=== PATIENT | male | born 1970 | race Caucasian/White ===

== ENCOUNTER 2021-11-12 07:18 | Outpatient (CLI) | payer BC, SELFPAY ==
--- NOTE | 2021-11-12 07:45 | CRLHL7_ITS ---
For Patients: As a result of the Century Cures Act, medical imaging exams and procedure reports are released immediately into your electronic medical record. You may view this report before your referring provider. If you have questions, please contact your health care provider. BILATERAL DIAGNOSTIC MAMMOGRAM WITH COMPUTER-AIDED DETECTION AND TOMOSYNTHESIS RIGHT BREAST ULTRASOUND CLINICAL HISTORY: RIGHT outer chest lump. TECHNIQUE: Diagnostic RIGHT and screening LEFT mammograms with tomosynthesis. These mammographic images have been obtained using full-field digital technique. Computer-aided detection as utilized. Targeted RIGHT breast ultrasound was also performed. COMPARISON FILM: None. BREAST COMPOSITION: The breasts are almost entirely fatty. FINDINGS: BILATERAL retroareolar breast tissue, RIGHT greater than LEFT. A skin marker was placed in the outer RIGHT breast at the 8 to 9 o`clock position. No mass, suspicious microcalcifications, architectural distortion, skin thickening, or other evidence of malignancy. Targeted RIGHT breast ultrasound at the 9 o`clock position at the site of palpable abnormality is unremarkable. There is breast tissue noted with no mass, cyst, or other abnormality. IMPRESSION: 1. BILATERAL retroareolar breast tissue, RIGHT greater than LEFT, consistent with gynecomastia. 2. Targeted RIGHT breast ultrasound at the 9 o`clock position at the site of lump is unremarkable. BI-RADS Category 2: Benign RECOMMENDATION: Recommend clinical follow-up of the lump. If interval change, consider repeat ultrasound. A lay language report of this examination will be provided to the patient. Dru Wilson M.D. Diagnostic/Musculoskeletal Radiologist [email or web address]/Dictated by: Dru Wilson MD @ 11/12/2021 9:02:00 AM (Electronically Signed)
--- NOTE | 2021-11-12 08:15 | CRLHL7_ITS ---
For Patients: As a result of the Cures Act, medical imaging exams and procedure reports are released immediately into your electronic medical record. You may view this report before your referring provider. If you have questions, please contact your health care provider. PLEASE SEE DIGITAL DIAGNOSTIC BILATERAL MAMMOGRAM PERFORMED SAME DAY CRL:[email or web address]/Dictated by: Dru Wilson MD @ 11/12/2021 8:56:00 AM (Electronically Signed)
== END 2021-11-12 07:19 | disposition home or self-care (01) ==
LOC: MAMMO 07:19
PROVIDERS: PCP Family Medicine; Visit Provider Family Medicine
DX: N63.10 Unspecified lump in the right breast, unspecified quadrant (principal)
CPT/HCPCS: 76642; 77066; G0279

== ENCOUNTER 2022-03-02 14:11 | Outpatient (CLI) | payer BC, SELFPAY ==
--- OUTSIDE RECORDS SUMMARY | 2022-03-02 08:30 | XMS_ITS | Encounter Summary ---
:1970 Author Organization [facility] Address [address] [place] [address] Care Team Providers Name Role Phone Elsewhere, Pcp Primary Care Provider Unavailable Encounter Details Date Type Department Care Team Description 01/19/2022 Clinical Communication Pharmacy Prior Auth Fay Feliz [phone] Social History Tobacco Use Types Packs/Day Years Used Date Smoking Tobacco: Never Smokeless Tobacco: Current Chew Alcohol Use Standard Drinks/Week Comments Yes 0 (1 standard drink = 0.6 oz pure alcoho l) Alcohol Habits Answer Date Recorded How often do you have a drink containing alcohol? 2-3 times a week 05/04/2021 How many drinks containing alcohol do you have on a 1 or 2 05/04/2021 typical day when you are drinking? How often do you have six or more drinks on one Less than mo nthly 05/04/2021 occasion? Social Isolation Answer Date Recorded In a typical week, how many times do you More than three shankar es a week 05/04/2021 talk on the phone with family, friends, or neighbors? How often do you get together with friends Once a week 05/04/2021 or relatives? How often do you attend quaker or Never 2021 congregation services? Do you belong to any clubs or No 05/04/2021 organizations such as quaker groups, unions, fraternal or athletic groups, or school groups? How often do you attend meetings of the Never 05/04/2021 clubs or organizations you belong to? Are you now , , , 05/04/2021 , never or living with a partner? Physical Activity Answer Date Recorded On average, how many days per week do you engage in moderate to 1 day 05/04/2021 strenuous exercise (like walking fast, running, jogging, dancing, swimming, biking, or other activities that cause a light or heavy sweat)? On average, how many minutes do you engage in exercise at th is 90 min 05/04/2021 level? Stress Answer Date Recorded Do you feel stress - tense, restless, nervous, or anxious, N ot at all 05/04/2021 or unable to sleep at night because your mind is troubled all the time - these days? Financial Resource Strain Answer Date Recorded How hard is it for you to pay for the very basics like Not h antonina at all 05/04/2021 food, housing, medical care, and heating? Intimate Partner Violence Answer Date Recorded Within the last year, have you been afraid of your partner o r No 05/04/2021 ex-partner? Within the last year, have you been humiliated or emotionall y No 05/04/2021 abused in other ways by your partner or ex-partner? Within the last year, have you been kicked, hit, slapped, or No 05/04/2021 otherwise physically hurt by your partner or ex-partner? Within the last year, have you been raped or forced to have any No 05/04/2021 kind of sexual activity by your partner or ex-partner? Food Insecurity Answer Date Recorded Within the past 12 months, you worried that your food would Never true 05/04/2021 run out before you got money to buy more. Within the past 12 months, the food you bought just didn't N ever true 05/04/2021 last and you didn't have money to get more. Transportation Needs Answer Date Recorded In the past 12 months, has lack of transportation kept you f rom No 05/04/2021 medical appointments or from getting medications? In the past 12 months, has lack of transportation kept you f rom No 05/04/2021 meetings, work, or getting things needed for daily living? Housing Stability Answer Date Recorded In the last 12 months, was there a time when you were not ab le No 05/04/2021 to pay the mortgage or rent on time? In the last 12 months, how many places have you lived? 1 05/04/2021 In the last 12 months, was there a time when you did not hav e a No 05/04/[address] or slept in a correction (including now)? Education Answer Date Recorded What is the highest level of school you have completed or 12 th grade 06/18/2019 the highest degree you have received? 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 [address] [place] [address] [phone] (Wo rk) 04/28/2022 Ancillary Procedure Ophthalmology Joselo Palmer O.D. [address] [place] [address] [phone] (Wo rk) 04/28/2022 Office Visit Ophthalmology Tita Palmer O.D. [address] [place] [address] [phone] (Wo rk) documented as of this encounter Visit Diagnoses Not on filedocumented in this encounter Care Teams White [employer]wall Tire Buffer Relationship Specialty Start Date End Date Elsewhere, Pcp PCP - General Internal Medicine 12/05/21 documented as of this encounter
--- OUTSIDE RECORDS SUMMARY | 2022-03-02 08:30 | XMS_ITS | Encounter Summary ---
:1970 Author Organization [facility] Address [address] [place] [address] Care Team Providers Name Role Phone Elsewhere, Pcp Primary Care Provider Unavailable Encounter Details Date Type Department Care Team Description 01/13/2022 Orders Only Pharmacy Prior Auth Carmelo Cole M.D. [phone] [place] [id number] (Wo rk) Social History Tobacco Use Types Packs/Day Years [...] or relatives? How often do you attend latter-day or Never 2021 faith services? Do you belong to any clubs or No 05/04/2021 organizations such as latter-day groups, unions, fraternal or athletic groups, or [...] place to sleep or slept in a fci (including now)? Education Answer Date Recorded What is the highest level of school you have completed or 12 th grade 06/18/2019 the highest degree you have received? 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 [address] [place] [address] [phone] (Wo rk) 04/28/2022 Ancillary Procedure Ophthalmology Joselo Palmer O.D. [address] [place] [address] [phone] (Wo rk) 04/28/2022 Office Visit Ophthalmology Tita Palmer O.D. [address] [place] [address] [phone] (Wo rk) documented as of this encounter Visit Diagnoses Not on filedocumented in this encounter Care Teams Hot Pipe Gauger Relationship Specialty Start Date End Date Elsewhere, Pcp PCP - General Internal Medicine 12/05/21 documented as of this encounter
--- OUTSIDE RECORDS SUMMARY | 2022-03-02 08:30 | XMS_ITS | Encounter Summary ---
:1970 Author Organization [facility] Address [address] [place] [address] Care Team Providers Name Role Phone Elsewhere, Pcp Primary Care Provider Unavailable Reason for Visit Reason Comments Medication Question Encounter Details Date Type Department Care Team Description 01/16/2022 Clinical Department of Kalee Burton Medication Communication Endocrinology in A, R.N. Question Esther Romero, [address] [facility] [address] [facility] [place], [place] [phone] Social History Tobacco Use Types Packs/Day Years [...] or relatives? How often do you attend pentecostalism or Never 2021 mandaen services? Do you belong to any clubs or No 05/04/2021 organizations such as pentecostalism groups, unions, fraternal or athletic groups, or [...] minutes do you engage in exercise at is 90 min 05/04/2021 level? Stress Answer [...] place to sleep or slept in a alf (including now)? Education Answer Date Recorded What is the highest level of school you have completed or 12 th grade 06/18/2019 the highest degree you have received? 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 - 01/27/2022 2:05 PM CDT Pt did receive medication. Telephone Encounter - Carmelo Diana M.D. - 01/25/2022 2:37 PM CDT Was the patient able to fill the replacement for Lantus insulin? Telephone Encounter - Pau Garduno L.P.N. - 01/16/2022 3:09 PM CDT Called pharmacy,The insulin given to Pt was Glargine-YFG. Which is a biosimilar Drug, so the pharmacy stated that it is not a generic so they were able to give without prior approval . Telephone Encounter - Carmelo Diana M.D. - 01/16/2022 2:46 PM CDT Ok to order. Can you do a verbal order - switch to basaglar. I might not be able to approve it before end of day if pt needs this filled urgently. Telephone Encounter - Pau Garduno L.P.N. - 01/16/2022 2:40 PM CDT Ok to order. Pend generic insulin for Pt ? Telephone Encounter - Kalee Burton R.N. - 01/16/2022 11:41 AM CDT [facility] [phone]. [facility] has been denied by patient insurance.States that his insurance will cover a generic glargine insuline. Wants to know if it is okay to fill the covered medication in the solostar[facility] place. Please advise. documented in this encounter Plan of Treatment Upcoming Encounters Date Type Specialty Care Team Description 04/28/2022 Ancillary Procedure Ophthalmology Softing Joselo Narayanan O.D. [address] [place], [place] [phone] (Odalis rk) 04/28/2022 Ancillary Procedure Ophthalmology Softing Joselo Narayanan O.D. [address] [place], [place] 55 [phone] (Odalis rk) 04/28/2022 Office Visit Ophthalmology Tita Palmer O.D. [address] [place], [place] [phone] (Odalis rk) documented as of this encounter Visit Diagnoses Not on filedocumented in this encounter Care Teams Cinder Crusher Operator Relationship Specialty Start Date End Date Elsewhere, Pcp PCP - General Internal Medicine 12/05/21 documented as of this encounter
--- OUTSIDE RECORDS SUMMARY | 2022-03-02 08:30 | XMS_ITS | Encounter Summary ---
:1970 Author Organization [facility] Address [address] [place] [address] Care Team Providers Name Role Phone Elsewhere, Pcp Primary Care Provider Unavailable Reason for Visit Reason Comments Med Refill Encounter Details Date Type Department Care Team Description 02/06/2022 Refill Division of Nephrology and Harshad, Bernard Coker Jr., Med Refill Hypertension in [facility] [address] [facility] [address] [place] [address] [place] [address] [phone] Social History Tobacco Use Types Packs/Day Years [...] or relatives? How often do you attend mandaen or Never 2021 rastafarian services? Do you belong to any clubs or No 05/04/2021 organizations such as mandaen groups, unions, fraternal or athletic groups, or [...] place to sleep or slept in a retirement (including now)? Education Answer Date Recorded What is the highest level of school you have completed or 12 th grade 06/18/2019 the highest degree you have received? 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 [address] [place] [address] [phone] (Wo rk) 04/28/2022 Ancillary Procedure Ophthalmology Joselo Palmer O.D. [address] [place] [address] [phone] (Wo rk) 04/28/2022 Office Visit Ophthalmology Tita Palmer O.D. [address] [place] [address] [phone] (Wo rk) documented as of this encounter Visit Diagnoses Not on filedocumented in this encounter Care Teams Marine Engine Machinist Apprentice Relationship Specialty Start Date End Date Elsewhere, Pcp PCP - General Internal Medicine 12/05/21 documented as of this encounter
--- OUTSIDE RECORDS SUMMARY | 2022-03-02 08:30 | XMS_ITS | Encounter Summary ---
:1970 Author Organization [facility] Address [address] [place] [address] Care Team Providers Name Role Phone Elsewhere, Pcp Primary Care Provider Unavailable Encounter Details Date Type Department Care Team Description 01/14/2022 Orders Only Pharmacy Prior Auth Carmelo Cole M.D. [phone] [place] [address] (Wo rk) Social History Tobacco Use Types [...] or relatives? How often do you attend mandaeism or Never 2021 zoroastrian services? Do you belong to any clubs or No 05/04/2021 organizations such as mandaeism groups, unions, fraternal or athletic groups, or [...] place to sleep or slept in a nursing home (including now)? Education Answer Date Recorded What is the highest level of school you have completed or 12 th grade 06/18/2019 the highest degree you have received? 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 [address] [place] [address] [phone] (Wo rk) 04/28/2022 Ancillary Procedure Ophthalmology Joselo Palmer O.D. [address] [place] [address] [phone] (Wo rk) 04/28/2022 Office Visit Ophthalmology Tita Palmer O.D. [address] [place] [address] [phone] (Wo rk) documented as of this encounter Visit Diagnoses Not on filedocumented in this encounter Care Teams Head Screen Worker Relationship Specialty Start Date End Date Elsewhere, Pcp PCP - General Internal Medicine 12/05/21 documented as of this encounter
--- OUTSIDE RECORDS SUMMARY | 2022-03-02 08:30 | XMS_ITS | Clinical Summary ---
:1970 Author Organization [facility] Address [address] [place] [address] Care Team Providers Name Role Phone Elsewhere, Pcp Primary Care Provider Unavailable Source Comments Patient records contain information from all sites at [facility]. For routine questions regarding patient records, call [phone] during business hours, M-F 8:00 AM - 5:00 PM Central Time. Record requests for emergency care only can be directed to [phone] at any time.[facility] Allergies Active Allergy Reactions Severity Noted Date Comments Penicillins Rash Medium 07/26/2010 Medications Medication Sig Dispensed Refills Start Date End Date Status aspirin [address] Take 81 mg by 0 Active tablet mouth daily. ACCU-CHEK FASTCLIX 6 03/10/2017 Active misc UltiCare Pen Needle 4 Injection 400 each 3 05/30/2020 Active 31 gauge x 16 daily. needle OneTouch Ultra Blue TEST FOUR TIMES 100 strip 3 09/01/2020 Active Test Strip A DAY DX: stripsIndications: E10.3593, Diabetes Mellitus E10.21, E10.65 Type 1 (HCC) atorvastatin Take 1 tablet 90 tablet 3 05/08/2021 Ac tive (LIPITOR) 40 mg (40 mg total) 3 tablet by mouth daily. chlorthalidone Take 1 tablet 90 tablet 3 05/08/2021 Active (HYGROTON) 50 mg (50 mg total) tablet by mouth daily. HumaLOG KwikPen Take 3 units 15 mL 5 05/08/2021 Active Insulin 100 unit/mL with breakfast, injection 3 units with lunch, 12 units with supper plus sliding scale. TDD 25 units Lantus Solostar Inject 35 Units 15 mL 11 05/08/2021 Active U-100 Insulin 100 under the skin unit/mL (3 mL) daily. 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 amLODIPine TAKE 1 TABLET 90 tablet 3 06/11/2021 Acti ve (NORVASC) 10 mg (10 MG) BY tablet MOUTH DAILY. levothyroxine TAKE 2 TABLETS 170 tablet 3 08/06/2021 Active (SYNTHROID, BY MOUTH DAILY LEVOTHROID) 112 mcg 6 DAYS A WEEK tablet (WEDNESDAY THROUGH WEDNESDAY) AND 1 TABLET 1 DAY A WEEK (WEDNESDAY) losartan (COZAAR) TAKE ONE TABLET 90 tablet 3 09/04/2021 Active 100 mg tablet BY MOUTH (100MG) ONCE DAILY spironolactone TAKE 1 TABLET 90 tablet 0 12/11/2021 Active (ALDACTONE) 100 mg (100 MG TOTAL) tablet BY MOUTH DAILY. carvediloL (COREG) TAKE TWO 120 tablet 4 02/10/2022 Active 25 mg tablet TABLETS BY MOUTH (50MG) TWICE A DAY WITH MEALS FreeStyle Don 14 CHANGE EVERY 14 6 each 3 02/14/2022 Active Day Sensor kit DAYS. USE DIRECTED FOR MONITORING GLUCOSE LEVEL. carvediloL (COREG) Take 2 tablets 180 tablet 3 08/06/202101/18 Discontinued 25 mg tablet (50 mg total) 2 by mouth 2 (two) times a day with meals. flash glucose CHANGE EVERY 14 2 each 2 11/26/2021 Discontinued sensor (FreeStyle DAYS. USE 2 Don 14 Day DIRECTED FOR Sensor) kit MONITORING GLUCOSE LEVEL. Active Problems Problem Noted Date Nicotine Dependence Chewing Tobacco 10/17/2018 Last Assessment & Plan: Formatting of th is note might be different from the original. Not willing to stop at this time. 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 Merritt her later this month. Will let him continue to manage his diabetic care. Denies any current issues. States he is foot exams through endocrinology. Hypothyroidism Primary 03/01/2017 Overview: Levothyroxine Last Assessment & Plan: I am going to recheck TSH on the his follow-up with Dr. Diana as it has been almost a year. Hyperlipidemia 03/01/2017 Overview: Lipitor 40 mg Daily Last Assessment & Plan: Only mild elevation last year. Will rech winnie in 1 year he is on Lipitor. Ten year cardiovascular risk score is 4.3% this was shared with patient. Hypertension And Chronic Kidney Disease Stage 3 2010 Overview: Norvasc Losartan Spirolactone Chlorthalidone Has follow-up with Cardiology in this re moiz before. Last Assessment & Plan: Will increase metoprolol from 25-50. He is going to call me if blood pressures in 2 weeks. He is already maxed out on Norvasc spirolactone chlorthalidone and losartan. Has had renal ultrasound in cardio logy follow-up the past. It if he makes no improvement the next option would be to add Imdur. Resolved Problems Problem Noted Date Resolved Date Proteinuria 10/17/2018 06/20/2019 Counseling Diet 03/01/2017 03/01/2017 Half-Way Use Of Insulin Active 03/01/2017 07/22/19 19 Hypertension 08/27/2016 10/18/2017 Chronic Kidney Disease Stage 3 Glomerular Filtration Rate 30 08/13/2015 06/19/2019 To 59 Last Assessment & Plan: Formatting of th is note might be different from the original. Will check BMP next month with labs for endocrine Hemorrhage Vitreous Left 06/13/2014 07/21/2018 Diabetes Mellitus Type 1 03/03/2004 10/18/2017 Hypercholesterolemia 11/02/2003 10/18/2017 DM1 Retinopathy Proliferative 11/02/2003 07/21/2018 Encounters Date Type Specialty Care Team Description 02/13/2022 Refill Endocrinology Carmelo Diana, Med Refill M.Dequan 02/06/2022 Refill Nephrology and Sutton, Med Refill Hypertension Afshin Coker Jr., D.O. 01/19/2022 Clinical Pharmacy Everardo, Communication Lolita Douglas 01/19/2022 Orders Only Pharmacy Randolph Livingston 01/19/2022 Clinical Pharmacy Fay Feliz Communication L 01/16/2022 Clinical Endocrinology Kalee Burton Medication Communication A, R.N. Question 01/15/2022 Orders Only Pharmacy Leidy Valdes 01/15/2022 Clinical Pharmacy Everardo, RX DENIAL (LANT Communication Lolita MENDEZ 100 U NIT) 01/14/2022 Orders Only Pharmacy Carmelo Diana M.D. 01/13/2022 Orders Only Pharmacy Carmelo Diana M.D. 01/13/2022 Clinical Pharmacy Dorothy Mariee Communication 12/10/2021 Refill Endocrinology Carmelo Diana, Med Refill Anastacio 12/08/2021 Refill Family Medicine Seamus Nelson, Med Refill ASHLEY, C.N.P. 12/04/2021 Clinical Community Internal [facility], Communication Medicine Obi Patrick APRN, C.N.P. from Last 3 Months Immunizations Name Administration Dates Next Due Influenza (IM) Preservative Free 03/02/2008 Influenza, Injectable, Quadrivalent 01/19/2018, 01/27/2017, 01/17/2015 Influenza, Seasonal, Injectable 03/05/2004 Influenza, Unspecified 03/02/2008 PPSV23 06/20/2019, 03/05/2004 SARS-COV-2 (COVID-19) - PFIZER (12 years 07/23/2020, 021 or older) Tdap 07/21/2018 influenza vaccine quad (FLUZONE/FLUARIX) 01/17/2014 (6 months and older)(PF) Family History Medical History Relation Name Comments Diabetes Brother Robson Hernandez Hypertension Mother Karuna Hernandez Amblyopia Neg Hx Blindness Neg Hx Cataracts Neg Hx Glaucoma Neg Hx Macular degeneration Neg Hx Retinal degeneration Neg Hx Retinal detachment Neg Hx Strabismus Neg Hx Vision loss Neg Hx Relation Name Status Comments Brother Robson Hernandez Mother Karuna Hernandez Social History Tobacco Use Types Packs/Day Years Used Date Smoking Tobacco: Never Smokeless Tobacco: Current Chew Tobacco Cessation: Ready to Quit: No; Co unseling Given: No Alcohol Use Standard Drinks/Week Comments Yes 0 [...] or relatives? How often do you attend denominational or Never 2021 zoroastrianism services? 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 Last Filed Vital Signs Vital Sign Reading Time Taken Comments Blood Pressure 144/98 08/08/2021 7:32 AM CDT Pulse 58 08/08/2021 7:30 AM CDT Temperature 36.6 ??C (97.9 ??F) 06/20/2019 2:47 PM BEAMING MACHINE OPERATOR Respiratory Rate 20 07/21/2018 2:25 PM CDT Oxygen Saturation 98% 06/20/2019 2:47 PM BEAMING MACHINE OPERATOR Inhaled Oxygen Concentration - - Weight 87.9 kg (193 lb 12.6 oz) 08/08/2021 7:33 AM CDT Height 173.4 cm (5' 8.27) 08/08/2021 7:33 AM CDT Body Mass Index 29.23 08/08/2021 7:33 AM CDT Plan of Treatment Upcoming Encounters Date Type Specialty Care Team Description 04/28/2022 Ancillary Procedure Ophthalmology SoftJoselo Whyte O.DCourtney [address] [place] [address] [phone] (Wo rk) 04/28/2022 Ancillary Procedure Ophthalmology SoftJoselo Whyte O.DCourtney [address] [place] [address] [phone] (Wo rk) 04/28/2022 Office Visit Ophthalmology Tita Palmer O.Dequan [address] [place] [address] [phone] (Wo rk) Health Maintenance Due Date Last Done Comments CT Colonography 1972 Cologuard 1970 Colonoscopy 1970 Colorectal Cancer Screening 1972 FIT 1972 HIV Screening 1970 Hepatitis B Vaccines (1 of 3 - 1972 3-dose series) Hepatitis C Screening 1972 Tobacco Cessation counseling 1972 Hepatitis A Vaccines (1 of 2 - 1973 Risk 2-dose series) Pneumococcal vaccine (0-64 years) 06/19/2020 06/20/2019, (3 - PCV) Creatinine Level 07/02/2020 07/03/2019, 04/10/2019, 08/12/2018, Additional history exists Potassium Level 07/02/2020 07/03/2019, 04/10/2019, 08/12/2018, Additional history exists Sodium Level 07/02/2020 07/03/2019, 04/10/2019, 08/12/2018, Additional history exists Depression Screening (Annual 04/19/2021 PHQ-2) COVID-19 Vaccine (4 - Booster for 06/12/2021 04/17/2021, , Pfizer series) 06/27/2020 Office Visit for Blood Pressure 08/06/2021 05/08/2021 Check / Re-check Urine Albumin 08/27/2021 08/27/2020, 08/12/2018, 02/19/2017, Additional history exists Hemoglobin A1C 09/14/2021 03/17/2021, 08/27/2020, 08/12/2018, Additional history exists Influenza Vaccine (#1) 2022 04/17/2021, 01/19/2018, 01/27/2017, Additional history exists Thyroid Stimulating Hormone (TSH) 04/28/2022 04/28/2021, , test for thyroid function 07/03/2019, Additional history exists Diabetic Office Visit with Foot 05/08/2022 05/08/2021, 07/2018 Exam Dilated Eye Exam 07/04/2022 07/04/2021, 07/04/2021, 10/17/2019, Additional history exists DTaP,Tdap,and Td Vaccines (2 - Td 07/21/2028 07/21/2018 or Tdap) Insurance Payer Benefit Plan Subscriber ID Effective Dates Phone Address Type / Group [employer] [employer] [place] [id number] 2021-Preseliezer [phone] [address] [address] PPO [facility] t [address] [place] [id number] Care Teams Email Operations Manager Relationship Specialty Start Date End Date Elsewhere, Pcp PCP - General Internal Medicine 12/05/21
--- OUTSIDE RECORDS SUMMARY | 2022-03-02 08:30 | XMS_ITS | Encounter Summary ---
:1970 Author Organization [facility] Address [address] [place] [address] Care Team Providers Name Role Phone Elsewhere, Pcp Primary Care Provider Unavailable Encounter Details Date Type Department Care Team Description 01/13/2022 Clinical Communication Pharmacy Prior Dorothy Mariee [phone] Social History Tobacco Use Types Packs/Day Years [...] or relatives? How often do you attend zoroastrianism or Never 2021 rastafarian services? Do you belong to any clubs or No 05/04/2021 organizations such as zoroastrianism groups, unions, fraternal or athletic groups, or [...] place to sleep or slept in a skilled nursing (including now)? Education Answer Date Recorded What is the highest level of school you have completed or 12 th grade 06/18/2019 the highest degree you have received? 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 [address] [place] [address] [phone] (Wo rk) 04/28/2022 Ancillary Procedure Ophthalmology Joselo Palmer O.D. [address] [place] [address] [phone] (Wo rk) 04/28/2022 Office Visit Ophthalmology Tita Palmer O.D. [address] [place] [address] [phone] (Wo rk) documented as of this encounter Visit Diagnoses Not on filedocumented in this encounter Care Teams Metal Mixer Relationship Specialty Start Date End Date Elsewhere, Pcp PCP - General Internal Medicine 12/05/21 documented as of this encounter
--- OUTSIDE RECORDS SUMMARY | 2022-03-02 08:30 | XMS_ITS | Encounter Summary ---
:1970 Author Organization [facility] Address [address] [place] [address] Care Team Providers Name Role Phone Elsewhere, Pcp Primary Care Provider Unavailable Reason for Visit Reason Comments Med Refill Encounter Details Date Type Department Care Team Description 12/10/2021 Refill Department of Endocrinology in Carmelo Vera M.D. Med Refill [place], [place] [address] [place] [address] [place] [address] [phone] Social History Tobacco Use Types Packs/Day Years [...] or relatives? How often do you attend christian or Never 2021 hinduism services? Do you belong to any clubs or No 05/04/2021 organizations such as christian groups, unions, fraternal or athletic groups, or [...] place to sleep or slept in a care home (including now)? Education Answer Date Recorded What is the highest level of school you have completed or 12 th grade 06/18/2019 the highest degree you have received? 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 [address] [place] [address] [phone] (Wo rk) 04/28/2022 Ancillary Procedure Ophthalmology Joselo Palmer O.D. [address] [place] [address] [phone] (Wo rk) 04/28/2022 Office Visit Ophthalmology Tita Palmer O.D. [address] [place] [address] [phone] (Wo rk) documented as of this encounter Visit Diagnoses Not on filedocumented in this encounter Care Teams Technical Sales Consultant Relationship Specialty Start Date End Date Elsewhere, Pcp PCP - General Internal Medicine 12/05/21 documented as of this encounter
--- OUTSIDE RECORDS SUMMARY | 2022-03-02 08:30 | XMS_ITS | Encounter Summary ---
:1970 Author Organization [facility] Address [address] [place] [address] Care Team Providers Name Role Phone Elsewhere, Pcp Primary Care Provider Unavailable Reason for Visit Reason Comments Med Refill Encounter Details Date Type Department Care Team Description 12/08/2021 Ref[facility] Milka Nelson APRN, C.N.P. Med Refill Medicine, [place] [address] [facility], in [place], [place] [address] [place] [address] [place] [address] [place] [phone] Social History Tobacco Use Types Packs/Day Years [...] or relatives? How often do you attend christianity or Never 2021 yarsanism services? Do you belong to any clubs or No 05/04/2021 organizations such as christianity groups, unions, fraternal or athletic groups, or [...] place to sleep or slept in a group home (including now)? Education Answer Date Recorded What is the highest level of school you have completed or 12 th grade 06/18/2019 the highest degree you have received? 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 documented in this encounter Plan of Treatment Upcoming Encounters Date Type Specialty Care Team Description 04/28/2022 Ancillary Procedure Ophthalmology Joselo Palmer O.D. [address] [place] [address] [phone] (Odalis walton) 04/28/2022 Ancillary Procedure Ophthalmology Joselo Palmer O.D. [address] [place] [address] [phone] (Odalis [place]) 04/28/2022 Office Visit Ophthalmology Tita Palmer O.D. [address] [place] [address] [phone] (Odalis [place]) documented as of this encounter Visit Diagnoses Not on filedocumented in this encounter Care Teams Lath Tier Relationship Specialty Start Date End Date Elsewhere, Pcp PCP - General Internal Medicine 12/05/21 documented as of this encounter
--- OUTSIDE RECORDS SUMMARY | 2022-03-02 08:30 | XMS_ITS | Encounter Summary ---
:1970 Author Organization [facility] Address [address] [place] [address] Care Team Providers Name Role Phone Elsewhere, Pcp Primary Care Provider Unavailable Reason for Visit Reason Comments RX DENIAL LANTUS SOLOSTAR 100 UNIT Encounter Details Date Type Department Care Team Description 01/15/2022 Clinical Communication Pharmacy Prior Auth IJEOMA Mcgee DENIAL (LANTORI Douglas SOLOSTAR 100 UNIT) [phone] Social History Tobacco Use Types Packs/Day Years [...] or relatives? How often do you attend hindu or Never 2021 baptism services? 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 - 01/19/2022 10:12 AM CDT See message dated 01/16/22 Telephone Encounter - Kael Reveles - 01/15/2022 1:51 PM CDT Images from the original note were not included. The patient's health insurer has denied prior authorization for LANTUS SOLOSTAR 100 UNIT. A quick view of the denial reason is in this communication message. To view the denial letter: Go to Snapshot Go to the purple Medications box Click on the blue Prior Authorizations link Under Denied, click on the blue medication link to open and view the attachment. As the prescriber, your options are: Appeal the decision to the insurer directly (see denial letter for how to appeal). Write a new Rx for an alternative medication therapy. Release the Rx to the pharmacy so the patient can pay out of pocket if they desire. To Release Rx: Open this encounter, go to Meds & Orders, click on the medication, and click the blue ???Release Rx?? button. PLEASE NOTE: If the ???Release Rx?? button is not visible, the Rx has already been released to the pharmacy. If you have questions, please reply via QuickNote to Ella SAUL. Thank you, The OPPA Team documented in this encounter Plan of Treatment Upcoming Encounters Date Type Specialty Care Team Description 04/28/2022 Ancillary Procedure Ophthalmology Joselo Palmer O.D. [address] [place], [place] 55 [phone] (Wo rk) 04/28/2022 Ancillary Procedure Ophthalmology Joselo Palmer O.D. [address] [place], [place] 55 [phone] (Wo rk) 04/28/2022 Office Visit Ophthalmology Tita Palmer O.D. [address] [place], [place] 55 [phone] (Wo rk) documented as of this encounter Visit Diagnoses Not on filedocumented in this encounter Care Teams Repairer General Relationship Specialty Start Date End Date Elsewhere, Pcp PCP - General Internal Medicine 12/05/21 documented as of this encounter
--- OUTSIDE RECORDS SUMMARY | 2022-03-02 08:30 | XMS_ITS | Encounter Summary ---
:1970 Author Organization [facility] Address [address] [place] [address] Care Team Providers Name Role Phone Elsewhere, Pcp Primary Care Provider Unavailable Encounter Details Date Type Department Care Team Description 01/15/2022 Orders Only Pharmacy Prior Auth Leidy Mcguire [phone] Social History Tobacco Use Types Packs/Day Years [...] or relatives? How often do you attend scientology or Never 2021 jewish services? 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 [address] [place] [address] [phone] (Wo rk) 04/28/2022 Ancillary Procedure Ophthalmology Joselo Palmer O.D. [address] [place] [address] 55 [phone] (Wo rk) 04/28/2022 Office Visit Ophthalmology Tita Palmer O.D. [address] [place] [address] [phone] (Wo rk) documented as of this encounter Visit Diagnoses Not on filedocumented in this encounter Care Teams Ride Assembly Supervisor Relationship Specialty Start Date End Date Elsewhere, Pcp PCP - General Internal Medicine 12/05/21 documented as of this encounter
--- OUTSIDE RECORDS SUMMARY | 2022-03-02 08:30 | XMS_ITS | Encounter Summary ---
:1970 Author Organization [facility] Address [address] [place] [address] Care Team Providers Name Role Phone Elsewhere, Pcp Primary Care Provider Unavailable Reason for Visit Reason Comments Med Refill Encounter Details Date Type Department Care Team Description 02/13/2022 Refill Department of Endocrinology in Carmelo Vera M.D. Med Refill [place], [place] [address] [place] [address] [place] [address] [phone] Social History Tobacco Use Types Packs/Day Years [...] or relatives? How often do you attend presybeterian or Never 2021 scientology services? Do you belong to any clubs or No 05/04/2021 organizations such as presybeterian groups, unions, fraternal or athletic groups, or [...] place to sleep or slept in a usp (including now)? Education Answer Date Recorded What is the highest level of school you have completed or 12 th grade 06/18/2019 the highest degree you have received? 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 [address] [place] [address] [phone] (Wo rk) 04/28/2022 Ancillary Procedure Ophthalmology Khurraming Joselo Narayanan L, O.D. [address] [place] [address] 55 [phone] (Wo rk) 04/28/2022 Office Visit Ophthalmology Tita Palmer L, O.D. [address] [place] [address] [phone] (Wo rk) documented as of this encounter Visit Diagnoses Not on filedocumented in this encounter Care Teams Rim Roller Setter Relationship Specialty Start Date End Date Elsewhere, Pcp PCP - General Internal Medicine 12/05/21 documented as of this encounter
--- OUTSIDE RECORDS SUMMARY | 2022-03-02 08:30 | XMS_ITS | Encounter Summary ---
:1970 Author Organization [facility] Address [address] [place] [address] Care Team Providers Name Role Phone Elsewhere, Pcp Primary Care Provider Unavailable Encounter Details Date Type Department Care Team Description 01/19/2022 Clinical Communication Pharmacy Prior Lolita Mcgee [phone] Social History Tobacco Use Types Packs/Day Years [...] or relatives? How often do you attend buddhism or Never 2021 islam services? 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 [address] [place] [address] [phone] (Wo rk) 04/28/2022 Ancillary Procedure Ophthalmology Joselo Palmer O.D. [address] [place] [address] [phone] (Wo rk) 04/28/2022 Office Visit Ophthalmology Tita Palmer O.D. [address] [place] [address] [phone] (Wo rk) documented as of this encounter Visit Diagnoses Not on filedocumented in this encounter Care Teams Intern Retail Relationship Specialty Start Date End Date Elsewhere, Pcp PCP - General Internal Medicine 12/05/21 documented as of this encounter
--- OUTSIDE RECORDS SUMMARY | 2022-03-02 08:30 | XMS_ITS | Encounter Summary ---
:1970 Author Organization [facility] Address [address] [place] [address] Care Team Providers Name Role Phone Elsewhere, Pcp Primary Care Provider Unavailable Encounter Details Date Type Department Care Team Description 01/19/2022 Orders Only Pharmacy Prior Auth Randolph Mustafa [phone] Social History Tobacco Use Types Packs/Day Years [...] or relatives? How often do you attend bahai or Never 2021 samaritan services? Do you belong to any clubs or No 05/04/2021 organizations such as bahai groups, unions, fraternal or athletic groups, or [...] place to sleep or slept in a chcf (including now)? Education Answer Date Recorded What is the highest level of school you have completed or 12 th grade 06/18/2019 the highest degree you have received? 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 [address] [place] [address] [phone] (Wo rk) 04/28/2022 Ancillary Procedure Ophthalmology Joselo Palmer O.D. [address] [place] [address] [phone] (Wo rk) 04/28/2022 Office Visit Ophthalmology Tita Palmer O.D. [address] [place] [address] [phone] (Wo rk) documented as of this encounter Visit Diagnoses Not on filedocumented in this encounter Care Teams Patient Care Coordinator Relationship Specialty Start Date End Date Elsewhere, Pcp PCP - General Internal Medicine 12/05/21 documented as of this encounter
--- OUTSIDE RECORDS SUMMARY | 2022-03-02 08:31 | XMS_ITS | Encounter Summary ---
:1970 Author Organization [facility] Address [address] [place] [address] Care Team Providers Name Role Phone Obi Leggett APRN, C.N.P. Primary Care Provider [phone] Encounter Details Date Type Department Care Team Description 07/18/2021 Orders Only Division of Nephrology and Bernard Patricia Hypertension in [place], [facility], D.O. [place] [address] [facility] [address] [place] [phone] (Wo rk) Social History Tobacco Use Types [...] or relatives? How often do you attend mosque or Never 2021 buddhism services? Do you belong to any clubs or No 05/04/2021 organizations such as mosque groups, unions, fraternal or athletic groups, or [...] place to sleep or slept in a intermediate (including now)? Education Answer Date Recorded What is the highest level of school you have completed or 12 th grade 06/18/2019 the highest degree you have received? 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 [address] [place], [place] 55 [phone] (Wo rk) 04/28/2022 Ancillary Procedure Ophthalmology Joselo Palmer O.D. [address] [place], [place] 55 [phone] (Wo rk) 04/28/2022 Office Visit Ophthalmology Tita Palmer O.D. [address] [place], [place] 55 [phone] (Wo rk) documented as of this encounter Visit Diagnoses Not on filedocumented in this encounter Care Teams Delivery Of Shopping News Relationship Specialty Start Date End Date Obi Leggett APRN, C.N.P. PCP - General Family Medicine 06/08/18 12/04/21 [address] [place] [phone] documented as of this encounter
--- OUTSIDE RECORDS SUMMARY | 2022-03-02 08:31 | XMS_ITS | Encounter Summary ---
:[address] [facility] Address [address] [place] [address] Care Team Providers Name Role Phone Obi Leggett APRN, C.N.P. Primary Care Provider [phone] Reason for Visit Reason Comments Med Refill Encounter Details Date Type Department Care Team Description 06/07/2021 Refill Department of Family Medicine, Obi Leggett, Med Refill [facility], in Tony ASHLEY, C.N.P. [place] [address] [place] [address] [place] [address] [place] [address] [phone] Social History Tobacco Use Types Packs/Day Years [...] or relatives? How often do you attend gnosticism or Never 2021 anglican services? 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 [address] [place], [place] 55 [phone] (Wo rk) 04/28/2022 Ancillary Procedure Ophthalmology Joselo Palmer O.Dequan [address] [place], [place] 55 [phone] (Wo rk) 04/28/2022 Office Visit Ophthalmology Tita Palmer O.D. [address] [place], [place] 55 [phone] (Wo rk) documented as of this encounter Visit Diagnoses Not on filedocumented in this encounter Care Teams Emulsion Operator Relationship Specialty Start Date End Date Obi Leggett, LADLE PULLER, C.N.P. PCP - General Family Medicine 06/08/18 12/04/[address] [place] [address] documented as of this encounter
--- OUTSIDE RECORDS SUMMARY | 2022-03-02 08:31 | XMS_ITS | Encounter Summary ---
:1970 Author Organization [facility] Address [address] [place] [address] Care Team Providers Name Role Phone Obi Leggett APRN, C.N.P. Primary Care Provider [phone] Reason for Visit Reason Comments Eye Exam Outpatient (Routine) - Closed Specialty Diagnoses / Procedures Referred By Contact Refer red To Contact Ophthalmology Tita Palmer [facility] [employer] [place] [address] [place] [address] Referral ID Status Reason Start Date Expiration Date Visits Requ ested Visits Authorized [id number] Closed 06/19/2019 06/18/2020 1 1 Encounter Details Date Type Department Care Team Description 07/04/2021 Office Visit Department of Minesh Narayanan, Diabetes Me llitus Type Ophthalmology in Tita Calabrese O.D. 1 With Proliferative [place], [place] [address] [facility] Diabetic Retinopathy [address] [place], [place] [address] [facility] [phone] Bilateral (HCC) (Primary Dx) Social History Tobacco Use Types Packs/Day Years [...] do you attend bahai or Never 2021 hoahaoism services? Do you belong to any clubs or No 05/04/2021 organizations such as bahai groups, unions, fraElectricite du [place] or athletic groups, or school groups? How [...] place to sleep or slept in a custodial (including now)? Education Answer Date Recorded What is the highest level of school you have completed or 12 th grade 06/18/2019 the highest degree you have received? 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 He will get refraction locally. documented in this encounter Plan of Treatment Upcoming Encounters Date Type Specialty Care Team Description 04/28/2022 Ancillary Procedure Ophthalmology Joselo Palmer O.D. [address] [place], [place] 55 [phone] (Wo rk) 04/28/2022 Ancillary Procedure Ophthalmology Joselo Palmer O.D. [address] [place], [place] 55 [phone] (Wo rk) 04/28/2022 Office Visit Ophthalmology Tita Palmer O.D. [address] [place], [place] 55 [phone] (Wo rk) documented as of this encounter Visit Diagnoses Diagnosis Diabetes Mellitus Type 1 With Proliferat ruperto Diabetic Retinopathy Without Macular Edema Hyperglycemic Bilateral (HCC) - Pr imary documented in this encounter Care Teams Electric Tripper Machine Operator Relationship Specialty Start Date End Date Obi Leggett APRN, C.N.P. PCP - General Family Medicine 06/08/18 12/04/[address] [place] [id number] documented as of this encounter
--- OUTSIDE RECORDS SUMMARY | 2022-03-02 08:31 | XMS_ITS | Encounter Summary ---
:1970 Author Organization [facility] Address [address] [place] [address] Care Team Providers Name Role Phone Obi Leggett APRN, C.N.P. Primary Care Provider [phone] Encounter Details Date Type Department Care Team Description 03/17/2021 Orders Only Department of Bhagra, Carmelo, Hypothyroidi sm Primary Endocrinology in M.D. (Primary Dx) [place], [place] [address] [facility] [address] [place] [address] [phone] Social History Tobacco Use Types Packs/Day Years [...] or relatives? How often do you attend taoism or Never 2021 scientologist services? 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 [address] [place], [place] 55 [phone] (Wo rk) documented as of this encounter Visit Diagnoses Diagnosis Hypothyroidism Primary - Primary documented in this encounter Care Teams Jukebox Routeman Relationship Specialty Start Date End Date Obi Leggett, PUBLIC ADDRESS TECHNICIAN, C.N.P. PCP - General Family Medicine 06/08/18 12/04/21 [address] [place] [phone] documented as of this encounter
--- OUTSIDE RECORDS SUMMARY | 2022-03-02 08:31 | XMS_ITS | Encounter Summary ---
:1970 Author Organization [facility] Address [address] [place] [address] Care Team Providers Name Role Phone Oib Leggett APRN, C.N.P. Primary Care Provider [phone] Encounter Details Date Type Department Care Team Description 07/04/2021 Ancillary Procedure Department of Ophthalmology Social History Tobacco Use Types Packs/Day Years [...] or relatives? How often do you attend gnosticist or Never 2021 sabianist services? Do you belong to any clubs or No 05/04/2021 organizations such as gnosticist groups, unions, fraternal or athletic groups, or [...] place to sleep or slept in a mcfp (including now)? Education Answer Date Recorded What is the highest level of school you have completed or 12 th grade 06/18/2019 the highest degree you have received? 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 [address] [place] [address] 55 [phone] (Wo rk) 04/28/2022 Ancillary Procedure Ophthalmology Joselo Palmer O.D. [address] [place] [address] 55 [phone] (Wo rk) 04/28/2022 Office Visit Ophthalmology Tita Palmer O.D. [address] [place] [address] [phone] (Wo rk) documented as of this encounter Procedures Procedure Name Priority Date/Time Associated Comments Diagnosis OPHTHALMOLOGY IMAGE Routine 07/04/2021 12:00 Resu lts for this EXAM AM CDT procedure are i n the results section. documented in this encounter Results Eye Spectralis OCT-Ophthalmology Image Exam (07/04/2021 12:00 AM CDT) Specimen (Source) Anatomical Location Collection Method / Collectio n Time Received Time / Laterality Volume Narrative IIMS - 07/04/2021 8:50 AM CDT This order has been created and auto-finalized to support the import of images acquired without order. The clini neelam documentation to support these images can be found on the encounter sol t produced images. Provider Not In System IMG NON RAD IMAGING PROCEDUR ES Performing Organization Address City/State/ZIP Code Phon e Number IIMS IIMS NA documented in this encounter Visit Diagnoses Not on filedocumented in this encounter Care Teams Natural Fabricator Relationship Specialty Start Date End Date Obi Leggett, ASHLEY, C.N.P. PCP - General Family Medicine 06/08/18 12/04/21 [address] [place] [phone] documented as of this encounter
--- OUTSIDE RECORDS SUMMARY | 2022-03-02 08:31 | XMS_ITS | Encounter Summary ---
:1970 Author Organization [facility] Address [address] [place] [address] Care Team Providers Name Role Phone Obi Leggett APRN, C.N.P. Primary Care Provider [phone] Reason for Visit Appointment Request (Routine) - Closed Specialty Diagnoses / Procedures Referred By Contact Refer red To Contact Nephrology and Stan Chaney, Hypertension MJoan [address] [place] [address] Referral ID Status Reason Start Date Expiration Date Visits Requ ested Visits Authorized [id number] Closed 05/23/2021 05/23/2022 1 Encounter Details Date Type Department Care Team Description 05/27/2021 External Outreach Division of Harshad, Hypertensi on And Chronic Kidney Disease Stage 3 (HCC) (Primary Dx); Nephrology and Afshin Coker Jr., Diabetes Gia litus Type 1 With Diabetic Nephropathy Hyperglycemic (HCC); Hypertension in D.O. Hypothyroidism Primary; [place], [place] [address] [facility] Diabetes Mellitus Type 1 With Proliferat ruperto Diabetic Retinopathy Without Macular Edema Hyperglycemic Bilateral (HCC) [address] [place] [address] [phone] Social History Tobacco Use Types Packs/Day Years [...] or relatives? How often do you attend sabianist or Never 2021 orthodoxy services? Do you belong to any clubs or No 05/04/2021 organizations such as sabianist groups, unions, fraEeBria or athletic groups, or school groups? How [...] place to sleep or slept in a [place] [facility] [place] (including now)? Education Answer Date Recorded What is the highest level of school you have completed or 12 th grade 06/18/2019 the highest degree you have received? 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 D.Syl - 05/27/2021 1:00 PM CST Please see scanned in note under document viewer tab for the [facility] outreach visit from this date. RAL WORKERS documented in this encounter Plan of Treatment Upcoming Encounters Date Type Specialty Care Team Description 04/28/2022 Ancillary Procedure Ophthalmology Joselo Palmer O.D. [address] [place], [place] 55 [phone] (Wo rk) 04/28/2022 Ancillary Procedure Ophthalmology Joselo Palmer O.D. [address] [place], [place] 55 [phone] (Wo rk) 04/28/2022 Office Visit Ophthalmology Tita Palmer O.D. [address] [place], [place] 55 [phone] (Wo rk) documented as of this encounter Visit Diagnoses Diagnosis Hypertension And Chronic Kidney Disease Stage 3 (HCC) - Primary Diabetes Mellitus Type 1 With Diabetic N ephropathy Hyperglycemic (HCC) Hypothyroidism Primary Diabetes Mellitus Type 1 With Proliferat ruperto Diabetic Retinopathy Without Macular Edema Hyperglycemic Bilateral (HCC) documented in this encounter Care Teams Integrated Circuits Inspector Relationship Specialty Start Date End Date Obi Leggett APRN, C.N.P. PCP - General Family Medicine 06/08/18 12/04/[address] [place] [phone] documented as of this encounter
--- OUTSIDE RECORDS SUMMARY | 2022-03-02 08:31 | XMS_ITS | Encounter Summary ---
:1970 Author Organization [facility] Address [address] [place] [address] Care Team Providers Name Role Phone Obi Leggett APRN, C.N.P. Primary Care Provider Encounter Details Date Type Department Care Team Description 04/02/2021 Orders Only Department of Bhagra, Carmelo, Hypothyroidi sm Primary Endocrinology in M.D. (Primary Dx) [place], [place] [address] [facility] [address] [place] [address] [phone] Social History Tobacco Use Types Packs/Day Years [...] do you attend sabianist or Never 2021 caodaism services? Do you belong to any clubs or No 05/04/2021 organizations such as sabianist groups, unions, fraternal or athletic groups, or [...] place to sleep or slept in a senior living (including now)? Education Answer Date Recorded What is the highest level of school you have completed or 12 th grade 06/18/2019 the highest degree you have received? 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 documented as of this encounter Plan of Treatment Upcoming Encounters Date Type Specialty Care Team Description 04/28/2022 Ancillary Procedure Ophthalmology SoftJoselo Whyte O.Dequan [address] [place], [place] 55 [phone] (Wo rk) 04/28/2022 Ancillary Procedure Ophthalmology SoftJoselo Whyte O.DCourtney [address] [place], [place] 55 [phone] (Wo rk) 04/28/2022 Office Visit Ophthalmology SoftTita Whyte O.Dequan [address] [place], [place] 55 [phone] (Wo rk) documented as of this encounter Results S-TSH (Thyroid-Stimulating Hormone - Sensitive) (04/28/2021 3:44 PM OPERATING COST CLERK) P athologist Signature TSH, Sensitive 1.7 0.3 - 4.2 04/28/2021 OWAT mIU/L 4:15 PM OPERATING COST CLERK Specimen Anatomical Collection Method Collection Time Receive d Time (Source) Location / / Volume Laterality Blood (Blood, 04/28/2021 3:44 PM 04/28/19 3:45 Venous) OPERATING COST CLERK PM OPERATING COST CLERK Carmelo Diana M.D. LAB BLOOD ADD-ON Performing Organization Address City/State/ZIP Code [facility] e Number [employer]- [address] [place] [address] [place] [address] System in [place] [address] documented in this encounter Visit Diagnoses Diagnosis Hypothyroidism Primary - Primary documented in this encounter Care Teams Sql Engineer Relationship Specialty Start Date End Date Obi Leggett APRN, C.N.P. PCP - General Family Medicine 06/08/18 12/04/21 [address] [place] [phone] documented as of this encounter
--- OUTSIDE RECORDS SUMMARY | 2022-03-02 08:31 | XMS_ITS | Encounter Summary ---
:1970 Author Organization [facility] Address [address] [place] [address] Care Team Providers Name Role Phone Obi Leggett APRN, C.N.P. Primary Care Provider [phone] Encounter Details Date Type Department Care Team Description 06/06/2021 Orders Only Division of Nephrology and Bernard Patricia Hypertension in Ava, Rust, D.O. [place] [address] [facility] [address] [place] [address] [phone] (Wo rk) Social History Tobacco Use Types [...] do you attend scientology or Never 2021 advent services? Do you belong to any clubs [...] place to sleep or slept in a half-way (including now)? Education Answer Date Recorded What is the highest level of school you have completed or 12 th grade 06/18/2019 the highest degree you have received? 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 [address] [place], [place] [address] [phone] (Wo rk) 04/28/2022 Ancillary Procedure Ophthalmology Joselo Palmer O.D. [address] [place], [place] 55 [phone] (Wo rk) 04/28/2022 Office Visit Ophthalmology Tita Palmer O.D. [address] [place], [place] 55 [phone] (Wo rk) documented as of this encounter Visit Diagnoses Not on filedocumented in this encounter Care Teams Logistics Planning Manager Relationship Specialty Start Date End Date Obi Leggett APRN, C.N.P. PCP - General Family Medicine 06/08/18 12/04/21 [address] [place] [phone] documented as of this encounter
--- OUTSIDE RECORDS SUMMARY | 2022-03-02 08:31 | XMS_ITS | Encounter Summary ---
:1970 Author Organization [facility] Address [address] [place] [address] Care Team Providers Name Role Phone Obi Leggett APRN, C.N.P. Primary Care Provider [phone] Encounter Details Date Type Department Care Team Description 10/13/2021 Clinical Communication Department of Internal Obi Colunga [facility] in Darnell Jimenez APRN, C.N .P. [place] [address] [place] [address] [place], [place] [phone] Social History Tobacco Use Types Packs/Day Years [...] or relatives? How often do you attend confucianism or Never 2021 worship services? Do you belong to any clubs or No 05/04/2021 organizations such as confucianism groups, unions, fraternal or athletic groups, or [...] place to sleep or slept in a residential (including now)? Education Answer Date Recorded What is the highest level of school you have completed or 12 th grade 06/18/2019 the highest degree you have received? 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 [address] [place], [place] [phone] (Odalis walton) 04/28/2022 Ancillary Procedure Ophthalmology Joselo Palmer O.D. [address] [place] [address] [phone] (Odalis rk) 04/28/2022 Office Visit Ophthalmology Tita Palmer O.Dequan [address] [place] [phone] (Odalis walton) documented as of this encounter Visit Diagnoses Not on filedocumented in this encounter Care Teams Production Mechanic Relationship Specialty Start Date End Date Obi Leggett, WAREHOUSE ENGINEER, C.N.P. PCP - General Family Medicine 06/08/18 12/04/[address] [place] [address] documented as of this encounter
--- OUTSIDE RECORDS SUMMARY | 2022-03-02 08:31 | XMS_ITS | Encounter Summary ---
:1970 Author Organization [facility] Address [address] [place] [address] Care Team Providers Name Role Phone Obi Leggett APRN, C.N.P. Primary Care Provider [phone] Encounter Details Date Type Department Care Team Description 08/06/2021 Orders Only Division of Nephrology and Bernard Patricia Hypertension in [place], [facility], D.O. [place] [address] [facility] [address] [place] [phone] [phone] (Wo rk) Social History Tobacco Use Types [...] do you attend bahai or Never 2021 episcopal services? 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/2017 6:27 AM KILN TESTER documented as of this encounter Plan of Treatment Upcoming Encounters Date Type Specialty Care Team Description 04/28/2022 Ancillary Procedure Ophthalmology SoftJoselo Whyte O.D. [address] [place], [place] [phone] (Wo rk) 04/28/2022 Ancillary Procedure Ophthalmology Joselo Palmer O.D. [address] [place], [place] [phone] (Wo rk) 04/28/2022 Office Visit Ophthalmology Tita Palmer O.D. [address] [place], [place] [phone] (Wo rk) documented as of this encounter Visit Diagnoses Not on filedocumented in this encounter Care Teams Rn Procedures Relationship Specialty Start Date End Date Obi Leggett APRN, C.N.P. PCP - General Family Medicine 06/08/18 12/04/21 [address] [place] [phone] documented as of this encounter
--- OUTSIDE RECORDS SUMMARY | 2022-03-02 08:31 | XMS_ITS | Encounter Summary ---
:1970 Author Organization [facility] Address [address] [place] [address] Care Team Providers Name Role Phone Obi Leggett APRN, C.N.P. Primary Care Provider [phone] Reason for Visit Reason Comments Med Refill Encounter Details Date Type Department Care Team Description 08/05/2021 Refill Department of Endocrinology in Carmelo Vera M.D. Med Refill [place], [place] [address] [facility] [address] [facility] [place] [address] [place] [address] [phone] Social History Tobacco Use Types Packs/Day Years [...] or relatives? How often do you attend mormonism or Never 2021 amish services? 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 Diana. Telephone Encounter - Obi Leggett APRN, C.N.P. - 08/05/2021 12:16 PM CDT I have not seen patient in primary care since 2019 If he wishes for refill from me needs to be seen in primary care, otherwise can ask specialist to fill Karen hinson documented in this encounter Plan of Treatment Upcoming Encounters Date Type Specialty Care Team Description 04/28/2022 Ancillary Procedure Ophthalmology Softing Joselo Narayanan O.D. [address] [place] [phone] (Odalis rk) 04/28/2022 Ancillary Procedure Ophthalmology Softing Joselo Narayanan O.D. [address] [place], [place] [phone] (Odalis rk) 04/28/2022 Office Visit Ophthalmology Softing Tita Narayanan O.D. [address] [place], [place] [phone] (Wo rk) documented as of this encounter Visit Diagnoses Not on filedocumented in this encounter Care Teams Shear Operator Helper Relationship Specialty Start Date End Date Obi Leggett, ASHLEY, C.N.P. PCP - General Family Medicine 06/08/18 12/04/21 [address] [place] [phone] documented as of this encounter
--- OUTSIDE RECORDS SUMMARY | 2022-03-02 08:31 | XMS_ITS | Encounter Summary ---
:1970 Author Organization [facility] Address [address] [place] [address] Care Team Providers Name Role Phone Obi Leggett APRN, C.N.P. Primary Care Provider [phone] Encounter Details Date Type Department Care Team Description 08/19/2021 Orders Only [facility] Sa goran Vasquez M.D. [address] [place], [place] [phone] (Wo rk) Social History Tobacco Use Types [...] do you attend mandaeism or Never 2021 anabaptist services? 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 [address] [place] [address] [phone] (Wo rk) 04/28/2022 Ancillary Procedure Ophthalmology Joselo Palmer O.D. [address] [place] [phone] (Wo rk) 04/28/2022 Office Visit Ophthalmology Tita Palmer O.D. [address] [place] [phone] (Wo rk) documented as of this encounter Visit Diagnoses Not on filedocumented in this encounter Care Teams Stationary Engineer Supervisor Relationship Specialty Start Date End Date Obi Leggett, ASHLEY, C.N.P. PCP - General Family Medicine 06/08/18 12/04/21 [address] [place] [phone] documented as of this encounter
--- OUTSIDE RECORDS SUMMARY | 2022-03-02 08:31 | XMS_ITS | Encounter Summary ---
:1970 Author Organization [facility] Address [address] [place] [address] Care Team Providers Name Role Phone Obi Leggett APRN, C.N.P. Primary Care Provider [phone] Reason for Visit Appointment Request (Routine) - Closed Specialty Diagnoses / Procedures Referred By Contact Refer red To Contact Nephrology and Hypertension Referral ID Status Reason Start Date Expiration Date Visits Requ ested Visits Authorized [id number] Closed 08/07/2021 08/07/2022 1 Encounter Details Date Type Department Care Team Description 09/02/2021 External Outreach Division of [place], Hypertensi on And Chronic Kidney Disease Stage 3 (HCC) (Primary Dx); Nephrology and Afshin Coker Jr., Diabetes Gia litus Type 1 With Diabetic Nephropathy Hyperglycemic (HCC); Hypertension in D.O. Hyperlipidemia; [place], [place] [address] [facility] Hypothyroidism Primary [address] [place] [address] [phone] Social History Tobacco Use Types Packs/Day Years [...] or relatives? How often do you attend sikhism or Never 2021 yarsani services? Do you belong to any clubs or No 05/04/2021 organizations such as sikhism groups, unions, fraternal or athletic groups, or [...] place to sleep or slept in a snf (including now)? Education Answer Date Recorded What is the highest level of school you have completed or 12 th grade 06/18/2019 the highest degree you have received? 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 Medical Problems Diagnosis List Hypertension And Chronic Kidney Disease Stage 3 (HCC) Overview Addendum 07/21/2018 3:20 PM by Obi Leggett APRN, C.N.P. Norvasc Losartan Spirolactone Chlorthalidone Has follow-up with Cardiology in this regard before. 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 Follows with Endocrine Last A1C : 7.8 Previous A1C: Blood Sugars: Frequency of Testin times daily Dexter-Inhibitor?: ARB losartan Diet: Diabetic Customer Acquisition Manager: Yes Statin:Yes Foot Exam: Open sores:No Decreased sensation:No Follows with Podiatry:No Tobacco Use: No Controlled: No Eye exam within 1 year: Yes Medications:Basaglar Daily, Humalog with meals TID Insulin use: Yes Follow up: in 3 months Follows with a diabetic research team in [place] Hypothyroidism Primary Overview Signed 07/21/2018 10:37 AM by Obi Leggett APRN, C.N.P. Levothyroxine Hyperlipidemia Overview Signed 07/21/2018 10:36 AM by Obi Leggett APRN, C.N.P. 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 [address] [place] [phone] (Wo rk) 04/28/2022 Ancillary Procedure Ophthalmology SoftJoselo Whyte O.D. [address] [place] [address] [phone] (Wo rk) 04/28/2022 Office Visit Ophthalmology SoftTita Whyte O.D. [address] [place] [address] [phone] (Wo rk) documented as of this encounter Visit Diagnoses Diagnosis Hypertension And Chronic Kidney Disease Stage 3 (HCC) - Primary Diabetes Mellitus Type 1 With Diabetic N ephropathy Hyperglycemic (HCC) Hyperlipidemia Hypothyroidism Primary documented in this encounter Care Teams Master Deputy Sheriff Court Security Relationship Specialty Start Date End Date Obi Leggett APRN, C.N.P. PCP - General Family Medicine 06/08/18 12/04/21 [address] [place] [phone] documented as of this encounter
--- OUTSIDE RECORDS SUMMARY | 2022-03-02 08:31 | XMS_ITS | Encounter Summary ---
:1970 Author Organization [facility] Address [address] [place] [address] Care Team Providers Name Role Phone Obi Leggett APRN, C.N.P. Primary Care Provider [phone] Reason for Visit Reason Comments Med Refill Encounter Details Date Type Department Care Team Description 11/24/2021 Refill Department of Endocrinology in Carmelo Vera M.D. Med Refill [place], [place] [address] [facility] [address] [facility] [place] [address] [place] [address] [phone] Social History Tobacco Use Types Packs/Day Years [...] or relatives? How often do you attend worship or Never 2021 spiritism services? 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 - 11/26/2021 1:59 PM CDT Last visit with Dr. Diana was on 05/08/21 Please advise on refill, thanks Telephone Encounter - Obi Leggett APRN, C.N.P. - 11/26/2021 8:51 AM CDT I have not seen patient since 2019, he has not wanted to come in to primary care, can ask endocrine if they are willing Karen Crocker Telephone Encounter - Reyna Hodgson - 11/26/2021 8:22 AM CDT Lab Results Component Value Date HGBA1C 7.2 (H) 03/17/2021 documented in this encounter Plan of Treatment Upcoming Encounters Date Type Specialty Care Team Description 04/28/2022 Ancillary Procedure Ophthalmology Softing Joselo Narayanan, O.DCourtney [address] [place], [place] [phone] (Wo rk) 04/28/2022 Ancillary Procedure Ophthalmology Joselo Palmer O.D. [address] [place], [place] [phone] (Wo rk) 04/28/2022 Office Visit Ophthalmology Tita Palmer O.D. [address] [place], [place] [phone] (Wo rk) documented as of this encounter Visit Diagnoses Not on filedocumented in this encounter Care Teams Master Brewer Relationship Specialty Start Date End Date Obi Leggett APRN, C.N.P. PCP - General Family Medicine 06/08/18 12/04/21 [address] [place] [phone] documented as of this encounter
--- OUTSIDE RECORDS SUMMARY | 2022-03-02 08:31 | XMS_ITS | Encounter Summary ---
:1970 Author Organization [facility] Address [address] [place] [address] Care Team Providers Name Role Phone Obi Leggett APRN, C.N.P. Primary Care Provider [phone] Reason for Visit Reason Comments Med Refill Encounter Details Date Type Department Care Team Description 09/04/2021 Refill Department of Endocrinology in Carmelo Vera M.D. Med Refill [place], [place] [address] [facility] [address] [facility] [place] [place] [address] [place] [address] [phone] Social History Tobacco Use Types Packs/Day Years [...] do you attend sabianist or Never 2021 protestant services? 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 - 09/04/2021 12:24 PM CDT Last visit with myself 06/2019 Was seen by Nephrology on the would they consider filling? Or I can do short fill until he is seen by myself as it has been so long. documented in this encounter Plan of Treatment Upcoming Encounters Date Type Specialty Care Team Description 04/28/2022 Ancillary Procedure Ophthalmology Joselo Palmer O.D. [address] [place], [place] [phone] (Odalis walton) 04/28/2022 Ancillary Procedure Ophthalmology Joselo Palmer O.D. [address] [place] [phone] (Odalis walton) 04/28/2022 Office Visit Ophthalmology Tita Palmer O.D. [address] [place] [phone] (Odalis walton) documented as of this encounter Visit Diagnoses Not on filedocumented in this encounter Care Teams Pipe Or Steam Fitter Furnace Installer Relationship Specialty Start Date End Date Obi Leggett, ASHLEY, C.N.P. PCP - General Family Medicine 06/08/18 12/04/21 [address] [place] [phone] documented as of this encounter
--- OUTSIDE RECORDS SUMMARY | 2022-03-02 08:31 | XMS_ITS | Encounter Summary ---
:1970 Author Organization [facility] Address [address] [place] [address] Care Team Providers Name Role Phone Elsewhere, Pcp Primary Care Provider Unavailable Encounter Details Date Type Department Care Team Description 12/04/2021 Clinical Communication Department of Internal Obi Colunga [facility] in [facility], LEATHER NOVELTY PARTS CUTTER, C.N .P. [place] [address] [place] [address] [place], [place] [phone] Social History Tobacco Use Types Packs/Day Years [...] or relatives? How often do you attend judaism or Never 2021 congregational services? 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 Telephone Encounter - Rajni Paul R.N. - 12/04/2021 3:04 PM CDT Primary Care Diabetes Review Completed patient diabetes review on 12/04/2021, for Lex Hernandez, a 51 y.o. male, currently paneled to Obi Leggett APRN, C.N.P. Summary of Chart Review Recent Labs 03/17/21 0755 08/27/20 0829 HGBA1C 7.2 H 7.5 H LDLCALC 122 -- BP Readings from Last 2 Encounters: 08/08/21 (!) 144/98 05/08/21 150/83 Social History Tobacco Use Smoking Status Never Smokeless Tobacco Current Types: Chew Upon today's chart review, patient is not meeting the following D5 criteria: Blood pressure Tobacco use Patient does not have a visit scheduled in Primary Care within the next 3 months. Recent Updates to Diabetes Management Plan The following recommendations regarding patient's diabetes management plan have been made within thelast 12 months: No changes to patient's diabetes management plan have been recommended within the last 12 months. Recommended follow-up RN will: Contact patient to: Schedule diabetes follow-up and Schedule A1C, lipid panel, and urine microalbumin. Additional Notes Additional notes: None documented in this encounter Plan of Treatment Upcoming Encounters Date Type Specialty Care Team Description 04/28/2022 Ancillary Procedure Ophthalmology Joselo Palmer O.D. [address] [place] [phone] (Wo rk) 04/28/2022 Ancillary Procedure Ophthalmology Joselo Palmer O.D. [address] [place] [phone] (Wo rk) 04/28/2022 Office Visit Ophthalmology Tita Palmer O.D. [address] [place] [address] [phone] (Wo rk) documented as of this encounter Visit Diagnoses Not on filedocumented in this encounter Care Teams Welfare Visitor Relationship Specialty Start Date End Date Elsewhere, Pcp PCP - General Internal Medicine 12/05/21 documented as of this encounter
--- OUTSIDE RECORDS SUMMARY | 2022-03-02 08:31 | XMS_ITS | Encounter Summary ---
:1970 Author Organization [facility] Address [address] [place] [address] Care Team Providers Name Role Phone Obi Leggett APRN, C.N.P. Primary Care Provider [phone] Encounter Details Date Type Department Care Team Description 04/28/2021 Hospital Encounter Department of [place], Carmelo, Hypoth yroidism Primary Laboratory M.D. Medicine in [facility] [place], [place] [address] [address] [place], [place] [phone] [address] (Work) [phone] Social History Tobacco Use Types Packs/Day Years [...] or relatives? How often do you attend restorationism or Never 2021 jainism services? 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 FirstRideuch Ultra Blue Test TEST FOUR TIMES A 100 strip 3 08/17 Strip stripsIndications: DAY DX: E10.3593, Diabetes Mellitus Type 1 E10.21, E10.65 ([facility]) UltiCare Pen Needle 31 4 Injection daily. 400 each 3 05/30 gauge x 5/16 needle amLODIPine (NORVASC) 10 TAKE 1 TABLET (10 90 tablet 3 05/2906/10/2021 mg tablet MG) BY MOUTH DAILY. atorvastatin (LIPITOR) TAKE 1 TABLET (40 90 tablet 3 202005/08/2021 40 mg tablet MG) BY MOUTH DAILY. chlorthalidone TAKE 1 TABLET (50 90 tablet 3 07/24/2020 (HYGROTON) 50 mg tablet MG) BY MOUTH DAILY. flash glucose sensor CHANGE EVERY 14 6 each 4 09/04/2020 05/08/2021 (FreeStyle Don 14 Day DAYS. USE Sensor) kit DIRECTED FOR MONITORING GLUCOSE LEVEL. HumaLOG KwikPen Insulin Take 8 units with 15 mL 11 07/2505/08/2021 100 unit/mL injection each meal plus sliding scale. TDD 40 units per day. 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 metoprolol succinate TAKE 1 TABLET (50 90 tablet 3 05/24/19 21 06/06/2021 (TOPROL-XL) 50 mg 24 hr MG) BY MOUTH DAILY. tablet DO NOT CRUSH OR CHEW. spironolactone TAKE 1 TABLET (100 90 tablet 3 11/25/2020 (ALDACTONE) 100 mg MG TOTAL) BY MOUTH tablet DAILY. documented as of this encounter Plan of Treatment Upcoming Encounters Date Type Specialty Care Team Description 04/28/2022 Ancillary Procedure Ophthalmology Softing Joselo Narayanan O.DCourtney [address] [place], [place] [phone] (Odalis rk) 04/28/2022 Ancillary Procedure Ophthalmology Softing Joselo Narayanan O.DCourtney [address] [place], [place] [phone] (Odalis rk) 04/28/2022 Office Visit Ophthalmology SoftTita Whyte O.Dequan [address] [place], [place] [phone] (Odalis rk) documented as of this encounter Procedures Procedure Name Priority Date/Time Associated Diagnosis Comme nts THYROID-STIMULATIN Routine 04/28/2021 3:44 PM Hypothyroidism P rimary Results for this G SUPERVISOR GENERAL procedure are i n HORMONE-SENSITIVE the result s (S-TSH) section. documented in this encounter Results S-TSH (Thyroid-Stimulating Hormone - Sensitive) (04/28/2021 3:44 PM SUPERVISOR GENERAL) P athologist Signature TSH, Sensitive 1.7 0.3 - 4.2 04/28/2021 OWAT mIU/L 4:15 PM SUPERVISOR GENERAL Specimen Anatomical Collection Method Collection Time Receive d Time (Source) Location / / Volume Laterality Blood (Blood, 04/28/2021 3:44 PM 04/28/19 3:45 Venous) SUPERVISOR GENERAL PM SUPERVISOR GENERAL Carmelo Diana M.D. LAB BLOOD ADD-ON Performing Organization Address City/State/ZIP Code Phon e Number [facility] [address] [place] [address] [place] [address] System in [place] [address] [facility] documented in this encounter Visit Diagnoses Diagnosis Hypothyroidism Primary documented in this encounter Care Teams Service Developer Relationship Specialty Start Date End Date Obi Leggett, ASHLEY, C.N.P. PCP - General Family Medicine 06/08/18 12/04/21 [address] [place] [phone] documented as of this encounter
--- OUTSIDE RECORDS SUMMARY | 2022-03-02 08:31 | XMS_ITS | Encounter Summary ---
:1970 Author Organization [facility] Address [address] [place] [address] Care Team Providers Name Role Phone Obi Leggett APRN, C.N.P. Primary Care Provider Encounter Details Date Type Department Care Team Description 07/04/2021 Ancillary Department of Softing [place], Diabetes Me llitus Procedure Ophthalmology in Tita Calabrese O.D. Type 1 With [place], [place] [address] [facility] Proliferative [address] [place], [place] [address] Without Macular Edema [phone] Hyperglycemic Bilateral (HCC) Social History Tobacco Use Types Packs/Day Years [...] or relatives? How often do you attend yazdanism or Never 2021 roman catholic services? 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 documented as of this encounter Plan of Treatment Upcoming Encounters Date Type Specialty Care Team Description 04/28/2022 Ancillary Procedure Ophthalmology SoftJoeslo Whyte O.Dequan [address] [place] [phone] (Wo rk) 04/28/2022 Ancillary Procedure Ophthalmology Joselo Palmer O.Dequan [address] [place] [phone] (Wo rk) 04/28/2022 Office Visit Ophthalmology Tita Palmer O.Dequan [address] [place] [address] [phone] (Wo rk) documented as of this encounter Procedures Procedure Name Priority Date/Time Associated Diagnosis Comme nts OPTICAL COHERENCE Routine 07/04/2021 8:47 AM Diabetes Mellitus Type Results for this TOMOGRAPHY - CDT 1 With Proliferative procedu re are in MACULA/RETINA - OU Diabetic Retinopathy t he results - BOTH EYES Without Macular Edema sectio n. Hyperglycemic Bilateral (HCC) documented in this encounter Results Optical Coherence Tomography (OCT) - Macula/Retina - OU - Both Eyes (07/04/2021 8:47 AM CDT) Specimen (Source) Anatomical Location Collection Method / Collectio n Time Received Time / Laterality Volume Narrative OPHTHALMOLOGY IMAGING EXAM - 07/05/19 22 10:25 AM CDT Right Eye OCT device used was Spectralis . Left Eye OCT device used was Spectralis . Notes See note for results Tita Narayanan O.D. OPHTH TOMOGRAPHY Performing Organization Address City/State/ZIP Code Phon e Number OPHTHALMOLOGY IMAGING EXAM documented in this encounter Visit Diagnoses Diagnosis Diabetes Mellitus Type 1 With Proliferat ruperto Diabetic Retinopathy Without Macular Edema Hyperglycemic Bilateral (HCC) documented in this encounter Care Teams Director Of Corporate Communications Relationship Specialty Start Date End Date Obi Leggett, ASHLEY, C.N.P. PCP - General Family Medicine 06/08/18 12/04/21 [address] [place] [phone] documented as of this encounter
--- OUTSIDE RECORDS SUMMARY | 2022-03-02 08:31 | XMS_ITS | Encounter Summary ---
:1970 Author Organization [facility] Address [address] [place] [address] Care Team Providers Name Role Phone Obi Leggett APRN C.N.PCourtney Primary Care Provider [phone] Reason for Referral Outpatient (Routine) - Authorized Specialty Diagnoses / Procedures Referred By Contact Refer red To Contact Endocrinology Carmelo Diana M.D. 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 [address] [place] [phone] Referral ID Status Reason Start Date Expiration Date Visits Requ ested Visits Authorized [id number] Denied 1 1 utpatient (Routine) - Authorized Specialty Diagnoses / Procedures Referred By Contact Refer red To Contact Ophthalmology Diagnoses Diabetes Mellitus Type 1 With Proliferative Diabetic Retinopathy Without Macular Edema Hyperglycemic Bilateral (HCC) Carmelo Diana M.D. [address] [address] Referral ID Status Reason Start Expiration Visits Visits Date Date Requested Authorized [id number] Authorized Specialty 05/08/2021 05/08/2022 1 1 Services Required Scheduling Instructions Please schedule with Dr. Banks. R AND BOTTOM LACER HAND Reason for Visit Reason Comments Follow-up DM1, hypothyroidism, Appointment Request (Routine) - Closed Specialty Diagnoses / Procedures Referred By Contact Refer red To Contact Endocrinology Carmelo Diana M.D. [address] [place] [phone] Referral ID Status Reason Start Date Expiration Date Visits Requ ested Visits Authorized [id number] Closed 04/02/2021 04/02/2022 1 1 Encounter Details Date Type Department Care Team Description 05/08/2021 Office Visit Department of Carmelo Diana, Diabetes Gia litus Type 1 With Proliferative Diabetic Retinopathy Without Macular Edema Hyperglycemic Bilateral (HCC) (Primary Dx); Endocrinology in [place] Hypertension And Chronic Kidney Disease Stage 3 (HCC); [place], [place] [address] Hypothyroidism Primary; [address] [place]ERMINA [place] Corporate Development Analyst Use Of Insulin Act ruperto (HCC); [place] [address] Counseling Diet; [phone] atus (Work) Social History Tobacco Use Types Packs/Day Years [...] do you attend pentecostalism or Never 2021 sabianist services? Do you [...] at Date Recorded Male 03/01/2017 6:27 AM UPPER AND BOTTOM LACER HAND documented as of this encounter Last Filed Vital Signs Vital Sign Reading Time Taken Comments Blood Pressure 150/83 05/08/2021 2:42 PM UPPER AND BOTTOM LACER HAND Pulse 54 05/08/2021 2:42 PM UPPER AND BOTTOM LACER HAND Temperature - - Respiratory Rate - - Oxygen Saturation - - Inhaled Oxygen Concentration - - Weight - - Height - - Body Mass Index - - documented in this encounter Progress Notes Carmelo Diana M.D. - 05/08/2021 2:20 PM CST SUBJECTIVE CHIEF COMPLAINT / REASON FOR VISIT Type 1 diabetes, primary hypothyroidism Recheck visit HISTORY OF PRESENT ILLNESS Lex Hernandez is a 50-year-old man with type 1 diabetes, primary hypothyroidism seen for follow-up. Type 1 diabetes Onset: Age 13 Glucose lowering regimen: Lantus 37 units once daily Humalog insulin 4 units with breakfast, 4 units with lunch, 12 units with supper plus sliding scale Home monitoring: Freestyle Don continuous glucose monitor Home monitoring frequency: Greater than 4 times daily the past consecutive 90 days Ambulatory glucose profile: Average sensor glucose 148 Hypoglycemia: 13 episodes over the past 14 days. These occur nocturnally as well as following breakfast and lunch associated with strenuous physical activity. Lab Results Component Value Date HGBA1C 7.2 (H) 03/17/2021 Microvascular complications: Diabetic nephropathy Proliferative diabetic retinopathy, bilaterally RIGHT: s/p PRP '04, fill in in 06/03, no CSME LEFT: s/p PRP (last 01/30), no CSME Macrovascular complications: None Aspirin-81 mg daily Statin-moderate intensity statin next Dexter/ARB-losartan 100 mg daily Dyhc-awfeaul-Cevfrg-XL 50 mg once daily Primary hypothyroidism Replaced with levothyroxine 224 mcg 6 days a week, 112 mcg 1 day a week. Clinically euthyroid. TSH 1.7. Essential hypertension. Treated to goal. Home monitored blood pressure 130-140 systolic. The following portions of the patient's history were reviewed and updated as appropriate: allergies,current medications, family history, medical history, social history, surgical history and problem list. . OBJECTIVE PHYSICAL EXAM Vitals and nursing note reviewed. Constitutional Appearance: Normal appearance. Eyes Pupils: Pupils are equal, round, and reactive to light. Cardiovascular Rate and Rhythm: Normal rate. Pulmonary Effort: Pulmonary effort is normal. Breath sounds: Normal breath sounds. Musculoskeletal General: Normal range of motion. Cervical back: Normal range of motion. Right lower leg: No edema. Left lower leg: No edema. Skin Findings: No lesion. Neurological General: No focal deficit present. Mental Status: He is alert and oriented to person, place, and time. Psychiatric Mood and Affect: Mood normal. Behavior: Behavior normal. 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 Recommend decreasing the dose of Lantus to 35 units once daily to minimize the risk of nocturnal hypoglycemia. The dose of Humalog was decreased to 3 units with breakfast, 3 units with lunch, 12 units with supper plus sliding scale. Recommend consistent carbohydrate intake, accurate carb counting. Reviewed symptoms of hypoglycemia and interventions to promptly treat hypoglycemia. Eye exam overdue-ordered. - Ophthalmology - General consult (clinic); Future; Expected date: 05/08/2021 - Lantus Solostar U-100 Insulin 100 unit/mL (3 mL) injection; Inject 35 Units under the skin daily.,Starting Wed05/08/2021, Normal - Hemoglobin A1c; Future; Expected date: 11/05/2021 - Albumin, Random, Urine; Future; Expected date: 11/05/2021 (Before next visit) - Basic Metabolic Panel; Future; Expected date: 11/05/2021 (Before next visit) #2 Hypertension And Chronic Kidney Disease Stage 3 (HCC) Treated to goal #3 Hyperlipidemia Managed with a moderate intensity statin #4 Hypothyroidism Primary Adequately replaced. Goal TSH 0.3-3.0. #5 Usp Use Of Insulin Active (HCC) Other orders - atorvastatin (LIPITOR) 40 mg tablet; Take 1 tablet (40 mg total) by mouth daily., Starting Wed05/08/2021, Until Wed05/08/2022, Normal - chlorthalidone (HYGROTON) 50 mg tablet; Take 1 tablet (50 mg total) by mouth daily., Starting Wed05/08/2021, Normal - flash glucose sensor (FreeStyle Don 14 Day Sensor) kit; 1 kit (2 sensors) every 14 days, Normal - HumaLOG KwikPen Insulin 100 unit/mL injection; Take 3 units with breakfast, 3 units with lunch, 12units with supper plus sliding scale. TDD 25 units, Normal - glucagon (Baqsimi) 3 mg/actuation spray,non-aerosol; Administer 1 spray into nostril(s) as needed (Hypoglycemia)., Starting Wed05/08/2021, Normal - Endocrinology office visit (clinic); Future; Expected date: 11/05/2021 [id number] R AND BOTTOM LACER HAND documented in this encounter Plan of Treatment Upcoming Encounters Date Type Specialty Care Team Description 04/28/2022 Ancillary Procedure Ophthalmology [place] Joselo Narayanan O.D. [address] [place], [place] [phone] (Wo rk) 04/28/2022 Ancillary Procedure Ophthalmology Softing Joselo Narayanan O.D. [address] [place], [place] [phone] (Wo rk) 04/28/2022 Office Visit Ophthalmology Softing Tita Narayanan O.D. [address] [place], [place] [phone] (Wo rk) Scheduled Referrals Name Type Priority Associated Diagnoses [facility] - Outpatient Routine Diabetes Mellitus Expecte d: General consult Referral Type 1 With 05/08/2021 (clinic) Proliferative (Approximate), Diabetic Retinopathy Expires : Without Macular Edema 2022 Hyperglycemic Bilateral (HCC) Endocrinology office Outpatient Routine Expecte d: visit (clinic) Referral 11/05/2021, Expires: 08/06/2022 documented as of this encounter Visit Diagnoses Diagnosis Diabetes Mellitus Type 1 With Proliferat ruperto Diabetic Retinopathy Without Macular Edema Hyperglycemic Bilateral (HCC) - Pr imary Hypertension And Chronic Kidney Disease Stage 3 (HCC) Hypothyroidism Primary Usp Use Of Insulin Active (HCC) Counseling Diet Insulin Pump Status documented in this encounter Care Teams Bus Person Relationship Specialty Start Date End Date Obi Leggett APRN, C.N.P. PCP - General Family Medicine 06/08/18 12/04/21 [address] [place] [phone] documented as of this encounter
--- OUTSIDE RECORDS SUMMARY | 2022-03-02 08:31 | XMS_ITS | Encounter Summary ---
:1970 Author Organization [facility] Address [address] [place] [address] Care Team Providers Name Role Phone Obi Leggett APRN, C.N.P. Primary Care Provider [phone] Reason for Referral Outpatient (Routine) - Authorized Specialty Diagnoses / Procedures Referred By Contact Refer red To Contact Ophthalmology Tita Palmer [place] [address] [place] O.D. [address] [place] [address] Referral ID Status Reason Start Date Expiration Date Visits V isits Requested Authorized [id number] Authorized 07/04/2021 07/04/2022 1 1 Scheduling Instructions [facility]; 9-12 months with Oct spectra lis Encounter Details Date Type Department Care Team Description 07/04/2021 Orders Only Department of Hernandez Shell Diabetes Ok llitus Type Ophthalmology in J, C.O.A. 1 With Proliferative [place], [place] [address] [facility] Diabetic Retinopathy [address] [place], [place] [address] Hyperglycemic Bilateral [id number] (HCC) (Primary Dx) Social History Tobacco Use [...] or relatives? How often do you attend sabianism or Never 2021 buddhism services? Do you belong to any clubs or No 05/04/2021 organizations such as sabianism groups, unions, fraZonoff or athletic groups, or school groups? How [...] place to sleep or slept in a longterm (including now)? Education Answer Date Recorded What is the highest level of school you have completed or 12 th grade 06/18/2019 the highest degree you have received? 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 [address] [place], [place] [phone] ([place]) 04/28/2022 Ancillary Procedure Ophthalmology Joselo Palmer O.D. [address] [place] [phone] ([place]) 04/28/2022 Office Visit Ophthalmology Tita Palmer O.D. [address] [place] [phone] ([place]) Scheduled Orders Name Type Priority Associated Diagnoses Order S chedule Optical Coherence Ophthalmology Routine Diabetes Mellitus Type Expected: Tomography (OCT) - 1 With Proliferative 1 06/06/2021, Macula/Retina - OU - Diabetic Retinopathy Expires: Both Eyes Without Macular Edema 2022 Hyperglycemic Bilateral (HCC) Scheduled Referrals Name Type Priority Associated Order Schedule Diagnoses Ophthalmology office Outpatient Referral Routine Expected: visit (clinic) 04/05/2022, Expires: 10/04/2022 documented as of this encounter Visit Diagnoses Diagnosis Diabetes Mellitus Type 1 With Proliferat ruperto Diabetic Retinopathy Without Macular Edema Hyperglycemic Bilateral (HCC) - Pr imary documented in this encounter Care Teams Adjunct History Instructor Relationship Specialty Start Date End Date Obi Leggett, RAILROAD PURCHASING AGENT, C.N.P. PCP - General Family Medicine 06/08/18 12/04/[address] [place] [id number] documented as of this encounter
--- OUTSIDE RECORDS SUMMARY | 2022-03-02 08:31 | XMS_ITS | Encounter Summary ---
:1970 Author Organization [facility] Address [address] [place] [address] Care Team Providers Name Role Phone Obi Leggett APRN, C.N.P. Primary Care Provider [phone] Encounter Details Date Type Department Care Team Description 08/12/2021 Orders Only Department of Internal Obi Leggett Hypertension And Medicine in [place] APRN, C.N .P. Chronic Kidney Disease [place] [address] SARMIENTO Stage 3 (HCC) (Primary [address] GUI[place]MINA [place] Dx) [place] [phone] Social History Tobacco Use Types Packs/Day Years [...] do you attend worship or Never 2021 moravian services? 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 [address] [place], [place] [phone] (Wo rk) 04/28/2022 Ancillary Procedure Ophthalmology Joselo Palmer O.D. [address] [place], [place] [phone] (Wo rk) 04/28/2022 Office Visit Ophthalmology Tita Palmer O.D. [address] [place], [place] [phone] (Wo rk) documented as of this encounter Visit Diagnoses Diagnosis Hypertension And Chronic Kidney Disease Stage 3 (HCC) - Primary documented in this encounter Care Teams Chestnut Tanner Relationship Specialty Start Date End Date Obi Leggett, ASHLEY, C.N.P. PCP - General Family Medicine 06/08/18 12/04/[address] [place] [phone] documented as of this encounter
--- OUTSIDE RECORDS SUMMARY | 2022-03-02 08:31 | XMS_ITS | Encounter Summary ---
:1970 Author Organization [facility] Address [address] [place] [address] Care Team Providers Name Role Phone Obi Leggett APRN, C.N.P. Primary Care Provider [phone] Encounter Details Date Type Department Care Team Description 08/06/2021 Documentation Division of Nephrology and Bret Patricia Hypertension in [place], ., D.O. [place] [address] [facility] [address] [place] [phone] (Wo rk) Social History Tobacco Use Types [...] do you attend sabianism or Never 2021 sabianist services? 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 - 08/06/2021 6:31 AM CDT Images from the original note were not included. Care coordination: email for [place] pateint: Dear Mr Hernandez I sent the prescription for 25 mg of carvedilol, two tablets, twice per day, to [facility] in [place], please let me know if this is the incorrect pharmacy. Good news regards the blood pressure. Best Dr Mckinney Sent from my iPhone On Aug 06, 2021, at 6:13 AM, Prateek Hernandez <[email or web address]> wrote: ? Good morning , Did you happen to send it the prescription to start the 50mg of carvedilol twice a day? I???m just about out and want to make sure that the pharmacy got the new dose. It seems to be working and my BP is down around 10 points. Thanks again and hope you have an awesome day??? Prateek Hernandez [employer] cell // [phone] Please consider the environment before printing this email. documented in this encounter Plan of Treatment Upcoming Encounters Date Type Specialty Care Team Description 04/28/2022 Ancillary Procedure Ophthalmology Softing Joselo Narayanan OJoan [address] [place] [phone] (Wo rk) 04/28/2022 Ancillary Procedure Ophthalmology Softing Joselo Narayanan O.D. [address] [place], [place] [phone] (Wo rk) 04/28/2022 Office Visit Ophthalmology Tita Palmer O.D. [address] [place], [place] [phone] (Wo rk) documented as of this encounter Visit Diagnoses Not on filedocumented in this encounter Care Teams Posting Specialist Relationship Specialty Start Date End Date Obi Leggett APRN, C.N.P. PCP - General Family Medicine 06/08/18 12/04/21 [address] [place] [phone] documented as of this encounter
--- OUTSIDE RECORDS SUMMARY | 2022-03-02 08:31 | XMS_ITS | Encounter Summary ---
:1970 Author Organization [facility] Address [address] [place] [address] Care Team Providers Name Role Phone Obi Leggett APRN, C.N.P. Primary Care Provider [phone] Encounter Details Date Type Department Care Team Description 06/06/2021 Clinical Communication Division of Nephrology Afshin Patricia and Hypertension in Sheela Grace D.O. [place], [place] [address] [facility] [address] [place] [phone] Social History Tobacco Use Types Packs/Day Years [...] do you attend bahai or Never 2021 mormon services? 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 - 06/06/2021 8:25 AM FRUIT GRADER OPERATOR E-mail exchange: He sent me a copy of his blood pressures as I had requested at our initial visit last week. On average his blood pressures are running in the 1 60 over mid 90s range. I am going to stop his metoprolol and replace this with carvedilol 12.5 mg orally twice daily. I have sent this to the [facility] in [place]. He will get back to me with his blood pressures over the next few weeks. T GRADER OPERATOR documented in this encounter Plan of Treatment Upcoming Encounters Date Type Specialty Care Team Description 04/28/2022 Ancillary Procedure Ophthalmology Joselo Palmer O.D. [address] [place] [phone] (Odalis rk) 04/28/2022 Ancillary Procedure Ophthalmology Joselo Palmer O.D. [address] [place] [phone] (Odalis rk) 04/28/2022 Office Visit Ophthalmology Tita Palmer O.D. [address] [place] [phone] (Wo rk) documented as of this encounter Visit Diagnoses Not on filedocumented in this encounter Care Teams Auto Electrician Relationship Specialty Start Date End Date Obi Leggett, ASHLEY, C.N.P. PCP - General Family Medicine 06/08/18 12/04/21 [address] [place] [phone] documented as of this encounter
--- OUTSIDE RECORDS SUMMARY | 2022-03-02 08:31 | XMS_ITS | Encounter Summary ---
:1970 Author Organization [facility] Address [address] [place] [address] Care Team Providers Name Role Phone Obi Leggett APRN, C.N.P. Primary Care Provider [phone] Encounter Details Date Type Department Care Team Description 07/18/2021 Clinical Communication Division of Nephrology Afshin Patricia and Hypertension in Sheela Grace D.O. [place], [place] [address] [facility] [address] [place] [phone] Social History Tobacco Use Types Packs/Day Years [...] or relatives? How often do you attend hoahaoism or Never 2021 evangelical services? Do you belong to any clubs or No 05/04/2021 organizations such as hoahaoism groups, unions, fraternal or athletic groups, or [...] place to sleep or slept in a halfway (including now)? Education Answer Date Recorded What is the highest level of school you have completed or 12 th grade 06/18/2019 the highest degree you have received? 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 - 07/18/2021 11:57 AM CDT Documentation of e-mail receipt and response. His average blood pressures have remained in the 160s over 90s. Thanks Mr Hernandez: I???d like you to go to 25 mg twice a day @ X 12.5 mg tabs twice a day) on the carvedilol, I???ll call this in,, ONE CAVEAT: let me know if your pulse is already at 60 beats per minute or lower. Thanks DR Faye Patricia Jr, DO., Regional Curriculum Director [facility], access control specialist, Manufacturing Support Engineer: Division of Nephrology and Hypertenison, , ,email: [email or web address] From: Prateek Hernandez <[email or web address]> Sent: Sunday, July 18, 2021 6:03 AM To: Afshin Patricia Jr., D.O. <[email or web address]> Subject: [EXTERNAL] RE: Prateek Hernandez blood pressure Good morning , Happy Wednesday and truly sorry for bothering you again--Attached is the periodic blood pressure numbers sense I switched meds on from Metoprolol to Carvedilol 12.5 twice daily, I have been taking the Carvedilol in the morning with food and at night with food. Obviously the numbers have not gotany better and wondering if I am taking the meds wrong or if you would like me to change timing or to a different Med? Have an awesome day and Thanks again for your time??? documented in this encounter Plan of Treatment Upcoming Encounters Date Type Specialty Care Team Description 04/28/2022 Ancillary Procedure Ophthalmology Joselo Palmer O.D. [address] [place], [place] [phone] (Wo rk) 04/28/2022 Ancillary Procedure Ophthalmology Joselo Palmer O.D. [address] [place] [phone] (Wo rk) 04/28/2022 Office Visit Ophthalmology Tita Palmer O.D. [address] [place], [place] [phone] (Wo rk) documented as of this encounter Visit Diagnoses Not on filedocumented in this encounter Care Teams Ad Copy Writer Relationship Specialty Start Date End Date Obi Leggett APRN, C.N.P. PCP - General Family Medicine 06/08/18 12/04/21 [address] [place] [phone] documented as of this encounter
--- OUTSIDE RECORDS SUMMARY | 2022-03-02 08:31 | XMS_ITS | Encounter Summary ---
:1970 Author Organization [facility] Address [address] [place] [address] Care Team Providers Name Role Phone Obi Leggett APRN, C.N.P. Primary Care Provider [phone] Encounter Details Date Type Department Care Team Description 11/18/2021 Orders Only [facility]NT Obi Leggett, ASHLEY, C.N.P. [address] [place] [phone] (Wo rk) Social History Tobacco Use Types [...] or relatives? How often do you attend pentecostal or Never 2021 temple services? 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 [address] [place], [place] [phone] (Wo rk) 04/28/2022 Ancillary Procedure Ophthalmology Joselo Palmer O.D. [address] [place] [phone] (Wo rk) 04/28/2022 Office Visit Ophthalmology Tita Palmer O.D. [address] [place], [place] [phone] (Wo rk) documented as of this encounter Visit Diagnoses Not on filedocumented in this encounter Care Teams It Support Consultant Relationship Specialty Start Date End Date Obi Leggett, BACK LINE COOK, C.N.P. PCP - General Family Medicine 06/08/18 12/04/21 [address] [place] [phone] documented as of this encounter
--- OUTSIDE RECORDS SUMMARY | 2022-03-02 08:32 | XMS_ITS | Encounter Summary ---
:1970 Author Organization [facility] Address [address] [place] [address] Care Team Providers Name Role Phone Obi Leggett APRN, C.N.P. Primary Care Provider Reason for Visit Reason Comments Med Refill Encounter Details Date Type Department Care Team Description 05/31/2020 Refill Department of Endocrinology in Carmelo Vera M.D. Med Refill [place], [place] [address] [facility] [address] [place] [address] [place] [address] [phone] Social History Tobacco Use Types Packs/Day Years [...] or relatives? How often do you attend jehovah's witness or Never 2021 pentecostalism services? 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 documented as of this encounter Miscellaneous Notes Telephone Encounter - Tarsha Staples - 06/03/2020 8:00 AM CST Duplicate request OLEUM TRANSPORT DRIVER documented in this encounter Plan of Treatment Upcoming Encounters Date Type Specialty Care Team Description 04/28/2022 Ancillary Procedure Ophthalmology Softing Joselo Narayanan O.Dequan [address] [place], [place] [phone] (Odalis rk) 04/28/2022 Ancillary Procedure Ophthalmology Joselo Palmer O.Dequan [address] [place] [address] [phone] (Odalis rk) 04/28/2022 Office Visit Ophthalmology Tita Palmer O.Dequan [address] [place] [address] [phone] (Odalis rk) documented as of this encounter Visit Diagnoses Not on filedocumented in this encounter Care Teams Chemist Water Purification Relationship Specialty Start Date End Date Obi Leggett, STEAM CLEANER, C.N.P. PCP - General Family Medicine 06/08/18 12/04/[address] [place] [address] documented as of this encounter
--- OUTSIDE RECORDS SUMMARY | 2022-03-02 08:32 | XMS_ITS | Encounter Summary ---
:1970 Author Organization [facility] Address [address] [place] [address] Care Team Providers Name Role Phone Obi Leggett APRN, C.N.P. Primary Care Provider [phone] Reason for Visit Reason Comments Med Refill Encounter Details Date Type Department Care Team Description 05/30/2020 Refill Department of Endocrinology in Carmelo Vera M.D. Med Refill [place], [place] [address] [facility] [address] [place] [address] [place] [address] [phone] Social History Tobacco Use Types Packs/Day Years [...] or relatives? How often do you attend catholic or Never 2021 baptist services? Do you belong to any clubs or No 05/04/2021 organizations such as catholic groups, unions, fraternal or athletic groups, or [...] place to sleep or slept in a long-term (including now)? Education Answer Date Recorded What is the highest level of school you have completed or 12 th grade 06/18/2019 the highest degree you have received? Sex Assigned at Date Recorded Male 03/01/2017 6:27 AM POWER CHECKER documented as of this encounter Miscellaneous Notes Telephone Encounter - Gale Holloway L.PCourtneyN. - 06/03/2020 10:28 AM POWER CHECKER Rx for Freestyle Don sensors was sent to [facility] on 05-30-20. Receipt confirmed by Pharmacy on 06-03-20 at 7:56am. Pt notified via portal that this has been refilled. R CHECKER Telephone Encounter - Angela Son - 05/30/2020 8:49 AM CST [place] in [place] is calling ot check on the status of the freestyle don for patient, they have everything else but this R CHECKER documented in this encounter Plan of Treatment Upcoming Encounters Date Type Specialty Care Team Description 04/28/2022 Ancillary Procedure Ophthalmology Joselo Palmer O.D. [address] [place], [place] [address] [phone] (Wo rk) 04/28/2022 Ancillary Procedure Ophthalmology Joselo Palmer O.D. [address] [place], [place] 55 [phone] (Wo rk) 04/28/2022 Office Visit Ophthalmology Softing Tita Narayanan O.D. [address] [place], [place] 55 [phone] (Wo rk) documented as of this encounter Visit Diagnoses Not on filedocumented in this encounter Care Teams Manager Strategic Relationship Specialty Start Date End Date Obi Leggett, ASHLEY, C.N.P. PCP - General Family Medicine 06/08/18 12/04/21 [address] [place] [phone] documented as of this encounter
--- OUTSIDE RECORDS SUMMARY | 2022-03-02 08:32 | XMS_ITS | Encounter Summary ---
:1970 Author Organization [facility] Address [address] [place] [address] Care Team Providers Name Role Phone Obi Leggett APRN, C.N.P. Primary Care Provider [phone] Reason for Visit Reason Comments Med Refill Encounter Details Date Type Department Care Team Description 07/23/2020 Refill Department of Endocrinology in Carmelo Vera M.D. Med Refill [place], [place] [address] [facility] [address] [facility] [place] [address] [place] [address] [phone] Social History Tobacco Use Types Packs/Day Years [...] or relatives? How often do you attend religious or Never 2021 protestant services? Do you belong to any clubs or No 05/04/2021 organizations such as religious groups, unions, fraternal or athletic groups, or [...] place to sleep or slept in a prison (including now)? Education Answer Date Recorded What is the highest level of school you have completed or 12 th grade 06/18/2019 the highest degree you have received? 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 [address] [place] [address] [phone] (Odalis rk) 04/28/2022 Ancillary Procedure Ophthalmology Joselo Palmer O.D. [address] [place] [address] 55 [phone] (Wo rk) 04/28/2022 Office Visit Ophthalmology Tita Palmer O.D. [address] [place] [address] [phone] (Odalis rk) documented as of this encounter Visit Diagnoses Not on filedocumented in this encounter Care Teams Car Rental Agency Manager Relationship Specialty Start Date End Date Obi Leggett, ELECTRONIC GAMING DEVICE SUPERVISOR, C.N.P. PCP - General Family Medicine 06/08/18 12/04/[address] [place], [place] [phone] documented as of this encounter
--- OUTSIDE RECORDS SUMMARY | 2022-03-02 08:32 | XMS_ITS | Encounter Summary ---
:1970 Author Organization [facility] Address [address] [place] [address] Care Team Providers Name Role Phone Obi Leggett APRN, C.N.P. Primary Care Provider [phone] Reason for Referral Specialty Diagnoses / Procedures Referred By Contact Refer red To Contact Obi Leggett APRN, [facility] C.N.P. [address] [place] [phone] Referral ID Status Reason Start Date Expiration Date Visits Requ ested Visits Authorized R SORTER AND COUNTER Encounter Details Date Type Department Care Team Description 03/11/2021 Orders Only [facility] PCP [facility] Obi Leggett APRN, C.N.P. [address] [place] [phone] (Wo rk) [...] or relatives? How often do you attend roman catholic or Never 2021 denominational services? 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 [address] [place] [address] [phone] (Odalis rk) 04/28/2022 Ancillary Procedure Ophthalmology Joselo Palmer O.D. [address] [place] [address] [phone] (Wo rk) 04/28/2022 Office Visit Ophthalmology Tita Palmer O.D. [address] [place] [address] [phone] (Odalis rk) Scheduled Referrals Name Type Priority Associated Order Schedule Diagnoses Covid immunization Outpatient Referral Routine Ex pected: office visit Booster 021 (Approximate), Expires: 03/11/2022 documented as of this encounter Visit Diagnoses Not on filedocumented in this encounter Care Teams Electronic Scale Subassembler Relationship Specialty Start Date End Date Obi Leggett, ASHLEY, C.N.P. PCP - General Family Medicine 06/08/18 12/04/21 [address] [place] [phone] documented as of this encounter
--- OUTSIDE RECORDS SUMMARY | 2022-03-02 08:32 | XMS_ITS | Encounter Summary ---
:1970 Author Organization [facility] Address [address] [place] [address] Care Team Providers Name Role Phone Obi Leggett APRN, C.N.P. Primary Care Provider [phone] Encounter Details Date Type Department Care Team Description 07/23/2020 Immunization Department of [facility] Afshin Caicedo [address] Gillian Douglas Vaccine Immunization [facility], in [address] [facility] [address] [place] [address] [phone] Social History Tobacco Use Types Packs/Day Years [...] do you attend hoahaoism or Never 2021 sikh services? 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 documented as of this encounter Plan of Treatment Upcoming Encounters Date Type Specialty Care Team Description 04/28/2022 Ancillary Procedure Ophthalmology SoftJoselo Whyte O.Dequan [address] [place], [place] [phone] (Wo rk) 04/28/2022 Ancillary Procedure Ophthalmology Joselo Palmer O.DCourtney [address] [place], [place] [phone] (Wo rk) 04/28/2022 Office Visit Ophthalmology Tita Palmer O.Dequan [address] [place], [place] [phone] (Wo rk) documented as of this encounter Visit Diagnoses Diagnosis Encounter For COVID-19 Vaccine Immunizat ion documented in this encounter Care Teams Brick Picker Relationship Specialty Start Date End Date Obi Leggett, FIRER WATERTENDER, C.N.P. PCP - General Family Medicine 06/08/18 12/04/[address] [place] [phone] documented as of this encounter
--- OUTSIDE RECORDS SUMMARY | 2022-03-02 08:32 | XMS_ITS | Encounter Summary ---
:1970 Author Organization [facility] Address [address] [place] [address] Care Team Providers Name Role Phone Obi Leggett APRN, C.N.P. 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 [facility] Procedures Research Refraction (Link to corresponding research study) [address] [place] [address] Referral ID Status Reason Start Date Expiration Date Visits Requ ested Visits Authorized [id number] Closed 09/19/2019 09/18/2020 1 1 Encounter Details Date Type Department Care Team Description 10/17/2019 Ancillary Department of Hernán Dowd Procedure Ophthalmology in [place]astacio Del Angel Type 1 With [place], [place] [address] [facility] Proliferative [address] [place], [place] [address] Without Macular Edema [id number] Hyperglycemic Bilateral (HCC) Social History Tobacco Use [...] or relatives? How often do you attend adventism or Never 2021 roman catholic services? Do you belong to any clubs or No 05/04/2021 organizations such as adventism groups, unions, [employer] or athletic groups, or school groups? 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 200 [place], [place] [phone] (Wo rk) 04/28/2022 Ancillary Procedure Ophthalmology Joselo Palmer O.D. 200 [place], [place] [phone] (Wo rk) 04/28/2022 Office Visit Ophthalmology Tita Palmer O.D. [address] [place], [place] [phone] (Wo rk) documented as of this encounter Visit Diagnoses Diagnosis Diabetes Mellitus Type 1 With Proliferat ruperto Diabetic Retinopathy Without Macular Edema Hyperglycemic Bilateral (HCC) documented in this encounter Care Teams Linoleum Layer Helper Relationship Specialty Start Date End Date Obi Leggett, ASHLEY, C.N.P. PCP - General Family Medicine 06/08/18 12/04/21 [address] [place] [phone] documented as of this encounter
--- OUTSIDE RECORDS SUMMARY | 2022-03-02 08:32 | XMS_ITS | Encounter Summary ---
:[address] [facility] Address [address] [place] [address] Care Team Providers Name Role Phone Obi Leggett APRN, C.N.P. Primary Care Provider [phone] Encounter Details Date Type Department Care Team Description 02/18/2021 Orders Only [facility] PCP HLTH MNT [...] or relatives? How often do you attend episcopalian or Never 2021 restoration services? 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 [address] [place], [place] [phone] (Wo rk) 04/28/2022 Ancillary Procedure Ophthalmology Joselo Palmer O.D. [address] [place] [phone] (Wo rk) 04/28/2022 Office Visit Ophthalmology Tita Palmer O.D. [address] [place], [place] [phone] (Wo rk) documented as of this encounter Visit Diagnoses Not on filedocumented in this encounter Care Teams Reconciliation Manager Relationship Specialty Start Date End Date Obi Leggett, AUTO WASH BUFFER, C.N.P. PCP - General Family Medicine 06/08/18 12/04/21 [address] [place] [phone] documented as of this encounter
--- OUTSIDE RECORDS SUMMARY | 2022-03-02 08:32 | XMS_ITS | Encounter Summary ---
:1970 Author Organization [facility] Address [address] [place] [address] Care Team Providers Name Role Phone Obi Leggett APRN, C.N.P. Primary Care Provider [phone] Reason for Visit Reason Comments D5 Quality Encounter Details Date Type Department Care Team Description 06/26/2020 Clinical Communication Department of Internal Obi Colunga D5 Quality Medicine in Darnell [place] APRN, C.N .P. [place] [address] [place] [address] [place], [place] [phone] Social History Tobacco Use Types Packs/Day Years [...] or relatives? How often do you attend jainism or Never 2021 mu-ism services? Do you belong to any clubs or No 05/04/2021 organizations such as jainism groups, unions, fraternal or athletic groups, or [...] place to sleep or slept in a assisted (including now)? Education Answer Date Recorded What is the highest level of school you have completed or 12 th grade 06/18/2019 the highest degree you have received? 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 - 06/26/2020 9:54 AM LINE HAUL OWNER OPERATOR In reviewed patient record they are currently below D5 standards on the following:A1C Blood pressure Tobacco use @HGBA1C@ Lab Results Component Value Date HGBA1C 7.5 (H) 08/12/2018 HGBA1C 7.8 (H) 10/07/2017 HGBA1C 7.3 (H) 02/19/2017 Lab Results Component Value Date LDLCALC 88 08/12/2018 BP Readings from Last 3 Encounters: 10/17/19 140/90 06/20/19 158/86 04/05/19 (!) 152/104 Social History Tobacco Use Smoking Status Never Smoker Smokeless Tobacco Current User ??? Types: Chew Patient does have a statin medication ordered. Aspirin therapy is being taken, not indicated, contraindicated: is being taken Tobacco use tobacco use: Not assessed, per chart he currently uses smokeless tobacco. Patient last saw PCP 06/20/2019, plan to follow up in 12 months. Patient is scheduled to see Endocrine on 09/04/2020 with labs prior. Patient has active orders for lab work and appointment. Portal message sent to patient to schedule. HAUL OWNER OPERATOR documented in this encounter Plan of Treatment Upcoming Encounters Date Type Specialty Care Team Description 04/28/2022 Ancillary Procedure Ophthalmology Softing Joselo Narayanan O.D. [address] [place], [place] [phone] (Wo rk) 04/28/2022 Ancillary Procedure Ophthalmology Joselo Palmer O.D. [address] [place], [place] [phone] (Wo rk) 04/28/2022 Office Visit Ophthalmology Tita Palmer O.D. [address] [place], [place] 55 [phone] (Wo rk) documented as of this encounter Visit Diagnoses Not on filedocumented in this encounter Care Teams Stitch Burnisher Relationship Specialty Start Date End Date Obi Leggett APRN, C.N.P. PCP - General Family Medicine 06/08/18 12/04/21 [address] [place] [phone] documented as of this encounter
--- OUTSIDE RECORDS SUMMARY | 2022-03-02 08:32 | XMS_ITS | Encounter Summary ---
:1970 Author Organization [facility] Address [address] [place] [address] Care Team Providers Name Role Phone Obi Leggett APRN, C.N.P. Primary Care Provider [phone] Encounter Details Date Type Department Care Team Description 08/27/2020 Hospital Encounter Department of Bhagra, Carmelo, Diabet es Mellitus Laboratory Medicine M.D. Type 1 (HCC) in [address] [address] [place], [place] [phone] [address] (Work) [phone] Social History Tobacco Use Types Packs/Day Years [...] do you attend quaker or Never 2021 baptism services? 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 UltiCare Pen Needle 31 4 Injection daily. 400 each 3 05/30 gauge x 5/16 needle amLODIPine (NORVASC) 10 TAKE 1 TABLET (10 90 tablet 3 05/2906/10/2021 mg tablet MG) BY MOUTH DAILY. atorvastatin (LIPITOR) TAKE 1 TABLET (40 90 tablet 3 202005/08/2021 40 mg tablet MG) BY MOUTH DAILY. blood sugar diagnostic 4 test daily. 150 test 11 07/12/2019 08/30/2020 (glucose blood) AccuCheck Natalia stripsIndications: Smartview strips DX: Diabetes Mellitus Type 1 E10.3593, E10.21, (HCC) E10.65 chlorthalidone TAKE 1 TABLET (50 90 tablet 3 07/24/2020 (HYGROTON) 50 mg tablet MG) BY MOUTH DAILY. flash glucose sensor CHANGE EVERY 14 6 each 3 05/30/2020 09/04/2020 (FreeStyle Don 14 Day DAYS. USE Sensor) kit DIRECTED FOR MONITORING GLUCOSE LEVEL. HumaLOG KwikPen Insulin Take 8 units with 15 mL 11 07/2505/08/2021 100 unit/mL injection each meal plus sliding scale. TDD 40 units per day. Lantus Solostar U-100 Inject 36 Units 15 mL 8 0 09/04/2020 Insulin 100 unit/mL (3 under the skin at mL) bedtime. 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 metoprolol succinate TAKE 1 TABLET (50 90 tablet 3 05/24/19 21 06/06/2021 (TOPROL-XL) 50 mg 24 hr MG) BY MOUTH DAILY. tablet DO NOT CRUSH OR CHEW. spironolactone TAKE 1 TABLET (100 90 tablet 0 08/22/2020 (ALDACTONE) 100 mg MG TOTAL) BY MOUTH tablet DAILY. documented as of this encounter Plan of Treatment Upcoming Encounters Date Type Specialty Care Team Description 04/28/2022 Ancillary Procedure Ophthalmology Softing Joselo Narayanan O.D. [address] [place], [place] [phone] (Odalis [place]) 04/28/2022 Ancillary Procedure Ophthalmology Softing Joselo Narayanan O.D. [address] [place], [place] [phone] (Odalis [place]) 04/28/2022 Office Visit Ophthalmology Tita Palmer O.D. [address] [place], [place] [phone] (Odalis [place]) documented as of this encounter Procedures Procedure Name Priority Date/Time Associated Diagnosis Comme nts HEMOGLOBIN A1C, B Routine 08/27/2020 8:29 AM Diabetes Mellitus Results for this CDT Type 1 (HCC) procedure are i n the results section. documented in this encounter Results (ABNORMAL) Hemoglobin A1c (08/27/2020 8:29 AM CDT) P athologist Signature Hemoglobin A1c, 7.5 (H) 4.2 - 5.6 08/27/2020 OWAT B % 8:55 AM CDT Comment: Hemoglobin A1c values greater than or eq ual to 6.5 percent are diagnostic for diabetes mellitus. ?? Diagnosis should be confirmed by repeat testing. ??In diabet ic patients, HbA1c goals should be discussed with healthcar e provider. Specimen Anatomical Collection Method Collection Time Receive d Time (Source) Location / / Volume Laterality Blood (Blood, 08/27/2020 8:29 AM 08/28/19 8:40 Venous) CDT AM CDT Carmelo Diana M.D. LAB BLOOD ADD-ON Performing Organization Address City/State/ZIP Code Phon e Number [facility] [address] [facility] [place] [address] [facility] [place] [place] [address] System in [place] [address] documented in this encounter Visit Diagnoses Diagnosis Diabetes Mellitus Type 1 (HCC) documented in this encounter Care Teams Banking Management Consulting Manager Relationship Specialty Start Date End Date Obi Leggett APRN, C.N.P. PCP - General Family Medicine 06/08/18 8 [address] [place] [phone] documented as of this encounter
--- OUTSIDE RECORDS SUMMARY | 2022-03-02 08:32 | XMS_ITS | Encounter Summary ---
:1970 Author Organization [facility] Address [address] [place] [address] Care Team Providers Name Role Phone Obi Leggett APRN, C.N.P. Primary Care Provider [phone] Encounter Details Date Type Department Care Team Description 12/03/2020 Orders Only [facility] PCP [facility] MNT Obi Leggett Monitoring For R, ASHLEY, C.N.P. Therapeutic Drug [address] [place] [address] Social History Tobacco Use Types Packs/Day Years [...] or relatives? How often do you attend rastafari or Never 2021 christianity services? 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 [address] [place] [phone] (Wo rk) 04/28/2022 Ancillary Procedure Ophthalmology Joselo Palmer O.D. [address] [place] [phone] (Wo rk) 04/28/2022 Office Visit Ophthalmology Tita Palmer O.D. [address] [place] [phone] (Wo rk) documented as of this encounter Visit Diagnoses Diagnosis Monitoring For Therapeutic Drug Therapy documented in this encounter Care Teams Collection Analyst Relationship Specialty Start Date End Date Obi Leggett APRN, C.N.P. PCP - General Family Medicine 06/08/18 12/04/21 [address] [place] [phone] documented as of this encounter
--- OUTSIDE RECORDS SUMMARY | 2022-03-02 08:32 | XMS_ITS | Encounter Summary ---
:1970 Author Organization [facility] Address [address] [place] [address] Care Team Providers Name Role Phone Obi Leggett APRN, C.N.P. Primary Care Provider [phone] Encounter Details Date Type Department Care Team Description 10/17/2019 Ancillary Procedure Department of Ophthalmology Social History [...] or relatives? How often do you attend latter day or Never 2021 voodoo services? Do you belong to any clubs or No 05/04/2021 organizations such as latter day groups, unions, fraternal or athletic groups, or [...] place to sleep or slept in a jail (including now)? Education Answer Date Recorded What is the highest level of school you have completed or 12 th grade 06/18/2019 the highest degree you have received? 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 [address] [place] [phone] (Wo rk) 04/28/2022 Ancillary Procedure Ophthalmology Joselo Palmer O.D. [address] [place] [phone] (Wo rk) 04/28/2022 Office Visit Ophthalmology Tita Palmer O.D. [address] [place], [place] [phone] (Wo rk) documented as of this encounter Procedures Procedure Name Priority Date/Time Associated Comments Diagnosis OPHTHALMOLOGY IMAGE Routine 10/17/2019 9:06 AM Re sults for this EXAM CDT procedure are i n the results section. documented in this encounter Results Eyes Spectralis OCT-Ophthalmology Image Exam (10/17/2019 9:06 AM CDT) Specimen (Source) Anatomical Collection Method Collection Time Re ceived Time Location / / Volume Laterality 10/17/2019 12:00 PM CDT Narrative [facility] - 10/17/2019 9:06 AM CDT This order has been created [...] on filedocumented in this encounter Care Teams Homicide Squad Captain Relationship Specialty Start Date End Date bOi Leggett APRN, C.N.P. PCP - General Family Medicine 06/08/18 12/04/21 [address] [place] [phone] documented as of this encounter
--- OUTSIDE RECORDS SUMMARY | 2022-03-02 08:32 | XMS_ITS | Encounter Summary ---
:1970 Author Organization [facility] Address [address] [place] [address] Care Team Providers Name Role Phone Obi Leggett APRN, C.N.P. Primary Care Provider Reason for Visit Reason Comments Med Refill Encounter Details Date Type Department Care Team Description 08/30/2020 Refill Department of Endocrinology in Carmelo Vera M.D. Med Refill [place], [place] [address] [facility] [address] [place] [address] [place] [address] [phone] Social History Tobacco Use Types Packs/Day Years [...] do you attend zoroastrianism or Never 2021 sikhism services? 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 Per Medicare, a clinical reason is needed with the new Rx to explain why the patient is testing more than three times per day. The [facility] D[facility] Team is not able to complete this request. Please also include the ICD-10 code, length of need, insulin dependency (Yes or No), last [id number] and date and last office visit date on the Rx. Thank you. documented in this encounter Plan of Treatment Upcoming Encounters Date Type Specialty Care Team Description 04/28/2022 Ancillary Procedure Ophthalmology Softing Joselo Narayanan O.D. [address], [place] [phone] ([place]) 04/28/2022 Ancillary Procedure Ophthalmology Joselo Palmer O.D. [address], [place] [phone] ([place]) 04/28/2022 Office Visit Ophthalmology Tita Palmer, O.D. [address], [place] [phone] (Wo rk) documented as of this encounter Visit Diagnoses Diagnosis Diabetes Mellitus Type 1 (HCC) documented in this encounter Care Teams Dandy Operator Relationship Specialty Start Date End Date Obi Leggett APRN, C.N.P. PCP - General Family Medicine 06/08/18 12/04/21 [address] [place] [phone] documented as of this encounter
--- OUTSIDE RECORDS SUMMARY | 2022-03-02 08:32 | XMS_ITS | Encounter Summary ---
:1970 Author Organization [facility] Address [address] [place] [address] Care Team Providers Name Role Phone Obi Leggett APRN, C.N.P. Primary Care Provider Reason for Visit Reason Comments Med Refill Encounter Details Date Type Department Care Team Description 05/24/2020 Refill Department of Family Medicine, Obi Leggett, Med Refill [facility], in Tony ASHLEY, C.N.P. [place] [address] [place] [address] [place] [address] [place] [address] [phone] Social History Tobacco Use Types Packs/Day Years [...] do you attend mosque or Never 2021 scientology services? 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 - 05/27/2020 8:19 AM GAME BREEDING FARM MANAGER Portal message sent BREEDING FARM MANAGER Telephone Encounter - Obi Leggett C.N.P., AGPCNP-BC - 05/24/2020 3:48 PM CST Overdue for BP check last few visits have been elevated and we had discussed possible cardiology f/up. Please schedule appt. Karen Crocker BREEDING FARM MANAGER documented in this encounter Plan of Treatment Upcoming Encounters Date Type Specialty Care Team Description 04/28/2022 Ancillary Procedure Ophthalmology Softing Joselo Narayanan O.D. [address] [place], [place] [phone] ([place]) 04/28/2022 Ancillary Procedure Ophthalmology Softing Joselo Naraynaan O.D. [address] [place], [place] [phone] ([place]) 04/28/2022 Office Visit Ophthalmology Softing Tita Narayanan O.D. [address] [place], [place] [phone] (Wo rk) documented as of this encounter Visit Diagnoses Not on filedocumented in this encounter Care Teams Press Supervisor Relationship Specialty Start Date End Date Obi Leggett, ASHLEY, C.N.P. PCP - General Family Medicine 06/08/18 12/04/[address] [place] [phone] documented as of this encounter
--- OUTSIDE RECORDS SUMMARY | 2022-03-02 08:32 | XMS_ITS | Encounter Summary ---
:1970 Author Organization [facility] Address [address] [place] [address] Care Team Providers Name Role Phone Obi Leggett APRN, C.N.P. Primary Care Provider [phone] Reason for Referral Specialty Diagnoses / Procedures Referred By Contact Refer red To Contact [facility] [address] [place] [address] Referral ID Status Reason Start Date Expiration Date Visits Requ ested Visits Authorized [facility]ENTER COORDINATOR Reason for Visit Appointment Request (Routine) - Closed Specialty Diagnoses / Procedures Referred By Contact Refer red To Contact Family Medicine Referral ID Status Reason Start Date Expiration Date Visits Requ ested Visits Authorized [id number] Closed 06/26/2020 06/26/2021 1 1 Encounter Details Date Type Department Care Team Description 06/27/2020 Immunization Department of [facility] er For COVID-19 Medicine, [facility], (Primar y Dx) [place] [address] [place] [address] Social History Tobacco Use Types Packs/Day Years [...] do you attend mormonism or Never 2021 oriental orthodox services? 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 [address] [place] [phone] (Odalis rk) 04/28/2022 Ancillary Procedure Ophthalmology Joselo Palmer O.D. [address] [place] [phone] (Odalis rk) 04/28/2022 Office Visit Ophthalmology Tita Palmer O.D. [address] [place] [phone] (Odalis rk) Scheduled Referrals Name Type Priority Associated Diagnoses Order S chedule Covid immunization Outpatient Referral Routine Encounter For E xpected: office visit COVID-19 Vaccine 07/18/2020, Subsequent; 21 days Immunization Expires: 06/28/2023 documented as of this encounter Visit Diagnoses Diagnosis Encounter For COVID-19 Vaccine Immunizat ion - Primary documented in this encounter Care Teams Stained Glass Joiner Relationship Specialty Start Date End Date Obi Leggett APRN, C.N.P. PCP - General Family Medicine 06/08/18 12/04/21 [address] [place] [phone] documented as of this encounter
--- OUTSIDE RECORDS SUMMARY | 2022-03-02 08:32 | XMS_ITS | Encounter Summary ---
:1970 Author Organization [facility] Address [address] [place] [address] Care Team Providers Name Role Phone Obi Leggett APRN, C.N.P. Primary Care Provider [phone] Encounter Details Date Type Department Care Team [...] do you attend yazdanism or Never 2021 sabianism services? 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 [address] [place] [phone] (Wo rk) 04/28/2022 Ancillary Procedure Ophthalmology Joselo Palmer O.D. [address] [place] [phone] (Wo rk) 04/28/2022 Office Visit Ophthalmology Tita Palmer O.D. [address] [place] [phone] (Wo rk) documented as of this encounter Procedures Procedure Name Priority Date/Time Associated Comments Diagnosis OPHTHALMOLOGY IMAGE Routine 10/17/2019 9:10 AM Re sults for this EXAM CDT procedure are i n the results section. documented in this encounter Results [employer] Photography-Ophthalmology Image Exam (10/17/2019 9:10 AM CDT) Specimen (Source) Anatomical Collection Method Collection Time Re ceived Time Location / / Volume Laterality 10/17/2019 9:08 AM CDT Narrative [facility] - 10/17/2019 9:18 AM CDT This order has been created [...] on filedocumented in this encounter Care Teams Rod Buster Helper Relationship Specialty Start Date End Date Obi Leggett, ASHLEY, C.N.P. PCP - General Family Medicine 06/08/18 12/04/21 [address] [place] [phone] documented as of this encounter
--- OUTSIDE RECORDS SUMMARY | 2022-03-02 08:32 | XMS_ITS | Encounter Summary ---
:1970 Author Organization [facility] Address [address] [place] [address] Care Team Providers Name Role Phone Obi Leggett APRN, C.N.P. Primary Care Provider [phone] Reason for Visit Reason Comments Med Refill Encounter Details Date Type Department Care Team Description 05/28/2020 Refill Department of Endocrinology in Carmelo Vera M.D. Med Refill [place], [place] [address] [facility] [address] [place] [address] [place] [address] [phone] Social History Tobacco Use Types Packs/Day Years [...] or relatives? How often do you attend mormon or Never 2021 episcopalian services? 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 Karen Crocker ENT DESIGNER Telephone Encounter - Tarsha Staples - 05/29/2020 11:50 AM CST Lab Results Component Value Date HGBA1C 7.5 (H) 08/12/2018 ENT DESIGNER documented in this encounter Plan of Treatment Upcoming Encounters Date Type Specialty Care Team Description 04/28/2022 Ancillary Procedure Ophthalmology Joselo Palmer O.D. [address] [place], [place] [phone] (Wo rk) 04/28/2022 Ancillary Procedure Ophthalmology Joselo Palmer O.D. [address] [place], [place] [phone] (Odalis rk) 04/28/2022 Office Visit Ophthalmology Tita Palmer O.D. [address] [place], [place] [phone] (Wo rk) documented as of this encounter Visit Diagnoses Not on filedocumented in this encounter Care Teams Manager Digital Relationship Specialty Start Date End Date Obi Leggett APRN, C.N.P. PCP - General Family Medicine 06/08/18 12/04/21 [address] [place] [phone] documented as of this encounter
--- OUTSIDE RECORDS SUMMARY | 2022-03-02 08:32 | XMS_ITS | Encounter Summary ---
:1970 Author Organization [facility] Address [address] [place] [address] Care Team Providers Name Role Phone Obi Leggett APRN, C.N.P. Primary Care Provider [phone] Encounter Details Date Type Department Care Team Description 08/27/2020 Hospital Encounter Department of Bhagra, Carmelo, Diabet es Mellitus Laboratory Medicine M.D. Type 1 (HCC) in [address] [address] [place], [place] [phone] [address] (Work) [phone] Social History Tobacco Use Types Packs/Day Years [...] do you attend pentecostalism or Never 2021 taoism services? 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 [address] [place], [place] [phone] ([place]) 04/28/2022 Ancillary Procedure Ophthalmology Softing Joselo Narayanan O.D. [address] [place], [place] [phone] (Odalis [place]) 04/28/2022 Office Visit Ophthalmology Tita Palmer O.D. [address] [place], [place] [phone] (Odalis [place]ton) documented as of this encounter Procedures Procedure Name Priority Date/Time Associated Diagnosis Comme nts ALBUMIN, RANDOM, U Routine 08/27/2020 8:29 AM Diabetes Mellitu s Results for this CDT Type 1 (HCC) procedure are i n the results section. documented in this encounter Results (ABNORMAL) Albumin, Random, Urine (08/27/2020 8:29 AM CDT) [facility] Method Time Signature Microalbumin 560.0 mg/L 08/27/2020 [place] 9:31 AM CDT Creatinine 33 mg/dL 08/27/2020 [place] 9:16 AM CDT Albumin/Creatinin 1697 (H) <17 mg/g 08/27/2020 OWAT e Ratio 9:31 AM CDT Specimen Anatomical Collection Method Collection Time Receive d Time (Source) Location / / Volume Laterality Urine (Urine, 08/27/2020 8:29 AM 08/28/19 8:41 Clean Catch) CDT AM CDT Carmelo Diana M.D. LAB URINE ORDERABLES Performing Organization Address City/State/ZIP Code Phon e Number [facility] [address] [place] [address] [facility] [place] [address] System in [place] [address] [facility] documented in this encounter Visit Diagnoses Diagnosis Diabetes Mellitus Type 1 (HCC) documented in this encounter Care Teams Manager Of Exhibitions And Collections Relationship Specialty Start Date End Date Obi Leggett APRN, C.N.P. PCP - General Family Medicine 06/08/18 8 [address] [place] [phone] documented as of this encounter
--- OUTSIDE RECORDS SUMMARY | 2022-03-02 08:32 | XMS_ITS | Encounter Summary ---
:1970 Author Organization [facility] Address [address] [place] [address] Care Team Providers Name Role Phone Obi Leggett APRN, C.N.P. Primary Care Provider [phone] Reason for Visit Outpatient (Routine) - Closed Specialty Diagnoses / Procedures Referred By Contact Refer red To Contact Endocrinology Carmelo Diana M.D. 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 How often do you attend episcopal or Never 2021 restorationist services? Do you belong to any clubs or No 05/04/2021 organizations such as episcopal groups, unions, fraRecommind or athletic groups, or school groups? How [...] place to sleep or slept in a mcc (including now)? Education Answer Date Recorded What is the highest level of school you have completed or 12 th grade 06/18/2019 the highest degree you have received? Sex Assigned at Date Recorded Male 03/01/2017 6:27 AM MILL HAND documented as of this encounter Progress Notes Carmelo Diana M.D. - 09/04/2020 11:00 AM CDT SUBJECTIVE VIDEO VISIT DATE OF ENCOUNTER: 09/04/20 CHIEF COMPLAINT / REASON FOR PHONE VISIT Type 1 diabetes, primary hypothyroidism - recheck HISTORY OF PRESENT ILLNESS Lex Hernandez is a 50 y.o. male who was seen via video for follow-up. Patient identity was verified by name and date of . Mr. Manriquez is a 50-year-old man with type 1 diabetes seen for follow-up via video. Type 1 diabetes Onset: Age 13 Glucose lowering regimen: Basaglar 30 units once daily Humalog 8 units subQ t.i.d. plus sliding scale Home monitoring: Freestyle Don continuous glucose monitor Home monitoring frequency: Greater than 4 times daily the past consecutive 90 days Hypoglycemia: One-2 times a month. Hypoglycemia typically occurs nocturnally following strenuous activity in the evening. Microvascular complications: Diabetic nephropathy Proliferative diabetic retinopathy, bilaterally RIGHT: s/p PRP '04, fill in in 06/03, no CSME LEFT: s/p PRP (last 01/30), no CSME Lab Results Component Value Date HGBA1C 7.5 (H) 08/27/2020 Macrovascular complications: None Primary hypothyroidism Replaced with levothyroxine 224 mcg 6 days a week, 112 mcg 1 day a week. Clinically euthyroid. TSH 2.2 Essential hypertension. Treated to goal with amlodipine, chlorthalidone, losartan, spironolactone. Potassium 3.7 ALLERGIES Reviewed and updated. Allergies Allergen Reactions ??? Penicillins Rash MEDICATIONS Reviewed and updated. Current Outpatient Medications Medication Sig ??? ACCU-CHEK FASTCLIX misc ??? amLODIPine (NORVASC) 10 mg tablet TAKE 1 TABLET (10 MG) BY MOUTH DAILY. ??? aspirin [address] tablet Take 81 mg by mouth daily. ??? atorvastatin (LIPITOR) 40 mg tablet TAKE 1 TABLET (40 MG) BY MOUTH DAILY. ??? chlorthalidone (HYGROTON) 50 mg tablet TAKE 1 TABLET (50 MG) BY MOUTH DAILY. ??? flash glucose sensor (FreeStyle Don 14 Day Sensor) kit CHANGE EVERY 14 DAYS. USE DIRECTED FOR MONITORING GLUCOSE LEVEL. ??? HumaLOG KwikPen Insulin 100 unit/mL injection Take 8 units with each meal plus sliding scale. TDD 40 units per day. ??? Lantus Solostar U-100 Insulin 100 unit/mL (3 mL) injection Take 20 units every morning, 18 unitsevery evening ??? levothyroxine (SYNTHROID, LEVOTHROID) 112 mcg tablet TAKE 2 TABLETS BY MOUTH DAILY 6 DAYS A WEEK(WEDNESDAY THROUGH WEDNESDAY) AND 1 TABLET 1 DAY A WEEK (WEDNESDAY) ??? losartan (COZAAR) 100 mg tablet Take 1 tablet (100 mg total) by mouth daily. ??? metoprolol succinate (TOPROL-XL) 50 mg 24 hr tablet TAKE 1 TABLET (50 MG) BY MOUTH DAILY. DO NOTCRUSH OR CHEW. ??? OneTouch Ultra Blue Test Strip strips TEST FOUR TIMES A DAY DX: E10.3593, E10.21, E10.65 ??? spironolactone (ALDACTONE) 100 mg tablet TAKE 1 TABLET (100 MG TOTAL) BY MOUTH DAILY. ??? UltiCare Pen Needle 31 gauge x 5/16 needle 4 Injection daily. OBJECTIVE PHYSICAL EXAMINATION LIMITED GIVEN THAT THIS IS A VIDEO ENCOUNTER DIAGNOSTICS Lab Results Component Value Date HGBA1C 7.5 (H) 08/27/2020 Lab Results Component Value Date ALT 43 10/07/2017 Lab Results Component Value Date CHOL 200 (H) 08/12/2018 Lab Results Component Value Date HDL 78 08/12/2018 Lab Results Component Value Date LDLCALC 88 08/12/2018 Lab Results Component Value Date TRIG 172 (H) 08/12/2018 Lab Results Component Value Date TSH 2.2 07/03/2019 Lab Results Component Value Date UMCROALBCONC 560.0 08/27/2020 CREATININEUR 33 08/27/2020 ALBCREARATIO 1697 (H) 08/27/2020 ASSESSMENT / PLAN #1 Diabetes Mellitus Type 1 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 plus sliding scale Goal HbA1c 7.5% or lower Consistent carbohydrate intake Reviewed tactics to minimize the risk of nocturnal hypoglycemia including proactive adjustment in prandial coverage prior to planned strenuous physical activity Verified availability of glucagon and ketone strips - Hemoglobin A1c; Future; Expected date: 03/07/2021 (Before next visit) - Lipid Panel; Future; Expected date: 03/07/2021 (Before next visit) - Video anyplace visit; Future; Expected date: 03/07/2021 (Elective) - Lantus Solostar U-100 Insulin 100 unit/mL (3 mL) injection; Take 20 units every morning, 18 units every evening, Normal #2 Hypothyroidism Primary Adequately replaced with levothyroxine 224 mcg 6 days a week and 112 mcg 1 day a week - S-TSH (Thyroid-Stimulating Hormone - Sensitive); Future; Expected date: 03/07/2021 (Before next visit) #3 Diabetes Mellitus Type 1 With Diabetic Nephropathy Hyperglycemic (HCC) #4 Hyperlipidemia Managed with a moderate intensity statin #5 Hypertension And Chronic Kidney Disease Stage 3 #6 Nicotine Dependence Chewing Tobacco #7 Senior Environmental Technician Use Of Insulin Active (HCC) Other orders - flash glucose sensor (FreeStyle Don 14 Day Sensor) kit; CHANGE EVERY 14 DAYS. USE DIRECTED FOR MONITORING GLUCOSE LEVEL., Normal - losartan (COZAAR) 100 mg tablet; Take 1 tablet (100 mg total) by mouth daily., Starting 09/04/2020, Until Rosalee 09/04/2021, Normal Carmelo Diana M.D. Consult conducted via real-time video/audio technology by Carmelo Diana M.D. in [facility] to patient's home. This video visit was performed during the emergency, when many states had issued ivkkvet-zz-hnzhr orders. I personally spent a total of 20 minutes in ncw-qjqh-iv-face time performing a review of the record and/or discussion with the patient/caregiver as described above. [id number] documented in this encounter Plan of Treatment Upcoming Encounters Date Type Specialty Care Team Description 04/28/2022 Ancillary Procedure Ophthalmology Softing Joselo Narayanan O.D. [address] [place], [place] [phone] (Odalis [place]ton) 04/28/2022 Ancillary Procedure Ophthalmology Softing Joselo Narayanan O.D. [address] [place], [place] [phone] (Odalis rk) 04/28/2022 Office Visit Ophthalmology SoftTita Whyte O.D. [address] [place], [place] [phone] (Odalis [place]) documented as of this encounter Results (ABNORMAL) S-TSH (Thyroid-Stimulating Hormone - Sensitive) (03/17/2021 7:55 AM MILL HAND) P athologist Signature TSH, Sensitive 38.8 (H) 0.3 - 4.2 03/17/2021 OWAT mIU/L 9:29 AM MILL HAND Specimen Anatomical Collection Method Collection Time Receive d Time (Source) Location / / Volume Laterality Blood (Blood, 03/17/2021 7:55 AM 03/17/20 8:13 Venous) MILL HAND AM MILL HAND Carmelo Dinaa M.D. LAB BLOOD ADD-ON Performing Organization Address City/State/ZIP Code Phon e Number [facility]- [address] [place] [address] [place] [address] System in [place] [address] (ABNORMAL) Lipid Panel (03/17/2021 7:55 AM MILL HAND) P athologist Signature Cholesterol, 218 (H) mg/dL 03/17/2021 OWAT Total 8:59 AM MILL HAND Comment: ----REFERENCE VALUE---- Desirable: < 200 Borderline high: 200 - 239 High: > or = 240 Triglycerides 125 mg/dL 03/17/2021 8:59 AM MILL HAND OWA T Comment: ----REFERENCE VALUE---- Normal: <150 Borderline high: 150-199 High: 200-499 Very high: > or =500 Cholesterol, HDL 71 >=40 mg/dL 03/17/2021 8:59 AM MILL HAND OWAT Calculated LDL 122 mg/dL 03/17/2021 8:59 AM MILL HAND OW AT Comment: ----REFERENCE VALUE---- Desirable: <100 mg/dL Above Desirable: 100-129 mg/dL Borderline High: 130-159 mg/dL High: 160-189 mg/dL Very High: >=190 mg/dL Cholesterol, Non-HDL, Calculated 147 mg/dL 021 8:59 AM MILL HAND OWAT Comment: ----REFERENCE VALUE---- Desirable: <130 Above Desirable: 130-159 Borderline high: 160-189 High: 190-219 Very high: > or =220 Specimen Anatomical Collection Method Collection Time Receive d Time (Source) Location / / Volume Laterality Blood (Blood, 03/17/2021 7:55 AM 03/17/20 8:13 Venous) MILL HAND AM MILL HAND Carmelo Diana M.D. LAB BLOOD ADD-ON Performing Organization Address City/State/ZIP Code Phon e Number [facility] [address] [place] [place] [address] [place] [address] System in [place] [address] [facility] (ABNORMAL) Hemoglobin A1c (03/17/2021 7:55 AM MILL HAND) P athologist Signature Hemoglobin A1c, 7.2 (H) 4.2 - 5.6 03/17/2021 OW[place] B % 8:53 AM MILL HAND Comment: Hemoglobin A1c values greater than or eq ual to 6.5 percent are diagnostic for diabetes mellitus. ?? Diagnosis should be confirmed by repeat testing. ??In diabet ic patients, HbA1c goals should be discussed with healthcar e provider. Specimen Anatomical Collection Method Collection Time Receive d Time (Source) Location / / Volume Laterality Blood (Blood, 03/17/2021 7:55 AM 03/17/20 21 8:13 Venous) MILL HAND AM MILL HAND Carmelo Diana M.D. LAB BLOOD ADD-ON Performing Organization Address City/State/ZIP Code Phon e Number [facility]- [address] [facility] [place] [address] [place] [address] System in [place] [address] [facility] documented in this encounter Visit Diagnoses Diagnosis Diabetes Mellitus Type 1 With Proliferat ruperto Diabetic Retinopathy Without Macular Edema Hyperglycemic Bilateral (HCC) - Pr imary Hypothyroidism Primary Diabetes Mellitus Type 1 With Diabetic N ephropathy Hyperglycemic (HCC) Hyperlipidemia Hypertension And Chronic Kidney Disease Stage 3 (HCC) Nicotine Dependence Chewing Tobacco Assisted Use Of Insulin Active (HCC) documented in this encounter Care Teams Mortgage Processing Manager Relationship Specialty Start Date End Date Obi Leggett APRN, C.N.P. PCP - General Family Medicine 06/08/18 12/04/21 [address] [place] [phone] documented as of this encounter
--- OUTSIDE RECORDS SUMMARY | 2022-03-02 08:32 | XMS_ITS | Encounter Summary ---
:1970 Author Organization [facility] Address [address] [place] [address] Care Team Providers Name Role Phone Obi Leggett APRN, C.N.P. Primary Care Provider [phone] Encounter Details Date Type Department Care Team Description 03/17/2021 Hospital Encounter Department of Bhagra, Carmelo, Diabet es Mellitus Type 1 With Proliferative Diabetic Retinopathy Without Macular Edema Hyperglycemic Bilateral (HCC); Laboratory M.D. Hypothyroidism Primary Medicine in [address] [place] [address] [address] [address] [place], [place] [phone] (Work) [phone] Social History Tobacco Use Types Packs/Day Years [...] do you attend gnosticist or Never 2021 rastafarian services? 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 Omnisiouch Ultra Blue Test TEST FOUR TIMES A 100 strip 3 08/17 Strip stripsIndications: DAY DX: E10.3593, Diabetes Mellitus Type 1 E10.21, E10.65 (HCC) UltiCare Pen Needle 31 4 Injection daily. [...] Ophthalmology Softing Joselo Narayanan O.D. [address] [place], [place] [phone] (Odalis rk) 04/28/2022 Ancillary Procedure Ophthalmology Softing Joselo Narayanan O.D. [address] [place], [place] [phone] (Odalis rk) 04/28/2022 Office Visit Ophthalmology Tita Palmer O.D. [address] [place], [place] [phone] (Odalis rk) documented as of this encounter Procedures Procedure Name Priority Date/Time Associated Diagnosis Comme nts LIPID PANEL, S Routine 03/17/2021 7:55 AM Diabetes Mellitus Ty pe Results for this EXPLOSIVES OPERATOR 1 With Proliferative procedu re are in Diabetic Retinopathy the res ults Without Macular Edema sectio n. Hyperglycemic Bilateral (HCC) THYROID-STIMULATING Routine 03/17/2021 7:55 AM Hypothyroidism Primary Results for this HORMONE-SENSITIVE EXPLOSIVES OPERATOR procedure are in (S-TSH) the results section. HEMOGLOBIN A1C, B Routine 03/17/2021 7:55 AM Diabetes Mellitus Type Results for this EXPLOSIVES OPERATOR 1 With Proliferative procedu re are in Diabetic Retinopathy the res ults Without Macular Edema sectio n. Hyperglycemic Bilateral (HCC) documented in this encounter Results (ABNORMAL) S-TSH (Thyroid-Stimulating Hormone - Sensitive) (03/17/2021 7:55 AM EXPLOSIVES OPERATOR) athologist Signature TSH, Sensitive 38.8 (H) 0.3 - 4.2 03/17/2021 OWAT mIU/L 9:29 AM EXPLOSIVES OPERATOR Specimen Anatomical Collection Method Collection Time Receive d Time (Source) Location / / Volume Laterality Blood (Blood, 03/17/2021 7:55 AM 03/17/20 8:13 Venous) EXPLOSIVES OPERATOR AM EXPLOSIVES OPERATOR Carmelo Diana M.D. LAB BLOOD ADD-ON Performing Organization Address City/State/ZIP Code Phon e Number [facility]- [address] [place] [address] [place] [address] System in [place] [address] (ABNORMAL) Lipid Panel (03/17/2021 7:55 AM EXPLOSIVES OPERATOR) athologist Signature Cholesterol, 218 (H) mg/dL 03/17/2021 OWAT Total 8:59 AM EXPLOSIVES OPERATOR Comment: ----REFERENCE VALUE---- Desirable: < 200 Borderline high: 200 - 239 High: > or = 240 Triglycerides 125 mg/dL 03/17/2021 8:59 AM EXPLOSIVES OPERATOR OWA T Comment: ----REFERENCE VALUE---- Normal: <150 Borderline high: 150-199 High: 200-499 Very high: > or =500 Cholesterol, HDL 71 >=40 mg/dL 03/17/2021 8:59 AM EXPLOSIVES OPERATOR OWAT Calculated LDL 122 mg/dL 03/17/2021 8:59 AM EXPLOSIVES OPERATOR OW AT Comment: ----REFERENCE VALUE---- Desirable: <100 mg/dL Above Desirable: 100-129 mg/dL Borderline High: 130-159 mg/dL High: 160-189 mg/dL Very High: >=190 mg/dL Cholesterol, Non-HDL, Calculated 147 mg/dL 021 8:59 AM EXPLOSIVES OPERATOR OWAT Comment: ----REFERENCE VALUE---- Desirable: <130 Above Desirable: 130-159 Borderline high: 160-189 High: 190-219 Very high: > or =220 Specimen Anatomical Collection Method Collection Time Receive d Time (Source) Location / / Volume Laterality Blood (Blood, 03/17/2021 7:55 AM 03/17/20 8:13 Venous) EXPLOSIVES OPERATOR AM EXPLOSIVES OPERATOR Carmelo Diana M.D. LAB BLOOD ADD-ON Performing Organization Address City/State/ZIP Code Phon e Number [facility]- [address] [place] [address] [place] [address] System in [place] [address] (ABNORMAL) Hemoglobin A1c (03/17/2021 7:55 AM EXPLOSIVES OPERATOR) P athologist Signature Hemoglobin A1c, 7.2 (H) 4.2 - 5.6 03/17/2021 OWAT B % 8:53 AM EXPLOSIVES OPERATOR Comment: Hemoglobin A1c values greater than or eq ual to 6.5 percent are diagnostic for diabetes mellitus. ?? Diagnosis should be confirmed by repeat testing. ??In diabet ic patients, HbA1c goals should be discussed with healthcar e provider. Specimen Anatomical Collection Method Collection Time Receive d Time (Source) Location / / Volume Laterality Blood (Blood, 03/17/2021 7:55 AM 03/17/20 8:13 Venous) EXPLOSIVES OPERATOR AM EXPLOSIVES OPERATOR Carmelo Diana M.D. LAB BLOOD ADD-ON Performing Organization Address City/State/ZIP Code Phon e Number [facility]- [address] [place] [address] [place] [address] System in [place] [address] documented in this encounter Visit Diagnoses Diagnosis Diabetes Mellitus Type 1 With Proliferat ruperto Diabetic Retinopathy Without Macular Edema Hyperglycemic Bilateral (HCC) Hypothyroidism Primary documented in this encounter Care Teams Arcade Attendant Relationship Specialty Start Date End Date Obi Leggett, ASHLEY, C.N.P. PCP - General Family Medicine 06/08/18 12/04/21 [address] [place] [phone] documented as of this encounter
--- OUTSIDE RECORDS SUMMARY | 2022-03-02 08:32 | XMS_ITS | Encounter Summary ---
:1970 Author Organization [facility] Address [address] [place] [address] Care Team Providers Name Role Phone Obi Leggett APRN, C.N.P. Primary Care Provider [phone] Reason for Visit Reason Comments Med Refill Encounter Details Date Type Department Care Team Description 07/25/2020 Refill Department of Internal Obi Leggett, Med Refill Medicine in [place], [place] ASHLEY, C.N.P. [address] [place] [address] [place] [address] [place] [phone] (Wo rk) Social History Tobacco Use Types [...] do you attend bahai or Never 2021 orthodoxy services? 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 documented as of this encounter Plan of Treatment Upcoming Encounters Date Type Specialty Care Team Description 04/28/2022 Ancillary Procedure Ophthalmology Softing Joselo Narayanan O.Dequan [address] [place], [place] [phone] (Wo rk) 04/28/2022 Ancillary Procedure Ophthalmology Joselo Palmer O.DCourtney [address] [place], [place] [phone] (Wo rk) 04/28/2022 Office Visit Ophthalmology Tita Palmer O.Dequan [address] [place] [phone] (Wo rk) documented as of this encounter Visit Diagnoses Not on filedocumented in this encounter Care Teams Manager Control Relationship Specialty Start Date End Date Obi Leggett, REPRINT SORTER, C.N.P. PCP - General Family Medicine 06/08/18 12/04/[address] [place] [phone] documented as of this encounter
--- OUTSIDE RECORDS SUMMARY | 2022-03-02 08:32 | XMS_ITS | Encounter Summary ---
:1970 Author Organization [facility] Address [address] [place] [address] Care Team Providers Name Role Phone Obi Leggett APRN, C.N.P. Primary Care Provider [phone] Reason for Visit Reason Comments Med Refill Encounter Details Date Type Department Care Team Description 08/21/2020 Refill Department of Family Medicine, Obi Leggett, Med Refill [facility], in [place] ASHLEY, C.N.P. [place] [address] [place] [address] [place] [address] [place] [address] [phone] Social History Tobacco Use Types Packs/Day Years [...] do you attend quaker or Never 2021 mandaen services? 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 - 08/22/2020 9:42 AM CDT Last OV 06/2019 90 days; needs appt for further refils Obi Leggett APRN, C.N.P. documented in this encounter Plan of Treatment Upcoming Encounters Date Type Specialty Care Team Description 04/28/2022 Ancillary Procedure Ophthalmology Joselo Palmer O.Dequan [address] [place], [place] [phone] (Odalis walton) 04/28/2022 Ancillary Procedure Ophthalmology Joselo Palmer O.D. [address] [place], [place] [phone] (Odalis walton) 04/28/2022 Office Visit Ophthalmology Softing Tita Narayanan O.D. [address] [place], [place] [phone] (Wo rk) documented as of this encounter Visit Diagnoses Not on filedocumented in this encounter Care Teams Bag Bailer Relationship Specialty Start Date End Date Obi Leggett, ASHLEY, C.N.P. PCP - General Family Medicine 06/08/18 12/04/21 [address] [place] [phone] documented as of this encounter
--- OUTSIDE RECORDS SUMMARY | 2022-03-02 08:32 | XMS_ITS | Encounter Summary ---
:1970 Author Organization [facility] Address [address] [place] [address] Care Team Providers Name Role Phone Obi Leggett APRN, C.N.P. Primary Care Provider Reason for Visit Reason Comments Med Refill Encounter Details Date Type Department Care Team Description 11/21/2020 Refill Department of Family Medicine, Obi Leggett, Med Refill [facility], in [place], ASHLEY, C.N.P. [place] [address] [place] [address] [place] [address] [place] [address] [phone] Social History Tobacco Use Types Packs/Day Years [...] do you attend pentecostal or Never 2021 faith services? 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 [address] [place], [place] [phone] (Wo rk) 04/28/2022 Ancillary Procedure Ophthalmology Joselo Palmer O.Dequan [address] [place], [place] [phone] (Wo rk) 04/28/2022 Office Visit Ophthalmology Tita Palmer O.D. [address] [place], [place] [phone] (Wo rk) documented as of this encounter Visit Diagnoses Not on filedocumented in this encounter Care Teams Etl Bi Developer Relationship Specialty Start Date End Date Obi Leggett, ORDNANCE EQUIPMENT WORKER, C.N.P. PCP - General Family Medicine 06/08/18 12/04/[address] [place] [phone] documented as of this encounter
--- OUTSIDE RECORDS SUMMARY | 2022-03-02 08:32 | XMS_ITS | Encounter Summary ---
:1970 Author Organization [facility] Address [address] [place] [address] Care Team Providers Name Role Phone Obi Leggett APRN, C.N.P. Primary Care Provider [phone] Encounter Details Date Type Department Care Team [...] do you attend rastafari or Never 2021 episcopalian services? 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 [address] [place] [phone] (Wo rk) 04/28/2022 Ancillary Procedure Ophthalmology Joselo Palmer O.D. [address] [place] [phone] (Wo rk) 04/28/2022 Office Visit Ophthalmology Tita Palmer O.D. [address] [place] [phone] (Wo rk) documented as of this encounter Procedures Procedure Name Priority Date/Time Associated Comments Diagnosis OPHTHALMOLOGY IMAGE Routine 10/17/2019 9:53 AM Re sults for this EXAM CDT procedure are i n the results section. documented in this encounter Results Eyes Color-Ophthalmology Image Exam (10/17/2019 9:53 AM CDT) Specimen (Source) Anatomical Collection Method Collection Time Re ceived Time Location / / Volume Laterality 10/17/2019 12:00 PM CDT Narrative [facility] - 10/17/2019 9:53 AM CDT This order has been created [...] on filedocumented in this encounter Care Teams Plug Machine Operator Relationship Specialty Start Date End Date Obi Leggett APRN, C.N.P. PCP - General Family Medicine 2/20/19 8/18/22 [address] [place] [phone] documented as of this encounter
--- OUTSIDE RECORDS SUMMARY | 2022-03-02 08:32 | XMS_ITS | Encounter Summary ---
:1970 Author Organization [facility] Address [address] [place] [address] Care Team Providers Name Role Phone Obi Leggett APRN, C.N.PCourtney Primary Care Provider [phone] Encounter Details Date Type Department Care Team Description 05/20/2020 Orders Only [facility] PCP HLObi Shane For Therapeutic Drug Therapy; FABIOLA Patrcik APRN, C.N.P. 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 documented as of this encounter Plan of Treatment Upcoming Encounters Date Type Specialty Care Team Description 04/28/2022 Ancillary Procedure Ophthalmology SoftJoselo Whyte O.DCourtney [address] [place], [place] [phone] (Wo rk) 04/28/2022 Ancillary Procedure Ophthalmology Joselo Palmer O.DCourtney [address] [place], [place] [phone] (Wo rk) 04/28/2022 Office Visit Ophthalmology Tita Palmer O.DCourtney [address] [place], [place] [phone] (Wo rk) documented as of this encounter Visit Diagnoses Diagnosis Monitoring For Therapeutic Drug Therapy 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 PCP - General Family Medicine 06/08/18 12/04/21 [address] [place] [phone] documented as of this encounter
--- OUTSIDE RECORDS SUMMARY | 2022-03-02 08:32 | XMS_ITS | Encounter Summary ---
:1970 Author Organization [facility] Address [address] [place] [address] Care Team Providers Name Role Phone Obi Leggett APRN, C.N.P. Primary Care Provider [phone] Encounter Details Date Type Department Care Team Description 08/20/2020 Orders Only [facility] PCP HLTH MNT [...] do you attend hindu or Never 2021 oriental orthodox services? 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 [address] [place], [place] [phone] (Wo rk) 04/28/2022 Ancillary Procedure Ophthalmology Joselo Palmer O.D. [address] [place] [phone] (Wo rk) 04/28/2022 Office Visit Ophthalmology Tita Palmer O.D. [address] [place], [place] [phone] (Wo rk) documented as of this encounter Visit Diagnoses Not on filedocumented in this encounter Care Teams Research Mechanic Relationship Specialty Start Date End Date Obi Leggett, BEE KEEPER, C.N.P. PCP - General Family Medicine 06/08/18 12/04/21 [address] [place] [phone] documented as of this encounter
--- OUTSIDE RECORDS SUMMARY | 2022-03-02 08:33 | XMS_ITS | Encounter Summary ---
:1970 Author Organization [facility] Address [address] [place] [address] Care Team Providers Name Role Phone Obi Leggett APRN, C.N.P. Primary Care Provider Reason for Visit Reason Onset Date Comments Med Refill 05/25/2019 Encounter Details Date Type Department Care Team Description 05/25/2019 Refill Department of Endocrinology in Carmelo Vera M.D. Med Refill [place], [place] [address] [facility] [address] [place] [address] [place] [address] [phone] Social History Tobacco Use Types Packs/Day Years [...] you attend roman catholic or Never 2021 methodist services? Do you belong to any clubs [...] or slept in a longterm (including now)? 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 [address] [place], [place] [phone] (Wo rk) 04/28/2022 Ancillary Procedure Ophthalmology Joselo Palmer O.D. [address] [place] [phone] (Wo rk) 04/28/2022 Office Visit Ophthalmology Tita Palmer O.D. [address] [place] [phone] (Wo rk) documented as of this encounter Visit Diagnoses Not on filedocumented in this encounter Care Teams Revenue Cycle Consultant Relationship Specialty Start Date End Date Obi Leggett, CATHODE BUILDER, C.N.P. PCP - General Family Medicine 06/08/18 12/04/21 [address] [place] [phone] documented as of this encounter
--- OUTSIDE RECORDS SUMMARY | 2022-03-02 08:33 | XMS_ITS | Encounter Summary ---
:1970 Author Organization [facility] Address [address] [place] [address] Care Team Providers Name Role Phone Obi Leggett APRN, C.N.P. Primary Care Provider [phone] Encounter Details Date Type Department Care Team Description 10/17/2019 Comprehensive Visit Department of Hortensia Banks s Mellitus Type 1 With Proliferative Diabetic Retinopathy Without Macular Edema Hyperglycemic Bilateral (HCC) (Primary Dx); Ophthalmology in Romeo Garcia, Age Related Nuclear Cataract Bilateral; [place], [place] Hemorrhage Vitreous Right (HCC) [address] [facility] [address] [place] [address] [phone] Social History Tobacco Use Types Packs/Day Years [...] or relatives? How often do you attend voodoo or Never 2021 yarsanism services? 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 - 10/17/2019 11:00 AM CDT EDIC study visit # Proliferative diabetic retinopathy BOTH eyes DM since age 13 RIGHT: s/p PRP '04, fill in in 06/03, no CSME - VH from inf nasal NVE LEFT: s/p PRP (last 01/30), no CSME - bleeding from several NVEs (many NVEs regressed/fibrotic) - new VH 10/18/14 -tight glycemic, hypertensive, and cholesterol control d/w pt -last HbA1c 7.4 # Vitreous hemorrhage RIGHT eye # early cataract BOTH eyes Selected imaging: OCT 09/2019 RIGHT: DRIL, no IRF/SRF LEFT: DRIL, no IRF/SRF IMPRESSION 10/17/19: Doing well. EDIC study visit today. There is a small amount of vitreous hemorrhage nasally in the right eye, but this has been present in the past to various degrees and he remains asymptomatic. He is of keen observer of his vision and will let us know if there are any changes. Assuming everything sanam ins stable, he will follow up with Dr. Minesh Narayanan for regular exams. PLAN: FU 9-[address] Edge with OCT documented in this encounter Plan of Treatment Upcoming Encounters Date Type Specialty Care Team Description 04/28/2022 Ancillary Procedure Ophthalmology Softing Joselo Narayanan O.D. [address] [place], [place] [phone] (Wo rk) 04/28/2022 Ancillary Procedure Ophthalmology SoftJoselo Whyte O.D. [address] [place], [place] [phone] (Wo rk) 04/28/2022 Office Visit Ophthalmology Tita Palmer O.D. [address] [place], [place] [phone] (Wo rk) documented as of this encounter Visit Diagnoses Diagnosis Diabetes Mellitus Type 1 With Proliferat ruperto Diabetic Retinopathy Without Macular Edema Hyperglycemic Bilateral (HCC) - Pr imary Age Related Nuclear Cataract Bilateral Hemorrhage Vitreous Right (HCC) documented in this encounter Care Teams Machine Erector Relationship Specialty Start Date End Date Obi Leggett APRN, C.N.P. PCP - General Family Medicine 06/08/18 12/04/21 [address] [place] [phone] documented as of this encounter
--- OUTSIDE RECORDS SUMMARY | 2022-03-02 08:33 | XMS_ITS | Encounter Summary ---
:1970 Author Organization [facility] Address [address] [place] [address] Care Team Providers Name Role Phone Obi Leggett APRN, C.N.P. Primary Care Provider [phone] Encounter Details Date Type Department Care Team Description 06/16/2019 Orders Only Department of Cardiovascular Margarita Perez, Diseases in [place], [place] ASHLEY, C.N.P. [address] [place] [address] [place] [address] [place] [phone] (Wo rk) Social History Tobacco Use Types [...] do you attend religious or Never 2021 rastafari services? Do you belong to any clubs [...] slept in a senior living (including now)? 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 [address] [place], [place] [phone] (Wo rk) 04/28/2022 Ancillary Procedure Ophthalmology Joselo Palmer O.D. [address] [place] [phone] (Wo rk) 04/28/2022 Office Visit Ophthalmology Tita Palmer O.D. [address] [place] [phone] (Wo rk) documented as of this encounter Visit Diagnoses Not on filedocumented in this encounter Care Teams Lead Pharmacy Technician Relationship Specialty Start Date End Date Obi Leggett, BINDERY PRODUCTION MANAGER, C.N.P. PCP - General Family Medicine 06/08/18 12/04/21 [address] [place] [phone] documented as of this encounter
--- OUTSIDE RECORDS SUMMARY | 2022-03-02 08:33 | XMS_ITS | Encounter Summary ---
:1970 Author Organization [facility] Address [address] [place] [address] Care Team Providers Name Role Phone Obi Leggett APRN, C.N.P. Primary Care Provider Encounter Details Date Type Department Care Team Description 10/17/2019 Ancillary Procedure Department of Ashley Dowd Research Ophthalmology in [place], [place] [address] [facility] [address] [place] [phone] [phone] Social History Tobacco Use Types Packs/Day Years [...] do you attend pentecostal or Never 2021 taoist services? 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 [address] [place] [phone] (Wo rk) 04/28/2022 Ancillary Procedure Ophthalmology Joselo Palmer O.D. [address] [place] [phone] (Wo rk) 04/28/2022 Office Visit Ophthalmology Tita Palmer O.D. [address] [place] [phone] (Wo rk) documented as of this encounter Procedures Procedure Name Priority Date/Time Associated Comments Diagnosis OPTICAL COHERENCE Routine 10/17/2019 10:16 AM Clinical Researc h Results for this TOMOGRAPHY - CDT Exam procedure are i n MACULA/RETINA - OU - the res ults BOTH EYES section. documented in this encounter Results Optical Coherence Tomography (OCT) - Macula/Retina - OU - Both Eyes (10/17/2019 10:16 AM CDT) Specimen (Source) Anatomical Location Collection Method / Collectio n Time Received Time / Laterality Volume Narrative OPHTHALMOLOGY IMAGING EXAM - 10/17/19 20 10:43 AM CDT Right Eye OCT device used was Spectralis . Left Eye OCT device used was Spectralis . Notes See interpretation in note section Bean Dowd M.D. OPHTH TOMOGRAPHY Performing Organization Address City/State/ZIP Code Phon e Number OPHTHALMOLOGY IMAGING EXAM documented in this encounter Visit Diagnoses Diagnosis Clinical Research Exam documented in this encounter Care Teams Living Specialist Relationship Specialty Start Date End Date Obi Leggett APRN, C.N.P. PCP - General Family Medicine 06/08/18 12/04/[address] [place], [place] [phone] documented as of this encounter
--- OUTSIDE RECORDS SUMMARY | 2022-03-02 08:33 | XMS_ITS | Encounter Summary ---
:1970 Author Organization [facility] Address [address] [place] [address] Care Team Providers Name Role Phone Obi Leggett APRN, C.N.P. Primary Care Provider [phone] Encounter Details Date Type Department Care Team Description 07/01/2019 Orders Only [facility] Zaria Glez [address] , [facility] [address] [facility] [place] [address] Social History Tobacco Use Types Packs/Day Years [...] or relatives? How often do you attend cheondoism or Never 2021 shinto services? Do you belong to any clubs or No 05/04/2021 organizations such as cheondoism groups, unions, fraternal or athletic groups, or [...] place to sleep or slept in a fdc (including now)? Education Answer Date Recorded What is the highest level of school you have completed or 12 th grade 06/18/2019 the highest degree you have received? 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 [address] [place], [place] [phone] (Wo rk) 04/28/2022 Ancillary Procedure Ophthalmology Joselo Palmer O.D. [address] [place] [phone] (Wo rk) 04/28/2022 Office Visit Ophthalmology Tita Palmer O.D. [address] [place], [place] [phone] (Wo rk) documented as of this encounter Visit Diagnoses Not on filedocumented in this encounter Care Teams Workday Manager Relationship Specialty Start Date End Date Obi Leggett, FRONT OFFICE REPRESENTATIVE, C.N.P. PCP - General Family Medicine 06/08/18 12/04/21 [address] [place] [phone] documented as of this encounter
--- OUTSIDE RECORDS SUMMARY | 2022-03-02 08:33 | XMS_ITS | Encounter Summary ---
:1970 Author Organization [facility] Address [address] [place] [address] Care Team Providers Name Role Phone Obi Leggett APRN, C.N.P. Primary Care Provider Reason for Visit Reason Comments Diabetic Eye Exam Outpatient (Routine) - Closed Specialty Diagnoses / Procedures Referred By Contact Refer red To Contact Ophthalmology Tita Palmer [facility] [address] [place] [address] Referral ID Status Reason Start Date Expiration Date Visits Requ ested Visits Authorized [id number] Closed 09/13/2018 09/13/2019 1 1 Encounter Details Date Type Department Care Team Description 06/19/2019 Office Visit Department of Hernán Palmer Mi llitus Type Ophthalmology in Tita Calabrese O.D. 1 With Proliferative [place], [place] [address] [facility] Diabetic Retinopathy [address] [place], [place] [address] [facility] [phone] Bilateral (HCC) (Primary Dx) Social History Tobacco [...] or relatives? How often do you attend zoroastrian or Never 2021 yazidi services? Do you belong to any clubs or No 05/04/2021 organizations such as zoroastrian groups, unions, [email or web address] or athletic groups, or school groups? How [...] place to sleep or slept in a fpc (including now)? Education Answer Date Recorded What is the highest level of school you have completed or 12 th grade 06/18/2019 the highest degree you have received? 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 - 06/19/2019 2:45 PM CST Lex Hernandez Diabetes mellitus type 1 exam HISTORY OF PRESENT ILLNESS -diabetes mellitus type 1 since 13 years old Last A1c was 7.5 07/2018 -RIGHT: s/p panretinal photocoagulation 2003 - fill in PRP 06/03 -s/p VH from inf nasal NVE LEFT: s/p PRP (last 01/30), -bleeding from several NVEs (many NVEs regressed/fibrotic) - new VH 10/18/14 IMPRESSION: #1 Proliferative diabetic retinopathy BOTH eyes diabetes mellitus type 1, quiescent both eyes #2 Resolved LE subhyaloid hemorrhage with vitreous hemorrhage started 2nd week September 2014 #3 early cataract BOTH eyes 06/19/2019 Plan: FU 9-[address] Edge/retina with Spectralis OCT or prn. OK to use OTC readers. -OK TO USE LOW DOSE DILATING DROPS L SUPPORT ASSISTANT documented in this encounter Plan of Treatment Upcoming Encounters Date Type Specialty Care Team Description 04/28/2022 Ancillary Procedure Ophthalmology Joselo Palmer O.D. [address] [place], [place] [phone] (Wo rk) 04/28/2022 Ancillary Procedure Ophthalmology Joselo Palmer O.D. [address] [place], [place] [phone] (Wo rk) 04/28/2022 Office Visit Ophthalmology Tita Palmer O.D. [address] [place], [place] [phone] (Wo rk) documented as of this encounter Visit Diagnoses Diagnosis Diabetes Mellitus Type 1 With Proliferat ruperto Diabetic Retinopathy Without Macular Edema Hyperglycemic Bilateral (HCC) - Pr imary documented in this encounter Care Teams Geography Instructor Relationship Specialty Start Date End Date Obi Leggett, ELEVATOR SERVICEMAN, C.N.P. PCP - General Family Medicine 06/08/18 12/04/[address] [place] [phone] documented as of this encounter
--- OUTSIDE RECORDS SUMMARY | 2022-03-02 08:33 | XMS_ITS | Encounter Summary ---
:1970 Author Organization [facility] Address [address] [place] [address] Care Team Providers Name Role Phone Obi Leggett APRN, C.N.P. Primary Care Provider Reason for Visit Reason Onset Date Comments Med Refill 05/04/2019 Encounter Details Date Type Department Care Team Description 05/04/2019 Refill Department of Family Medicine, Obi Leggett, Med Refill [facility] ASHLEY Jimenez, C.N.P. [place] [address] [place] [address] [place] [address] [place] [address] [phone] Social History Tobacco Use Types Packs/Day Years [...] or relatives? How often do you attend rastafarian or Never 2021 scientologist services? Do you belong to any clubs or No 05/04/2021 organizations such as rastafarian groups, unions, fraternal or athletic groups, or [...] or slept in a retirement (including now)? 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 - 05/04/2019 11:32 AM PRESENTATION SPECIALIST Patient has appt with PCP scheduled for 05/30/2019. ENTATION SPECIALIST Telephone Encounter - Obi Leggett APRN, C.N.P. - 05/04/2019 11:24 AM CST Filled. Still need to f/up at appt for BP. Thanks Obi Leggett, SUGAR HOUSE SUPERVISOR ENTATION SPECIALIST documented in this encounter Plan of Treatment Upcoming Encounters Date Type Specialty Care Team Description 04/28/2022 Ancillary Procedure Ophthalmology Joselo Palmer O.D. [address] [place] [phone] (Wo rk) 04/28/2022 Ancillary Procedure Ophthalmology Joselo Palmer O.D. [address] [place] [phone] (Wo rk) 04/28/2022 Office Visit Ophthalmology Tita Palmer O.D. [address] [place] [phone] (Wo rk) documented as of this encounter Visit Diagnoses Not on filedocumented in this encounter Care Teams Steam Boiler Fireman Relationship Specialty Start Date End Date Obi Leggett APRN, C.N.P. PCP - General Family Medicine 06/08/18 12/04/21 [address] [place] [phone] documented as of this encounter
--- OUTSIDE RECORDS SUMMARY | 2022-03-02 08:33 | XMS_ITS | Encounter Summary ---
:1970 Author Organization [facility] Address [address] [place] [address] Care Team Providers Name Role Phone Obi Leggett APRN, C.N.P. 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 Hypertension And Chronic Kidney Disease Stage 3 (HCC); Medicine in [address] Hypothyroidis m [place], [place] [address] [place]ERMINA [place], [place] [phone] Social History Tobacco Use Types Packs/Day Years [...] do you attend gnosticist or Never 2021 faith services? 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 amLODIPine (NORVASC) 10 Take 1 tablet (10 mg 90 tablet 3 05/29/2020 mg tablet total) by mouth daily. atorvastatin (LIPITOR) Take 1 tablet (40 mg 90 tablet 3 07/12/2019 40 mg tablet total) by mouth daily. BD ULTRA-FINE SHORT PEN Inject 1 Injection 400 each 3 11/201805/29/2020 NEEDLE 31 gauge x 5/16 under the skin needle daily. Use 4 times daily or as directed. blood sugar diagnostic 4 test daily. One 400 test 3 201807/12/2019 (glucose blood) Touch Verio test stripsIndications: strips DX: E10.3593, Diabetes Mellitus Type 1 E10.21, E10.65 (HCC) chlorthalidone Take 1 tablet (50 mg 90 tablet 3 07/21/2018 07/12/2019 (HYGROTEN) 50 mg tablet total) by mouth daily. flash glucose scanning Don 14 Day 1 each 0 06/15/2019 07/12/2019 reader (FreeStyle Don Scanning Parsons 14 Day Parsons) [facility] flash glucose sensor FreeStyle Don 14 2 kit 11 2 019 07/12/2019 (FREESTYLE DON 14 DAY day senor. 2 sensors SENSOR) kit per month. Change every 14 days. Use as directed for monitoring glucose level. HUMALOG KWIKPEN INSULIN Take 8 units with 15 mL 11 10/1707/12/2019 100 unit/mL injection each meal plus sliding scale. TDD 40 units per day. insulin glargine Inject 0.3 mL (30 15 mL 11 10/17/2018 0 07/12/2019 (BASAGLAR KWIKPEN U-100 Units total) under INSULIN) 100 unit/mL (3 the skin daily. mL) injection levothyroxine Take 2 tablets (224 170 tablet 3 10/17/2018 (SYNTHROID, LEVOTHROID) mcg total) by mouth 112 mcg tablet every morning before breakfast. Take 2 tablets daily 6 days a week (Wednesday through Wednesday) and 1 tablet 1 day a week (Wednesday) losartan (COZAAR) 100 mg Take 1 tablet (100 90 tablet 3 07/12/2019 tablet mg total) by mouth daily. metoprolol succinate Take 1 tablet (50 mg 90 tablet 3 06/1905/24/2020 (TOPROL-XL) 50 mg 24 hr total) by mouth tablet daily. Do not crush or chew. spironolactone Take 1 tablet (100 90 tablet 3 10/17/2018 (ALDACTONE) 100 mg mg total) by mouth tablet daily. spironolactone 0 06/05/2019 07/12/2019 (ALDACTONE) 50 mg tablet documented as of this encounter Miscellaneous Notes Result Encounter Note - Obi Leggett APRN, C.N.P. - 07/03/2019 10:51 AM CDT Will review all results with patient at upcoming clinic appointment. documented in this encounter Plan of Treatment Upcoming Encounters Date Type Specialty Care Team Description 04/28/2022 Ancillary Procedure Ophthalmology Softing Joselo Narayanan, O.Dequan [address] [place], [place] [phone] (Wo rk) 04/28/2022 Ancillary Procedure Ophthalmology Softing Joselo Narayanan jayne L O.D. [address] [place], [place] [phone] (Wo rk) 04/28/2022 Office Visit Ophthalmology Softing John NarayananNitza Alvarez.Dequan [address] [place], [place] [phone] (Wo rk) documented as of this encounter Procedures Procedure Name Priority Date/Time Associated Diagnosis Comme nts THYROID-STIMULATIN Routine 07/03/2019 6:48 AM Hypertension And Results for this G CDT Chronic Kidney Disease proce dure are in HORMONE-SENSITIVE Stage 3 (HCC) the results (S-TSH) Hypothyroidism Primary secti on. BASIC METABOLIC Routine 07/03/2019 6:48 AM Diabetes Mellitus T ype Results for this PANEL, S/P CDT 1 With Proliferative procedu re are in Diabetic Retinopathy the res ults Without Macular Edema sectio n. Hyperglycemic Bilateral (HCC) documented in this encounter Results S-TSH (Thyroid-Stimulating Hormone - Sensitive) (07/03/2019 6:48 AM CDT) athologist Signature TSH, Sensitive 2.2 0.3 - 4.2 07/03/2019 [facility] mIU/L 9:39 AM CDT Comment: Biotin has been identified by the ariel almanzar as a potential interfering substance. ??Higher concentr ations of biotin may be found in multivitamins, hair/nail supple ments, and workout supplements. ??If the result does not ma [facility] clinical observations, repeat testing after patient refrains fr om the use of supplements for at least 12 hours. Specimen Anatomical Collection Method Collection Time Receive d Time (Source) Location / / Volume Laterality Blood (Blood, 07/03/2019 6:48 AM 07/03/19 20 7:02 Venous) CDT AM CDT Obi Leggett APRN, C.N.P. LAB BLOOD ADD-ON Performing Organization Address City/State/ZIP Code Phon e Number [facility]- [address] [place] [address] [facility] [place] [address] [facility] [address] (ABNORMAL) Basic Metabolic Panel (07/03/2019 6:48 AM CDT) Analysis Performed At Patho logist Time Signature Potassium, P 3.7 3.6 - 5.2 07/03/2019 [place] mmol/L 7:34 AM CDT Sodium, P 143 135 - 145 07/03/2019 [place] mmol/L 7:34 AM CDT Chloride, P 104 98 - 107 07/03/2019 [place] mmol/L 7:34 AM CDT Bicarbonate, P 25 22 - 29 07/03/2019 [facility] mmol/L 7:34 AM CDT Anion Gap, P 14 7 - 15 07/03/2019 [facility] 7:34 AM CDT BUN (Blood Urea 43 (H) 8 - 24 07/03/2019 [facility] Nitrogen), P mg/dL 7:34 AM CDT Creatinine 1.85 (H) 0.74 - 07/03/2019 [facility] 1.35 mg/dL 7:34 AM CDT eGFR-Black/Afri 49 (L) >=60 07/03/2019 [facility] can [place] mL/min/BSA 7:34 AM CDT Comment: ----ADDITIONAL INFORMATION---- Estimated GFR calculated using the 2009 CKD_EPI creatinine equation. eGFR Non-Black/ 43 (L) >=60 mL/min/BSA 07/03/2019 7:34 AM CDT [facility] [place] Comment: ----ADDITIONAL INFORMATION---- Estimated GFR calculated using the 2009 CKD_EPI creatinine equation. Calcium, Total, P 9.3 8.6 - 10.0 mg/dL 07/03/2019 7:34 AM CDT [place] Glucose, P 111 70 - 140 mg/dL 07/03/2019 7:34 AM CDT A UST Specimen Anatomical Collection Method Collection Time Receive d Time (Source) Location / / Volume Laterality Blood (Blood, 07/03/2019 6:48 AM 07/03/19 20 7:02 Venous) CDT AM CDT Carmelo Diana M.D. LAB BLOOD ADD-ON Performing Organization Address City/State/ZIP Code Phon e Number [facility]- [address] [place] [address] [facility] [place] [address] [facility] [address] documented in this encounter Visit Diagnoses Diagnosis Diabetes Mellitus Type 1 With Proliferat ruperto Diabetic Retinopathy Without Macular Edema Hyperglycemic Bilateral (HCC) Hypertension And Chronic Kidney Disease Stage 3 (HCC) Hypothyroidism Primary documented in this encounter Care Teams Goal Umpire Relationship Specialty Start Date End Date Obi Leggett APRN, C.N.P. PCP - General Family Medicine 06/08/18 12/04/[address] [place] [phone] documented as of this encounter
--- OUTSIDE RECORDS SUMMARY | 2022-03-02 08:33 | XMS_ITS | Encounter Summary ---
:1970 Author Organization [facility] Address [address] [place] [address] Care Team Providers Name Role Phone Obi Leggett APRN, C.N.P. Primary Care Provider Encounter Details Date Type Department Care Team Description 09/19/2019 Orders Only Department of Ophthalmology in [place], [place] [address] [facility] [address] [place] [phone] Social History Tobacco Use Types Packs/Day Years [...] or relatives? How often do you attend methodist or Never 2021 sabianism services? 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 [address] [place] [phone] (Wo rk) 04/28/2022 Ancillary Procedure Ophthalmology Joselo Palmer O.D. [address] [place] [phone] (Wo rk) 04/28/2022 Office Visit Ophthalmology Tita Palmer O.D. [address] [place] [phone] (Wo rk) documented as of this encounter Visit Diagnoses Not on filedocumented in this encounter Care Teams Emt Basic Relationship Specialty Start Date End Date Obi Leggett, ARMATURE WINDER HELPER REPAIR, C.N.P. PCP - General Family Medicine 06/08/18 12/04/21 [address] [place] [phone] documented as of this encounter
--- OUTSIDE RECORDS SUMMARY | 2022-03-02 08:33 | XMS_ITS | Encounter Summary ---
:1970 Author Organization [facility] Address [address] [place] [address] Care Team Providers Name Role Phone Obi Leggett APRN, C.N.P. Primary Care Provider [phone] Encounter Details Date Type Department Care Team Description 10/13/2019 Clinical Communication Department of Latonya Abarca Ophthalmology in [place], [place] [address] [facility] [address] [place] [phone] Social History Tobacco Use Types Packs/Day Years [...] or relatives? How often do you attend hinduism or Never 2021 yazidism services? 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 1. Do you have a pending COVID test because you had symptoms or exposure to someone with COVID or you have tested positive for COVID in the last 30 days? no 2. In the past 14 days, do you, anyone in the household, or anyone you have had prolonged exposure have any of the following? a. Fever greater than or equal to 37.8 C (100.0 F)? no b. New symptoms (Specifically: headache, cough, shortness of breath, respiratory distress, sore throat, diarrhea, nausea, vomiting, chills and repeated shaking with chills, myalgia's (muscle aches), loss of smell, or change or loss of taste sensation)? no c. Had close contact with a patient with known or possible COVID-19 in the last 14 days? no documented in this encounter Plan of Treatment Upcoming Encounters Date Type Specialty Care Team Description 04/28/2022 Ancillary Procedure Ophthalmology Softing Joselo Narayanan, O.Dequan [address] [place], [place] [phone] (Wo rk) 04/28/2022 Ancillary Procedure Ophthalmology Softing Joselo Narayanan O.D. [address] [place], [place] [phone] (Wo rk) 04/28/2022 Office Visit Ophthalmology Tita Palmer O.D. [address] [place], [place] [phone] (Wo rk) documented as of this encounter Visit Diagnoses Not on filedocumented in this encounter Care Teams Yarn Examiner Skeins Relationship Specialty Start Date End Date Obi Leggett APRN, C.N.P. PCP - General Family Medicine 06/08/18 12/04/21 [address] [place] [phone] documented as of this encounter
--- OUTSIDE RECORDS SUMMARY | 2022-03-02 08:33 | XMS_ITS | Encounter Summary ---
:1970 Author Organization [facility] Address [address] [place] [address] Care Team Providers Name Role Phone Obi Leggett APRN, C.N.P. Primary Care Provider Encounter Details Date Type Department Care Team Description 06/19/2019 Ancillary Department of Softing [place], Diabetes Me llitus Procedure Ophthalmology in Tita Calabrese O.D. Type 1 With [place], [place] [address] [facility] Proliferative [address] [place], [place] [address] Without Macular Edema [phone] Bilateral (HCC) Social History Tobacco Use Types [...] do you attend worship or Never 2021 confucianism services? 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 documented as of this encounter Plan of Treatment Upcoming Encounters Date Type Specialty Care Team Description 04/28/2022 Ancillary Procedure Ophthalmology SoftJoselo Whyte O.DCourtney [address] [place] [phone] (Wo rk) 04/28/2022 Ancillary Procedure Ophthalmology Joselo Palmer O.DCourtney [address] [place] [phone] (Wo rk) 04/28/2022 Office Visit Ophthalmology Tita Palmer O.Dequan [address] [place] [phone] (Wo rk) documented as of this encounter Procedures Procedure Name Priority Date/Time Associated Diagnosis Comme nts OPTICAL COHERENCE Routine 06/19/2019 2:12 PM Diabetes Mellitus Type Results for this TOMOGRAPHY - RESIDENT CARE AID 1 With Proliferative procedu re are in MACULA/RETINA - OU Diabetic Retinopathy t he results - BOTH EYES Without Macular Edema sectio n. Bilateral (HCC) documented in this encounter Results Optical Coherence Tomography (OCT) - Macula/Retina - OU - Both Eyes (06/19/2019 2:12 PM RESIDENT CARE AID) Specimen (Source) Anatomical Location Collection Method / Collectio n Time Received Time / Laterality Volume Narrative OPHTHALMOLOGY IMAGING EXAM - 06/26/19 20 5:09 PM CDT Right Eye Reliability was good. OCT device used DBL Acquisition SpectralPlaydemic . Left Eye Reliability was good. OCT device used [employer]BL [employer]quisition SpectralPlaydemic . Notes 06/26/2019 OCT Both eyes: ??No IRF or subr etinal fluid, trace epiretinal membrane/ Tita Narayanan O.D. OPHTH TOMOGRAPHY Performing Organization Address City/State/ZIP Code Phon e Number OPHTHALMOLOGY IMAGING EXAM documented in this encounter Visit Diagnoses Diagnosis Diabetes Mellitus Type 1 With Proliferat ruperto Diabetic Retinopathy Without Macular Edema Bilateral (HCC) documented in this encounter Care Teams Rail Specialist Relationship Specialty Start Date End Date Obi Leggett, ASHLEY, C.N.P. PCP - General Family Medicine 06/08/18 12/04/21 [address] [place] [phone] documented as of this encounter
--- OUTSIDE RECORDS SUMMARY | 2022-03-02 08:33 | XMS_ITS | Encounter Summary ---
:1970 Author Organization [facility] Address [address] [place] [address] Care Team Providers Name Role Phone Obi Leggett APRN, C.N.P. Primary Care Provider [phone] Reason for Visit Reason Comments Med Refill Encounter Details Date Type Department Care Team Description 09/19/2019 Refill Department of Family Medicine, Obi Leggett, Med Refill [facility], in ASHLEY Jimenez, C.N.P. [place] [address] [place] [address] [place] [address] [place] [address] [phone] Social History Tobacco Use Types Packs/Day Years [...] or relatives? How often do you attend tenriism or Never 2021 roman catholic services? 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 - 09/19/2019 12:28 PM CDT Filled. Thanks Obi Leggett, ICE SCULPTOR documented in this encounter Plan of Treatment Upcoming Encounters Date Type Specialty Care Team Description 04/28/2022 Ancillary Procedure Ophthalmology Joselo Palmer O.D. [address] [place] [phone] (Wo rk) 04/28/2022 Ancillary Procedure Ophthalmology Joselo Palmer O.D. [address] [place] [phone] (Wo rk) 04/28/2022 Office Visit Ophthalmology Tita Palmer O.D. [address] [place] [phone] (Wo rk) documented as of this encounter Visit Diagnoses Not on filedocumented in this encounter Care Teams Storehouse Clerk Relationship Specialty Start Date End Date Obi Leggett APRN, C.N.P. PCP - General Family Medicine 06/08/18 12/04/21 [address] [place] [phone] documented as of this encounter
--- OUTSIDE RECORDS SUMMARY | 2022-03-02 08:33 | XMS_ITS | Encounter Summary ---
:1970 Author Organization [facility] Address [address] [place] [address] Care Team Providers Name Role Phone Obi Leggett APRN, C.N.P. Primary Care Provider Encounter Details Date Type Department Care Team Description 06/15/2019 Orders Only Department of Cardiovascular Margarita Perez, Diseases in [place], [place] ASHLEY, C.N.P. [address] [place] [address] [place] [address] [place] [phone] (Wo rk) Social History Tobacco Use Types [...] do you attend gnosticism or Never 2021 mormon services? Do you [...] or slept in a halfway (including now)? 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 [address] [place], [place] [phone] (Wo rk) 04/28/2022 Ancillary Procedure Ophthalmology Joselo Palmer O.D. [address] [place] [phone] (Wo rk) 04/28/2022 Office Visit Ophthalmology Tita Palmer O.D. [address] [place] [phone] (Wo rk) documented as of this encounter Visit Diagnoses Not on filedocumented in this encounter Care Teams Trimmer Loader Relationship Specialty Start Date End Date Obi Leggett, STUDIO CAMERA OPERATOR, C.N.P. PCP - General Family Medicine 06/08/18 12/04/21 [address] [place] [phone] documented as of this encounter
--- OUTSIDE RECORDS SUMMARY | 2022-03-02 08:33 | XMS_ITS | Encounter Summary ---
:1970 Author Organization [facility] Address [address] [place] [address] Care Team Providers Name Role Phone Obi Leggett APRN, C.N.P. Primary Care Provider [phone] Encounter Details Date Type Department Care Team Description 06/30/2019 Orders Only Pharmacy Prior Auth RO Obi Leggett, ASHLEY, C.N.P. [address] [place] [...] or relatives? How often do you attend nondenominational or Never 2021 tenriism services? 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 [address] [place], [place] [phone] (Wo rk) 04/28/2022 Ancillary Procedure Ophthalmology Joselo Palmer O.D. [address] [place] [phone] (Wo rk) 04/28/2022 Office Visit Ophthalmology Tita Palmer O.D. [address] [place], [place] [phone] (Wo rk) documented as of this encounter Visit Diagnoses Not on filedocumented in this encounter Care Teams Floral Designer Relationship Specialty Start Date End Date Obi Leggett, CLOTH MEASURER, C.N.P. PCP - General Family Medicine 06/08/18 12/04/21 [address] [place] [phone] documented as of this encounter
--- OUTSIDE RECORDS SUMMARY | 2022-03-02 08:33 | XMS_ITS | Encounter Summary ---
:1970 Author Organization [facility] Address [address] [place] [address] Care Team Providers Name Role Phone Obi Leggett APRN, C.N.P. Primary Care Provider [phone] Reason for Visit Reason Comments Med Refill Encounter Details Date Type Department Care Team Description 09/19/2019 Refill Department of Family Medicine, Obi Leggett, Med Refill [facility], in ASHLEY Jimenez, C.N.P. [place] [address] [place] [address] [place] [address] [place] [address] [phone] Social History Tobacco Use Types Packs/Day Years [...] or relatives? How often do you attend evangelical or Never 2021 anabaptist services? 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 - 09/19/2019 11:39 AM CDT Call placed to [place]. He reported he has moved to [place]. Instructed him to call [facility] in [place] to have his prescriptions transferred to [place]. Telephone Encounter - Larua Kelly - 09/19/2019 10:41 AM CDT Nurse review: Unable to forward request to provider; Not on med list Primary Provider: Obi Leggett APRN, C.N.P. Name of medication: Metoprolol ER Strength: 25 mg Frequency: not provided Quantity: Not provided Refills: Not provided Last Refill: not provided Pharmacy: [facility] documented in this encounter Plan of Treatment Upcoming Encounters Date Type Specialty Care Team Description 04/28/2022 Ancillary Procedure Ophthalmology Joselo Palmer O.D. [address] [place], [place] [phone] (Wo rk) 04/28/2022 Ancillary Procedure Ophthalmology Joselo Palmer O.D. [address] [place], [place] [phone] (Wo rk) 04/28/2022 Office Visit Ophthalmology Softing Tita Narayanan O.D. [address] [place], [place] [phone] (Wo rk) documented as of this encounter Visit Diagnoses Not on filedocumented in this encounter Care Teams Appliquer Zigzag Relationship Specialty Start Date End Date Obi Leggett APRN, C.N.P. PCP - General Family Medicine 06/08/18 12/04/21 [address] [place] [phone] documented as of this encounter
--- OUTSIDE RECORDS SUMMARY | 2022-03-02 08:33 | XMS_ITS | Encounter Summary ---
:1970 Author Organization [facility] Address [address] [place] [address] Care Team Providers Name Role Phone Obi Leggett APRN, C.N.P. 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 [facility] Procedures Research Refraction (Link to corresponding research study) [address] [place], [place] [address] Referral ID Status Reason Start Date Expiration Date Visits Requ ested Visits Authorized [id number] Closed 09/19/2019 09/18/2020 1 1 Encounter Details Date Type Department Care Team Description 09/19/2019 Orders Only Department of Bean Dowd, Diabetes Gia litus Type Ophthalmology in [place] 1 With Proliferative [place], [place] [address] [facility] Diabetic Retinopathy [address] [place], [place] [phone] Hyperglycemic Bilateral [phone] (HCC) (Primary Dx) (Work) Social History Tobacco Use Types Packs/Day [...] or relatives? How often do you attend yazidi or Never 2021 shinto services? 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 [address] [place] [address] [phone] (Odalis walton) 04/28/2022 Ancillary Procedure Ophthalmology Joselo Palmer O.D. [address] [place] [address] [phone] (Odalis walton) 04/28/2022 Office Visit Ophthalmology Tita Palmer O.D. [address] [place] [address] [phone] (Odalis walton) Scheduled Orders Name Type Priority Associated Diagnoses Order S chedule Research Refraction Ophthalmology Routine Diabetes Mellitus Ty pe Expected: (Link to corresponding 1 With Proliferati ve 10/17/2019 research study) Diabetic Retinopathy (Eamon roximate), Without Macular Edema s: Hyperglycemic 09/18/2022 Bilateral (HCC) documented as of this encounter Visit Diagnoses Diagnosis Diabetes Mellitus Type 1 With Proliferat ruperto Diabetic Retinopathy Without Macular Edema Hyperglycemic Bilateral (HCC) - Pr imary documented in this encounter Care Teams Brake Shoe Rebuilder Relationship Specialty Start Date End Date Obi Leggett, ASHLEY, C.N.P. PCP - General Family Medicine 06/08/18 12/04/21 [address] [place] [phone] documented as of this encounter
--- OUTSIDE RECORDS SUMMARY | 2022-03-02 08:33 | XMS_ITS | Encounter Summary ---
:1970 Author Organization [facility] Address [address] [place] [address] Care Team Providers Name Role Phone Obi Leggett APRN, C.N.P. 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 How often do you attend druze or Never 2021 sikh services? Do you belong to any clubs or No 05/04/2021 organizations such as druze groups, unions, fraternal or athletic groups, or [...] place to sleep or slept in a detention (including now)? 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 amLODIPine (NORVASC) 10 Take 1 tablet (10 mg 90 tablet 3 05/25/2019 mg tablet total) by mouth daily. atorvastatin [...] scanning Don 14 Day 1 each 0 10/17/2018 06/15/2019 reader (FREESTYLE DON Scanning [place] 14 DAY READER) [facility] [place] flash glucose sensor FreeStyle Don 14 2 kit 11 019 07/12/2019 (FREESTYLE DON 14 DAY day [...] mouth daily. metoprolol succinate Take 1 tablet (25 mg 30 tablet 0 04/0605/04/2019 (TOPROL-XL) 25 mg 24 hr total) by mouth tablet daily. Do not crush or chew. spironolactone Take 1 tablet (100 90 tablet 3 10/17/2018 (ALDACTONE) 100 mg mg total) by mouth tablet daily. documented as of this encounter Plan of Treatment Upcoming Encounters Date Type Specialty Care Team Description 04/28/2022 Ancillary Procedure Ophthalmology SoftJoselo Whyte O.D. [address] [place], [place] [phone] (Odalis rk) 04/28/2022 Ancillary Procedure Ophthalmology Joselo Palmer O.D. [address] [place] [address] [phone] (Odalis rk) 04/28/2022 Office Visit Ophthalmology Tita Palmer O.D. [address] [place] [address] [phone] (Odalis walton) documented as of this encounter Procedures Procedure Name Priority Date/Time Associated Diagnosis Comme nts BASIC METABOLIC Routine 04/10/2019 4:29 PM Diabetes Mellitus T ype Results for this PANEL, S/P ICING COATER 1 With Proliferative procedu re are in Diabetic Retinopathy the res ults Without Macular Edema sectio n. Hyperglycemic Bilateral (HCC) Hypertension Essential Primary documented in this encounter Results (ABNORMAL) BMP (Basic Metabolic Panel) (04/10/2019 4:29 PM ICING COATER) Analysis Performed At Patho logist Time Signature Potassium, S 4.1 3.6 - 5.2 04/10/2019 [place] mmol/L 5:32 PM ICING COATER Sodium, S 137 135 - 145 04/10/2019 [place] mmol/L 5:32 PM ICING COATER Chloride, S 98 98 - 107 04/10/2019 [place] mmol/L 5:32 PM ICING COATER Bicarbonate, S 29 22 - 29 04/10/2019 [place] mmol/L 5:32 PM ICING COATER Anion Gap 10 7 - 15 04/10/2019 [place] 5:32 PM ICING COATER BUN (Blood Urea 29 (H) 8 - 24 04/10/2019 [place] Nitrogen), S mg/dL 5:32 PM ICING COATER Creatinine 1.81 (H) 0.74 - 04/10/2019 [place] 1.35 mg/dL 5:32 PM ICING COATER eGFR-Non 44 (L) >=60 04/10/2019 [place] Black/ mL/min/BSA 5:32 PM ICING COATER [place] Comment: ----ADDITIONAL INFORMATION---- Estimated GFR calculated using the 2009 CKD_EPI creatinine equation. eGFR-Black/ 51 (L) >=60 mL/min/BSA 2018 5:32 PM ICING COATER [place]UST Comment: ----ADDITIONAL INFORMATION---- Estimated GFR calculated using the 2009 CKD_EPI creatinine equation. Calcium, Total, S 9.2 8.6 - 10.0 mg/dL 04/10/2019 5:32 PM ICING COATER [place]UST Glucose, S 166 (H) 70 - 140 mg/dL 04/10/2019 5:32 PM ICING COATER A UST Specimen Anatomical Collection Method Collection Time Receive d Time (Source) Location / / Volume Laterality Blood (Blood, 04/10/2019 4:29 PM 04/10/20 19 4:49 Venous) ICING COATER PM ICING COATER Obi Leggett APRN, C.N.P. LAB BLOOD ADD-ON Performing Organization Address City/State/ZIP Code Phon e Number [facility] [address] [place] [address] [facility] [address] [facility] [address] documented in this encounter Visit Diagnoses Diagnosis Diabetes Mellitus Type 1 With Proliferat ruperto Diabetic Retinopathy Without Macular Edema Hyperglycemic Bilateral (HCC) Hypertension Essential Primary documented in this encounter Care Teams Hoof And Shoe Inspector Relationship Specialty Start Date End Date Obi Leggett, ASHLEY, C.N.P. PCP - General Family Medicine 06/08/18 12/04/21 [address] [place] [phone] documented as of this encounter
--- OUTSIDE RECORDS SUMMARY | 2022-03-02 08:33 | XMS_ITS | Encounter Summary ---
:1970 Author Organization [facility] Address [address] [place] [address] Care Team Providers Name Role Phone Obi Leggett APRN, C.N.P. Primary Care Provider [phone] Reason for Referral Outpatient (Routine) - Closed Specialty Diagnoses / Procedures Referred By Contact Refer red To Contact Ophthalmology Tita Palmer [place] [address] [place] O.D. [address] [place], [place] [phone] Referral ID Status Reason Start Date Expiration Date Visits Requ ested Visits Authorized [id number] Closed 06/19/2019 06/18/2020 1 1 ORATE SECURITIES RESEARCH ANALYST Encounter Details Date Type Department Care Team Description 06/19/2019 Orders Only Department of Ronen Rucker Diabetes Mellitus Type Ophthalmology in [place]. 1 With Proliferative [place], [place] [address] [facility] Diabetic Retinopathy [address] [place] [address] [place] [address] Hyperglycemic [phone] Bilateral (HCC) (Primary Dx) Social History Tobacco [...] or relatives? How often do you attend taoist or Never 2021 mu-ism services? Do you belong to any clubs or No 05/04/2021 organizations such as taoist groups, [employer], [employer] or athletic groups, or school groups? 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 200 [place], [place] [phone] (Odalis walton) 04/28/2022 Ancillary Procedure Ophthalmology Joselo Palmer O.D. 200 [place], [place] [phone] (Odalis walton) 04/28/2022 Office Visit Ophthalmology Tita Palmer O.D. [address] [place] [phone] (Odalis walton) Scheduled Referrals Name Type Priority Associated Order Schedule Diagnoses Ophthalmology office Outpatient Referral Routine Expected: visit (clinic) 03/20/2020 (Approximate), Expires: 06/18/2022 documented as of this encounter Results Optical Coherence Tomography (OCT) - Macula/Retina - OU - Both Eyes (07/04/2021 8:47 AM CDT) Specimen (Source) Anatomical Location Collection Method / Collectio n Time Received Time / Laterality Volume Narrative OPHTHALMOLOGY IMAGING EXAM - 07/05/19 10:25 AM CDT Right Eye OCT device [...] Edema Hyperglycemic Bilateral (HCC) - Pr imary Diabetes Mellitus Type 1 With Proliferat ruperto Diabetic Retinopathy Without Macular Edema Hyperglycemic Bilateral (HCC) documented in this encounter Care Teams Balloon Sander Relationship Specialty Start Date End Date Obi Leggett, MATERIALS HANDLER, C.N.P. PCP - General Family Medicine 06/08/18 12/04/21 [address] [place] [phone] documented as of this encounter
--- OUTSIDE RECORDS SUMMARY | 2022-03-02 08:33 | XMS_ITS | Encounter Summary ---
:1970 Author Organization [facility] Address [address] [place] [address] Care Team Providers Name Role Phone Obi Leggett APRN, C.N.P. Primary Care Provider [phone] Encounter Details Date Type Department Care Team Description 06/19/2019 Ancillary Procedure Department of Ophthalmology Social History [...] do you attend taoist or Never 2021 methodist services? 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 [address] [place] [phone] (Wo rk) 04/28/2022 Ancillary Procedure Ophthalmology Joselo Palmer O.D. [address] [place] [phone] (Wo rk) 04/28/2022 Office Visit Ophthalmology Tita Palmer O.D. [address] [place], [place] 55 [phone] (Wo rk) documented as of this encounter Procedures Procedure Name Priority Date/Time Associated Comments Diagnosis OPHTHALMOLOGY IMAGE Routine 06/19/2019 12:00 Resu lts for this EXAM PM LAWN MAINTENANCE WORKER procedure are i n the results section. documented in this encounter Results Eyes Spectralis OCT-Ophthalmology Image Exam (06/19/2019 12:00 PM LAWN MAINTENANCE WORKER) Specimen (Source) Anatomical Collection Method Collection Time Re ceived Time Location / / Volume Laterality 06/19/2019 12:00 PM LAWN MAINTENANCE WORKER Narrative IIMS - 06/19/2019 2:14 PM LAWN MAINTENANCE WORKER This order has been created and auto-finalized [...] on filedocumented in this encounter Care Teams Document Restorer Relationship Specialty Start Date End Date Obi Leggett APRN, C.N.P. PCP - General Family Medicine 06/08/18 12/04/21 [address] [place] [phone] documented as of this encounter
--- OUTSIDE RECORDS SUMMARY | 2022-03-02 08:33 | XMS_ITS | Encounter Summary ---
:1970 Author Organization [facility] Address [address] [place] [address] Care Team Providers Name Role Phone Obi Leggett APRN, C.N.P. Primary Care Provider Encounter Details Date Type Department Care Team Description 06/22/2019 Orders Only Department of Bean Dowd, Clinical Res earch Exam Ophthalmology in M.D. (Primary Dx) [place], [place] [address] [facility] [address] [place] [phone] Social History Tobacco Use Types Packs/Day Years [...] or relatives? How often do you attend yarsani or Never 2021 zoroastrian services? 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 [address] [place], [place] [phone] (Wo rk) 04/28/2022 Ancillary Procedure Ophthalmology Joselo Palmer O.D. [address] [place] [phone] (Wo rk) 04/28/2022 Office Visit Ophthalmology Tita Palmer O.D. [address] [place], [place] [phone] (Wo rk) Scheduled Orders Name Type Priority Associated Diagnoses Order S chedule OPH General eye exam Procedures Routine Expecte d: 08/02/2019 (Approximate), Expires: 06/21/2022 documented as of this encounter Results Optical [...] Code Phon e Number OPHTHALMOLOGY IMAGING EXAM Fundus Photos - OU - Both Eyes (10/17/2019 10:16 AM CDT) Specimen (Source) Anatomical Location Collection Method / Collectio n Time Received Time / Laterality Volume Narrative OPHTHALMOLOGY IMAGING EXAM - 10/17/19 10:43 AM CDT Right Eye Field of view is standard view. Left Eye Field of view is standard view. Notes C/w exam Bean Dowd M.D. OPHTH PHOTOGRAPHY Performing Organization Address City/State/ZIP Code Phon e Number OPHTHALMOLOGY IMAGING EXAM Fundus Photos - OU - Both Eyes (10/17/2019 10:16 AM CDT) Specimen (Source) Anatomical Location Collection Method / Collectio n Time Received Time / Laterality Volume Narrative OPHTHALMOLOGY IMAGING EXAM - 10/17/19 10:43 AM CDT Right Eye Field of view is ultra-wide view. Left Eye Field of view is ultra-wide view. Notes C/w exam Bean Dowd M.D. OPHTH PHOTOGRAPHY Performing Organization Address City/State/ZIP Code Phon e Number OPHTHALMOLOGY IMAGING EXAM documented in this encounter Visit Diagnoses Diagnosis Clinical Research Exam - Primary Clinical Research Exam Clinical Research Exam Clinical Research Exam documented in this encounter Care Teams Granite Polisher Apprentice Relationship Specialty Start Date End Date Obi Leggett APRN, C.N.P. PCP - General Family Medicine 06/08/18 12/04/21 [address] [place] [phone] documented as of this encounter
--- OUTSIDE RECORDS SUMMARY | 2022-03-02 08:33 | XMS_ITS | Encounter Summary ---
:1970 Author Organization [facility] Address [address] [place] [address] Care Team Providers Name Role Phone Obi Leggett APRN, C.N.P. Primary Care Provider Encounter Details Date Type Department Care Team Description 10/17/2019 Ancillary Procedure Department of Ashley Dowd Research Ophthalmology in [place], [place] [address] [facility] [address] [place] [phone] Social History Tobacco Use Types Packs/Day Years [...] or relatives? How often do you attend congregation or Never 2021 evangelical services? 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 [address] [place] [phone] (Wo rk) 04/28/2022 Ancillary Procedure Ophthalmology Joselo Palmer O.D. [address] [place] [address] 55 [phone] (Wo rk) 04/28/2022 Office Visit Ophthalmology Tita Palmer O.D. [address] [place] [address] [phone] (Wo rk) documented as of this encounter Procedures Procedure Name Priority Date/Time Associated Diagnosis Comme nts FUNDUS PHOTOS - OU Routine 10/17/2019 10:16 AM Clinical Resear ch Results for this - BOTH EYES CDT Exam procedure are i n the results section. documented in this encounter Results Fundus Photos - OU - Both Eyes (10/17/2019 10:16 AM CDT) Specimen (Source) Anatomical Location Collection Method / Collectio n Time Received Time / Laterality Volume Narrative OPHTHALMOLOGY IMAGING EXAM - 10/17/19 20 10:43 AM CDT Right Eye Field of view is ultra-wide view. Left Eye Field of view is ultra-wide view. Notes C/w exam Bean Dowd M.D. OPHTH PHOTOGRAPHY Performing Organization Address City/State/ZIP Code Phon e Number OPHTHALMOLOGY IMAGING EXAM documented in this encounter Visit Diagnoses Diagnosis Clinical Research Exam documented in this encounter Care Teams Base Remover Relationship Specialty Start Date End Date Obi Leggett APRN, C.N.P. PCP - General Family Medicine 06/08/18 12/04/21 [address] [place] [phone] documented as of this encounter
--- OUTSIDE RECORDS SUMMARY | 2022-03-02 08:33 | XMS_ITS | Encounter Summary ---
:1970 [address] [facility] Address [address] [place] [address] Care Team Providers Name Role Phone Obi Leggett APRN C.N.[place]ourtney Primary Care Provider [phone] Reason for Referral Outpatient (Routine) - Closed Specialty Diagnoses / Procedures Referred By Contact Refer red To Contact Endocrinology Carmelo Diana M.D. [facility] [address] [phone] Referral ID Status Reason Start Date Expiration Date Visits Requ ested Visits Authorized [id number] Closed 07/12/2019 07/11/2020 1 1 Reason for Visit Outpatient (Routine) - Closed Specialty Diagnoses / Procedures Referred By Contact Refer red To Contact Endocrinology [facility].D. [facility] [address] [phone] Referral ID Status Reason Start Date Expiration Date Visits Requ ested Visits Authorized [id number] Closed 10/17/2018 10/17/2019 1 1 Encounter Details Date Type Department Care Team Description 07/12/2019 Virtual Visit Department of Carmelo Diana, Diabetes Me llitus Type 1 With Diabetic Nephropathy Hyperglycemic (HCC) (Primary Dx); Endocrinology in [place] Diabetes Mellitus Type 1 With Proliferat ruperto Diabetic Retinopathy Without Macular Edema Hyperglycemic Bilateral (HCC); [place], [place] [address] Hyperlipidemia; [address] GUILLERMINA Escobedo Hypertension And Chronic Kidney Disease Stage 3 (HCC); [place] [address] [address] [place] Hypothyroidism Primary; [phone] [id number] Correction Use Of Insulin Active ([facility]); [phone] Counseling Diet ; (Work) Diabetes Mellitus Type [address]) Social History Tobacco Use Types Packs/Day Years [...] do you attend taoist or Never 2021 oriental orthodox services? Do [...] at Date Recorded Male 03/01/2017 6:27 AM [employer] documented as of this encounter Progress Notes Carmelo Diana M.D. - 07/12/2019 11:00 AM CDT SUBJECTIVE PHONE/VIDEO VISIT DATE OF ENCOUNTER: 07/12/2019 CHIEF COMPLAINT / REASON FOR PHONE/VIDEO VISIT Type 1 DM recheck - phone visit HISTORY OF PRESENT ILLNESS Lex Hernandez is a 48 y.o. male who was contacted today via phone for DM1 follow-up. Patient identity was verified by verifying his name and date of . Lex Hernandez is a 48 y.o. male who presents for evaluation of Diabetes Mellitus type 1, essential hypertension, hyperlipidemia. Type 1 diabetes Onset: Age 13 years He is enrolled in the EDIC study in [place]. Glucose lowering regimen: Basaglar 36 units once daily Humalog 5-8 units subcu t.i.d. with meals plus sliding scale Home monitoring: Freestyle Don continuous glucose monitor Home monitoring is done 5-6 times daily Fourteen day average 130 Patient denies episodes of symptomatic hypoglycemia Microvascular complications include diabetic nephropathy, proliferative diabetic retinopathy. Baseline creatinine 1.8 Primary hypothyroidism. adequately replaced with levothyroxine 224 mcg 6 days a week and 112 mcg 1 day a week. Essential hypertension. Office blood pressure remains elevated to 140s systolic despite the use of 4different antihypertensive agents in moderately high doses. Patient currently takes amlodipine 10 mgdaily, chlorthalidone 50 mg daily, losartan 100 mg daily and spironolactone 100 mg once daily. ALLERGIES Reviewed and updated. Allergies Allergen Reactions ??? Penicillins Rash MEDICATIONS Reviewed and updated. Current Outpatient Medications Medication Sig ??? ACCU-CHEK FASTCLIX misc ??? amLODIPine (NORVASC) 10 mg tablet Take 1 tablet (10 mg total) by mouth daily. ??? aspirin [address] tablet Take 81 mg by mouth daily. ??? atorvastatin (LIPITOR) 40 mg tablet Take 1 tablet (40 mg total) by mouth daily. ??? BD ULTRA-FINE SHORT PEN NEEDLE 31 gauge x 5/16 needle Inject 1 Injection under the skin daily. Use 4 times daily or as directed. ??? blood sugar diagnostic (glucose blood) strips 4 test daily. AccuCheck Natalia Smartview strips DX: E10.3593, E10.21, E10.65 ??? chlorthalidone (HYGROTON) 50 mg tablet Take 1 tablet (50 mg total) by mouth daily. ??? flash glucose sensor (FreeStyle Don 14 Day Sensor) kit FreeStyle Don 14 day senor. 2 sensorsper month. Change every 14 days. Use as directed for monitoring glucose level. ??? HumaLOG KwikPen Insulin 100 unit/mL injection Take 8 units with each meal plus sliding scale. TDD 40 units per day. ??? insulin glargine (Basaglar KwikPen U-100 Insulin) 100 unit/mL (3 mL) injection Inject 0.36 mL (36 Units total) under the skin daily. ??? levothyroxine (SYNTHROID, LEVOTHROID) 112 mcg tablet Take 2 tablets daily 6 days a week (Wednesday through Wednesday) and 1 tablet 1 day a week (Wednesday) ??? losartan (COZAAR) 100 mg tablet Take 1 tablet (100 mg total) by mouth daily. ??? metoprolol succinate (TOPROL-XL) 50 mg 24 hr tablet Take 1 tablet (50 mg total) by mouth daily. Do not crush or chew. ??? spironolactone (ALDACTONE) 100 mg tablet Take 1 tablet (100 mg total) by mouth daily. OBJECTIVE PHYSICAL EXAMINATION LIMITED GIVEN THAT THIS IS A PHONE ENCOUNTER Pertinent findings able to be determined with the technological tools available are listed below DIAGNOSTICS Reviewed in the EHR. 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 plus sliding scale Recommend consistent carbohydrate intake He wishes to continue using freestyle Don continuous glucose monitor. Prescriptions renewed. #2 Diabetes Mellitus Type 1 With Diabetic Nephropathy Hyperglycemic (HCC) Recommend avoidance of nonsteroidal agents. Recommend discontinuing chewable tobacco. Recommend a limited dietary sodium intake and striving for a systolic blood pressure 130 or lower, HbA1c lower than7.5% #3 Hypothyroidism Primary Adequately replaced with levothyroxine to 224 mcg 6 days a week and 112 mcg 1 day a week #4 Hyperlipidemia Managed with a moderate intensity statin #5 Hypertension Essential Primary Recommend changing the time of amlodipine to bedtime for improved [id number] blood pressure control. Continue Aldactone 100 mg once daily, amlodipine 10 mg once daily at bedtime, chlorthalidone 50mg once daily, losartan 100 mg once daily, metoprolol extended release 50 mg once daily. #6 Chronic Kidney Disease Stage 3 Glomerular Filtration Rate 30 To [address]) #7 Proteinuria / diabetic nephropathy #8 Form Setter Use Of Insulin Active (HCC) #9 Counseling Diet #10 Nicotine Dependence Chewing Tobacco Counseled patient to quit chewing tobacco - blood sugar diagnostic (glucose blood) strips; 4 test daily. AccuCheck Natalia Smartview strips DX: E10.3593, E10.21, E10.65 Dispense: 150 test; Refill: 11 - Albumin, Random, Urine; Future - Hemoglobin A1c; Future Carmelo Diana M.D. Consult conducted via real-time audio/video technology by Carmelo Diana M.D. in [facility] in [place] to patient's home I personally spent a total of 22 minutes in fri-mmta-uz-face time performing a review of the record and/or discussion with the patient/caregiver as described above. documented in this encounter Plan of Treatment Upcoming Encounters Date Type Specialty Care Team Description 04/28/2022 Ancillary Procedure Ophthalmology Joselo Palmer O.D. [address] [place] [address] [phone] ([place] rk) 04/28/2022 Ancillary Procedure Ophthalmology Joselo Palmer O.D. [address] [place] [address] [phone] ([place] rk) 04/28/2022 Office Visit Ophthalmology Tita Palmer O.D. [address] [place] [address] [phone] ([place]) Scheduled Referrals Name Type Priority Associated Order Schedule Diagnoses Endocrinology office Outpatient Referral Routine Expected: visit (clinic) 10/12/2019 (Approximate), Expires: 07/11/2022 documented as of this encounter Results (ABNORMAL) Hemoglobin A1c (08/27/2020 [...] Organization Address City/State/ZIP Code Phon e Number [facility] [address] [place] [address] [place] [address] System in [place] [address] [facility] (ABNORMAL) Albumin, Random, Urine (08/27/2020 8:29 AM CDT) Patholo gist Method Time Signature Microalbumin 560.0 mg/L 08/27/2020 [place] 9:31 AM CDT Creatinine 33 mg/dL 08/27/2020 [place] 9:16 AM CDT Albumin/Creatinin 1697 (H) <17 mg/g 08/27/2020 [place] e Ratio 9:31 AM CDT Specimen Anatomical Collection Method Collection Time Receive d Time (Source) Location / / Volume Laterality Urine (Urine, 08/27/2020 8:29 AM 08/28/19 21 8:41 Clean Catch) CDT AM CDT Carmelo Diana M.D. LAB URINE ORDERABLES Performing Organization Address City/State/ZIP Code Phon e Number [facility] [address] [place] [address] [place] [address] System in [place] [address] [facility] documented in this encounter Visit Diagnoses Diagnosis Diabetes Mellitus Type 1 With Diabetic N ephropathy Hyperglycemic (HCC) - Primary Diabetes Mellitus Type 1 With Proliferat ruperto Diabetic Retinopathy Without Macular Edema Hyperglycemic Bilateral (HCC) Hyperlipidemia Hypertension And Chronic Kidney Disease Stage 3 (HCC) Hypothyroidism Primary Form Setter Use Of Insulin Active (HCC) Counseling Diet Diabetes Mellitus Type 1 (HCC) documented in this encounter Care Teams Nursing Support Worker Relationship Specialty Start Date End Date Obi Leggett APRN, C.N.P. PCP - General Family Medicine 06/08/18 12/04/21 [address] [place] [phone] documented as of this encounter
--- OUTSIDE RECORDS SUMMARY | 2022-03-02 08:33 | XMS_ITS | Encounter Summary ---
:1970 Author Organization [facility] Address [address] [place] [address] Care Team Providers Name Role Phone Obi Leggett APRN, C.N.P. Primary Care Provider Reason for Visit Reason Comments Results Appointment Request (Routine) - Closed Specialty Diagnoses / Procedures Referred By Contact Refer red To Contact Family Medicine Referral ID Status Reason Start Date Expiration Date Visits Requ ested Visits Authorized [id number] Closed 04/13/2019 04/12/2020 1 1 Encounter Details Date Type Department Care Team Description 06/20/2019 Office Visit Department of Family Omar Leggett nsrosmery And Chronic Kidney Disease Stage 3 (HCC) (Primary Dx); Medicine, Lucretia Patrick APRN, Chronic Kidney Disease Stage 3 Glomerular Filtration Rate 30 To 59 (HCC); Clinic, in [place], C.N.P. Hyperlipidemia; [place] [address] SARMIENTO Hypothyroidism Primary; [address] GUILLERMINA Jimenez [place]otine D[place] [address] [id number] Social History Tobacco Use Types Packs/Day Years [...] you attend latter day or Never 2021 anabaptism services? 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 documented as of this encounter Last Filed Vital Signs Vital Sign Reading Time Taken Comments Blood Pressure 158/86 06/20/2019 2:47 PM ASSISTANT READING TEACHER Pulse 64 06/20/2019 2:47 PM ASSISTANT READING TEACHER Temperature 36.6 ??C (97.9 ??F) 06/20/2019 2:47 PM ASSISTANT READING TEACHER Respiratory Rate - - Oxygen Saturation 98% 06/20/2019 2:47 PM ASSISTANT READING TEACHER Inhaled Oxygen Concentration - - Weight 89 kg (196 lb 3.4 oz) 06/20/2019 2:47 PM ASSISTANT READING TEACHER Height 176 cm (5' 9.29) 06/20/2019 2:47 PM ASSISTANT READING TEACHER Body Mass Index 28.73 06/20/2019 2:47 PM ASSISTANT READING TEACHER documented in this encounter Patient Instructions Patient InstructionsObi Leggett, ASHLEY, C.N.P. - 06/20/2019 3:00 PM ASSISTANT READING TEACHER -increase metoprolol to 50 mg can take two 25 mg until gone then take 50s, call Obi with Bps in 2weeks. -check TSH on the 16th with labs for Bhagra STANT READING TEACHER documented in this encounter Progress Notes Obi Leggett APRN, C.N.P. - 06/20/2019 3:00 PM CST SUBJECTIVE CHIEF COMPLAINT Chief Complaint Patient presents with ??? Results HISTORY OF PRESENT ILLNESS Lex Hernandez is a pleasant 48 y.o. year old male who presents today for comprehensive review. Patient has a history of type 1 diabetes for which he follows with Endocrine and with diabetic studyin [place]. He denies any issues with his sugars recently Has had resistant hypertension for several years. Has had normal renal ultrasound in the past. He jose alejandro 4 medications however he states no medications ever made a difference. He has seen Cardiology forthis in the past but there was not a change in pressure. REVIEW OF SYSTEMS Skin: Negative for breast lump and nipple discharge. Respiratory: Negative for coughing up blood and coughing up mucus (phlegm). All other systems reviewed and are negative. The following systems were negative: Constitutional, Eyes, ENT, CV, GI, , Hematologic, Musculoskeletal, Neuro, Psych ALLERGIES Allergies Allergen Reactions ??? Penicillins Rash MEDICATIONS Current Outpatient Medications: ??? ACCU-CHEK FASTCLIX misc, , Disp: , Rfl: 6 ??? amLODIPine (NORVASC) 10 mg tablet, Take 1 tablet (10 mg total) by mouth daily., Disp: 90 tablet,Rfl: 3 ??? aspirin [address] tablet, Take 81 mg by mouth daily., Disp: , Rfl: ??? atorvastatin (LIPITOR) 40 mg tablet, Take 1 tablet (40 mg total) by mouth daily., Disp: 90 tablet, Rfl: 3 ??? BD ULTRA-FINE SHORT PEN NEEDLE 31 gauge x 5/16 needle, Inject 1 Injection under the skin daily.Use 4 times daily or as directed., Disp: 400 each, Rfl: 3 ??? blood sugar diagnostic (glucose blood) strips, 4 test daily. One Touch Verio test strips DX: E10.3593, E10.21, E10.65, Disp: 400 test, Rfl: 3 ??? chlorthalidone (HYGROTEN) 50 mg tablet, Take 1 tablet (50 mg total) by mouth daily., Disp: 90 tablet, Rfl: 3 ??? flash glucose scanning reader (FreeStyle Don 14 Day [place]) misc, Don 14 Day Scanning [place], Disp: 1 each, Rfl: 0 ??? flash glucose sensor (FREESTYLE DON 14 DAY SENSOR) kit, FreeStyle Don 14 day senor. 2 sensors per month. Change every 14 days. Use as directed for monitoring glucose level., Disp: 2 kit, Rfl: 11 ??? HUMALOG KWIKPEN INSULIN 100 unit/mL injection, Take 8 units with each meal plus sliding scale. TDD 40 units per day., Disp: 15 mL, Rfl: 11 ??? insulin glargine (BASAGLAR KWIKPEN U-100 INSULIN) 100 unit/mL (3 mL) injection, Inject 0.3 mL (30 Units total) under the skin daily., Disp: 15 mL, Rfl: 11 ??? levothyroxine (SYNTHROID, LEVOTHROID) 112 mcg tablet, Take 2 tablets (224 mcg total) by mouth every morning before breakfast. Take 2 tablets daily 6 days a week (Wednesday through Wednesday) and 1 tablet 1 day a week (Wednesday), Disp: 170 tablet, Rfl: 3 ??? losartan (COZAAR) 100 mg tablet, Take 1 tablet (100 mg total) by mouth daily., Disp: 90 tablet, Rfl: 3 ??? spironolactone (ALDACTONE) 100 mg tablet, Take 1 tablet (100 mg total) by mouth daily., Disp: 90tablet, Rfl: 3 ??? metoprolol succinate (TOPROL-XL) 50 mg 24 hr tablet, Take 1 tablet (50 mg total) by mouth daily.Do not crush or chew., Disp: 90 tablet, Rfl: 3 ??? spironolactone (ALDACTONE) 50 mg tablet, , Disp: , Rfl: SOCIAL HISTORY Social History Socioeconomic History ??? Marital status: Spouse name: Not on file ??? Number of children: 2 ??? Years of education: Not on file ??? Highest education level: 12th grade Occupational History ??? 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 Financial resource strain: Not hard at all ??? Food insecurity Worry: Never true Inability: Never true ??? Transportation needs Medical: No Non-medical: No Tobacco Use ??? Smoking status: Never Smoker ??? Smokeless tobacco: Current User Types: Chew Substance and Sexual Activity ??? Alcohol use: Yes Types: 12 Cans of beer per week Frequency: 4 or more times a week Drinks per session: 1 or 2 Binge frequency: Never ??? Drug use: Never ??? Sexual activity: Yes Partners: Female control/protection: Withdrawal Lifestyle ??? Physical activity Days per week: 1 day Minutes per session: 0 min ??? Stress: Not at all Relationships ??? Social connections Talks on phone: Three times a week Gets together: Once a week Attends anabaptism service: More than 4 times per year Active member of club or organization: No Attends meetings of clubs or organizations: Never Relationship status: ??? Intimate partner violence Fear of current or ex partner: No Emotionally abused: No Physically abused: No Forced sexual activity: No Other Topics Concern ??? Not on file Social History Narrative Patient is with 2 children. 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 Diabetes Mellitus NOS ??? Hyperlipidemia 03/24 ??? Hypertension NOS 03/24 ??? Retinal Disorder diabetic PAST SURGICAL HISTORY Past Surgical History: Procedure Laterality Date ??? OTHER CONVERTED SHX (SEE COMMENT) N/A 04/23/2014 >Fluoroscopically guided left-biased L5-S1 interlaminar epidural steroid injection under fluoroscopy. ??? OTHER CONVERTED SHX (SEE COMMENT) N/A 05/07/1988 Removal of impacted teeth Nos. 1, 16, 17, and 32. ??? OTHER CONVERTED SHX (SEE COMMENT) N/A 12/20/2003 >Panretinal photocoagulation, right eye ??? OTHER CONVERTED SHX (SEE COMMENT) N/A 01/18/2004 >Panretinal photocoagulation, right eye ??? OTHER CONVERTED SHX (SEE COMMENT) N/A 02/15/2013 >Panretinal photocoagulation, left eye. ??? OTHER CONVERTED SHX (SEE COMMENT) N/A 06/27/1991 Bilateral sagittal osteotomy. ([id number]) ??? OTHER CONVERTED SHX (SEE COMMENT) N/A 01/19/2014 >Panretinal photocoagulation, left eye. ??? OTHER CONVERTED SHX (SEE COMMENT) N/A 06/20/2012 >Fill-in PRP, left eye. ??? OTHER CONVERTED SHX (SEE COMMENT) N/A 06/13/2014 >Right eye panretinal photocoagulation fill-in. ??? OTHER CONVERTED SHX (SEE COMMENT) Left 02/06/2015 Inject - intravitreal gas Notes: air ??? OTHER CONVERTED SHX (SEE COMMENT) Left 02/06/2015 Membrane peeling ??? OTHER CONVERTED SHX (SEE COMMENT) Left 02/06/2015 Endolaser ??? OTHER CONVERTED SHX (SEE COMMENT) Left 02/06/2015 Intravitreal Injections ??? OTHER CONVERTED SHX (SEE COMMENT) N/A 01/18/2013 >Panretinal photocoagulation, right eye. ??? OTHER CONVERTED SHX (SEE COMMENT) N/A 04/04/2010 >Panretinal photocoagulation, left eye. ??? RETINAL LASER PROCEDURE Bilateral ??? VITRECTOMY - PARS PLANA VITRECTOMY 23 GAUGE Left 02/06/2015 Vitrectomy - pars plana vitrectomy 23 gauge IMMUNIZATION HISTORY Immunization History Administered Date(s) Administered ??? Influenza (IM) Preservative Free 03/02/2008 ??? Influenza, Injectable, Quadrivalent 01/17/2015, 01/27/2017, 01/19/2018 ??? Influenza, Seasonal, Injectable 03/05/2004 ??? Influenza, Unspecified 03/02/2008 ??? PPSV23 03/05/2004, 06/20/2019 ??? Tdap 07/21/2018 ??? influenza vaccine quad (FLUZONE/FLUARIX) (6 months and older)(PF) 01/17/2014 FAMILY HISTORY Family History Problem Relation Age of Onset ??? Hypertension Mother ??? Diabetes Brother ??? Amblyopia Neg Hx ??? Blindness Neg Hx ??? Cataracts Neg Hx ??? Glaucoma Neg Hx ??? Macular degeneration Neg Hx ??? Retinal degeneration Neg Hx ??? Retinal detachment Neg Hx ??? Strabismus Neg Hx ??? Vision loss Neg Hx PHYSICAL EXAM Vitals signs reviewed. Vitals: 06/20/19 1447 BP: 158/86 Patient Position: Sitting Pulse: 64 Temp: 36.6 ??C Height: 176 cm Weight: 89 kg SpO2: 98% TempSrc: Temporal Body mass index is 28.73 kg/m??. GENERAL: Well-developed, well-nourished, age-appropriate patient, in no apparent cardiopulmonary distress. Alert and oriented x3. HEENT: Normocephalic, atraumatic. Extraocular movements intact . Pupils equally round and reactive to light. Conjunctivae and lids are normal without erythema or discharge. Bilateral tympanic membranesare pearly carvajal with good visualization of landmarks. Hearing grossly intact. Nasal mucosa pink, moist, and without irritation. Oropharynx without erythema, exudates, or petechiae. No tonsillar hypertrophy. Nasal mucosa pink, moist, and intact. SKIN: Dry, intact. NECK: With normal range of motion. Trachea midline. No masses. Supple, nontender without lymphadenopathy. No thyromegaly. No bruits auscultated. HEART: Normal S1, S2. Regular rate and rhythm. No murmurs or extra heart sounds. No extremity edema.Peripheral pulses are symmetrical 2+. Brisk capillary refill. LUNGS: Clear to auscultation bilaterally. No expiratory wheeze. No accessory muscles of respiration noted. BREASTS: Normal male anatomy. No nipple discharge or retraction noted. No palpable masses in the breasts bilaterally. No axillary lymphadenopathy. MUSCULOSKELETAL/ EXTREMITIES: Gait is normal, upright, and steady. Able to get up on the examinationtable without difficulty. Full range of motion and strength bilaterally. No peripheral edema, clubbing, or cyanosis. NEUROLOGIC: Alert and oriented x3. PSYCHIATRIC: Cooperative. Good eye contact with full range of affect. Speech of normal rate volume and tone. Thought content linear and goal directed. No evidence of psychomotor agitation or retardation. Cognition and memory appear intact. Judgment and insight intact. No evidence responding to internal stimuli. No evidence of overt delusions or paranoid thoughts. ASSESSMENT / PLAN IMPRESSION/REPORT/PLAN #1 Hypertension And Chronic Kidney Disease Stage 3 (HCC) Overview: Norvasc Losartan Spirolactone Chlorthalidone Has follow-up with Cardiology in this regard before. Assessment & Plan: Will increase metoprolol from 25-50. He is going to call me if blood pressures in 2 weeks. He is already maxed out on Norvasc spirolactone chlorthalidone and losartan. Has had renal ultrasound in cardiology follow-up the past. It if he makes no improvement the next option would be to add Imdur. #2 Chronic Kidney Disease Stage 3 Glomerular Filtration Rate 30 To 59 (HCC) #3 Hyperlipidemia Overview: Lipitor 40 mg Daily Assessment & Plan: Only mild elevation last year. Will recheck in 1 year he is on Lipitor. Ten year cardiovascular riskscore is 4.3% this was shared with patient. #4 Hypothyroidism Primary Overview: Levothyroxine Assessment & Plan: I am going to recheck TSH on the with his follow-up with Dr. Diana as it has been almost a year. #5 Nicotine Dependence Chewing Tobacco Assessment & Plan: Not willing to stop at this time. Other orders - metoprolol succinate (TOPROL-XL) 50 mg 24 hr tablet; Take 1 tablet (50 mg total) by mouth daily. Do not crush or chew., Starting Wed06/20/2019, Until Wed06/19/2020, Normal - Basic Metabolic Panel; Future; Expected date: 06/19/2020 - Lipid Panel; Future; Expected date: 06/19/2020 - S-TSH (Thyroid-Stimulating Hormone - Sensitive); Future; Expected date: 07/03/2019 - PPSV23: pneumococcal polysaccharide vaccine (24 months and older) Colonoscopy: Due in age 50 Colonoscopy intervals: 10 years Influenza up-to-date and documented Shingles started age 52 Tetanus updated today and up-to-date and documented Pneumonia started 67 Lipids: Will check next month Follow up: 12 months HEALTH MAINTENANCE Health Maintenance Topic Date Due ??? Tobacco Cessation counseling 1970 ??? HIV Screening 1970 ??? Hepatitis B Vaccines (1 of 3 - Risk 3-dose series) 07/15/1991 ??? Influenza Vaccine (1) 01/17/2019 ??? Hemoglobin A1C 02/11/2019 ??? Diabetic Office Visit with Foot Exam 07/22/2019 ??? TSH Level 08/13/2019 ??? Urine Microalbumin 08/13/2019 ??? Office Visit for Blood Pressure Check / Re-check 09/20/2019 ??? Creatinine Level 04/10/2020 ??? Potassium Level 04/10/2020 ??? Dilated Eye Exam 06/18/2020 ??? Pneumococcal vaccine (0-64 years) (3 of 3 - PCV13) 06/19/2020 ??? DTaP,Tdap,and Td Vaccines (2 - Td) 07/21/2028 ??? Depression Screening (Annual PHQ-2) Completed MEDICATION CHANGES TODAY: New Medications Ordered This Visit Medications ??? spironolactone (ALDACTONE) 50 mg tablet ??? metoprolol succinate (TOPROL-XL) 50 mg 24 hr tablet Sig: Take 1 tablet (50 mg total) by mouth daily. Do not crush or chew. Dispense: 90 tablet Refill: 3 Medications Discontinued During This Encounter Medication Reason ??? metoprolol succinate (TOPROL-XL) 25 mg 24 hr tablet PATIENT EDUCATION Patient is ready to learn, no apparent learning barriers are identified. Learning preferences include listening. Explained diagnosis and treatment plan, patient expressed understanding of the content. Patient agreed with today's plan. All questions were answered. documented in this encounter Miscellaneous Notes Assessment & Plan Note - Obi Leggett APRN, C.N.P. - 06/20/2019 3:37 PM CSTAssociated Problem(s): Nicotine Dependence Chewing Tobacco Not willing to stop at this time. 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 - 06/20/2019 3:36 PM CSTAssociated Problem(s): Hypothyroidism Primary I am going to recheck TSH on the with his follow-up with Dr. Diana as it has been almost a year. 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 - 06/20/2019 3:36 PM CSTAssociated Problem(s): Hyperlipidemia Only mild elevation last year. Will recheck in 1 year he is on Lipitor. Ten year cardiovascular riskscore is 4.3% this was shared with patient. 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 - 06/20/2019 3:35 PM CSTAssociated Problem(s): Hypertension And Chronic Kidney Disease Stage 3 (HCC) Will increase metoprolol from 25-50. He is going to call me if blood pressures in 2 weeks. He is already maxed out on Norvasc spirolactone chlorthalidone and losartan. Has had renal ultrasound in cardiology follow-up the past. It if he makes no improvement the next option would be to add Imdur. 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 Merritt her later this month. Will let him continue to manage his diabetic care. Denies any current issues. States he is foot exams through endocrinology. STANT READING TEACHER documented in this encounter Plan of Treatment Upcoming Encounters Date Type Specialty Care Team Description 04/28/2022 Ancillary Procedure Ophthalmology Joselo Palmer O.D. [address] [place] [address] [phone] (Odalis rk) 04/28/2022 Ancillary Procedure Ophthalmology Joselo Palmer O.D. [address] [place] [address] [phone] (Odalis rk) 04/28/2022 Office Visit Ophthalmology Tita Palmer O.D. [address] [place] [address] [phone] (Wo rk) documented as of this encounter [...] supplements. ??If the result does not ma tch clinical observations, repeat testing after patient refrains fr om the use of supplements for at least 12 hours. Specimen Anatomical Collection Method Collection Time Receive d Time (Source) Location / / Volume Laterality Blood (Blood, 07/03/2019 6:48 AM 07/03/19 20 7:02 Venous) CDT AM CDT Obi Leggett APRN, C.N.P. LAB BLOOD ADD-ON Performing Organization Address City/State/ZIP Code Phon e Number [facility] [address] [place] [address] [facility] [place], [place] [id number] [place] [address] documented in this encounter Visit Diagnoses Diagnosis Hypertension And Chronic Kidney Disease Stage 3 (HCC) - Primary Chronic Kidney Disease Stage 3 Glomerula r Filtration Rate 30 To 59 (HCC) Hyperlipidemia Hypothyroidism Primary Nicotine Dependence Chewing Tobacco documented in this encounter Care Teams Cell Changer Relationship Specialty Start Date End Date Obi Leggett APRN, C.N.P. PCP - General Family Medicine 06/08/18 12/04/21 [address] [place] [phone] documented as of this encounter
--- OUTSIDE RECORDS SUMMARY | 2022-03-02 08:33 | XMS_ITS | Encounter Summary ---
:1970 Author Organization [facility] Address [address] [place] [address] Care Team Providers Name Role Phone Obi Leggett APRN, C.N.P. Primary Care Provider Encounter Details Date Type Department Care Team Description 10/17/2019 Ancillary Procedure Department of Ashley Dowd Research Ophthalmology in [place], [place] [address] [facility] [address] [place] [phone] Social History Tobacco Use Types Packs/Day Years [...] do you attend congregation or Never 2021 jainism services? 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 [address] [place] [address] [phone] (Wo rk) 04/28/2022 Ancillary Procedure Ophthalmology Joselo Palmer O.D. [address] [place] [address] [phone] (Wo rk) 04/28/2022 Office Visit Ophthalmology Tita Palmer O.D. [address] [place] [address] [phone] (Wo rk) documented as of [...] Exam documented in this encounter Care Teams Liability Claims Representative Relationship Specialty Start Date End Date Obi Leggett APRN, C.N.P. PCP - General Family Medicine 06/08/18 12/04/21 [address] [place] [phone] documented as of this encounter
--- OUTSIDE RECORDS SUMMARY | 2022-03-02 08:34 | XMS_ITS | Encounter Summary ---
:1970 Author Organization [facility] Address [address] [place] [address] Care Team Providers Name Role Phone Obi Leggett APRN, C.N.P. Primary Care Provider [phone] Reason for Visit Reason Comments Nurse Visit BP check, elevated BP Outpatient (Routine) - Closed Specialty Diagnoses / Procedures Referred By Contact Refer red To Contact Diagnoses Diabetes Mellitus Type 1 (HCC) Obi Leggett APRN, [facility] C.N.P. [address] [place] [phone] Referral ID Status Reason Start Date Expiration Date Visits Requ ested Visits Authorized [id number] Closed 03/28/2019 03/27/2020 1 1 Encounter Details Date Type Department Care Team Description 04/05/2019 Nurse Only Department of Family Obi Leggett APRN, C.N.P. [address] [place] [id number] Nurse Visit (BP check, Medicine, Albertina Mancia L.P.Oleg elevated BP) Clinic, in [place], [place] [address] [place] [id number] Social History Tobacco Use Types Packs/Day Years [...] many times do you More than three shanakr es a week 05/04/2021 talk on the phone with family, friends, or neighbors? How often do you get together with friends Once a week 05/04/2021 or relatives? How often do you attend sikhism or Never 2021 holiness services? Do you belong to any clubs [...] or slept in a alf (including now)? 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 - 04/05/2019 4:15 PM CST Images from the original note were not included. The patient is seen today for an blood pressure measurement. The patient is taking their blood pressure medication as prescribed. The patient brought no home readings with them today. Patient does check the BP at home and the numbers are very similar patient states. The patient states they are currently having the following symptoms:none (denies symptoms of blurry vision, dizziness, feeling faint, lightheaded or severe headache). Based on today's readings: The provider will be notified of today's visit and the patient was dismissed. A message will be routed to Obi Leggett CNP to review after today's nurse calender visit. 04/05/19 4:04 PM 04/05/19 4:07 PM 04/05/19 4:16 PM BP 148/103?? 152/99?? 152/104?? BP Location Left??arm?? Left??arm?? Left??arm?? Patient Position Sitting?? Sitting?? Sitting?? Cuff Size Regular?? Regular?? Regular?? Pulse 63?? 60?? 66?? INE CLEANER documented in this encounter Plan of Treatment Upcoming Encounters Date Type Specialty Care Team Description 04/28/2022 Ancillary Procedure Ophthalmology Softing Joselo Narayanan O.Dequan [address] [place], [place] [phone] (Wo rk) 04/28/2022 Ancillary Procedure Ophthalmology SoftJoselo Whyte O.Dequan [address] [place], [place] [phone] (Wo rk) 04/28/2022 Office Visit Ophthalmology Tita Palmer O.D. [address] [place], [place] [phone] (Wo rk) documented as of this encounter Visit Diagnoses Diagnosis Hypertension Essential Primary - Primary Diabetes Mellitus Type 1 (HCC) documented in this encounter Care Teams Intake Manager Relationship Specialty Start Date End Date Obi Leggett APRN, C.N.P. PCP - General Family Medicine 06/08/18 12/04/21 [address] [place] [id number] documented as of this encounter
--- OUTSIDE RECORDS SUMMARY | 2022-03-02 08:34 | XMS_ITS | Encounter Summary ---
:1970 Author Organization [facility] Address [address] [place] [address] Care Team Providers Name Role Phone Obi Leggett APRN, C.N.P. Primary Care Provider [phone] Encounter Details Date Type Department Care Team Description 10/17/2018 Clinical Communication Department of Carmelo Diana, Endocrinology in [place], [place] [address] [facility] [address] [place], [place] [phone] Social History Tobacco Use Types Packs/Day Years [...] or relatives? How often do you attend restoration or Never 2021 samaritan services? Do you belong to any clubs or No 05/04/2021 organizations such as restoration groups, unions, fraternal or athletic groups, or [...] or slept in a jail (including now)? 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 Registration will contact patient to schedule Telephone Encounter - Obi Leggett APRN, C.N.P. - 10/17/2018 3:23 PM CDT BMP ordered in 4 weeks due to change in aldactone. Thanks Obi Telephone Encounter - Carmelo Daina M.D. - 10/17/2018 2:59 PM CDT Aldactone dose increased to 100 mg PO daily due to elevated BP> Could you order a BMP x 4-6 weeks. Thanks Carmelo documented in this encounter Plan of Treatment Upcoming Encounters Date Type Specialty Care Team Description 04/28/2022 Ancillary Procedure Ophthalmology Softing Joselo Narayanan O.D. 200 [place], [place] [phone] (Wo rk) 04/28/2022 Ancillary Procedure Ophthalmology Softing Joselo Narayanan O.D. [address] [place], [place] [phone] (Wo rk) 04/28/2022 Office Visit Ophthalmology Softing Tita Narayanan O.D. [address] [place], [place] [phone] (Wo rk) documented as of this encounter Visit Diagnoses Diagnosis Hypertension Essential Primary - Primary documented in this encounter Care Teams Mechanical Design Engineer Relationship Specialty Start Date End Date Obi Leggett APRN, C.N.P. PCP - General Family Medicine 06/08/18 12/04/[address] [place] [phone] documented as of this encounter
--- OUTSIDE RECORDS SUMMARY | 2022-03-02 08:34 | XMS_ITS | Encounter Summary ---
:1970 Author Organization [facility] Address [address] [place] [address] Care Team Providers Name Role Phone Obi Leggett APRN, C.N.P. Primary Care Provider [phone] Reason for Referral Outpatient (Routine) - Closed Specialty Diagnoses / Procedures Referred By Contact Refer red To Contact Diagnoses Diabetes Mellitus Type 1 (HCC) Obi Leggett APRN, [facility] C.N.P. [address] [place] [phone] Referral ID Status Reason Start Date Expiration Date Visits Requ ested Visits Authorized [id number] Closed 03/28/2019 03/27/2020 1 1 Scheduling Instructions Please schedule prior to end of year 201 9. IT RISK ANALYTICS MANAGER Encounter Details Date Type Department Care Team Description 03/28/2019 Orders Only Department of [facility] Obi Leggettetes Mellitus Type Medicine, Tony Patrick APRN, C.N.P. 1 (HCC) (Primary Dx) Clinic, in [place], [facility] [address] [place], [place] [address] [place] [id number] [place] [phone] [phone] Social History Tobacco Use Types Packs/Day Years [...] do you attend gnosticism or Never 2021 hoahaoism services? Do you belong to any clubs or No 05/04/2021 organizations such as gnosticism groups, unions, [email or web address] or athletic groups, or school groups? How [...] slept in a nursing home (including now)? 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 [address] [place] [phone] (Odalis walton) 04/28/2022 Ancillary Procedure Ophthalmology Joselo Palmer O.D. [address] [place] [phone] (Odalis walton) 04/28/2022 Office Visit Ophthalmology Tita Palmer O.D. 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 PCP - General Family Medicine 06/08/18 12/04/21 [address] [place] [phone] documented as of this encounter
--- OUTSIDE RECORDS SUMMARY | 2022-03-02 08:34 | XMS_ITS | Encounter Summary ---
:1970 Author Organization [facility] Address [address] [place] [address] Care Team Providers Name Role Phone Obi Leggett APRN, C.N.P. 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 Hyperlipidemia; Medicine in [address] Hypertension Essential Primary; [facility] Examination Adult; [address] [place] [phone] Social History Tobacco Use Types Packs/Day Years [...] or relatives? How often do you attend jewish or Never 2021 caodaism services? Do you belong to any clubs or No 05/04/2021 organizations such as jewish groups, unions, fraternal or athletic groups, or [...] to sleep or slept in a senior care (including now)? 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 amLODIPine (NORVASC) 10 mg Take 1 tablet (10 90 tablet 3 05/25/2019 tablet mg total) by mouth daily. atorvastatin (LIPITOR) 40 Take 1 tablet (40 90 tablet 3 05/201710/05/2018 mg tablet mg total) by mouth daily. BD INSULIN PEN NEEDLE UF 6 03/10/2017 02/23/2019 SHORT 31 gauge x 5/16 needle blood sugar diagnostic 4 test daily. One 200 test 3 201811/22/2018 (glucose blood) Touch Verio test stripsIndications: strips DX: Diabetes Mellitus Type 1 E10.3593, E10.21, (HCC) E10.65 chlorthalidone (HYGROTEN) Take 1 tablet (50 90 tablet 3 07/201807/12/2019 50 mg tablet mg total) by mouth daily. HUMALOG KWIKPEN INSULIN Take 4-10 units 45 mL 3 018 10/17/2018 100 unit/mL injection (variable dose) SQ with meals three times/day plus sliding scale. TDD 40 units insulin glargine (BASAGLAR Inject 0.3 mL (30 30 mL 3 10/17/2018 KWIKPEN U-100 INSULIN) 100 Units total) under unit/mL (3 mL) injection the skin daily. levothyroxine (SYNTHROID, Take 2 tablets 180 tablet 3 201710/05/2018 LEVOTHROID) 112 mcg tablet (224 mcg total) by mouth every morning before breakfast. losartan (COZAAR) 100 mg Take 1 tablet (100 30 tablet 11 05/201710/05/2018 tablet mg total) by mouth daily. spironolactone (ALDACTONE) Take 1 tablet (50 90 tablet 3 10/05/2018 50 mg tablet mg total) by mouth daily. documented as of this encounter Progress Notes Obi Leggett APRN, C.N.P. - 08/12/2018 12:27 PM CDT Please call the patient regarding his results: TSH is within normal limits; continue current dose. Seeing oncology upcoming. A1C 7.5 Your BMP (Basic Metabolic Panel) shows that your electrolytes and kidney function are all functioning appropriately. This is great news. Thank you. documented in this encounter Plan of Treatment Upcoming Encounters Date Type Specialty Care Team Description 04/28/2022 Ancillary Procedure Ophthalmology Softing Joselo Narayanan O.D. [address] [place], [place] [phone] (Odalis walton) 04/28/2022 Ancillary Procedure Ophthalmology Softing Joselo Narayanan O.D. [address] [place], [place] [phone] (Odalis walton) 04/28/2022 Office Visit Ophthalmology SoftTita Whyte O.D. [address] [place], [place] [phone] (Odalis walton) documented as of this encounter Procedures Procedure Name Priority Date/Time Associated Diagnosis Comme nts LIPID PANEL, S Routine 08/12/2018 6:32 AM Diabetes Mellitus Ty pe Results for this CDT 1 With Proliferative procedu re are in Diabetic Retinopathy the res ults Without Macular Edema sectio n. Bilateral (HCC) Hyperlipidemia THYROID-STIMULATING Routine 08/12/2018 6:32 AM Hypothyroidism Primary Results for this HORMONE-SENSITIVE CDT procedure are in (S-TSH) the results section. HEMOGLOBIN A1C, B Routine 08/12/2018 6:32 AM Diabetes Mellitus Type Results for this CDT 1 With Proliferative procedu re are in Diabetic Retinopathy the res ults Without Macular Edema sectio n. Bilateral (HCC) BASIC METABOLIC Routine 08/12/2018 6:32 AM Diabetes Mellitus T ype Results for this PANEL, S/P CDT 1 With Proliferative procedu re are in Diabetic Retinopathy the res ults Without Macular Edema sectio n. Bilateral (HCC) Hypertension Essential Primary documented in this encounter Results S-TSH (Thyroid-Stimulating Hormone - Sensitive) (08/12/2018 6:32 AM CDT) P athologist Signature TSH, Sensitive 0.5 0.3 - 4.2 08/12/2018 [facility] mIU/L 10:31 AM T [facility] Comment: Biotin has been identified by the ariel almanzar as a potential interfering substance. ??Higher concentr ations of biotin may be found in multivitamins, hair/nail supple ments, and workout supplements. ??If the result does not ma h clinical observations, repeat testing after patient refrains fr om the use of supplements for at least 12 hours. Specimen Anatomical Collection Method Collection Time Receive d Time (Source) Location / / Volume Laterality Blood (Blood, 08/12/2018 6:32 AM 08/13/19 19 6:41 Venous) CDT AM CDT Obi Leggett APRN, C.N.P. LAB BLOOD ADD-ON Performing Organization Address City/State/ZIP Code Phon e Number [facility]- [address] [place] [address] [place] [facility] (ABNORMAL) Basic metabolic panel (08/12/2018 6:32 AM CDT) Analysis Performed At Patho logist Time Signature Potassium, S 4.0 3.6 - 5.2 08/12/2018 [facility] mmol/L 7:35 AM T [facility] Sodium, S 140 135 - 145 08/12/2018 [facility] mmol/L 7:35 AM [facility] Chloride, S 99 98 - 107 08/12/2018 [facility] mmol/L 7:35 AM [facility] Bicarbonate, S 28 22 - 29 08/12/2018 [facility] mmol/L 7:35 AM [facility] Anion Gap 13 7 - 15 08/12/2018 [facility] 7:35 AM [facility] BUN (Blood Urea 26 (H) 8 - 24 08/12/2018 [facility] Nitrogen), S mg/dL 7:35 AM [facility] Creatinine 1.75 (H) 0.74 - 08/12/2018 [facility] 1.35 mg/dL 7:35 AM [facility] eGFR-Non 46 (L) >=60 08/12/2018 [facility] Black/ mL/min/BSA 7:[address] [facility] Comment: ----ADDITIONAL INFORMATION---- Estimated GFR calculated using the 2009 CKD_EPI creatinine equation. eGFR-Black/ 53 (L) >=60 mL/min/BSA 08/12/2018 7:35 AM [facility] Comment: ----ADDITIONAL INFORMATION---- Estimated GFR calculated using the 2009 CKD_EPI creatinine equation. Calcium, Total, S 9.0 8.6 - 10.0 mg/dL 08/12/2018 7 :35 AM T [facility] Glucose, S 115 70 - 140 mg/dL 08/12/2018 7:35 AM T [facility] Specimen Anatomical Collection Method Collection Time Receive d Time (Source) Location / / Volume Laterality Blood (Blood, 08/12/2018 6:32 AM 08/13/19 19 6:41 Venous) CDT AM CDT Carmelo Diana M.D. LAB BLOOD ADD-ON Performing Organization Address City/State/ZIP Code Phon e Number [facility]- [address] [place] [address] [place] [facility] (ABNORMAL) Lipid Panel (08/12/2018 6:32 AM CDT) athologist Signature Cholesterol, 200 (H) mg/dL 08/12/2018 [facility] Total 7:35 AM [facility] Comment: ----REFERENCE VALUE---- Desirable: < 200 Borderline high: 200 - 239 High: > or = 240 Triglycerides 172 (H) mg/dL 08/12/2018 7:[address] [facility] Comment: ----REFERENCE VALUE---- Normal: <150 Borderline high: 150-199 High: 200-499 Very high: > or =500 Cholesterol, HDL, S 78 >=40 mg/dL 08/12/2018 7:35 AM CDT [facility] Calculated LDL 88 mg/dL 08/12/2018 7:35 AM CDT [facility] Comment: ----REFERENCE VALUE---- Desirable: <100 Above Desirable: 100-129 Borderline high: 130-159 High: 160-189 Very high: > or =190 Cholesterol, Non-HDL, 122 mg/dL 08/12/2018 7:35 AM CDT [facility] Comment: ----REFERENCE VALUE---- Desirable: <130 Above Desirable: 130-159 Borderline high: 160-189 High: 190-219 Very high: > or =220 Specimen Anatomical Collection Method Collection Time Receive d Time (Source) Location / / Volume Laterality Blood (Blood, 08/12/2018 6:32 AM 08/13/19 19 6:41 Venous) CDT AM CDT Authorizing Provider Result Nichole Diana M.D. LAB BLOOD ADD-ON Performing Organization Address City/State/ZIP Code Phon e Number [facility]- [address] [place] [address] [place] [facility] (ABNORMAL) Hemoglobin A1c (08/12/2018 6:32 AM CDT) P athologist Signature Hemoglobin A1c, 7.5 (H) 4.2 - 5.6 08/12/2018 [facility] B % 7:19 AM CDT [facility] Comment: Hemoglobin A1c values greater than or eq ual to 6.5 percent are diagnostic for diabetes mellitus. ?? Diagnosis should be confirmed by repeat testing. ??In diabet ic patients, HbA1c goals should be discussed with healthcar e provider. Specimen Anatomical Collection Method Collection Time Receive d Time (Source) Location / / Volume Laterality Blood (Blood, 08/12/2018 6:32 AM 08/13/19 19 6:41 Venous) CDT AM CDT Carmelo Diana M.D. LAB BLOOD ADD-ON Performing Organization Address City/State/ZIP Code Phon e Number [facility]- [address] [place] [address] [place] [facility] documented in this encounter Visit Diagnoses Diagnosis Diabetes Mellitus Type 1 With Proliferat ruperto Diabetic Retinopathy Without Macular Edema Bilateral (HCC) Hyperlipidemia Hypertension Essential Primary Health Maintenance Examination Adult Hypothyroidism Primary documented in this encounter Care Teams Tube Turner Relationship Specialty Start Date End Date Obi Leggett APRN, C.N.P. PCP - General Family Medicine 06/08/18 12/04/21 [address] [place] [phone] documented as of this encounter
--- OUTSIDE RECORDS SUMMARY | 2022-03-02 08:34 | XMS_ITS | Encounter Summary ---
:1970 Author Organization [facility] Address [address] [place] [address] Care Team Providers Name Role Phone Obi Leggett APRN, C.N.P. Primary Care Provider Encounter Details Date Type Department Care Team Description 12/05/2018 Clinical Communication Department of Puja Perez Cardiovascular Diseases ASHLEY Patrick, C.N.P. in [place], [place] [address] [place] [address] [place], [place] [phone] Social History Tobacco Use Types Packs/Day Years [...] do you attend mormonism or Never 2021 cheondoism services? Do you belong to any clubs [...] or slept in a correction (including now)? 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 - 12/05/2018 9:22 AM CDT After review, the plan does not cover don without exception. Unfortunately, I will not be able to get this covered. Hopefully with the next plan renewal they will allow this product. Telephone Encounter - Puja Perez APRN, C.N.P. - 12/05/2018 9:11 AM CDT Spoke with patient regarding Freestyle Don. States this was prescribed by Dr. Diana but denied byinsurance. Discussed with patient having one of our pharmacists look into coverage. He is agreeable. Puja documented in this encounter Plan of Treatment Upcoming Encounters Date Type Specialty Care Team Description 04/28/2022 Ancillary Procedure Ophthalmology Softing Joselo Narayanan O.D. [address] [place], [place] [phone] (Odalis walton) 04/28/2022 Ancillary Procedure Ophthalmology Softing Joselo Narayanan O.D. [address] [place], [place] [phone] (Odalis walton) 04/28/2022 Office Visit Ophthalmology Khurraming Tita Narayanan O.D. [address] [place], [place] [phone] (Wo rk) documented as of this encounter Visit Diagnoses Not on filedocumented in this encounter Care Teams Senior Java Ui Developer Relationship Specialty Start Date End Date Obi Leggett, RN REVIEW, C.N.P. PCP - General Family Medicine 06/08/18 12/04/[address] [place] [phone] documented as of this encounter
--- OUTSIDE RECORDS SUMMARY | 2022-03-02 08:34 | XMS_ITS | Encounter Summary ---
:1970 Author Organization [facility] Address [address] [place] [address] Care Team Providers Name Role Phone Obi Leggett APRN, C.N.P. Primary Care Provider Reason for Visit Reason Onset Date Comments Rx Prior Authorization 10/24/2018 DENIAL OF FREESTY LE KIT SENSOR Encounter Details Date Type Department Care Team Description 10/24/2018 Clinical Department of Carmelo Diana Rx Prior Communication Endocrinology in M.D. Authorization Danny Perera W Vivian (DENIAL OF [address] FREESTYLE KIT [address] [place], [place] SENSOR) [place] [phone] Social History Tobacco Use Types Packs/Day Years [...] or relatives? How often do you attend scientologist or Never 2021 buddhism services? 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 You may choose to either: 1. Reach out to the patients??? insurer directly to see if they will alondra an exception. 2. Change the patient???s medication therapy. 3. If not seeking an exception or prescribing a different Rx, click Release Rx (if present) on the prescription. This releases the prescription to the pharmacy so the patient has the option to pay in vang for the item if desired. If you have any follow-up questions regarding this communication, please contact the Outpatient Pharmaceutical Prior Auth department at email address [facility]. Thank you documented in this encounter Plan of Treatment Upcoming Encounters Date Type Specialty Care Team Description 04/28/2022 Ancillary Procedure Ophthalmology Softing Joselo Narayanan O.Dequan [address] [place] [phone] (Odalis walton) 04/28/2022 Ancillary Procedure Ophthalmology Softing Joselo Narayanan O.Dequan [address] [place], [place] [phone] (Wo rk) 04/28/2022 Office Visit Ophthalmology Softing Tita Narayanan O.D. [address] [place], [place] [phone] (Wo rk) documented as of this encounter Visit Diagnoses Not on filedocumented in this encounter Care Teams Wood Milling Machine Tender Relationship Specialty Start Date End Date Obi Leggett, FORK LIFT MECHANIC, C.N.P. PCP - General Family Medicine 06/08/18 12/04/21 [address] [place] [phone] documented as of this encounter
--- OUTSIDE RECORDS SUMMARY | 2022-03-02 08:34 | XMS_ITS | Encounter Summary ---
:1970 Author Organization [facility] Address [address] [place] [address] Care Team Providers Name Role Phone Obi Leggett APRN C.N.P. Primary Care Provider Reason for Referral Outpatient (Routine) - Closed Specialty Diagnoses / Procedures Referred By Contact Refer red To Contact Endocrinology Carmelo Diana M.D. [facility] [address] [phone] Referral ID Status Reason Start Date Expiration Date Visits Requ ested Visits Authorized [id number] Closed 10/17/2018 10/17/2019 1 1 Reason for Visit Reason Comments Diabetes Mellitus Outpatient (Routine) - Closed Specialty Diagnoses / Procedures Referred By Contact Refer red To Contact Endocrinology Carmelo Diana M.D. 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 Diabetes Mellitus Type 1 With Diabetic N ephropathy Hyperglycemic (HCC); [place], [place] [address] Hypothyroidism Primary; [address] [place] Hyperlipidemia; [place] [phone] Hypertension Essential Primary; [phone] Chronic Kidney Disease Stage 3 Glomerular Filtration Rate 30 To 59 ([facility]); (Work) Proteinuria; [phone] Care Home Use O f Insulin Active (HCC); (Fax) Counseling Diet ; Nicotine Depend ence Chewing Tobacco Social History Tobacco Use Types Packs/Day Years [...] do you attend restoration or Never 2021 uatsdin services? Do you belong to any clubs [...] or slept in a usp (including now)? 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 - 10/17/2018 2:20 PM CDT SUBJECTIVE CHIEF COMPLAINT / REASON FOR VISIT Lex Hernandez is a 48 y.o. male who presents for evaluation of Diabetes Mellitus type 1. HISTORY OF PRESENT ILLNESS Mr. Manriquez is a 48-year-old man with type 1 diabetes diagnosed at age 13 who returns for follow-up.He is enrolled in the EDIC study in [place]. Type 1 diabetes. Diagnosed at age 13. Glucose lowering regimen includes Basaglar 30 units daily, Humalog 8 units subcu t.i.d. plus sliding scale. Low glucose levels typically occur once a week. A.m. glucose levels generally range between 80 and 160. Hypoglycemia typically occurs before breakfast on mornings following strenuous activity the night prior. HbA1c 7.5%. Home monitored glucose data reviewed. Microvascular complications include diabetic nephropathy, proliferative diabetic retinopathy. Eye exam is up-to-date. Primary hypothyroidism. TSH 0.5 on levothyroxine 224 mcg daily. Patient denies any symptoms of over replacement. Essential hypertension. Office blood pressure remains elevated to 150s systolic despite the use of 4different antihypertensive agents in moderately high doses. Potassium 4.0. Patient currently takes amlodipine 10 mg daily, chlorthalidone 50 mg daily, losartan 100 mg daily and spironolactone 50 mg once daily. He continues to chew tobacco 1 can daily. Consumes 1 serving of caffeinated carbonated beverage per day. PAST MEDICAL HISTORY Active Ambulatory Problems Diagnosis Date Noted ??? Hypertension Essential Primary 05/09/2010 ??? Diabetes Mellitus Type 1 With Diabetic Nephropathy Hyperglycemic (HCC) 03/01/2017 ??? Hypothyroidism Primary 03/01/2017 ??? Hyperlipidemia 03/01/2017 ??? Chronic Kidney Disease Stage 3 Glomerular Filtration Rate 30 To 59 (HCC) 08/13/2015 ??? 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 Proteinuria 10/17/2018 ??? Nicotine Dependence Chewing Tobacco 10/17/2018 Resolved Ambulatory Problems Diagnosis Date Noted ??? Counseling Diet 03/01/2017 ??? Case Specialist Use Of Insulin Active (HCC) 03/01/2017 ??? Hypercholesterolemia 11/02/2003 ??? Diabetes Mellitus Type 1 (HCC) 03/03/2004 ??? DM1 Retinopathy Proliferative 11/02/2003 ??? Hypertension 08/27/2016 ??? Hemorrhage Vitreous Left (HCC) 06/13/2014 Past Medical History: Diagnosis Date ??? Diabetes Mellitus NOS ??? Hypertension NOS 03/24 MEDICATIONS Current Outpatient Medications Medication Sig ??? ACCU-CHEK FASTCLIX misc ??? amLODIPine (NORVASC) 10 mg tablet Take 1 tablet (10 mg total) by mouth daily. ??? aspirin [address] tablet Take 81 mg by mouth daily. ??? atorvastatin (LIPITOR) 40 mg tablet Take 1 tablet (40 mg total) by mouth daily. ??? BD INSULIN PEN NEEDLE UF SHORT 31 gauge x 16 needle ??? blood sugar diagnostic (glucose blood) strips 4 test daily. One Touch Verio test strips DX: E10.3593, E10.21, E10.65 ??? chlorthalidone (HYGROTEN) 50 mg tablet Take 1 tablet (50 mg total) by mouth daily. ??? HUMALOG KWIKPEN INSULIN 100 unit/mL injection Take 8 units with each meal plus sliding scale. TDD 40 units per day. ??? insulin glargine (BASAGLAR KWIKPEN U-100 INSULIN) 100 unit/mL (3 mL) injection Inject 0.3 mL (30Units total) under the skin daily. ??? levothyroxine (SYNTHROID, LEVOTHROID) 112 mcg tablet Take 2 tablets (224 mcg total) by mouth every morning before breakfast. Take 2 tablets daily 6 days a week (Wednesday through Wednesday) and 1 tablet 1 day a week (Wednesday) ??? losartan (COZAAR) 100 mg tablet Take 1 tablet (100 mg total) by mouth daily. ??? spironolactone (ALDACTONE) 100 mg tablet Take 1 tablet (100 mg total) by mouth daily. ??? flash glucose scanning reader (FREESTYLE DON 14 DAY READER) misc Don 14 Day Scanning [place] ??? flash glucose sensor (FREESTYLE DON 14 DAY SENSOR) kit FreeStyle Don 14 day senor. 2 sensorsper month. Change every 14 days. Use as directed for monitoring glucose level. The following portions of the patient's history were reviewed and updated as appropriate: allergies,current medications, family history, medical history, social history, surgical history and problem list. . OBJECTIVE PHYSICAL EXAM Constitutional: He is oriented to person, place, and time. He appears well- developed and well-nourished. HENT: Head: Normocephalic and atraumatic. Eyes: EOM are normal. Pupils are equal, round, and reactive to light. Neck: Normal range of motion. Neck supple. No thyromegaly present. Cardiovascular: Normal rate. Pulmonary/Chest: Effort normal. Musculoskeletal: Normal range of motion. Feet: Right Foot: Skin Integrity: Negative for ulcer or skin breakdown. Left Foot: Skin Integrity: Negative for ulcer or blister. Lymphadenopathy: He has no cervical adenopathy. Neurological: He is oriented to person, place, and time. Skin: Skin is warm and dry. No erythema. Psychiatric: He has a normal mood and affect. His behavior is normal. Nursing note and vitals reviewed. DIAGNOSTICS Results for LEX HERNANDEZ ( ) as of 10/17/2018 15:15 Ref. Range 08/12/2018 06:32 08/12/2018 07:40 Sodium, S Latest Ref Range: 135 - 145 mmol/L 140 Potassium, S Latest Ref Range: 3.6 - 5.2 mmol/L 4.0 Chloride, S Latest Ref Range: 98 - 107 mmol/L 99 Bicarbonate, S Latest Ref Range: 22 - 29 mmol/L 28 Anion Gap Latest Ref Range: 7 - 15 13 Bld Urea Nitrog(BUN), S Latest Ref Range: 8 - 24 mg/dL 26 (H) Creatinine, S Latest Ref Range: 0.74 - 1.35 mg/dL 1.75 (H) eGFR-Non Black Latest Ref Range: >=60 mL/min/BSA 46 (L) eGFR-Black Latest Ref Range: >=60 mL/min/BSA 53 (L) Calcium, Total, S Latest Ref Range: 8.6 - 10.0 mg/dL 9.0 Glucose, S Latest Ref Range: 70 - 140 mg/dL 115 Cholesterol, Total, S Latest Units: mg/dL 200 (H) Cholesterol, HDL, S Latest Ref Range: >=40 mg/dL 78 Calculated LDL Latest Units: mg/dL 88 Triglycerides Latest Units: mg/dL 172 (H) Non HDL Cholesterol Latest Units: mg/dL 122 TSH, Sensitive, S Latest Ref Range: 0.3 - 4.2 mIU/L 0.5 Hemoglobin A1c, B Latest Ref Range: 4.2 - 5.6 % 7.5 (H) Microalbumin Latest Units: mg/L 1347.0 Creatinine Latest Units: mg/dL 86 Albumin/Creatinine Ratio Latest Ref Range: <17 mg/g 1566 (H) ASSESSMENT / PLAN #1 Diabetes Mellitus 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 plus sliding scale Recommend consistent carbohydrate intake Discussed intermittently scanned glucose monitoring as an alternative to fingerstick. Patient would like to try Freestyle Dno. Prescriptions provided. - Basic metabolic panel; Future; Expected date: 04/19/2019 (Before next visit) #2 Diabetes Mellitus Type 1 With Diabetic Nephropathy Hyperglycemic (HCC) #3 Hypothyroidism Primary Recommend decreasing levothyroxine to 224 mcg 6 days a week and 112 mcg 1 day a week for an average total daily dose of 208 mcg/day. Goal TSH 1.0-5.0 #4 Hyperlipidemia Managed with a moderate intensity statin #5 Hypertension Essential Primary Recommend increasing aldactone to 100 mg once daily. Continue amlodipine 10 mg daily, wdyvconshualim15 mg daily, losartan 100 mg daily. Sent a message to patient's primary care provider requesting measurement of sodium/potassium in 4- 6 weeks. #6 Chronic Kidney Disease Stage 3 Glomerular Filtration Rate 30 To 59 ([facility]) #7 Proteinuria / diabetic nephropathy #8 Case Specialist Use Of Insulin Active ([facility]) #9 Counseling Diet #10 Nicotine Dependence Chewing Tobacco Counseled patient to quit chewing tobacco Other orders - Endocrinology office visit (clinic) - HUMALOG KWIKPEN INSULIN 100 unit/mL injection; Take 8 units with each meal plus sliding scale. TDD40 units per day., Normal - insulin glargine (BASAGLAR KWIKPEN U-100 INSULIN) 100 unit/mL (3 mL) injection; Inject 0.3 mL (30 Units total) under the skin daily., Starting Wed10/17/2018, Until Wed10/17/2019, Normal - levothyroxine (SYNTHROID, LEVOTHROID) 112 mcg tablet; Take 2 tablets (224 mcg total) by mouth every morning before breakfast. Take 2 tablets daily 6 days a week (Wednesday through Wednesday) and 1 tablet1 day a week (Wednesday), Starting Wed10/17/2018, Print - flash glucose sensor (Band Digital DON 14 DAY SENSOR) kit; NanoVelos Don 14 day senor. 2 sensors per month. Change every 14 days. Use as directed for monitoring glucose level., Print - flash glucose scanning reader (OnCorpsSTYLE DON 14 DAY READER) misc; Don 14 Day Scanning [place], Print - spironolactone (ALDACTONE) 100 mg tablet; Take 1 tablet (100 mg total) by mouth daily., Starting Wed10/17/2018, Normal - Endocrinology office visit (clinic); Future; Expected date: 04/19/2019 [id number] documented in this encounter Plan of Treatment Upcoming Encounters Date Type Specialty Care Team Description 04/28/2022 Ancillary Procedure Ophthalmology Joselo Palmer O.D. [address] [place] [phone] ([place]) 04/28/2022 Ancillary Procedure Ophthalmology Joselo Palmer O.D. [address] [place] [phone] (Odalis rk) 04/28/2022 Office Visit Ophthalmology Tita Palmer O.D. [address] [place] [phone] ([place]) Scheduled Referrals Name Type Priority Associated Order Schedule Diagnoses Endocrinology office Outpatient Referral Routine Expected: visit (clinic) 04/19/2019 (Approximate), Expires: 10/17/2021 documented as of this encounter Results (ABNORMAL) Basic Metabolic Panel (07/03/2019 6:48 AM [...] eGFR-Black/Afri 49 (L) >=60 07/03/2019 AUST can [place] mL/min/BSA 7:34 AM CDT Comment: ----ADDITIONAL INFORMATION---- Estimated GFR calculated using the 2009 CKD_EPI creatinine equation. eGFR Non-Black/ 43 (L) >=60 mL/min/BSA 07/03/2019 7:34 AM CDT A[facility] [place] Comment: ----ADDITIONAL INFORMATION---- Estimated GFR calculated using [...] Organization Address City/State/ZIP Code Phon e Number [facility]- [address] [place] [address] [facility] [place], [place] [id number] [place] [address] documented in this encounter Visit Diagnoses Diagnosis Diabetes Mellitus Type 1 With Proliferat ruperto Diabetic Retinopathy Without Macular Edema Hyperglycemic Bilateral (HCC) - Pr imary Diabetes Mellitus Type 1 With Diabetic N ephropathy Hyperglycemic (HCC) Hypothyroidism Primary Hyperlipidemia Hypertension Essential Primary Chronic Kidney Disease Stage 3 Glomerula r Filtration Rate 30 To 59 (HCC) Proteinuria Case Specialist Use Of Insulin Active (HCC) Counseling Diet Nicotine Dependence Chewing Tobacco documented in this encounter Care Teams Commercial Baking Teacher Relationship Specialty Start Date End Date Obi Leggett, VIDEO PRODUCTION SPECIALIST, C.N.P. PCP - General Family Medicine 06/08/18 12/04/21 [address] [place] [phone] documented as of this encounter
--- OUTSIDE RECORDS SUMMARY | 2022-03-02 08:34 | XMS_ITS | Encounter Summary ---
:1970 Author Organization [facility] Address [address] [place] [address] Care Team Providers Name Role Phone Obi Leggett APRN, C.N.P. Primary Care Provider [phone] Encounter Details Date Type Department Care Team Description 08/12/2018 Hospital Encounter Department of [place], Diabetes Mellitus Type Laboratory Medicine Obi Patrick APRN, 1 Wit h Diabetic in [place], C.N.P. Nephropathy [place] [address] [place] Hyperglycemic ([facility]) [address] [place], [place] [phone] Social History Tobacco Use Types Packs/Day Years [...] do you attend zoroastrianism or Never 2021 tenriism services? Do you [...] or slept in a long-term (including now)? 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 documented as of this encounter Plan of Treatment Upcoming Encounters Date Type Specialty Care Team Description 04/28/2022 Ancillary Procedure Ophthalmology [place] Joselo Narayanan O.D. [address] [place], [place] [phone] (Wo rk) 04/28/2022 Ancillary Procedure Ophthalmology Joselo Palmer O.D. [address] [place] [phone] (Wo rk) 04/28/2022 Office Visit Ophthalmology Tita Palmer O.D. [address] [place], [place] [phone] (Wo rk) documented as of this encounter Procedures Procedure Name Priority Date/Time Associated Diagnosis Comme nts ALBUMIN, RANDOM, U Routine 08/12/2018 7:40 AM Diabetes Mellitu s Type Results for this CDT 1 With Diabetic procedure ar e in Nephropathy the results Hyperglycemic (HCC) section. documented in this encounter Results (ABNORMAL) Microalbumin, Random, Urine (08/12/2018 7:40 AM CDT) [facility] Method Time Signature Microalbumin 1347.0 mg/L 08/12/2018 [facility] 9:40 AM T [facility] Creatinine 86 mg/dL 08/12/2018 [facility] 9:40 AM [facility] Albumin/Creatinin 1566 (H) <17 mg/g 08/12/2018 [facility] e Ratio 9:40 AM [facility] Specimen Anatomical Collection Method Collection Time Receive d Time (Source) Location / / Volume Laterality Urine (Urine, 08/12/2018 7:40 AM 08/13/19 19 8:30 Clean Catch) CDT AM CDT Bonilla Thakur APRNN.P. LAB URINE ORDERABLES Performing Organization Address City/State/ZIP Code Phon e Number [facility]- [address] [place] [address] [facility] documented in this encounter Visit Diagnoses Diagnosis Diabetes Mellitus Type 1 With Diabetic N ephropathy Hyperglycemic (HCC) documented in this encounter Care Teams Forest Technology Professor Relationship Specialty Start Date End Date Obi Leggett APRN, C.N.P. PCP - General Family Medicine 06/08/18 12/04/21 [address] [place] [phone] documented as of this encounter
--- OUTSIDE RECORDS SUMMARY | 2022-03-02 08:34 | XMS_ITS | Encounter Summary ---
:1970 Author Organization [facility] Address [address] [place] [address] Care Team Providers Name Role Phone Obi Leggett APRN, C.N.P. Primary Care Provider Encounter Details Date Type Department Care Team Description 09/13/2018 Ancillary Department of [place], Diabetes Me llitus Procedure Ophthalmology in Tita Calabrese O.D. Type 1 With [place], [place] [address] [facility] Proliferative [address] [place], [place] [address] Without Macular Edema [phone] Bilateral (HCC) Social History Tobacco Use Types [...] do you attend latter-day or Never 2021 religion services? Do you belong to any clubs [...] slept in a group home (including now)? 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 [address] [place] [phone] (Wo rk) 04/28/2022 Ancillary Procedure Ophthalmology Joselo Palmer O.D. [address] [place] [address] [phone] (Wo rk) 04/28/2022 Office Visit Ophthalmology Tita Palmer O.D. [address] [place] [phone] (Wo rk) documented as of this encounter Procedures Procedure Name Priority Date/Time Associated Diagnosis Comme nts OPTICAL COHERENCE Routine 09/13/2018 3:21 PM Diabetes Mellitus Type Results for this TOMOGRAPHY - CDT 1 With Proliferative procedu re are in MACULA/RETINA - OU Diabetic Retinopathy t he results - BOTH EYES Without Macular Edema sectio n. Bilateral (HCC) documented in this encounter Results Optical Coherence Tomography (OCT) - Macula/Retina - OU - Both Eyes (09/13/2018 3:21 PM CDT) Specimen (Source) Anatomical Location Collection Method / Collectio n Time Received Time / Laterality Volume Narrative Tita Palmer O.D. - 019 3:42 PM CDT Right Eye OCT device used is Spectralis . Left Eye OCT device used is Spectralis . Notes 09/13/2018 OCT both eyes - no IRF or subr etinal fluid,rare dot heme 07/2017 OCT RIGHT: ??No IRF or SRF, cristopher l foveal contour; LE: ??no IRF or SRF , normal foveal contour. OCT 08/03 ??RIGHT: 16 Jan 2015 B-scan left eye: ??vitreous hemorrhage, PVD throughout the posterior pole, vitreo-retinal adjesions @ 1:00, 2:00 7:00 PE, macula attached. ??LS 14 Nov 2014 OCT normal contour, left eye normal contour 18 Oct 2014 B-scan left eye: ??vitreous opacities and strands inferiorly, layered opacities along the temporal pos terior pole, possible vitreo-retinal adhesion at that site. ?? LS 08/01 OCT right: normal contour ?? left: normal contour, preretinal heme superotemp 06/03 FA right: staining of old NVE, mode rate PRP ??left: NVE at distal sup arcade with associated preretinal heme; room for peripheral laser 06/03 OCT right: normal contour ?? left: normal contour, preretinal heme superotemp FA (03/28) ?? right: staining of old NVE , moderate PRP ?? left: multifocal NVE leakage, no NVD, peripheral nonperfu cole OCT (03/28) ?? right: normal contour ?? left: normal contour Tita L Minesh Goddard.Dequan OPHTH TOMOGRAPHY documented in this encounter Visit Diagnoses Diagnosis Diabetes Mellitus Type 1 With Proliferat ruperto Diabetic Retinopathy Without Macular Edema Bilateral (HCC) documented in this encounter Care Teams Fur Comber Relationship Specialty Start Date End Date Obi Leggett, SENIOR SOFTWARE ENGINEER ANALYTICS, C.N.P. PCP - General Family Medicine 06/08/18 12/04/21 [address] [place] [phone] documented as of this encounter
--- OUTSIDE RECORDS SUMMARY | 2022-03-02 08:34 | XMS_ITS | Encounter Summary ---
:1970 Author Organization [facility] Address [address] [place] [address] Care Team Providers Name Role Phone Obi Leggett APRN C.N.P. Primary Care Provider [phone] Reason for Referral Outpatient (Routine) - Closed Specialty Diagnoses / Procedures Referred By Contact Refer red To Contact Ophthalmology Tita Palmer [place] [address] [place] O.D. [address] [place] [address] Referral ID Status Reason Start Date Expiration Date Visits Requ ested Visits Authorized [id number] Closed 09/13/2018 09/13/2019 1 1 Encounter Details Date Type Department Care Team Description 09/13/2018 Orders Only Department of [facility] Diabetes Nv llitus Type Ophthalmology in , Meme Garcia CCourtneyOAnjel 1 With Proliferative [place], [place] [address] [facility] Diabetic Retinopathy [address] [place], [place] [phone] Bilateral (HCC) [phone] (Primary Dx) (Work) Social History Tobacco Use [...] do you attend sabianism or Never 2021 shinto services? Do you belong to any clubs or No 05/04/2021 organizations such as sabianism groups, unions, fraFlagshship Fitness or athletic groups, or school groups? 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 [address] [place] [phone] (Wo rk) 04/28/2022 Ancillary Procedure Ophthalmology Joselo Palmer O.D. [address] [place] [address] [phone] (Wo rk) 04/28/2022 Office Visit Ophthalmology Tita Palmer O.D. [address] [place] [address] [phone] (Odalis rk) Scheduled Referrals Name Type Priority Associated Order Schedule Diagnoses Ophthalmology office Outpatient Referral Routine Expected: visit (clinic) 06/16/2019 (Approximate), Expires: 09/14/2019 documented as of this encounter Results Optical Coherence Tomography (OCT) - Macula/Retina - OU - Both Eyes (06/19/2019 2:12 PM PACKING FLOOR WORKER) Specimen (Source) Anatomical Location Collection Method / Collectio n Time Received Time / Laterality Volume Narrative OPHTHALMOLOGY IMAGING EXAM - 06/26/19 20 5:09 PM CDT Right Eye Reliability was good. OCT device used [employer] Spectralis . Left Eye Reliability was good. OCT device used [employer] Spectralis . Notes 06/26/2019 OCT Both eyes: ??No IRF or subr etinal fluid, trace epiretinal membrane/ Tita Narayanan O.D. OPHTH TOMOGRAPHY Performing Organization Address City/State/ZIP Code Phon e Number OPHTHALMOLOGY IMAGING EXAM documented in this encounter Visit Diagnoses Diagnosis Diabetes Mellitus Type 1 With Proliferat ruperto Diabetic Retinopathy Without Macular Edema Bilateral (HCC) - Primary Diabetes Mellitus Type 1 With Proliferat ruperto Diabetic Retinopathy Without Macular Edema Bilateral (HCC) documented in this encounter Care Teams Barrel Cap Setter Relationship Specialty Start Date End Date Obi Leggett, PSYCHOMETRIST, C.N.P. PCP - General Family Medicine 06/08/18 12/04/21 [address] [place] [phone] documented as of this encounter
--- OUTSIDE RECORDS SUMMARY | 2022-03-02 08:34 | XMS_ITS | Encounter Summary ---
:1970 Author Organization [facility] Address [address] [place] [address] Care Team Providers Name Role Phone Obi Leggett APRN, C.N.P. Primary Care Provider [phone] Encounter Details Date Type Department Care Team Description 04/06/2019 Orders Only Department of Family Obi Leggett, Medicine, [facility], in WELDER PIPE MAKING , C.N.P. [place], [place] [address] [place] [address] [place] [address] [place] [address] [phone] Social History Tobacco Use Types Packs/Day Years [...] do you attend restoration or Never 2021 mandaeism services? Do you belong to any clubs [...] or slept in a fci (including now)? 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 [address] [place] [address] [phone] (Wo rk) 04/28/2022 Ancillary Procedure Ophthalmology Joselo Palmer O.D. [address] [place] [address] [phone] (Wo rk) 04/28/2022 Office Visit Ophthalmology Tita Palmer O.D. [address] [place] [address] [phone] (Wo rk) documented as of this encounter Visit Diagnoses Not on filedocumented in this encounter Care Teams Stator Tester Relationship Specialty Start Date End Date Obi Leggett APRN, C.N.P. PCP - General Family Medicine 06/08/18 12/04/21 [address] [place] [phone] documented as of this encounter
--- OUTSIDE RECORDS SUMMARY | 2022-03-02 08:34 | XMS_ITS | Encounter Summary ---
:1970 Author Organization [facility] Address [address] [place] [address] Care Team Providers Name Role Phone Obi Leggett APRN, C.N.P. Primary Care Provider Reason for Visit Reason Comments Med Refill Encounter Details Date Type Department Care Team Description 10/05/2018 Refill Department of Endocrinology in Carmelo Vera M.D. Med Refill [place], [place] [address] [facility] [address] [place] [address] [place] [address] [phone] Social History Tobacco Use Types Packs/Day Years [...] do you attend evangelical or Never 2021 sikhism services? Do you [...] or slept in a half-way (including now)? 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 [address] [place], [place] 55 [phone] (Wo rk) 04/28/2022 Ancillary Procedure Ophthalmology Joselo Palmer O.D. [address] [place] [address] [phone] (Wo rk) 04/28/2022 Office Visit Ophthalmology Tita Palmer O.D. [address] [place] [address] [phone] (Wo rk) documented as of this encounter Visit Diagnoses Not on filedocumented in this encounter Care Teams Senior Quality Analyst Relationship Specialty Start Date End Date Obi Leggett, ASHLEY, C.N.P. PCP - General Family Medicine 06/08/18 12/04/21 [address] [place] [phone] documented as of this encounter
--- OUTSIDE RECORDS SUMMARY | 2022-03-02 08:34 | XMS_ITS | Encounter Summary ---
:1970 Author Organization [facility] Address [address] [place] [address] Care Team Providers Name Role Phone Obi Leggett APRN, C.N.P. Primary Care Provider [phone] Encounter Details Date Type Department Care Team Description 11/24/2018 Orders Only [facility] Obi Leggett Diabetes Mellitus Type R, ASHLEY, C.N.P. 1 ([facility]) [address] [place] [address] Social History Tobacco Use Types Packs/Day [...] do you attend restoration or Never 2021 zoroastrian services? Do you [...] or slept in a mcfp (including now)? 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 [address] [place], [place] 55 [phone] (Wo rk) 04/28/2022 Ancillary Procedure Ophthalmology Joselo Palmer O.D. [address] [place], [place] 55 [phone] (Wo rk) 04/28/2022 Office Visit Ophthalmology Tita Palmer O.D. [address] [place], [place] [phone] (Wo rk) documented as of this encounter Visit Diagnoses Diagnosis Diabetes Mellitus Type 1 (HCC) documented in this encounter Care Teams Bowling Alley Manager Relationship Specialty Start Date End Date Obi Leggett, QUALITY ASSURANCE SPECIALIST, C.N.P. PCP - General Family Medicine 06/08/18 12/04/[address] [place] [phone] documented as of this encounter
--- OUTSIDE RECORDS SUMMARY | 2022-03-02 08:34 | XMS_ITS | Encounter Summary ---
:1970 Author Organization [facility] Address [address] [place] [address] Care Team Providers Name Role Phone Obi Leggett APRN, C.N.P. Primary Care Provider [phone] Encounter Details Date Type Department Care Team Description 04/05/2019 Clinical Communication Department of [facility] Obi Leggett Austin R, APRN [facility], in [place], [address] [place] [address] Dr Yehuda Clemens [place], [place] [address] [place] [address] [place] [address] [phone] Social History Tobacco Use Types Packs/Day Years [...] or relatives? How often do you attend anabaptism or Never 2021 episcopal services? Do you belong to any clubs or No 05/04/2021 organizations such as anabaptism groups, unions, fraternal or athletic groups, or [...] place to sleep or slept in a long term (including now)? 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 - 04/06/2019 4:35 PM EDITOR DICTIONARY SUBJECTIVE CHIEF COMPLAINT / REASON FOR CALL No chief complaint on file. Information Discussed Dr Diana in October recommended f/up labs in 4-6 weeks; I do not see where this has been completed. BP above goal; maxed out on other medications. Recommend f/up for resist ent HTN following labs. Bring Home Bps to appt. Start Metoprolol 25 XL. PLAN Disposition/Recommendation: patient transferred to the appointment desk Information/Education: patient/caller able to teach back Caller agreeable to plan of care: yes The following references were used: none OR DICTIONARY Addendum Note - Obi Leggett APRN, C.N.P. - 04/06/2019 4:19 PM EDITOR DICTIONARY Addended by: OBI LEGGETT on: 04/06/2019 04:19 PM Modules accepted: Orders OR DICTIONARY Telephone Encounter - Obi Leggett APRN, C.N.P. - 04/06/2019 4:[address] Diana in October recommended f/up labs in 4-6 weeks; I do not see where this has been completed. BP above goal; maxed out on other medications. Recommend f/up for resist ent HTN following labs. Bring Home Bps to appt. Start Metoprolol 25 XL. Thanks Obi Leggett APRN, C.N.P. OR DICTIONARY Telephone Encounter - Albertina Gruber L.P.N. - 04/05/2019 4:09 PM EDITOR DICTIONARY Images from the original note were not included. The patient is seen today for an blood pressure measurement. The patient is taking their blood pressure medication as prescribed. The patient brought no home readings with them today. Patient does check the BP at home and the numbers are very similar patient states. ?? The patient states they are currently having the following symptoms:none (denies symptoms of blurry vision, dizziness, feeling faint, lightheaded or severe headache). ?? Based on today's readings: The provider will be notified of today's visit and the patient was dismissed. ?? A message will be routed to Obi Leggett CNP to review after today's nurse calender visit. ? 04/05/19 4:04 PM ?? 04/05/19 4:07 PM ?? 04/05/19 4:16 PM ? BP ?? 148/103? 152/99? 152/104? BP Location ?? Left??arm? Left??arm? Left??arm? Patient Position ?? Sitting? Sitting? Sitting? Cuff Size ?? Regular? Regular? Regular? Pulse ?? 63? 60? 66? OR DICTIONARY documented in this encounter Plan of Treatment Upcoming Encounters Date Type Specialty Care Team Description 04/28/2022 Ancillary Procedure Ophthalmology Softing Joselo Narayanan, O.Dequan [address] [place], [place] 55 [phone] (Wo rk) 04/28/2022 Ancillary Procedure Ophthalmology Softing Joselo Narayanan jayne Calabrese OJoan [address] [place], [place] 55 [phone] (Wo rk) 04/28/2022 Office Visit Ophthalmology Softjana KelleycliffTita O.D. [address] [place], [place] 55 [phone] (Wo rk) documented as of this encounter Results (ABNORMAL) BMP (Basic Metabolic Panel) (04/10/2019 4:29 PM EDITOR DICTIONARY) Analysis Performed At Patho logist Time Signature Potassium, S 4.1 3.6 - 5.2 04/10/2019 [place] mmol/L 5:32 PM EDITOR DICTIONARY Sodium, S 137 135 - 145 04/10/2019 [place] mmol/L 5:32 PM EDITOR DICTIONARY Chloride, S 98 98 - 107 04/10/2019 [place] mmol/L 5:32 PM EDITOR DICTIONARY Bicarbonate, S 29 22 - 29 04/10/2019 [place] mmol/L 5:32 PM EDITOR DICTIONARY Anion Gap 10 7 - 15 04/10/2019 [place] 5:32 PM EDITOR DICTIONARY BUN (Blood Urea 29 (H) 8 - 24 04/10/2019 [place] Nitrogen), S mg/dL 5:32 PM EDITOR DICTIONARY Creatinine 1.81 (H) 0.74 - 04/10/2019 [place] 1.35 mg/dL 5:32 PM EDITOR DICTIONARY eGFR-Non 44 (L) >=60 04/10/2019 [place] Black/ mL/min/BSA 5:32 PM EDITOR DICTIONARY Somali Comment: ----ADDITIONAL INFORMATION---- Estimated GFR calculated using the 2009 CKD_EPI creatinine equation. eGFR-Black/ 51 (L) >=60 mL/min/BSA 2018 5:32 PM EDITOR DICTIONARY [place] Comment: ----ADDITIONAL INFORMATION---- Estimated GFR calculated using the 2009 CKD_EPI creatinine equation. Calcium, Total, S 9.2 8.6 - 10.0 mg/dL 04/10/2019 5:32 PM EDITOR DICTIONARY [place] Glucose, S 166 (H) 70 - 140 mg/dL 04/10/2019 5:32 PM EDITOR DICTIONARY A UST Specimen Anatomical Collection Method Collection Time Receive d Time (Source) Location / / Volume Laterality Blood (Blood, 04/10/2019 4:29 PM 04/10/20 19 4:49 Venous) EDITOR DICTIONARY PM EDITOR DICTIONARY Obi Leggett APRN, C.N.P. LAB BLOOD ADD-ON Performing Organization Address City/State/ZIP Code Phon e Number [facility] [address] [place] [address] [place] [facility] [place] [place] [address] [facility] [address] documented in this encounter Visit Diagnoses Diagnosis Diabetes Mellitus Type 1 With Proliferat ruperto Diabetic Retinopathy Without Macular Edema Hyperglycemic Bilateral (HCC) - Pr imary Hypertension Essential Primary documented in this encounter Care Teams Biometrics Experimentalist Relationship Specialty Start Date End Date Obi Leggett APRN, C.N.P. PCP - General Family Medicine 06/08/18 12/04/21 [address] [place] [phone] documented as of this encounter
--- OUTSIDE RECORDS SUMMARY | 2022-03-02 08:34 | XMS_ITS | Encounter Summary ---
:1970 Author Organization [facility] Address [address] [place] [address] Care Team Providers Name Role Phone Obi Leggett APRN, C.N.P. Primary Care Provider [phone] Reason for Referral Outpatient (Routine) - Closed Specialty Diagnoses / Procedures Referred By Contact Refer red To Contact Diagnoses Hypertension Essential Primary bOi Leggett [facility] [place] [facility] Procedures Echo Transthoracic (TTE) [place] ECHO TTE 2D W DPLR COMPLETE PERFORATOR, C.N.P. [address] [place] [address] Referral ID Status Reason Start Date Expiration Date Visits Requ ested Visits Authorized [id number] Closed 08/12/2018 09/26/2018 1 1 Reason for Visit Outpatient (Routine) - Closed Specialty Diagnoses / Procedures Referred By Contact Refer red To Contact Diagnoses Hypertension Essential Primary Obi Leggett [facility] [place] [facility] Procedures Echo Transthoracic (TTE) [place] ECHO TTE 2D W DPLR COMPLETE PERFORATOR, C.N.P. [address] [place] [address] Referral ID Status Reason Start Date Expiration Date Visits Requ ested Visits Authorized [id number] Closed 08/12/2018 09/26/2018 1 1 Encounter Details Date Type Department Care Team Description 08/12/2018 Hospital Encounter Department of Tricia Leggett Cardiovascular Fahad Rodriguez Vibha belgica Diseases in [facility] ASHLEY, C.N.P. [place] [address] [place], [place] [address] [phone] Social History Tobacco Use Types Packs/Day Years [...] or relatives? How often do you attend confucianist or Never 2021 muslim services? 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 [address] [place], [place] [phone] ([place]) 04/28/2022 Ancillary Procedure Ophthalmology Softing Joselo Narayanan O.D. [address] [place], [place] [phone] ([place]) 04/28/2022 Office Visit Ophthalmology Softing Tita Narayanan O.D. [address] [place], [place] 55 [phone] (Wo rk) documented as of this encounter Procedures Procedure Name Priority Date/Time Associated Diagnosis Comme nts (TTE) 2D ECHO Routine 08/12/2018 8:29 AM Hypertension Results for this DOPPLER COLOR CDT Essential Primary procedure are in the results section. documented in this encounter Results (TTE) 2D ECHO DOPPLER COLOR (08/12/2018 8:29 AM CDT) [facility] Method Time Signature Ejection Fraction 59 MC CV EIMS Sinus of Valsalva 37 MC CV EIMS Mid-Ascending Aorta 36 MC CV EIMS LV Mass Index 115 MC CV EIMS LV End-Diastolic 43 MC CV EIMS Diameter LV End-Systolic 29 MC CV EIMS Diameter MV E Velocity 0.5 MC CV EIMS MV A Velocity 0.6 MC CV EIMS MV E/A 0.83 MC CV EIMS MV e' Velocity 0.07 MC CV EIMS Medial MV e' Velocity 0.12 MC CV EIMS Lateral MV E/e' Medial 7.1 MC CV EIMS MV E/e' Lateral 4.2 MC CV EIMS Left ventricular 51 MC CV EIMS stroke volume index Cardiac Output 5.90 MC CV EIMS Cardiac Index 2.92 MC CV EIMS LV Interventricular 16 MC CV EIMS Septal Wall Thickness LV Posterior Wall 12 MC CV EIMS Thickness LV Relative Wall 56 MC CV EIMS Thickness Tricuspid Annular S? 0.13 MC CV EIMS AV mean gradient 4 MC CV EIMS Aortic valve area 3.75 MC CV EIMS Aortic Valve 0.71 MC CV EIMS Dimensionless Index LA Volume Index 27 MC CV EIMS Anatomical Region Laterality Modality Echocardiography Specimen (Source) Anatomical Collection Method Collection Time Re ceived Time Location / / Volume Laterality 08/12/2018 7:43 AM CDT Narrative 08/12/2018 9:18 AM CDT For the complete report, see the Order-L evel Documents below. Final Impressions 1. Normal left ventricular chamber size. 2. Calculated left ventricular ejection fraction 59 %. 3. No regional wall motion abnormalities . 4. Normal left ventricular diastolic fun ction. 5. Normal right ventricular size and sys tolic function. 6. Normal sized atria. 7. No significant valvular heart disease . 8. Normal inferior vena cava size with n ormal inspiratory collapse (>50%). 9. Normal ascending aorta dimension. 10. Compared to the report of 12/25/2016 no significant change has occurred. Side by side comparison of images performed. Findings LEFT VENTRICLE: ??Normal left ventricula r chamber size. ??Mildly increased left ventricular wall thickness with asymmetric involvement of the septum. ??Calculated left ventricular ejection fraction 59 %. ??Left ventricular volume tric assessment not performed because of image quality. No regional wall motion abnormalities. ? ?Normal left ventricular diastolic function. ??RIGHT VENTRICLE: ??Normal right ventricular si ze. ??Normal right ventricular systolic function. ??Unable to detect peak tricuspid regurgitation v elocity for pulmonary artery systolic pressure calculation. ??ATRIA: ??Normal left atri al size. ??Left atrial volume index 27 ml/m^2. ??Normal right atrial size. ??CARDIAC VALVES: ??T rileaflet aortic valve. ??Thickened aortic valve. ??No aortic valve regurgitation. ??Thickened mitral valve. ??Trivial mitral valve regurgitation. Normal pulmonary valve. ??Trivial pulmon sarabjit valve regurgitation. ??Normal tricuspid valve. Trivial tricuspid valve regurgitation. ? ?OTHER ECHO FINDINGS: ??Normal inferior vena cava size with normal inspiratory collapse (>50%). ??Normal ascending aorta dimension. ??No abdominal aortic aneurysm. ??Normal abdominal aort a Doppler flow pattern. ??No atrial level shunt by color flow imaging. ??No intracardiac mass or thrombus, but the left atrial appendage cannot be visualized adequately with transthoracic echo to exclude thrombus in this location. ??No pericardial effusion. For the complete report, see the [employer]L [employer] Documents below. See PDF For Result Procedure Note Romeo Merida M.D. - 08/12/2018Format ting of this note might be different from the original. For the complete report, see the Order[employer]L [employer] Documents below. Final Impressions 1. Normal left ventricular chamber size. 2. Calculated left ventricular ejection fraction 59 %. 3. No regional wall motion abnormalities . 4. Normal left ventricular diastolic fun ction. 5. Normal right ventricular size and sys tolic function. 6. Normal sized atria. 7. No significant valvular heart disease . 8. Normal inferior vena cava size with n ormal inspiratory collapse (>50%). 9. Normal ascending aorta dimension. 10. Compared to the report of 12/25/2016 no significant change has occurred. Side by side comparison of images performed. Findings LEFT VENTRICLE: Normal left ventricular chamber size. Mildly increased left ventricular wall thickness with asymmetric involvement of the septum. Calculated left ventricular ejection fraction 59 %. Left ventricular volumetr ic assessment not performed because of image quality. No regional wall motion abnormalities. N ormal left ventricular diastolic function. RIGHT VENTRICLE: Normal right ventricular size . Normal right ventricular systolic function. Unable to detect peak tricuspid regurgitation v elocity for pulmonary artery systolic pressure calculation. ATRIA: Normal left atrial s ize. Left atrial volume index 27 ml/m^2. Normal right atrial size. CARDIAC VALVES: Trile aflet aortic valve. Thickened aortic valve. No aortic valve regurgitation. Thickened mi tral valve. Trivial mitral valve regurgitation. Normal pulmonary valve. Trivial pulmonar y valve regurgitation. Normal tricuspid valve. Trivial tricuspid valve regurgitation. O THER ECHO FINDINGS: Normal inferior vena cava size with normal inspiratory collapse (>50%). Normal ascending aorta dimension. No abdominal aortic aneurysm. Normal abdominal aorta Doppler flow pattern. No atrial level shunt by color flow imaging. No intracardiac mass or th rombus, but the left atrial appendage cannot be visualized adequately with transthoracic echo to exclude thrombus in this location. No pericardial effusion. For the complete report, see the Order-L evel Documents below. See PDF For Result Obi Leggett APRN, C.N.P. CV ECHO PROCEDURES documented in this encounter Visit Diagnoses Diagnosis Hypertension Essential Primary documented in this encounter Care Teams Food Service Team Member Relationship Specialty Start Date End Date Obi Leggett APRN, C.N.P. PCP - General Family Medicine 06/08/18 12/04/21 [address] [place] [phone] documented as of this encounter
--- OUTSIDE RECORDS SUMMARY | 2022-03-02 08:34 | XMS_ITS | Encounter Summary ---
:1970 Author Organization [facility] Address [address] [place] [address] Care Team Providers Name Role Phone Obi Leggett APRN, C.N.P. Primary Care Provider Encounter Details Date Type Department Care Team Description 10/25/2018 Orders Only Pharmacy Prior Auth Kael Elias [phone] Social History Tobacco Use Types Packs/Day Years [...] or relatives? How often do you attend yarsanism or Never 2021 catholic services? 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 [address] [place] [address] [phone] (Wo rk) 04/28/2022 Ancillary Procedure Ophthalmology Joselo Palmer O.D. [address] [place] [address] [phone] (Wo rk) 04/28/2022 Office Visit Ophthalmology Tita Palmer O.D. [address] [place] [address] [phone] (Wo rk) documented as of this encounter Visit Diagnoses Not on filedocumented in this encounter Care Teams Youth Minister Relationship Specialty Start Date End Date Obi Leggett APRN, C.N.P. PCP - General Family Medicine 06/08/18 12/04/21 [address] [place] [phone] documented as of this encounter
--- OUTSIDE RECORDS SUMMARY | 2022-03-02 08:34 | XMS_ITS | Encounter Summary ---
:1970 Author Organization [facility] Address [address] [place] [address] Care Team Providers Name Role Phone Obi Leggett APRN, C.N.P. Primary Care Provider [phone] Reason for Visit Reason Comments Med Refill Encounter Details Date Type Department Care Team Description 02/23/2019 Refill Department of Family Medicine, Obi Leggett, Med Refill [facility], in [place], C.N.P. [place] [address] [place] [address] [place] [address] [place] [address] [phone] Social History Tobacco Use Types Packs/Day Years [...] do you attend episcopal or Never 2021 holiness services? 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 [address] [place], [place] [phone] (Wo rk) 04/28/2022 Ancillary Procedure Ophthalmology Joselo Palmer O.D. [address] [place] [phone] (Wo rk) 04/28/2022 Office Visit Ophthalmology Tita Palmer O.D. [address] [place] [address] [phone] (Wo rk) documented as of this encounter Visit Diagnoses Not on filedocumented in this encounter Care Teams Obgyn Nurse Relationship Specialty Start Date End Date Obi Leggett, CAMPUS INTERVIEWS INTERN, C.N.P. PCP - General Family Medicine 06/08/18 12/04/21 [address] [place] [phone] documented as of this encounter
--- OUTSIDE RECORDS SUMMARY | 2022-03-02 08:34 | XMS_ITS | Encounter Summary ---
:1970 Author Organization [facility] Address [address] [place] [address] Care Team Providers Name Role Phone Obi Leggett APRN, C.N.P. Primary Care Provider Reason for Visit Reason Onset Date Comments Rx Prior Authorization 10/24/2018 DENIAL OF FREESTY LE READER Encounter Details Date Type Department Care Team Description 10/24/2018 Clinical Department of Carmelo Diana Rx Prior Communication Endocrinology in M.D. Authorization [place], [facility] [address] (DENIAL OF [place] [address] FREESTYLE READER) [address] [place], [place] RODRIGUEZ [phone] Social History Tobacco Use Types Packs/Day [...] do you attend rastafari or Never 2021 zoroastrian services? Do you [...] or slept in a assisted (including now)? 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 - 10/31/2018 8:21 AM CDT Notified. Telephone Encounter - Carmelo Diana M.D. - 10/28/2018 4:43 PM CDT FreeStyle Don is not covered by insurance. Continue to use fingerstick monitoring. Telephone Encounter - Marva Welch - 10/24/2018 1:48 PM CDT The patient's health insurance provider has determined that FREESTYLE READER is not a covered benefit of the [...] Pharmaceutical Prior Auth department at email address DL OPPA. Thank you documented in this encounter Plan of Treatment Upcoming Encounters Date Type Specialty Care Team Description 04/28/2022 Ancillary Procedure Ophthalmology SoftJoselo Whyte O.Dequan [address] [place], [place] [phone] (Wo rk) 04/28/2022 Ancillary Procedure Ophthalmology Joselo Palmer O.Dequan [address] [place], [place] [phone] (Wo rk) 04/28/2022 Office Visit Ophthalmology Tita Palmer O.D. [address] [place], [place] [phone] (Wo rk) documented as of this encounter Visit Diagnoses Not on filedocumented in this encounter Care Teams Dental Service Technician Relationship Specialty Start Date End Date Obi Leggett APRN, C.N.P. PCP - General Family Medicine 06/08/18 12/04/21 [address] [place] [phone] documented as of this encounter
--- OUTSIDE RECORDS SUMMARY | 2022-03-02 08:34 | XMS_ITS | Encounter Summary ---
:1970 Author Organization [facility] Address [address] [place] [address] Care Team Providers Name Role Phone Obi Leggett APRN, C.N.P. Primary Care Provider Reason for Visit Reason Comments Med Refill Encounter Details Date Type Department Care Team Description 11/22/2018 Refill Department of Juan Francisco Pollard M.D. Med Refill Medicine, [facility], in [address] [place] [address] [place] [phone] [facility] [place] [address] [phone] Social History Tobacco Use Types Packs/Day Years [...] or relatives? How often do you attend spiritism or Never 2021 orthodoxy services? 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 [address] [place], [place] [phone] (Wo rk) 04/28/2022 Ancillary Procedure Ophthalmology Joselo Palmer O.D. [address] [place] [phone] (Wo rk) 04/28/2022 Office Visit Ophthalmology Tita Palmer O.D. [address] [place] [phone] (Wo rk) documented as of this encounter Visit Diagnoses Diagnosis Diabetes Mellitus Type 1 (HCC) documented in this encounter Care Teams Fire Lookout Relationship Specialty Start Date End Date Obi Leggett, OUTSIDE FOOD SERVER, C.N.P. PCP - General Family Medicine 06/08/18 12/04/21 [address] [place] [phone] documented as of this encounter
--- OUTSIDE RECORDS SUMMARY | 2022-03-02 08:34 | XMS_ITS | Encounter Summary ---
:1970 Author Organization [facility] Address [address] [place] [address] Care Team Providers Name Role Phone Obi Leggett APRN, C.N.P. 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, O.DCourtney [address] [place] [address] Referral ID Status Reason Start Date Expiration Date Visits Requ ested Visits Authorized [id number] Closed 08/06/2017 02/02/2018 1 1 Encounter Details Date Type Department Care Team Description 09/13/2018 Office Visit Department of Minesh Narayanan Diabetes Ca llitus Type Ophthalmology in [facility], O.DCourtney 1 With Proliferative [place], [place] [address] [facility] Diabetic Retinopathy [address] [place], [place] [address] Bilateral ([facility]) [phone] Social History Tobacco Use Types Packs/Day Years [...] do you attend anabaptism or Never 2021 jew services? Do you belong to any clubs or No 05/04/2021 organizations such as anabaptism groups, unions, fraOdyssey Thera or athletic groups, or school groups? 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 - 09/13/2018 3:00 PM CDT Lex Hernandez Diabetes mellitus type 1 exam HISTORY OF PRESENT ILLNESS -diabetes mellitus type 1 since 13 years old Last A1c was 7.5 -RIGHT: s/p panretinal photocoagulation 2003 - fill [...] September 2014 #3 early cataract BOTH eyes 08/2018 Plan: FU 9-[address] Edge/retina with Spectralis OCT or prn. -OK TO USE LOW DOSE DILATING DROPS documented in this encounter Plan of Treatment Upcoming Encounters Date Type Specialty Care Team Description 04/28/2022 Ancillary Procedure Ophthalmology Joselo Palmer O.D. [address] [place], [place] [phone] (Wo rk) 04/28/2022 Ancillary Procedure Ophthalmology Joselo Palmer O.D. [address] [place], [place] [phone] (Wo rk) 04/28/2022 Office Visit Ophthalmology Tita Palmer O.D. 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 PCP - General Family Medicine 06/08/18 12/04/21 [address] [place] [phone] documented as of this encounter
--- OUTSIDE RECORDS SUMMARY | 2022-03-02 08:34 | XMS_ITS | Encounter Summary ---
:1970 Author Organization [facility] Address [address] [place] [address] Care Team Providers Name Role Phone Obi Leggett APRN, C.N.P. Primary Care Provider [phone] Encounter Details Date Type Department Care Team Description 07/21/2018 Clinical Communication Department of [facility] Obi Leggett Austin R, APRN C.N.PCourtney [facility], in [place], [address] [place] [address] Dr Yehuda Clemens [place], [place] [address] [place] [address] [place] [address] [phone] Social History Tobacco Use Types Packs/Day Years [...] do you attend quaker or Never 2021 moravian services? 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 - 07/22/2018 3:43 PM CDT Pleas see other communication encounter on this message. Thank you Telephone Encounter - Obi Leggett APRN, C.NDiana - 07/21/2018 3:56 PM CDT Please call patient and let him know that I discussed his medications with Puja Perez. At this time she recommends increasing chlorthalidone to 50 mg daily. This will work well as he is having upcoming lab work with Dr. René ram. We will also let him know to check blood pressure at that time and we can check your labs as well. She is also going to confer with Dr. Lujan in [place] to see if he has any other thoughts about what we can do with her medications. We will both be in contact with you. Thank you Obi Leggett APRN, C.N.P. documented in this encounter Plan of Treatment Upcoming Encounters Date Type Specialty Care Team Description 04/28/2022 Ancillary Procedure Ophthalmology Khur[place]ing Joselo Narayanan, O.Dequan [address] [place] [phone] (Wo rk) 04/28/2022 Ancillary Procedure Ophthalmology Softing Joselo Narayanan O.D. [address] [place], [place] [phone] (Wo rk) 04/28/2022 Office Visit Ophthalmology Tita Palmer O.D. [address] [place], [place] [phone] (Wo rk) documented as of this encounter Visit Diagnoses Not on filedocumented in this encounter Care Teams Sock And Stocking Ironer Relationship Specialty Start Date End Date Obi Leggett APRN, C.N.P. PCP - General Family Medicine 06/08/18 12/04/[address] [place] [phone] documented as of this encounter
--- OUTSIDE RECORDS SUMMARY | 2022-03-02 08:34 | XMS_ITS | Encounter Summary ---
:1970 Author Organization [facility] Address [address] [place] [address] Care Team Providers Name Role Phone Obi Leggett APRN, C.N.P. Primary Care Provider [phone] Encounter Details Date Type Department Care Team Description 09/13/2018 Ancillary Procedure Department of Ophthalmology Social History [...] or relatives? How often do you attend synagogue or Never 2021 faith services? 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 [address] [place], [place] [phone] (Wo rk) 04/28/2022 Ancillary Procedure Ophthalmology Softing OliverioclaryJohn coronadojennyfer godoy L, O.D. [address] [place], [place] [phone] (Wo rk) 04/28/2022 Office Visit Ophthalmology SoftTita Whyte L, O.D. [address] [place], [place] [phone] (Wo rk) documented as of this encounter Procedures Procedure Name Priority Date/Time Associated Comments Diagnosis OPHTHALMOLOGY IMAGE Routine 09/13/2018 12:00 Resu lts for this EXAM PM CDT procedure are i n the results section. documented in this encounter Results Eyes Spectralis OCT-Ophthalmology Image Exam (09/13/2018 12:00 PM CDT) Specimen (Source) Anatomical Collection Method Collection Time Re ceived Time Location / / Volume Laterality 09/13/2018 12:00 PM CDT Narrative [facility] - 09/13/2018 3:22 PM CDT This order has been created and auto-finalized to support the import of images acquired without order. The clini neelam documentation to support these images can be found on the encounter sol t produced images. Provider Not In System IMG NON RAD IMAGING PROCEDUR ES Performing Organization Address City/State/ZIP Code Phon e Number [facility] ANDREA NA documented in this encounter Visit Diagnoses Not on filedocumented in this encounter Care Teams Decorator Inspector Relationship Specialty Start Date End Date Obi Leggett, TREE CLIMBER, C.N.P. PCP - General Family Medicine 06/08/18 12/04/21 [address] [place] [phone] documented as of this encounter
--- OUTSIDE RECORDS SUMMARY | 2022-03-02 08:35 | XMS_ITS | Encounter Summary ---
:1970 Author Organization [facility] Address [address] [place] [address] Care Team Providers Name Role Phone Unavailable Primary Care Provider Unavailable Encounter Details Date Type Department Care Team Description 10/07/2017 Hospital Encounter Department of Carmelo Diana Diabet es Mellitus Laboratory Medicine M.DCourtney Type 1 (HCC) in [address] [place], [place] [address] [place] [address] [place], [place] [phone] [address] (Work) [phone] Social History Tobacco Use Types Packs/Day Years [...] do you attend scientologist or Never 2021 alevism services? 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 ACCU-CHEK SMARTVIEW TEST 19 02/22/2017 05/16/2018 STRIP strips amLODIPine (for_NORVASC) Take 1 tablet (10 30 tablet 11 02/1805/30/2018 10 mg tablet mg total) by mouth daily. atorvastatin (for_LIPITOR) Take 1 tablet (20 30 tablet 11 10/18/2017 20 mg tablet mg total) by mouth daily. BD INSULIN PEN NEEDLE UF 6 03/10/2017 02/23/2019 SHORT 31 gauge x 5/16 needle chlorthalidone Take 1 tablet (25 30 tablet 11 03/09/201705/2017 (for_HYGROTEN) 25 mg mg total) by mouth tablet daily. HUMALOG KWIKPEN 100 Take 4-10 units 45 mL 3 03/01/2017 10/18/2017 unit/mL injection (variable dose) SQ with meals three times/day plus sliding scale. TDD 40 units insulin glargine (BASAGLAR Inject 0.3 mL (30 30 mL 3 10/18/2017 KWIKPEN) 100 unit/mL (3 Units total) under mL) injection the skin daily. levothyroxine Take 2 tablets 180 tablet 3 03/01/2017 018 (for_SYNTHROID, (224 mcg total) by LEVOTHROID) 112 mcg tablet mouth every morning before breakfast. losartan (for_COZAAR) 100 Take 1 tablet (100 30 tablet 11 10/18/2017 mg tablet mg total) by mouth daily. spironolactone Take 1 tablet (25 30 tablet 11 03/09/201705/2017 (for_ALDACTONE) 25 mg mg total) by mouth tablet daily. documented as of this encounter Plan of Treatment Upcoming Encounters Date Type Specialty Care Team Description 04/28/2022 Ancillary Procedure Ophthalmology Softing OliverioclarycliffJoselo O.DCourtney [address] [place], [place] [phone] (Wo rk) 04/28/2022 Ancillary Procedure Ophthalmology Softing OliverioclarycliffJoselo O.DCourtney [address] [place], [place] [phone] (Wo rk) 04/28/2022 Office Visit Ophthalmology Softjana OliverioTita kern O.Dequan [address] [place], [place] [phone] (Wo rk) documented as of this encounter Procedures Procedure Name Priority Date/Time Associated Comments Diagnosis LIPID PANEL, S Routine 10/07/2017 6:38 Diabetes Mellitus Resul ts for this AM CDT Type 1 (HCC) procedure are i n the results section. ALANINE AMINOTRANSFERASE Routine 10/07/2017 6:38 Diabetes Iwona itus Results for this (ALT), S/P AM CDT Type 1 (HCC) procedure are i n the results section. HEMOGLOBIN A1C, B Routine 10/07/2017 6:38 Diabetes Mellitus Re sults for this AM CDT Type 1 (HCC) procedure are i n the results section. documented in this encounter Results ALT (10/07/2017 6:38 AM CDT) [facility] gist Method Time Signature Alanine 43 7 - 55 10/07/2017 [facility] Aminotransferase U/L 8:13 AM T [employer] (ALT)TheInfo[employer] [facility] Specimen Anatomical Collection Method Collection Time Receive d Time (Source) Location / / Volume Laterality Blood (Blood, 10/07/2017 6:38 AM 10/08/19 18 7:08 Venous) CDT AM CDT Carmelo Diana M.D. LAB BLOOD ADD-ON Performing Organization Address City/State/ZIP Code Phon e Number [facility]- [address] [place] [address] [facility] (ABNORMAL) Lipid Panel (10/07/2017 6:38 AM CDT) athologist Signature Cholesterol, 208 (H) mg/dL 10/07/2017 [facility] Total 8:13 AM CDT [facility] Comment: ----REFERENCE VALUE---- Desirable: < 200 Borderline high: 200 - 239 High: > or = 240 Triglycerides 123 mg/dL 10/07/2017 8:13 AM CDT [facility] Comment: ----REFERENCE VALUE---- Normal: <150 Borderline high: 150-199 High: 200-499 Very high: > or =500 Cholesterol, HDL, S 73 >=40 mg/dL 10/07/2017 8:13 AM CDT [facility] Calculated LDL 110 mg/dL 10/07/2017 8:13 AM CDT [facility] Comment: ----REFERENCE VALUE---- Desirable: <100 Above Desirable: 100-129 Borderline high: 130-159 High: 160-189 Very high: > or =190 Cholesterol, Non-HDL, 135 mg/dL 10/07/2017 8:13 AM CDT [facility] Comment: ----REFERENCE VALUE---- Desirable: <130 Above Desirable: 130-159 Borderline high: 160-189 High: 190-219 Very high: > or =220 Specimen Anatomical Collection Method Collection Time Receive d Time (Source) Location / / Volume Laterality Blood (Blood, 10/07/2017 6:38 AM 10/08/19 18 7:08 Venous) CDT AM CDT Carmelo Diana M.D. LAB BLOOD ADD-ON Performing Organization Address City/State/ZIP Code Phon e Number [place] [address] [place] [address] [facility] (ABNORMAL) Hemoglobin A1c (10/07/2017 6:38 AM CDT) athologist Signature Hemoglobin A1c, 7.8 (H) 4.2 - 5.6 10/07/2017 [facility] B % 7:31 AM CDT [facility] Comment: Hemoglobin A1c values greater than or eq ual to 6.5 percent are diagnostic for diabetes mellitus. ?? Diagnosis should be confirmed by repeat testing. ??In diabet ic patients, HbA1c goals should be discussed with healthcar e provider. Specimen Anatomical Collection Method Collection Time Receive d Time (Source) Location / / Volume Laterality Blood (Blood, 10/07/2017 6:38 AM 10/08/19 18 7:08 Venous) CDT AM CDT Carmelo Diana M.D. LAB BLOOD ADD-ON Performing Organization Address City/State/ZIP Code Phon e Number [facility]- [address] [place] [address] [facility] documented in this encounter Visit Diagnoses Diagnosis Diabetes Mellitus Type 1 (HCC) documented in this encounter
--- OUTSIDE RECORDS SUMMARY | 2022-03-02 08:35 | XMS_ITS | Encounter Summary ---
:1970 Author Organization [facility] Address [address] [place] [address] Care Team Providers Name Role Phone Unavailable Primary Care Provider Unavailable Encounter Details Date Type Department Care Team Description 02/19/2017 Hospital Encounter HX [facility] Puja Perez, CATTERY OPERATOR, C.N.P. [address] [place] [phone] (Wo rk) Social History Tobacco Use Types Packs/Day Years Used Date Smoking Tobacco: Light Smoker Alcohol Habits Answer Date Recorded How often [...] do you attend pentecostal or Never 2021 mosque services? Do you belong to any clubs [...] place to sleep or slept in a penitentiary (including now)? 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 BASAGLAR KWIKPEN 100 11 11/10/201602/17 unit/mL (3 mL) injection chlorthalidone Take 1 tablet by 0 12/26/201602/18 (for_HYGROTEN) 25 mg mouth daily. tablet HUMALOG KWIKPEN 100 3 11/10/201603/01 unit/mL injection insulin Basaglar KwikPen 0 12/04/2016 03/01/20 17 glargine-lixisenatide 100 See Instructions, unit-33 mcg/mL insulin pen Subcut. 45-65 units daily levothyroxine Take 1 tablet by 0 12/04/201602/24 (for_SYNTHROID, mouth daily. LEVOTHROID) 25 mcg tablet levothyroxine Take 125 mcg by 0 03/06/20082016 (for_SYNTHROID, mouth daily. LEVOTHROID) 25 mcg tablet losartan (for_COZAAR) 100 Take 100 mg by 0 200703/08/2017 mg tablet mouth daily. spironolactone 3 10/26/2016 03/08/2017 (for_ALDACTONE) 25 mg tablet documented as of this encounter Miscellaneous Notes Miscellaneous - Puja Perez C.NCourtneyP., R.N. - 02/22/2017 7:46 AM ORAL AND MAXILLOFACIAL PATHOLOGIST From: PUJA PEREZ CREW PERSON To: DAVEYJOHANLEX Sent: 02/22/2017 07:46:57 ORAL AND MAXILLOFACIAL PATHOLOGIST Your thyroid level is perfect this time! Results: Date Result Name Value Ref Range 02/19/2017 14:45 TSH 1.33 mIU/L (0.27 - 4.20) Source: [facility] POWERCHART Document Id: [id number] AND MAXILLOFACIAL PATHOLOGIST documented in this encounter Plan of Treatment Upcoming Encounters Date Type Specialty Care Team Description 04/28/2022 Ancillary Procedure Ophthalmology Softing Joselo Narayanan O.DCourtney [address] [place] [phone] (Wo rk) 04/28/2022 Ancillary Procedure Ophthalmology SoftJoselo Whyte O.DCourtney [address] [place] [phone] (Wo rk) 04/28/2022 Office Visit Ophthalmology SoftTita Whyte O.Dequan [address] [place] [phone] (Wo rk) documented as of this encounter Procedures Procedure Name Priority Date/Time Associated Diagnosis Comme nts THYROID-STIMULATING Routine 02/19/2017 2:45 PM Re sults for this HORMONE-SENSITIVE CDT procedure are in (S-TSH) the results section. documented in this encounter Results S-TSH (Thyroid-Stimulating Hormone - Sensitive) (02/19/2017 2:45 PM CDT) P athologist Signature TSH 1.33 0.27 - 4.20 POWERCHART (Thyrotropin) MIUL Comment: Biotin has been identified by the ariel almanzar as a potential interfering substance. Higher concentrations of biotin may be found in multivitamins, hair/nail supplements, and workout supplements. If the result does not match clinical observat ions, repeat testing after patient refrains from the use of supplements for at least 12 hours. Specimen (Source) Anatomical Collection Method Collection Time Re ceived Time Location / / Volume Laterality Blood 02/19/2017 2:45 PM CDT Puja Perez APRN, C.N.P. LAB BLOOD ADD-ON Performing Organization Address City/State/ZIP Code Phon e Number POWERCHART POWERCHART NA documented in this encounter Visit Diagnoses Not on filedocumented in this encounter
--- OUTSIDE RECORDS SUMMARY | 2022-03-02 08:35 | XMS_ITS | Encounter Summary ---
:1970 Author Organization [facility] Address [address] [place] [address] Care Team Providers Name Role Phone Unavailable Primary Care Provider Unavailable Encounter Details Date Type Department Care Team Description 02/19/2017 Hospital Encounter HX [facility] Puja Perez, DESK REPRESENTATIVE, C.N.P. [address] [phone] (Wo rk) Social History Tobacco Use [...] or relatives? How often do you attend jew or Never 2021 restorationist services? Do you belong to any clubs or No 05/04/2021 organizations such as jew groups, unions, fraternal or athletic groups, or [...] a [place] [facility] (including now)? 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 - 02/19/2017 4:10 PM CDT From: PUJA PEREZ WOOL SACKER To: LEX HERNANDEZ Sent: 02/19/2017 16:10:15 CDT Kidney function is back to your baseline levels. Results: Date Result Name Ind Value Ref Range 02/19/2017 14:45 Sodium Lvl 142 mmol/L (135 - 145) 02/19/2017 14:45 Potassium Lvl 4.2 mmol/L (3.6 - 5.2) 02/19/2017 14:45 Chloride 100 mmol/L (98 - 107) 02/19/2017 14:45 CO2 29 mmol/L (22 - 29) 02/19/2017 14:45 Glucose Lvl (L) 57 mg/dL (70 - 139) 02/19/2017 14:45 Creatinine (H) 1.53 mg/dL (0.67 - 1.17) 02/19/2017 14:45 EGFR (MDRD) (L) 50 mL/min/1.73m2 (>=60 - ) 02/19/2017 14:45 EGFR (MDRD) 60 mL/min/1.73m2 (>=60 - ) 02/19/2017 14:45 BUN 23 mg/dL (6 - 24) 02/19/2017 14:45 Calcium Lvl 9.3 mg/dL (8.6 - 10.3) Source: [facility] POWERCHART Document Id: [id number] documented in this encounter Plan of Treatment Upcoming Encounters Date Type Specialty Care Team Description 04/28/2022 Ancillary Procedure Ophthalmology Joselo Palmer O.D. [address] [place] [address] [phone] (Odalis [place]) 04/28/2022 Ancillary Procedure Ophthalmology Joselo Palmer O.D. [address] [place] [address] [phone] (Odalis [place]ton) 04/28/2022 Office Visit Ophthalmology Tita Palmer O.D. [address] [place], [place] [phone] (Wo rk) documented as of this encounter Procedures Procedure Name Priority Date/Time Associated Diagnosis Comme nts BASIC METABOLIC Routine 02/19/2017 2:45 PM Result s for this PANEL, S/P CDT procedure are i n the results section. documented in this encounter Results (ABNORMAL) BMP (Basic Metabolic Panel) (02/19/2017 2:45 PM CDT) P athologist Signature Sodium, S 142 135 - 145 POWERCHART MMOLL Comment: Reference values have not been established for patients that are less than 12 months of age. Potassium, S 4.2 3.6 - 5.2 MMOLL POWERCHART Comment: Reference values have not been established for patients that are less than 12 months of age. Chloride, S 100 98 - 107 MMOLL POWERCHART Comment: Reference values have not been established for patients that are less than 12 months of age. CO2 Total 29 22 - 29 MMOLL POWERCHART Comment: Reference values have not been established for patients that are less than 12 months of age. BUN (Blood Urea Nitrogen), S 23 6 - 24 MGDL POWERCHART Creatinine 1.53 (H) 0.67 - 1.17 MGDL POWERCHART Comment: Reference values have not been establish ed for patients that are <12 months of age. ESTIMATED GFR >60 mL/min/BSA Note: eGFR results will not be calculate d for patients <18 Calcium, Total, S 9.3 8.6 - 10.3 MGDL POWERC DOUGLAS HXeGFR (MDRD) 50 (L) >=60 [id number] POWERCHART eGFR Black/ 60 >=60 [id number] POWERCHART Glucose 57 (L) 70 - 139 MGDL POWERCHART Comment: ADA Diagnostic Criteria: -Fasting glucose > or = 126 mg/dL after an 8 hr fast OR -2-Hr glucose > or = to 200 mg/dL during a 75 gram oral load OR -Glucose casual (random) glucose > or = 200 mg/dL plus typical symptoms 3-Hour Glucose Tolerance Diagnostic Cut- offs (after an 8-hour fast): Fasting >=95 mg/dL 1 Hour >=180 mg/dL 2 Hour >=155 mg/dL 3 Hour >=140 mg/dL Reference values have not been establish ed for patients that are less than 12 months of age. Specimen (Source) Anatomical Collection Method Collection Time Re ceived Time Location / / Volume Laterality Blood 02/19/2017 2:45 PM CDT Puja Perez APRN, C.N.P. LAB BLOOD ADD-ON Performing Organization Address City/State/ZIP Code Phon e Number POWERCHART POWERCHART NA documented in this encounter Visit Diagnoses Not on filedocumented in this encounter
--- OUTSIDE RECORDS SUMMARY | 2022-03-02 08:35 | XMS_ITS | Encounter Summary ---
:1970 Author Organization [facility] Address [address] [place] [address] Care Team Providers Name Role Phone Unavailable Primary Care Provider Unavailable Reason for Referral Outpatient (Routine) - Closed Specialty Diagnoses / Procedures Referred By Contact Refer red To Contact Endocrinology Carmelo Diana M.D. 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 Infertility / [address] [place] [address] Referral ID Status Reason Start Date Expiration Date Visits Requ ested Visits Authorized [id number] Closed 01/29/2017 07/28/2017 1 1 Encounter Details Date Type Department Care Team Description 03/01/2017 Office Visit Department of Carmelo Diana, Diabetes Gia litus Type 1 (HCC) (Primary Dx); Endocrinology in [place] Diabetes Mellitus Type 1 Nephropathy Hyp erglycemic (HCC); [place], [place] [address] Hypertension Essential Primary; [address] [place] Hyperlipidemia; [place] [phone] Hypothyroidism Primary; [phone] Counseling Diet (Work) Social History Tobacco Use Types Packs/Day Years Used Date Smoking Tobacco: Light Smoker Smokeless Tobacco: Current Chew Alcohol Use Standard [...] do you attend taoism or Never 2021 sikhism services? 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 - 03/01/2017 12:00 AM CST SUBJECTIVE CHIEF COMPLAINT/REASON FOR VISIT Type 1 diabetes. HISTORY OF PRESENT ILLNESS Prateek is a 46-year-old man with type 1 diabetes diagnosed at age 13 who is a patient of Dr. Darden. Dr. Potts left the [facility] [place]. He wants to establish care in [place]. He currently takes a basal-bolus program of insulin consisting of Basaglar 30 units at 5 p.m. and Humalog 4 to 10 units subcu 3 times a day. He does not count carbs. He guesstimates the dose of Humalogneeded. This strategy has worked well for him as his Hb A1c typically ranges between 7% and 7.5%. Complications include proliferative diabetic retinopathy requiring laser bilaterally and diabetic nephropathy. Primary hypothyroidism. Currently replaced with levothyroxine 225 mcg daily. Patient reports hypoglycemia 2 to 4 times per month. He is hypoglycemia aware with typical symptoms occurring below glucose levels of 50. His blood pressure is currently well controlled on 4 antihypertensives agents. He sees Puja Perez in Cardiology for management of multi-drug hypertension. MEDICAL HISTORY 1. Type 1 diabetes. 2. Essential hypertension. 3. Diabetic nephropathy. 4. Primary hypothyroidism. 5. Proliferative diabetic retinopathy. 6. Reports compliance with a low intensity statin, ARB and baby aspirin. CURRENT MEDICATIONS Reconciled. FAMILY HISTORY No family members with autoimmune endocrinopathy. SOCIAL HISTORY He chews tobacco and occasionally smokes cigarettes as well. REVIEW OF SYSTEMS All systems reviewed and negative. OBJECTIVE PHYSICAL EXAMINATION Vital Signs: Blood pressure 139/81, pulse 61, weight 88.6. General: Well nourished, well groomed. Skin: Normally pigmented. Lower Extremities: No ulceration, no edema. Respiratory: Normal effort, clear. Cardiovascular: Regular rhythm. Abdomen: No organomegaly. No stigmata of chronic liver disease. Neck: Thyroid palpable. No nodules. Not enlarged. Spine: Palpable. Psychiatric: Alert in time, place and person. Appropriate affect. Thyroid: No palpable lymphadenopathy. DIAGNOSTICS Hb A1c 7.3%. Albumin to creatinine ratio elevated. ASSESSMENT / PLAN #1 Type 1 diabetes, well controlled Given longstanding history of diabetes and established complications, recommend a goal Hb A1c of 7.5% or lower. I recommend carb counseling and consistent carbohydrate intake. He should try to dose prandial coverage based on insulin to carb ratio and employ some sliding scale as well. Continue with Basaglar 30 units once daily. An attempt to use Humalog 3 to 4 units per exchange. Prandial coverage parameters will be tweaked at followup. Does not wish to use an insulin pump at this time #2 Essential hypertension #3 Modified hyperlipidemia #4 Primary hypothyroidism Recommend switching to 2 tablets or 112 mcg daily to make 224 mcg daily dose. This is more convenient than combining 2 to 3 strengths of levothyroxine. Office followup scheduled in 6 months. 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 [address] [place] [address] [phone] (Odalis rk) 04/28/2022 Ancillary Procedure Ophthalmology [place] Joselo Narayanan O.D. [address] [place] [address] [phone] (Odalis rk) 04/28/2022 Office Visit Ophthalmology Tita Palmer O.D. [address] [place] [address] [phone] (Odalis rk) Scheduled Referrals Name Type Priority Associated Order Schedule Diagnoses Endocrinology office Outpatient Referral Routine Expected: visit (clinic) 08/29/2017 (Approximate), Expires: 03/01/2020 documented as of this encounter Results ALT (10/07/2017 6:38 AM CDT) [facility] Method Time Signature Alanine 43 7 - 55 10/07/2017 [facility] Aminotransferase U/L 8:13 AM [facility] (ALT), [facility] [facility] LAB Specimen Anatomical Collection Method Collection Time Receive d Time (Source) Location / / Volume Laterality Blood (Blood, 10/07/2017 6:38 AM 10/08/19 18 7:08 Venous) CDT AM CDT Carmelo Diana M.D. LAB BLOOD ADD-ON Performing Organization Address City/State/ZIP Code Phon e Number [facility]- [address] [place] [address] [place] [facility] (ABNORMAL) Lipid Panel (10/07/2017 6:38 AM CDT) athologist Signature Cholesterol, 208 (H) mg/dL 10/07/2017 [facility] Total 8:13 AM CDT [facility] LAB Comment: ----REFERENCE VALUE---- Desirable: < 200 Borderline high: 200 - 239 High: > or = 240 Triglycerides 123 mg/dL 10/07/2017 8:13 AM CDT [facility] LAB Comment: ----REFERENCE VALUE---- Normal: <150 Borderline high: 150-199 High: 200-499 Very high: > or =500 Cholesterol, HDL, S 73 >=40 mg/dL 10/07/2017 8:13 AM CDT [facility] LAB Calculated LDL 110 mg/dL 10/07/2017 8:13 AM CDT [facility] LAB Comment: ----REFERENCE VALUE---- Desirable: <100 Above Desirable: 100-129 Borderline high: 130-159 High: 160-189 Very high: > or =190 Cholesterol, Non-HDL, 135 mg/dL 10/07/2017 8:13 AM CDT [facility] LAB Comment: ----REFERENCE VALUE---- Desirable: <130 Above [...] [facility]- [address] [place] [address] [place] [facility] (ABNORMAL) Hemoglobin A1c (10/07/2017 6:38 AM CDT) P athologist Signature Hemoglobin A1c, 7.8 (H) 4.2 - 5.6 10/07/2017 [facility] B % 7:31 AM CDT [facility] Comment: Hemoglobin A1c values greater than [...] [facility]- [address] [place] [address] [place] [facility] documented in this encounter Visit Diagnoses Diagnosis Diabetes Mellitus Type 1 (HCC) - Primary Diabetes Mellitus Type 1 With Diabetic N ephropathy Hyperglycemic (HCC) Hypertension Essential Primary Hyperlipidemia Hypothyroidism Primary Counseling Diet documented in this encounter
--- OUTSIDE RECORDS SUMMARY | 2022-03-02 08:35 | XMS_ITS | Encounter Summary ---
:1970 Author Organization [facility] Address [address] [place] [address] Care Team Providers Name Role Phone Obi Leggett APRN, C.N.P. Primary Care Provider [phone] Reason for Visit Reason Comments Establish Care Annual Exam Appointment Request (Routine) - Closed Specialty Diagnoses / Procedures Referred By Contact Refer red To Contact Family Medicine Referral ID Status Reason Start Date Expiration Date Visits Requ ested Visits Authorized [id number] Closed 06/08/2018 06/08/2019 1 Encounter Details Date Type Department Care Team Description 07/21/2018 Comprehensive Visit Department of Hortensia Leggett Mellitus Type 1 With Diabetic Nephropathy Hyperglycemic (HCC) (Primary Dx); Family MedicineObi, Diabetes Me llitus Type 1 With Proliferative Diabetic Retinopathy Without Macular Edema Bilateral (HCC); [facility] [address], in ASHLEY, C.N.P. Chronic Kidney Disease Stage 3 Glomerula r Filtration Rate 30 To 59 (HCC); [place], [place] [address] [place] Hyperlipidemia; [address] [place] Hypothyroidism Primary; [place] [address] Health Maintenance Examination Adult; [address] Pain Breast Social History Tobacco Use Types Packs/Day Years [...] do you attend rastafari or Never 2021 christian services? Do you belong to any clubs or No 05/04/2021 organizations such as rastafari groups, [employer], [employer] or athletic groups, or school groups? 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 - 07/21/2018 2:45 PM CDT SUBJECTIVE CHIEF COMPLAINT Chief Complaint Patient presents with ??? Establish Care ??? Annual Exam HISTORY OF PRESENT ILLNESS Lex Hernandez is a pleasant 48 y.o. year old male who presents today for annual physical and to establish care. Patient has a history of type 1 diabetes for which he follows with Endocrine andwith diabetic study in [place]. He denies any issues with his sugars recently Reports that he has had resistant hypertension for several years. Has had normal renal ultrasound inthe past. He is on 4 medications however he states no medications ever made a difference. He has seen Cardiology for this in the past but there was not a change in pressure. He does report he has not followed up with them and would be willing to do so. Reports initially made this exam when he noted right-sided breast pain around his nipple. Denied anydrainage. 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 No family history of breast cancer. REVIEW OF SYSTEMS Skin: Positive for breast lump. Respiratory: Positive for coughing up mucus (phlegm). The following systems were negative: Constitutional, Eyes, ENT, CV, GI, , Hematologic, Musculoskeletal, Neuro, Psych ALLERGIES Allergies Allergen Reactions ??? Penicillins Rash MEDICATIONS Current Outpatient Prescriptions: ??? ACCU-CHEK FASTCLIX misc, , Disp: , [...] Disp: 90 tablet, Rfl: 3 ??? BD INSULIN PEN NEEDLE UF SHORT 31 gauge x 5/16 needle, , Disp: , Rfl: 6 ??? blood sugar diagnostic (glucose blood) strips, 4 test daily. One Touch Verio test strips DX: E10.3593, E10.21, E10.65, Disp: 200 test, Rfl: 3 ??? chlorthalidone (HYGROTEN) 25 mg tablet, Take 1 tablet (25 mg total) by mouth daily., Disp: 90 tablet, Rfl: 3 ??? HUMALOG KWIKPEN INSULIN 100 unit/mL injection, Take 4-10 units (variable dose) SQ with meals three times/day plus sliding scale. TDD 40 units, Disp: 45 mL, Rfl: 3 ??? insulin glargine (BASAGLAR KWIKPEN U-100 INSULIN) 100 unit/mL (3 mL) injection, Inject 0.3 mL (30 Units total) under the skin daily., Disp: 30 mL, Rfl: 3 ??? levothyroxine (SYNTHROID, LEVOTHROID) 112 mcg tablet, Take 2 tablets (224 mcg total) by mouth every morning before breakfast., Disp: 180 tablet, Rfl: 3 ??? losartan (COZAAR) 100 mg tablet, Take 1 tablet (100 mg total) by mouth daily., Disp: 30 tablet, Rfl: 11 ??? spironolactone (ALDACTONE) 50 mg tablet, Take 1 tablet (50 mg total) by mouth daily., Disp: 90 tablet, Rfl: 3 SOCIAL HISTORY Social History Social History ??? Marital status: Spouse name: N/A ??? Number of children: 2 ??? 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 Smoking status: Never Smoker ??? Smokeless tobacco: Current User Types: Chew ??? Alcohol use Yes 12 Cans of beer per week ??? Drug use: No ??? Sexual activity: Yes Partners: Female control/ protection: Withdrawal Other Topics Concern ??? Not on file Social History Narrative Patient is with 2 children. 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 Diabetes Mellitus NOS ??? Hyperlipidemia 03/24 ??? Hypertension NOS 03/24 PAST SURGICAL HISTORY Past Surgical History: Procedure [...] (SEE COMMENT) N/A 06/27/1991 Bilateral sagittal osteotomy. (06361) ??? OTHER CONVERTED SHX (SEE COMMENT) N/A [...] N/A 04/04/2010 >Panretinal photocoagulation, left eye. ??? VITRECTOMY - PARS PLANA VITRECTOMY 23 GAUGE Left 02/06/2015 Vitrectomy - pars plana vitrectomy 23 gauge IMMUNIZATION HISTORY Immunization History Administered Date(s) Administered ??? Influenza (IM) Preservative Free 03/02/2008 ??? Influenza, Injectable, Quadrivalent 01/17/2015, 01/27/2017, 01/19/2018 ??? Influenza, Seasonal, Injectable 03/05/2004 ??? Influenza, Unspecified 03/02/2008 ??? PPSV23 03/05/2004 ??? Tdap 07/21/2018 ??? influenza vaccine quad (FLUZONE/FLUARIX) (36 months and older)(PF) 01/17/2014 FAMILY HISTORY Family History Problem Relation Age of Onset ??? Hypertension Mother ??? Diabetes Brother PHYSICAL EXAM Vitals reviewed. Vitals: 07/21/18 1425 BP: 155/90 Pulse: 67 Temp: 36.5 ??C Resp: 20 Height: 174.1 cm Weight: 86.8 kg SpO2: 97% TempSrc: Temporal Body mass index is 28.64 kg/m??. GENERAL: Well-developed, well-nourished, age-appropriate patient, in [...] in the breasts bilaterally. No axillary lymphadenopathy. ABDOMEN: Soft, nontender, nondistended. Normal bowel sounds. No hepatosplenomegaly. No masses or guarding. No rebound tenderness. Bowel sounds heard in all 4 quadrants. MUSCULOSKELETAL/ EXTREMITIES: Gait is normal, upright, and [...] evidence of overt delusions or paranoid thoughts. PHQ-9 0 and TONG-7 0. ASSESSMENT / PLAN IMPRESSION/REPORT/PLAN #1 Diabetes Mellitus Type 1 With Diabetic Nephropathy Hyperglycemic (HCC) Overview: Follows with Endocrine Last A1C : 7.8 Previous A1C: Blood Sugars: Frequency of Testin times daily Dexter-Inhibitor?: ARB losartan Diet: Diabetic Energy Systems Laboratory Director: Yes Statin:Yes Foot Exam: Open sores:No Decreased sensation:No Follows with Podiatry:No Tobacco Use: No Controlled: No Eye exam within 1 year: Yes Medications:Basaglar Daily, Humalog with meals TID Insulin use: Yes Follow up: in 3 months Follows with a diabetic research team in [place] Assessment & Plan: Has lab scheduled as well as Endocrine follow-up next month. Orders: - Microalbumin, Random, Urine; Future; Expected date: 07/21/2018 #2 Diabetes Mellitus Type 1 With Proliferative Diabetic Retinopathy Without Macular Edema Bilateral (HCC) #3 Chronic Kidney Disease Stage 3 Glomerular Filtration Rate 30 To 59 (HCC) Assessment & Plan: Will check BMP next month with labs for endocrine #4 Hyperlipidemia Overview: Lipitor 40 mg Daily Assessment & Plan: Lipid panel pending #5 Hypothyroidism Primary Overview: Levothyroxine Assessment & Plan: Do for TSH will check this as well with other lab work. Orders: - S-TSH (Thyroid-Stimulating Hormone - Sensitive); Future; Expected date: 07/21/2018 #6 Health Maintenance Examination Adult #7 Pain Breast Other orders - Basic Metabolic Panel; Future; Expected date: 07/21/2018 - Hemoglobin A1c; Future; Expected date: 07/21/2018 - Lipid Panel; Future; Expected date: 07/21/2018 - Tdap: Trinjgt-vtsnhdroip-msuefgrek pertussis vaccine (7 years and older) - Family Medicine office visit (clinic); Future; Expected date: 07/22/2019 Reassured that breast exam was normal. No drainage no masses noted. Pain has resolved therefore I think it is okay to continue to observe for now. Colonoscopy: Due in age 52 Colonoscopy intervals: 10 years Influenza up-to-date and documented Shingles started age 52 Tetanus updated today and up-to-date and documented Pneumonia started 67 Lipids: Will check next month Follow up: 12 months HEALTH MAINTENANCE Health Maintenance Topic Date Due ??? HIV Screening 1970 ??? Creatinine Level 02/19/2018 ??? Potassium Level 02/19/2018 ??? TSH Level 02/19/2018 ??? Urine Microalbumin 02/19/2018 ??? Hemoglobin A1C 04/08/2018 ??? Depression Screening (Annual PHQ-2) 04/19/2018 ??? Dilated Eye Exam 08/03/2018 ??? Office Visit for Blood Pressure Check / Re-check 10/20/2018 ??? Diabetic Office Visit with Foot Exam 07/22/2019 ??? DTaP,Tdap,and Td Vaccines (2 - Td) 07/21/2028 ??? Pneumococcal Medium Risk Adult 19-64 Completed ??? Influenza Vaccine Completed MEDICATION CHANGES TODAY: No orders of the defined types were placed in this encounter. There are no discontinued medications. PATIENT EDUCATION Patient is ready to learn, no apparent learning barriers are identified. Learning preferences include listening. Explained diagnosis and treatment plan, patient expressed understanding of the content. Patient agreed with today's plan. All questions were answered. documented in this encounter Miscellaneous Notes Assessment & Plan Note - Obi Leggett APRN, C.N.P. - 07/21/2018 3:21 PM CDTAssociated Problem(s): Hypothyroidism Primary Do for TSH will check this as well with other lab work. Assessment & Plan Note - Obi Leggett APRN, C.N.P. - 07/21/2018 3:20 PM CDTAssociated Problem(s): Hypertension And Chronic Kidney Disease Stage 3 (HCC) Did send message to Puja Perez. Offered to make some adjustments for patient however he is seen Puja Perez in the past and wanted to advise with her. He is willing to follow up with her if she would prefer. Assessment & Plan Note - Obi Leggett APRN, C.N.P. - 07/21/2018 3:20 PM CDTAssociated Problem(s): Hyperlipidemia Lipid panel pending Assessment & Plan Note - Obi Leggett APRN, C.N.P. - 07/21/2018 3:20 PM CDTAssociated Problem(s): Chronic Kidney Disease Stage 3 Glomerular Filtration Rate 30 To 59 (HCC) (Resolved 06/19/2019) Will check BMP next month with labs for endocrine Assessment & Plan Note - Obi Leggett APRN, C.N.P. - 07/21/2018 3:17 PM CDTAssociated Problem(s): Diabetes Mellitus Type 1 With Diabetic Nephropathy Hyperglycemic (HCC) Has lab scheduled as well as Endocrine follow-up next month. Addendum Note - Obi Leggett APRN, C.N.P. - 07/21/2018 2:45 PM CDT Addended by: OBI LEGGETT on: 07/21/2018 04:00 PM Modules accepted: Orders documented in this encounter Plan of Treatment Upcoming Encounters Date Type Specialty Care Team Description 04/28/2022 Ancillary Procedure Ophthalmology Joselo Palmer O.D. [address] [place] [address] [phone] (Odalis walton) 04/28/2022 Ancillary Procedure Ophthalmology Joselo Palmer O.D. [address] [place] [address] [phone] (Odalis walton) 04/28/2022 Office Visit Ophthalmology Tita Palmer O.D. [address] [place] [address] [phone] (Odalis walton) documented as of this encounter Results (ABNORMAL) Microalbumin, Random, Urine (08/12/2018 7:40 AM CDT) Patholo gist Method Time Signature Microalbumin 1347.0 mg/L 08/12/2018 [facility] 9:40 AM CDT [facility] Creatinine 86 mg/dL 08/12/2018 [facility] 9:40 AM CDT [facility] Albumin/Creatinin 1566 (H) <17 mg/g 08/12/2018 [facility] e Ratio 9:40 AM CDT [facility] Specimen Anatomical Collection Method Collection Time Receive d Time (Source) Location / / Volume Laterality Urine (Urine, 08/12/2018 7:40 AM 08/13/19 19 8:30 Clean Catch) CDT AM CDT Obi Leggett APRN, C.N.P. LAB URINE ORDERABLES Performing Organization Address [facility] Phon e Number [facility] [place] [address] [facility] S-TSH (Thyroid-Stimulating Hormone - Sensitive) (08/12/2018 6:32 AM CDT) P athologist Signature TSH, Sensitive 0.5 0.3 - 4.2 08/12/2018 [facility] mIU/L 10:31 AM CDT [facility] Comment: Biotin has been identified by the ariel almanzar as a potential interfering substance. ??Higher concentr ations of biotin may be found in multivitamins, hair/nail supple ments, and workout supplements. ??If the result does not ma [facility] clinical observations, repeat testing after patient refrains fr om the use of supplements for at least 12 hours. Specimen Anatomical Collection Method Collection Time Receive d Time (Source) Location / / Volume Laterality Blood (Blood, 08/12/2018 6:32 AM 08/13/19 19 6:41 Venous) CDT AM CDT Obi Leggett APRN, C.N.P. LAB BLOOD ADD-ON Performing Organization Address [facility] Phon e Number [facility] [address] [place] [address] [facility] documented in this encounter Visit Diagnoses Diagnosis Diabetes Mellitus Type 1 With Diabetic N ephropathy Hyperglycemic (HCC) - Primary Diabetes Mellitus Type 1 With Proliferat ruperto Diabetic Retinopathy Without Macular Edema Bilateral (HCC) Chronic Kidney Disease Stage 3 Glomerula r Filtration Rate 30 To 59 (HCC) Hyperlipidemia Hypothyroidism Primary Health Maintenance Examination Adult Pain Breast documented in this encounter Care Teams Agricultural And Forestry Supervisor Relationship Specialty Start Date End Date Obi Leggett APRN, C.N.P. PCP - General Family Medicine 06/08/18 12/04/21 [address] [place] [phone] documented as of this encounter
--- OUTSIDE RECORDS SUMMARY | 2022-03-02 08:35 | XMS_ITS | Encounter Summary ---
:1970 Author Organization [facility] Address [address] [place] [address] Care Team Providers Name Role Phone Unavailable Primary Care Provider Unavailable Encounter Details Date Type Department Care Team Description 02/19/2017 Hospital Encounter HX [facility] Cheri Diana M.D. 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 [address] [place], [place] 55 [phone] (Wo rk) 04/28/2022 Office Visit Ophthalmology Softing Oracio Tita Calabrese O.D. [address] [place], [place] [phone] (Wo rk) documented as of this encounter Procedures Procedure Name Priority Date/Time Associated Diagnosis Comme nts ALBUMIN, RANDOM, U Routine 02/19/2017 2:45 PM Res ults for this CDT procedure are i n the results section. HEMOGLOBIN A1C, B Routine 02/19/2017 2:45 PM Resu lts for this CDT procedure are i n the results section. documented in this encounter Results (ABNORMAL) Microalbumin, Random, Urine (02/19/2017 2:45 PM CDT) P athologist Signature Creatinine, 62 40 - 278 POWERCHART Random, U MGDL Comment: No established reference values HXU Albumin % 919 MGL POWERCHART Albumin/Creatinine Ratio 1471 (H) <=19 MGGCR FAIZA RCHART Specimen (Source) Anatomical Collection Method Collection Time Re ceived Time Location / / Volume Laterality Urine 02/19/2017 2:45 PM CDT Carmelo Diana M.D. LAB URINE ORDERABLES Performing Organization Address City[facility] Code Phon e Number POWERCHART POWERCHART NA (ABNORMAL) Hemoglobin A1c (02/19/2017 2:45 PM CDT) P athologist Signature Hemoglobin A1c, 7.3 (H) <=5.6 A1C POWERCHART B Specimen (Source) Anatomical Collection Method Collection Time Re ceived Time Location / / Volume Laterality Blood 02/19/2017 2:45 PM CDT Carmelo Diana M.D. LAB BLOOD ADD-ON Performing Organization Address City/[facility]/ZIP Code Phon e Number POWERCHART POWERCHART NA documented in this encounter Visit Diagnoses Not on filedocumented in this encounter
--- OUTSIDE RECORDS SUMMARY | 2022-03-02 08:35 | XMS_ITS | Encounter Summary ---
:1970 Author Organization [facility] Address [address] [place] [address] Care Team Providers Name Role Phone Unavailable Primary Care Provider Unavailable Reason for Visit Reason Comments Communication Encounter Details Date Type Department Care Team Description 03/08/2017 Clinical Communication Department of Gale Holloway mmunication Endocr[place]ology [place] [address] [place] [address] [place] [phone] Social History Tobacco Use Types Packs/Day Years [...] or relatives? How often do you attend congregational or Never 2021 druze services? 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 - 03/10/2017 1:46 PM USER INTERFACE DEVELOPER Pt notified that we sent refills and to let us know if he needs anything further. INTERFACE DEVELOPER Telephone Encounter - Gale Holloway L.P.N. - 03/08/2017 8:49 AM USER INTERFACE DEVELOPER Pt sends email to for refills on his meds and dm supplies. Refills have been pended. INTERFACE DEVELOPER documented in this encounter Plan of Treatment Upcoming Encounters Date Type Specialty Care Team Description 04/28/2022 Ancillary Procedure Ophthalmology Joselo Palmer O.Dequan [address] [place], [place] [phone] (Odalis walton) 04/28/2022 Ancillary Procedure Ophthalmology Joselo Palmer O.Dequan [address] [place] [address] [phone] (Odalis rk) 04/28/2022 Office Visit Ophthalmology Tita Palmer O.D. [address] [place] [address] [phone] (Odalis rk) documented as of this encounter Visit Diagnoses Diagnosis Diabetes Mellitus Type 1 (HCC) - Primary documented in this encounter
--- OUTSIDE RECORDS SUMMARY | 2022-03-02 08:35 | XMS_ITS | Encounter Summary ---
:1970 Author Organization [facility] Address [address] [place] [address] Care Team Providers Name Role Phone Obi Leggett APRN, C.N.P. Primary Care Provider Reason for Visit Reason Onset Date Comments Med Refill 07/08/2018 Encounter Details Date Type Department Care Team Description 07/08/2018 Refill Department of Endocrinology in Carmelo Vera M.D. Med Refill [place], [place] [address] [facility] [address] [place] [address] [place] [address] [phone] Social History Tobacco Use Types Packs/Day Years [...] or relatives? How often do you attend anglican or Never 2021 shinto services? 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 - 07/08/2018 4:47 PM CDT Spoke with Lex. He is aware the prescription was sent. He also reported he has always tested several times per day. Telephone Encounter - Obi Leggett APRN, C.N.P. - 07/08/2018 4:31 PM CDT Will sign; I could not find documentation in Dr Diana's note regarding the number of times per day he is testing. Obi Telephone Encounter - Lenard Watts LCourtneyP.N. - 07/08/2018 1:15 PM CDT Caller is: patient Next scheduled appointment:08/22/2018 Phone number caller can be reached at:[phone] (mobile) Provider: Patient Care Team: Obi Leggett APRN, C.N.P. as PCP - General (Family Medicine) Medication(s) needed and dose: DME Supplies Pharmacy: [facility] [place] - [address] [facility] [address] [facility] - [place], [place] - [address] [facility] [address] [facility] [address] Action: fax to pharmacy Additional information: Dr Diana is out of the office. Patient has an apt on 07-21-18 to establish care with you. Telephone Encounter - Gale Holloway L.P.N. - 07/08/2018 11:[address] Diana is out of the office until 07/18/18. Will forward to PCP. Telephone Encounter - Chanel Lerma - 07/08/2018 10:35 AM CDT Name of Medication: Blood sugar diagnostic strips Provider: Carmelo Diana M.D. Strength: Frequency: four test daily Pharmacy (include Location): [facility] *Pt states that the script is wrong and it's supposed it's supposed to be 10 times/day instead of 4/day. Please advise. documented in this encounter Plan of Treatment Upcoming Encounters Date Type Specialty Care Team Description 04/28/2022 Ancillary Procedure Ophthalmology Joselo Palmer O.Dequan [address] [place], [place] [phone] (Wo rk) 04/28/2022 Ancillary Procedure Ophthalmology Joselo Palmer OJoan [address] [place], [place] 55 [phone] (Odalis rk) 04/28/2022 Office Visit Ophthalmology Tita Palmer O.D. [address] [place], [place] [phone] (Wo rk) documented as of this encounter Visit Diagnoses Diagnosis Diabetes Mellitus Type 1 With Diabetic N ephropathy Hyperglycemic (HCC) - Primary documented in this encounter Care Teams Grades 1 Thru 6 Visiting Teacher Relationship Specialty Start Date End Date Obi Leggett APRN, C.N.P. PCP - General Family Medicine 06/08/18 12/04/21 [address] [place] [phone] documented as of this encounter
--- OUTSIDE RECORDS SUMMARY | 2022-03-02 08:35 | XMS_ITS | Encounter Summary ---
:1970 Author Organization [facility] Address [address] [place] [address] Care Team Providers Name Role Phone Unavailable Primary Care Provider Unavailable Reason for Visit Reason Comments Med Refill Encounter Details Date Type Department Care Team Description 05/24/2018 Refill Department of Endocrinology in Carmelo Vera M.D. Med Refill [place], [place] [address] [place] [address] [place] [address] [phone] Social History Tobacco Use Types Packs/Day Years [...] do you attend taoist or Never 2021 quaker services? Do you belong to any clubs [...] or slept in a snf (including now)? 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 - 05/25/2018 10:15 AM TUBER MACHINE OPERATOR Rx pended for One touch Verio test strips R MACHINE OPERATOR Telephone Encounter - Romy Garduno - 05/24/2018 7:25 AM CST Images from the original note were not included. Nurse Review: Pharmacy Communication Provider: Dr Diana Medication: One Touch Verio diabetic supplies Pharmacy: [facility] Comment: R MACHINE OPERATOR documented in this encounter Plan of Treatment Upcoming Encounters Date Type Specialty Care Team Description 04/28/2022 Ancillary Procedure Ophthalmology SoftJoselo Whyte O.Dequan [address] [place], [place] [phone] (Odalis rk) 04/28/2022 Ancillary Procedure Ophthalmology Joselo Palmer O.Dequan [address] [place] [address] [phone] (Wo rk) 04/28/2022 Office Visit Ophthalmology Tita Palmer O.Dequan [address] [place] [address] [phone] (Odalis rk) documented as of this encounter Visit Diagnoses Diagnosis Diabetes Mellitus Type 1 (HCC) - Primary documented in this encounter
--- OUTSIDE RECORDS SUMMARY | 2022-03-02 08:35 | XMS_ITS | Encounter Summary ---
:1970 Author Organization [facility] Address [address] [place] [address] Care Team Providers Name Role Phone Unavailable Primary Care Provider Unavailable Encounter Details Date Type Department Care Team Description 01/23/2017 Abstract Department of Family Medicine, Provider, Historical [facility], in [place], [place] [address] [place] [address] [facility] [phone] Social History Tobacco Use Types Packs/Day Years [...] or relatives? How often do you attend protestant or Never 2021 pentecostalism services? 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 [address] [place] [phone] (Wo rk) 04/28/2022 Ancillary Procedure Ophthalmology Joselo Palmer O.D. [address] [place] [phone] (Wo rk) 04/28/2022 Office Visit Ophthalmology Tita Palmer O.D. [address] [place] [phone] (Wo rk) documented as of this encounter Visit Diagnoses Not on filedocumented in this encounter
--- OUTSIDE RECORDS SUMMARY | 2022-03-02 08:35 | XMS_ITS | Encounter Summary ---
:1970 Author Organization [facility] Address [address] [place] [address] Care Team Providers Name Role Phone Elsewhere, Pcp Primary Care Provider Unavailable Encounter Details Date Type Department Care Team Description 08/03/2017 Historical Ophthalmology RST OPH Tita Palmer O.D. [address] [place], [place] [phone] (Wo rk) Social History [...] do you attend hindu or Never 2021 judaism services? 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 - 08/03/2017 10:08 AM CDT Eye General CHIEF COMPLAINT Vision is stable, DM exam HISTORY OF PRESENT ILLNESS Blood sugars were 143 this morning before breakfast. Last A1c was 7.3 in 08/2016. 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 IMPRESSION / REPORT / PLAN 07/2017 OCT RIGHT: No IRF or SRF, normal foveal contour; LE: no IRF or SRF , normal foveal contour. OCT 08/03 RIGHT: 16 Jan 2015 B-scan left eye: vitreous hemorrhage, PVD throughout the posterior pole, vitreo-retinal adjesions @ 1:00, 2:00 7:00 PE, macula attached. LS 14 Nov 2014 OCT normal contour, left eye normal contour 18 Oct 2014 B-scan left eye: vitreous opacities and strands inferiorly, layered opacities along the temporal posterior pole, possible vitreo-retinal adhesion at that site. LS 08/01 OCT right: normal contour left: normal contour, preretinal heme superotemp 06/03 FA right: staining of old NVE, moderate PRP left: NVE at distal sup arcade with associated preretinal heme; room for peripheral laser 06/03 OCT right: normal contour left: normal contour, preretinal heme superotemp FA (03/28) right: staining of old NVE, moderate PRP left: multifocal NVE leakage, no NVD, peripheralnonperfusion OCT (03/28) right: normal contour left: normal contour #1 Proliferative diabetic retinopathy BOTH eyes (DM type 1 since age 13), quiescent both eyes RIGHT: s/p PRP '04, fill in in 06/03, no CSME - VH from inf nasal NVE LEFT: s/p PRP (last 01/30), no CSME - bleeding from several NVEs (many NVEs regressed/fibrotic) - new VH 10/18/14 -tight glycemic, hypertensive, and cholesterol control d/w pt -last HbA1c 7.4 #2 subhyaloid hemorrhage with vitreous hemorrhage LEFT eye, resolved started 2nd week September 2014 #3 early cataract BOTH eyes IMPRESSION/PLAN 07/2017: pt doing very well after vitrectomy LEFT eye 01/[address] Softing with OCT or prn. DIAGNOSIS #1 Proliferative diabetic retinopathy BOTH eyes (DM type 1 since age 13), quiescent both eyes #2 subhyaloid hemorrhage with vitreous hemorrhage LEFT eye, resolved #3 early cataract BOTH eyes CDM Reports - EYEGEN Id: [id number] Status: Fnl documented in this encounter Plan of Treatment Upcoming Encounters Date Type Specialty Care Team Description 04/28/2022 Ancillary Procedure Ophthalmology Joselo Palmer O.D. [address] [place], [place] [phone] (Wo rk) 04/28/2022 Ancillary Procedure Ophthalmology Joselo Palmer O.D. [address] [place], [place] [phone] (Wo rk) 04/28/2022 Office Visit Ophthalmology Tita Palmer O.D. [address] [place], [place] [phone] (Wo rk) documented as of this encounter Visit Diagnoses Not on filedocumented in this encounter Care Teams Cooler Room Worker Relationship Specialty Start Date End Date Elsewhere, Pcp PCP - General Internal Medicine 12/05/21 documented as of this encounter
--- OUTSIDE RECORDS SUMMARY | 2022-03-02 08:35 | XMS_ITS | Encounter Summary ---
:1970 Author Organization [facility] Address [address] [place] [address] Care Team Providers Name Role Phone Unavailable Primary Care Provider Unavailable Reason for Referral Outpatient (Routine) - Closed Specialty Diagnoses / Procedures Referred By Contact Refer red To Contact Endocrinology Carmelo Diana [facility] [address] [place] [phone] Referral ID Status Reason Start Date Expiration Date Visits Requ ested Visits Authorized [id number] Closed 10/18/2017 10/18/2018 1 1 Reason for Visit Reason Comments Diabetes Mellitus 6mo f/u Outpatient (Routine) - Closed Specialty Diagnoses / Procedures Referred By Contact Refer red To Contact Endocrinology Carmelo Diana M.D. [facility] [address] [place] [address] Referral ID Status Reason Start Date Expiration Date Visits Requ ested Visits Authorized [id number] Closed 03/01/2017 08/28/2017 1 1 Encounter Details Date Type Department Care Team Description 10/18/2017 Office Visit Department of Carmelo Diana Diabetes Gia litus Type 1 With Proliferative Diabetic Retinopathy Without Macular Edema Bilateral (HCC); Endocrinology in M.DCourtney Hypothyroidism Primary; [place], [place] [address] [facility] Hypertension Essential Primary; [address] [place] Hyperlipidemia; [place] [phone] Diabetes Mellitus Type 1 With Diabetic N ephropathy Hyperglycemic (HCC); [phone] Custodial Use O f Insulin Active ([facility]) (Work) Social History Tobacco Use Types Packs/Day [...] or relatives? How often do you attend jain or Never 2021 mormon services? Do you belong to any clubs or No 05/04/2021 organizations such as jain groups, unions, fraternal or athletic groups, or [...] or slept in a residential (including now)? 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 - 10/18/2017 12:00 AM CDT SUBJECTIVE CHIEF COMPLAINT/REASON FOR VISIT Type 1 diabetes, recheck. HISTORY OF PRESENT ILLNESS Prateek is a 47-year-old man with type 1 diabetes diagnosed at age 13. He is enrolled in the EDIC study in [place]. Type 1 diabetes. Managed with a basal bolus insulin regimen consisting of Basaglar 30 units daily and Humalog 4 to 10 units subcu 3 times a day. The patient typically takes 8 to 10 units with each meal. However, he may decrease the dose down to 4 units with meals on days he is physically very active. HbA1c increased to 7.8%. Complications of diabetes include diabetic nephropathy and proliferative diabetic retinopathy requiring laser treatment bilaterally. Primary hypothyroidism. Currently replaced with levothyroxine 224 mcg daily. TSH noted to be within normal range. Hyperlipidemia. Patient is currently on a low intensity statin. LDL noted to be above 100. Hypertension. Managed with a calcium channel johan, thiazide diuretic, ARB agent, and spironolactone. Office blood pressure noted to be elevated to 147/90. Home monitored blood pressure typically runs above 140 systolic. MEDICAL HISTORY 1. Type 1 diabetes. 2. Essential hypertension. 3. Diabetic nephropathy. 4. Proliferative diabetic retinopathy. 5. Primary hypothyroidism. CURRENT MEDICATIONS Reviewed and reconciled. FAMILY HISTORY No family members with hypothyroidism or type 1 diabetes. SOCIAL HISTORY Chews tobacco. REVIEW OF SYSTEMS All systems reviewed and negative, except as stated above. OBJECTIVE PHYSICAL EXAMINATION Vital Signs: Blood pressure 147/90, pulse 68, weight 89. General: Well nourished, well groomed. Skin: Normally pigmented. Respiratory: Normal effort, clear. Cardiovascular: Regular rhythm. Abdomen: No stigmata of chronic liver disease. Psychiatric: Alert to time, place, and person. Appropriate affect. Neck: Thyroid not enlarged. No nodules. Extremities: No edema. Well perfused. No ulceration. DIAGNOSTICS A1c 7.8%. ASSESSMENT / PLAN #1 Type 1 diabetes complicated by diabetic nephropathy, diabetic retinopathy, uncontrolled Barriers to goal attainment include permissive nocturnal hypoglycemia and varying intensity of physical activity related to his occupation every day. The patient is doing the best he can with the current regimen achieving an HbA1c lower than 8%. Continue Basaglar 30 units once daily. Recommend avoidance of variability in daily carbohydrate intake. Recommend 8 to 10 units of Humalog with each meal. The dose may be decreased by 50% to account for strenuous physical activity. Prandial insulin may be skipped if glucose level is lower than 80 or very strenuous physical activities anticipated that day. Goal HbA1c 8% or lower. Office followup in 6 months. Patient is reluctant to use an insulin pump. #2 Essential hypertension Recommend increasing spironolactone to 50 mg daily. Continue amlodipine, losartan, chlorthalidone atthe current dose. Follow up blood pressure and electrolyte measurements scheduled. #3 Modified hyperlipidemia Recommend increasing atorvastatin to 40 mg daily. #4 Adequately replaced primary hypothyroidism Continue levothyroxine 224 mcg daily. [id number]. Job ID: [id number] documented in this encounter Plan of Treatment Upcoming Encounters Date Type Specialty Care Team Description 04/28/2022 Ancillary Procedure Ophthalmology Joselo Palmer O.D. [address] [place] [phone] (Odalis walton) 04/28/2022 Ancillary Procedure Ophthalmology Joselo Palmer O.D. [address] [place] [address] [phone] (Odalis rk) 04/28/2022 Office Visit Ophthalmology Tita Palmer O.D. [address] [place] [address] [phone] (Odalis walotn) Scheduled Referrals Name Type Priority Associated Order Schedule Diagnoses Endocrinology office Outpatient Referral Routine Expected: visit (clinic) 04/20/2018 (Approximate), Expires: 10/18/2020 documented as of this encounter Results (ABNORMAL) Basic metabolic panel (08/12/2018 6:32 AM CDT) Analysis Performed At Patho logist Time Signature Potassium, S 4.0 3.6 - 5.2 08/12/2018 [facility] mmol/L 7:35 AM [facility] Sodium, S 140 135 - 145 08/12/2018 [facility] mmol/L 7:35 AM [facility] Chloride, S 99 98 - 107 08/12/2018 [facility] mmol/L 7:35 AM [facility] Bicarbonate, S 28 22 - 29 08/12/2018 [facility] mmol/L 7:35 AM [facility] Anion Gap 13 7 - 15 08/12/2018 [facility] 7:35 AM [facility] BUN (Blood Urea 26 (H) 8 - 24 08/12/2018 [facility] Nitrogen), S mg/dL 7:35 AM [facility] Creatinine 1.75 (H) 0.74 - 08/12/2018 [facility] 1.35 mg/dL 7:35 AM [facility] eGFR-Non 46 (L) >=60 08/12/2018 [facility] Black/ mL/min/BSA 7:[address] [facility] Comment: ----ADDITIONAL INFORMATION---- Estimated GFR calculated using the 2009 CKD_EPI creatinine equation. eGFR-Black/ 53 (L) >=60 mL/min/BSA 08/12/2018 7:35 AM [facility] Comment: ----ADDITIONAL INFORMATION---- Estimated GFR calculated using the 2009 CKD_EPI creatinine equation. Calcium, Total, S 9.0 8.6 - 10.0 mg/dL 08/12/2018 7 :35 AM [facility] Glucose, S 115 70 - 140 mg/dL 08/12/2018 7:35 AM CDT [facility] Specimen Anatomical Collection Method Collection Time Receive d Time (Source) Location / / Volume Laterality Blood (Blood, 08/12/2018 6:32 AM 08/13/19 19 6:41 Venous) CDT AM CDT Carmelo Diana M.D. LAB BLOOD ADD-ON Performing Organization Address City/State/ZIP Code Phon e Number [facility] [address] [place], [place] [id number] [place] [address] LAB (ABNORMAL) Lipid Panel (08/12/2018 6:32 AM CDT) athologist Signature Cholesterol, 200 (H) mg/dL 08/12/2018 [facility] Total 7:35 AM CDT [facility] Comment: ----REFERENCE VALUE---- Desirable: < 200 Borderline high: 200 - 239 High: > or = 240 Triglycerides 172 (H) mg/dL 08/12/2018 7:35 AM CDT [facility] Comment: ----REFERENCE VALUE---- Normal: <150 Borderline high: 150-199 High: 200-499 Very high: > or =500 Cholesterol, HDL, S 78 >=40 mg/dL 08/12/2018 7:35 AM CDT [facility] Calculated LDL 88 mg/dL 08/12/2018 7:35 AM CDT [facility] Comment: ----REFERENCE VALUE---- Desirable: <100 Above Desirable: 100-129 Borderline high: 130-159 High: 160-189 Very high: > or =190 Cholesterol, Non-HDL, 122 mg/dL 08/12/2018 7:35 AM CDT [facility] LAB Comment: ----REFERENCE VALUE---- Desirable: <130 Above Desirable: 130-159 Borderline high: 160-189 High: 190-219 Very high: > or =220 Specimen Anatomical Collection Method Collection Time Receive d Time (Source) Location / / Volume Laterality Blood (Blood, 08/12/2018 6:32 AM 08/13/19 19 6:41 Venous) CDT AM CDT Carmelo Diana M.D. LAB BLOOD ADD-ON Performing Organization Address City/State/ZIP Code Phon e Number [facility] [address] [place] [address] [place] [facility] (ABNORMAL) Hemoglobin A1c (08/12/2018 6:32 AM CDT) athologist Signature Hemoglobin A1c, 7.5 (H) 4.2 - 5.6 08/12/2018 [facility] B % 7:19 AM CDT [facility] Comment: Hemoglobin A1c values greater [...] Organization Address City/State/ZIP Code Phon e Number [facility] [address] [place] [address] [facility] documented in this encounter Visit Diagnoses Diagnosis Diabetes Mellitus Type 1 With Proliferat ruperto Diabetic Retinopathy Without Macular Edema Bilateral (HCC) Hypothyroidism Primary Hypertension Essential Primary Hyperlipidemia Diabetes Mellitus Type 1 With Diabetic N ephropathy Hyperglycemic (HCC) Custodial Use Of Insulin Active (HCC) documented in this encounter
--- OUTSIDE RECORDS SUMMARY | 2022-03-02 08:35 | XMS_ITS | Encounter Summary ---
:1970 Author Organization [facility] Address [address] [place] [address] Care Team Providers Name Role Phone Unavailable Primary Care Provider Unavailable Encounter Details Date Type Department Care Team Description 12/25/2016 Hospital Encounter HX [facility] Margarita Perez, SMELTER LINER, C.N.P. [address] [phone] (Wo rk) Social History Tobacco Use Types [...] do you attend evangelical or Never 2021 restorationist services? 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 BASAGLAR KWIKPEN 100 11 11/10/201602/17 unit/mL (3 mL) injection HUMALOG KWIKPEN 100 3 11/10/201603/01 unit/mL injection [...] Procedure Ophthalmology Joselo Palmer O.D. [address] [place], [place] [phone] (Wo rk) 04/28/2022 Ancillary Procedure Ophthalmology Joselo Palmer O.D. [address] [place], [place] 55 [phone] (Wo rk) 04/28/2022 Office Visit Ophthalmology Tita Palmer O.D. [address] [place], [place] 55 [phone] (Wo rk) documented as of this encounter Visit Diagnoses Not on filedocumented in this encounter
--- OUTSIDE RECORDS SUMMARY | 2022-03-02 08:35 | XMS_ITS | Encounter Summary ---
:1970 Author Organization [facility] Address [address] [place] [address] Care Team Providers Name Role Phone Unavailable Primary Care Provider Unavailable Reason for Visit Reason Comments Skin Check New Pt. Self referral. Here today for full body skin check. No personal or family hx of skin cancers. L esion on left eye wants removed x 3 years denies itching or bleeding, non irritating. Full body skin check Appointment Request (Routine) - Closed Specialty Diagnoses / Procedures Referred By Contact Refer red To Contact Dermatology Referral ID Status Reason Start Date Expiration Date Visits Requ ested Visits Authorized [id number] Closed 04/15/2017 10/12/2017 1 1 Encounter Details Date Type Department Care Team Description 05/03/2017 Comprehensive Visit Department of Toyin Duran (Primary Dx); Dermatology in Marii Garcia M.D. Screening Skin Condition [place], [place] [address] [place] [address] [place] [phone] [phone] Social History Tobacco Use Types Packs/Day Years [...] or relatives? How often do you attend orthodox or Never 2021 religion services? 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 - 05/03/2017 3:45 PM CST SUBJECTIVE CHIEF COMPLAINT/REASON FOR VISIT Skin tag by left eye HISTORY OF PRESENT ILLNESS Lex has enlarging skin tag on the left eye near the orbital rim. He also has a large 1 in the left axilla that is starting to bother him. ROS No fevers or chills. No chest pain ALLERGIES/MEDICATIONS Reviewed PAST MEDICAL HISTORY Per EMR SOCIAL HISTORY Per EMR FAMILY HISTORY Per EMR OBJECTIVE PHYSICAL EXAM General: Cooperative and in no acute distress Eyes: No conjunctivitis ENT: No chelitis EXTREMITIES: No cyanosis,clubbing, or edema of the hands. Neuropsych: Appropriate affect. Skin: The face, neck , scalp,chest, back, bilateral arms and hands as well as the superior abdomen was examined. Examination below the level of the hips was declined. Pertinent findings were as follows: There is a approximate 1 cm skin tag on the left lateral canthusarea. There about 5 skin tags in the left axilla. ASSESSMENT/PLAN 1. Acrochordon. The acrochordon on the right lateral orbital rim area and left axilla were both snipped in standard fashion after risks and benefits were discussed and informed consent obtained. Wound care instructions given. 2. Skin cancer screen unremarkable. Sun protection encouraged. AURANT KITCHEN MANAGER documented in this encounter Plan of Treatment Upcoming Encounters Date Type Specialty Care Team Description 04/28/2022 Ancillary Procedure Ophthalmology SoftJoselo Whyte O.D. [address] [place], [place] [phone] (Wo rk) 04/28/2022 Ancillary Procedure Ophthalmology Joselo Palmer O.D. [address] [place] [address] [phone] (Wo rk) 04/28/2022 Office Visit Ophthalmology Tita Palmer O.D. [address] [place] [address] [phone] (Wo rk) documented as of this encounter Visit Diagnoses Diagnosis Acrochordon - Primary Screening Skin Condition documented in this encounter
--- OUTSIDE RECORDS SUMMARY | 2022-03-02 08:35 | XMS_ITS | Encounter Summary ---
:1970 Author Organization [facility] Address [address] [place] [address] Care Team Providers Name Role Phone Unavailable Primary Care Provider Unavailable Reason for Visit Reason Comments Med Refill Encounter Details Date Type Department Care Team Description 05/16/2018 Refill Department of Endocrinology in Carmelo Vera M.D. Med Refill [place], [place] [address] [place] [address] [place] [address] [phone] Social History Tobacco Use Types Packs/Day Years [...] or relatives? How often do you attend samaritan or Never 2021 latter day services? 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 [address] [place] [address] [phone] (Odalis rk) 04/28/2022 Ancillary Procedure Ophthalmology Joselo Palmer O.D. [address] [place], [place] [phone] (Wo rk) 04/28/2022 Office Visit Ophthalmology Tita Palmer O.D. [address] [place], [place] 55 [phone] (Wo rk) documented as of this encounter Visit Diagnoses Not on filedocumented in this encounter
--- OUTSIDE RECORDS SUMMARY | 2022-03-02 08:35 | XMS_ITS | Encounter Summary ---
:1970 Author Organization [facility] Address [address] [place] [address] Care Team Providers Name Role Phone Unavailable Primary Care Provider Unavailable Encounter Details Date Type Department Care Team Description 08/03/2017 Telemedicine Department of Ophthalmology Social History Tobacco Use [...] do you attend voodoo or Never 2021 episcopalian services? Do you [...] or slept in a intermediate (including now)? 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 [address] [place], [place] [phone] (Wo rk) 04/28/2022 Ancillary Procedure Ophthalmology Softing OliverioclarycliffJoselo, O.D. [address] [place] [phone] (Wo rk) 04/28/2022 Office Visit Ophthalmology Tita Palmer O.Dequan [address] [place], [place] [phone] (Wo rk) documented as of this encounter Procedures Procedure Name Priority Date/Time Associated Comments Diagnosis OPHTHALMOLOGY IMAGE Routine 08/03/2017 11:19 Resu lts for this EXAM AM CDT procedure are i n the results section. documented in this encounter Results OPHTHALMOLOGY IMAGE EXAM (08/03/2017 11:19 AM CDT) Specimen (Source) Anatomical Collection Method Collection Time Re ceived Time Location / / Volume Laterality 08/03/2017 12:00 PM CDT Narrative [facility] - 08/03/2017 11:19 AM CDT This order has been created [...]
--- OUTSIDE RECORDS SUMMARY | 2022-03-02 08:35 | XMS_ITS | Encounter Summary ---
:1970 Author Organization [facility] Address [address] [place] [address] Care Team Providers Name Role Phone Unavailable Primary Care Provider Unavailable Encounter Details Date Type Department Care Team Description 01/06/2017 Hospital Encounter HX [facility] Puja Perez, SUPERVISOR ADVERTISING DISPATCH CLERKS, C.N.P. [address] [phone] (Wo rk) Social History Tobacco Use [...] do you attend tenriism or Never 2021 jehovah's witness services? 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 [address] [place], [place] [phone] (Wo rk) 04/28/2022 Ancillary Procedure Ophthalmology Joselo Palmer O.D. [address] [place], [place] [phone] (Wo rk) 04/28/2022 Office Visit Ophthalmology Tita Palmer O.D. [address] [place], [place] [phone] (Wo rk) documented as of this encounter Visit Diagnoses Not on filedocumented in this encounter
--- OUTSIDE RECORDS SUMMARY | 2022-03-02 08:35 | XMS_ITS | Encounter Summary ---
:1970 Author Organization [facility] Address [address] [place] [address] Care Team Providers Name Role Phone Unavailable Primary Care Provider Unavailable Encounter Details Date Type Department Care Team Description 02/24/2017 Clinical Communication Department of Puja Perez Cardiovascular Diseases ASHLEY Patrick, C.N.P. in [place], [place] [address] [place], [place] [phone] Social History Tobacco Use Types Packs/Day Years [...] or relatives? How often do you attend moravian or Never 2021 presybeterian services? 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 - 02/24/2017 10:45 AM PERFUSIONIST Med refill complete USIONIST documented in this encounter Plan of Treatment Upcoming Encounters Date Type Specialty Care Team Description 04/28/2022 Ancillary Procedure Ophthalmology Joselo Palmer O.D. [address] [place] [phone] (Wo rk) 04/28/2022 Ancillary Procedure Ophthalmology Joselo Palmer O.D. [address] [place] [phone] (Wo rk) 04/28/2022 Office Visit Ophthalmology Tita Palmer O.D. [address] [place] [phone] (Wo rk) documented as of this encounter Visit Diagnoses Not on filedocumented in this encounter
--- OUTSIDE RECORDS SUMMARY | 2022-03-02 08:35 | XMS_ITS | Encounter Summary ---
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 ([facility]) Tita Palmer [facility] Lindy Calabrese [address] [place] [address] Referral ID Status Reason Start Date Expiration Date Visits Requ ested Visits Authorized [id number] Closed 08/06/2017 02/02/2018 1 1 Encounter Details Date Type Department Care Team Description 08/06/2017 Orders Only Department of Minesh Narayanan, Diabetes Me llitus Type Ophthalmology in [facility] Lindy Calabrese 1 With Proliferative [place], [place] [address] [facility] Diabetic Retinopathy [address] [place], [place] [address] Bilateral ([facility]) [phone] Social History Tobacco Use Types Packs/Day Years [...] do you attend pentecostal or Never 2021 congregation services? Do you belong to any clubs or No 05/04/2021 organizations such as pentecostal groups, unions, fraLogopro or athletic groups, or school groups? 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 [address] [place] [phone] (Odalis rk) 04/28/2022 Ancillary Procedure Ophthalmology Joselo Palmer O.D. [address] [place] [phone] (Odalis rk) 04/28/2022 Office Visit Ophthalmology Tita Palmer O.D. [address] [place] [phone] (Odalis rk) Scheduled Referrals Name Type Priority Associated Diagnoses Order [facility] Ophthalmology office Outpatient Routine Diabetes Mellitus Ex pected: visit (clinic) Referral Type 1 With 07/29/2018 Proliferative (Approximate), Diabetic Retinopathy Expires : Without Macular Edema 2020 Bilateral (HCC) documented as of this encounter Visit Diagnoses Diagnosis Diabetes Mellitus Type 1 With Proliferat ruperto Diabetic Retinopathy Without Macular Edema Bilateral (HCC) documented in this encounter
--- OUTSIDE RECORDS SUMMARY | 2022-03-02 08:35 | XMS_ITS | Encounter Summary ---
:1970 Author Organization [facility] Address [address] [place] [address] Care Team Providers Name Role Phone Obi Leggett APRN, C.N.P. Primary Care Provider [phone] Reason for Referral Outpatient (Routine) - Closed Specialty Diagnoses / Procedures Referred By Contact Refer red To Contact Diagnoses Hypertension Essential Primary Obi Leggett, [facility] Region Procedures Echo Transthoracic (TTE) OR ECHO TTE 2D W DPLR COMPLETE ASHLEY, C.N.P. [address] [place] [phone] Referral ID Status Reason Start Date Expiration Date Visits Requ ested Visits Authorized [id number] Closed 08/12/2018 09/26/2018 1 1 Encounter Details Date Type Department Care Team Description 07/21/2018 Clinical Communication Department of Obi Velez Austin R, APRN, C.N.PCourtney [facility], in [place], [facility] [address] [place] [address] [place] [phone] [place] [phone] [phone] Social History Tobacco Use Types Packs/Day Years [...] do you attend gnosticism or Never 2021 confucianist services? 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 - 07/22/2018 2:56 PM CDT INFORMATION DISCUSSED -Spoke to the patient and let him know the echocardiogram will set up an appointment. -Also the information will be send to Dr. Merritt to help monitors the blood pressure and diabetes. PLAN Disposition/Recommendation: patient to schedule appointment Education: patient/caller able to teach back Caller agreeable to plan of care: yes The following references were used: other . Addendum Note - Obi Leggett, SUPERVISOR PYROTECHNIC LOADING, C.N.P. - 07/22/2018 2:49 PM CDT Addended by: OBI LEGGETT on: 07/22/2018 02:49 PM Modules accepted: Orders Telephone Encounter - Obi Leggett APRN, C.N.P. - 07/22/2018 2:48 PM CDT Please let patient know that Puja Perez also recommended I repeat his echocardiogram. This has been ordered and they will set this up. Puja or myself will let him know if we hear anything from [place] in regards to his blood pressure. Message was also sent to Dr. René hurt so he can help monitor things when he follows up for his diabetes. Telephone Encounter - Puja Perez APRN, C.N.P. - 07/21/2018 3:59 PM CDT Obi, Definitely a challenging case. I would try the increasing the chlorthalidone with close monitoring of sodium and renal function. Given previous LV wall thickness on echocardiogram in 2017 I would consider repeating that as well. If he has no significant response to increased dose of chlorthalidone it was previously recommended to switch him from amlodipine to nifedipine. This was a recommendation by Dr. Marie in 2017 when he was seen in Nephrology and Hypertension. Iwould favor referring him back if this switch needs to be made. Dr. Diana, What about secondary cause of aldosteronism? Normal renal artery US, no hypokalemia but on spironolactone. Puja Telephone Encounter - Obi Leggett APRN, C.N.P. 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 State he did see you last for this but did not follow up. He is maxed on Norvasc, losartan and leobardo. He feels nothing is helping. Chlortalidone at 25 mg discussed could increase or trial another med he may be more responsive to. He was wondering if I should discuss with you first or if he should just return to see you again. BP today 155/90. Please let me know if you would want to see him again or have recommendations. Thanks Obi Leggett APRN, C.N.P. documented in this encounter Plan of Treatment Upcoming Encounters Date Type Specialty Care Team Description 04/28/2022 Ancillary Procedure Ophthalmology Softing Joselo Narayanan O.DCourtney [address] [place], [place] [phone] (Wo rk) 04/28/2022 Ancillary Procedure Ophthalmology SoftJoselo Whyte O.Dequan [address] [place], [place] [phone] (Wo rk) 04/28/2022 Office Visit Ophthalmology SoftTita Whyte O.Dequan [address] [place], [place] [phone] (Wo rk) documented as of this encounter Results (TTE) 2D ECHO DOPPLER COLOR (08/12/2018 8:29 AM CDT) [facility] gist Method Time Signature Ejection Fraction 59 MC [...] evel Documents below. See PDF For Result Procedure [...] evel Documents below. See PDF For Result Bonilla Thakur APRNNKentrell. CV ECHO PROCEDURES documented in this encounter Visit Diagnoses Diagnosis Hypertension Essential Primary - Primary Hypertension Essential Primary documented in this encounter Care Teams Flower Pot Press Operator Relationship Specialty Start Date End Date Obi Leggett APRN C.N.P. PCP - General Family Medicine 06/08/18 12/04/21 [address] [place] [phone] documented as of this encounter
--- OUTSIDE RECORDS SUMMARY | 2022-03-02 08:35 | XMS_ITS | Encounter Summary ---
:1970 Author Organization [facility] Address [address] [place] [address] Care Team Providers Name Role Phone Unavailable Primary Care Provider Unavailable Reason for Visit Reason Comments Med Refill Encounter Details Date Type Department Care Team Description 05/30/2018 Refill Department of Endocrinology in Carmelo Vera M.D. Med Refill Minoo Perera a [address] [place] [address] [place] [address] [phone] Social History Tobacco Use Types Packs/Day Years [...] or relatives? How often do you attend yazidism or Never 2021 jewish services? 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 [address] [place] [phone] (Wo rk) 04/28/2022 Ancillary Procedure Ophthalmology Joselo Palmer O.D. [address] [place] [phone] (Wo rk) 04/28/2022 Office Visit Ophthalmology Tita Palmer O.D. [address] [place] [phone] (Wo rk) documented as of this encounter Visit Diagnoses Not on filedocumented in this encounter
--- OUTSIDE RECORDS SUMMARY | 2022-03-02 08:35 | XMS_ITS | Encounter Summary ---
:1970 Author Organization [facility] Address [address] [place] [address] Care Team Providers Name Role Phone Obi Leggett APRN, C.N.P. Primary Care Provider Encounter Details Date Type Department Care Team Description 05/31/2018 Orders Only [facility] Pharmacy - Renu Salguero, [address] , [facility] 1 M.DCourtney [facility] [place] [address] [address] [phone] [place], [place] [address] (Wo rk) Social History Tobacco Use Types [...] or relatives? How often do you attend faith or Never 2021 latter day services? 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 [address] [place], [place] [phone] (Wo rk) 04/28/2022 Ancillary Procedure Ophthalmology Joselo Palmer O.D. [address] [place] [phone] (Wo rk) 04/28/2022 Office Visit Ophthalmology Tita Palmer O.D. [address] [place] [phone] (Wo rk) documented as of this encounter Visit Diagnoses Not on filedocumented in this encounter Care Teams Dominatrix Relationship Specialty Start Date End Date Obi Leggett, ASHLEY, C.N.P. PCP - General Family Medicine 06/08/18 12/04/21 [address] [place] [phone] documented as of this encounter
--- OUTSIDE RECORDS SUMMARY | 2022-03-02 08:35 | XMS_ITS | Encounter Summary ---
:1970 Author Organization [facility] Address [address] [place] [address] Care Team Providers Name Role Phone Unavailable Primary Care Provider Unavailable Reason for Referral Outpatient (Routine) - Closed Specialty Diagnoses / Procedures Referred By Contact Refer red To Contact Reproductive Puja Perez, Endocrinology and ASHLEY, C.N.P. Infertility / [address] [place] [phone] Referral ID Status Reason Start Date Expiration Date Visits Requ ested Visits Authorized [id number] Closed 01/29/2017 07/28/2017 1 1 Encounter Details Date Type Department Care Team Description 01/29/2017 Orders Only Department of Puja Perez Hypothyroid ism; Cardiovascular Diseases ASHLEY Patrick, C.N.P. Diabetes Mellitus Type 1 Without Complic ation (HCC) in [place], [place] [address] [place] [phone] Social History Tobacco Use Types Packs/Day Years [...] do you attend pentecostal or Never 2021 bahai services? 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 [address] [place] [phone] (Odalis rk) 04/28/2022 Office Visit Ophthalmology Tita Palmer L O.Dequan [address] [place] [phone] (Odalis rk) Scheduled Referrals Name Type Priority Associated Order Schedule Diagnoses Endocrinology - Outpatient Referral Routine Expec lucia: General consult 03/01/2017 (clinic) (Approximate), Expires: 03/05/2022 documented as of this encounter Visit Diagnoses Diagnosis Hypothyroidism Diabetes Mellitus Type 1 Without Complic ation (HCC) documented in this encounter
--- OUTSIDE RECORDS SUMMARY | 2022-03-02 08:36 | XMS_ITS | Encounter Summary ---
:1970 Author Organization [facility] Address [address] [place] [address] Care Team Providers Name Role Phone Elsewhere, Pcp Primary Care Provider Unavailable Encounter Details Date Type Department Care Team Description 10/04/2012 Historical Ophthalmology RST OPH Jomar sam, Romeo Garcia M.D. [address] [place], [place] [phone] (Wo rk) Social History Tobacco Use Types Packs/Day Years Used Date Smoking Tobacco: Never Assessed Alcohol Habits Answer Date Recorded How often [...] or relatives? How often do you attend amish or Never 2021 restoration services? 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 - 10/04/2012 2:40 PM CDT Eye General CHIEF COMPLAINT follow up on laser done on left eye and possible laser to be done right eye HISTORY OF PRESENT ILLNESS 06/20/2012 PRP LEFT eye. 42 year old male here for follow up on laser done on left eye and possible laser to be done right eye, will know if needed after exam today. Vision has been stable. Denies flashes of light and floaters. AJB: no issues after prp june IMPRESSION / REPORT / PLAN FA (03/28) right: staining of old NVE, moderate PRP left: multifocal NVE leakage, no NVD, peripheralnonperfusion OCT (03/28) right: normal contour left: normal contour color photos are consistent with exam #1 Proliferative diabetic retinopathy BOTH eyes (DM since age 13) RIGHT: s/p PRP '04, no CSME - VH from inf nasal NVE LEFT: s/p PRP (last 06/29), no CSME - bleeding from several NVEs (many NVEs regressed/fibrotic) -tight glycemic, hypertensive, and cholesterol control d/w pt -last HbA1c 7.4, BP and cholesterol controlled on meds -Risks, benefits, and alternatives to PRP laser LEFT d/w pt, ?s answered, pt elects to proceed PLAN: PRP RIGHT (LEO fill-in, bleeding nasal NVE) - pt can't stay today, arrange for fellow or double bookfor AJB - pt prefers PM, no testing/exam (laser only) PRP LEFT 1 month later PM with fellow or double booked for AJB, no testing/exam (laser only) FU 3 months later w/ spectralis OCT OU and FA transit LEFT DIAGNOSIS #1 Proliferative diabetic retinopathy BOTH eyes (DM since age 13) CDM Reports - EYEGEN Id: [id number] Status: Fnl documented in this encounter Plan of Treatment Upcoming Encounters Date Type Specialty Care Team Description 04/28/2022 Ancillary Procedure Ophthalmology Joselo Palmer O.D. [address] [place], [place] [phone] (Wo rk) 04/28/2022 Ancillary Procedure Ophthalmology Joselo Palmer O.D. [address] [place], [place] [phone] (Wo rk) 04/28/2022 Office Visit Ophthalmology Ttia Palmer O.D. [address] [place], [place] [phone] (Wo rk) documented as of this encounter Visit Diagnoses Not on filedocumented in this encounter Care Teams Heat Reader Relationship Specialty Start Date End Date Elsewhere, Pcp PCP - General Internal Medicine 12/05/21 documented as of this encounter
--- OUTSIDE RECORDS SUMMARY | 2022-03-02 08:36 | XMS_ITS | Encounter Summary ---
:1970 Author Organization [facility] Address [address] [place] [address] Care Team Providers Name Role Phone Elsewhere, Pcp Primary Care Provider Unavailable Encounter Details Date Type Department Care Team Description 06/01/2014 Historical Ophthalmology RST OPH Tanesha Javier M.D. [address] [facility] [address] [place] [address] (Wo rk) Social History Tobacco Use Types [...] do you attend faith or Never 2021 gnosticist services? 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 - 06/01/2014 1:41 PM CST Eye General CHIEF COMPLAINT Follow up on proliferative diabetic retinopathy, both eyes HISTORY OF PRESENT ILLNESS Patient is seeing a new floater in his left eye. It looks like exactly like it looked the last time he was here and had laser in January 2014, PRP left eye. Denies flashes of light, eye pain, or headaches. Blood sugar today was 100 this morning. Patient has had this floater for about two weeks. EAA: New floater in the left eye. Since 3 weeks ago. Dark spot in vision. He has always been able tosee around it. IMPRESSION / REPORT / PLAN FA (03/28) [...] and cholesterol control d/w pt -last HbA1c 7.5, BP and cholesterol controlled on meds #2 New vitreous hemorrhage today PLAN: Will bring back with FA, will discuss with AJB to coordinate DIAGNOSIS #1 Proliferative diabetic retinopathy BOTH eyes (DM since age 13) #2 New vitreous hemorrhage today CDM Reports - EYEGEN Id: [id number] Status: Fnl documented in this encounter Plan of Treatment Upcoming Encounters Date Type Specialty Care Team Description 04/28/2022 Ancillary Procedure Ophthalmology Softing Joselo Narayanan, O.Dequan [address] [place] [phone] (Wo rk) 04/28/2022 Ancillary Procedure Ophthalmology Softing Joselo Narayanan O.D. [address] [place], [place] [phone] (Wo rk) 04/28/2022 Office Visit Ophthalmology Tita Palmer O.D. [address] [place], [place] [phone] (Wo rk) documented as of this encounter Visit Diagnoses Not on filedocumented in this encounter Care Teams Manager Technical Sales Relationship Specialty Start Date End Date Elsewhere, Pcp PCP - General Internal Medicine 12/05/21 documented as of this encounter
--- OUTSIDE RECORDS SUMMARY | 2022-03-02 08:36 | XMS_ITS | Encounter Summary ---
:1970 Author Organization [facility] Address [address] [place] [address] Care Team Providers Name Role Phone Unavailable Primary Care Provider Unavailable Encounter Details Date Type Department Care Team Description 02/20/2014 Hospital Encounter HX [facility] Ayanna Nicolas M.D. Social History Tobacco Use Types Packs/Day Years [...] do you attend synagogue or Never 2021 alevism services? Do you [...] or slept in a prison (including now)? 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 levothyroxine Take 125 mcg by 0 03/06/20082016 (for_SYNTHROID, LEVOTHROID) mouth daily. 25 mcg tablet losartan (for_COZAAR) 100 Take 100 mg by 0 200703/08/2017 mg tablet mouth daily. documented as of this encounter Plan of Treatment Upcoming Encounters Date Type Specialty Care Team Description 04/28/2022 Ancillary Procedure Ophthalmology Softing Joselo Narayanan O.D. [address] [place] [address] [phone] (Wo rk) 04/28/2022 Ancillary Procedure Ophthalmology Softing Joselo Narayanan O.D. [address] [place] [address] [phone] (Wo rk) 04/28/2022 Office Visit Ophthalmology SoftTita Whyte O.D. [address] [place] [address] [phone] (Wo rk) documented as of this encounter Procedures Procedure Name Priority Date/Time Associated Diagnosis Comme nts DX LUMBAR SPINE 2-3 Routine 02/20/2014 3:25 PM Re sults for this VIEWS YARN TEXTURE MACHINE OPERATOR procedure are i n the results section. documented in this encounter Results DX Lumbar Spine 2-3 Views (02/20/2014 3:25 PM YARN TEXTURE MACHINE OPERATOR) Anatomical Region Laterality Modality Lumbar Spine N/A Radiographic Imaging Specimen (Source) Anatomical Collection Method Collection Time Re ceived Time Location / / Volume Laterality 02/20/2014 3:25 PM YARN TEXTURE MACHINE OPERATOR Addenda Addendum by Provider, Anastacio Galan n 02/20/2014 3:25 PM YARN TEXTURE MACHINE OPERATOR RAD^^^AU XR Lumbar Spine 2 or 3 views 02/20/2014 15:25:16 Impressions 02/20/2014 4:52 PM YARN TEXTURE MACHINE OPERATOR For counting purposes, there are 5 lumbar type vertebral bodies with lumbarization of S1. There i s grade II anterolisthesis of L5 on S1 which is stable in flexion and extension. Bilateral L5 spondylolysis. Incidental degenerative d isc disease at T11-T12. Narrative 02/20/2014 4:52 PM YARN TEXTURE MACHINE OPERATOR EXAM: XR Lumbar Spine 2 or 3 views INDICATION: L5-S1 spondylolisthesis COMPARISON: 01/29/2014 Procedure Note Evens Nicolas M.D. / ProviderTisha M.D. - 08/29/2016 EXAM: XR Lumbar Spine 2 or 3 views INDICATION: L5-S1 spondylolisthesis COMPARISON: 01/29/2014 IMPRESSION: For counting purposes, there are 5 lumbar type vertebral bodies with lumbarization of S1. There i s grade II anterolisthesis of L5 on S1 which is stable in flexion and extension. Bilateral L5 spondylolysis. Incidental degenerative d isc disease at T11-T12. Ana Fernandez(Darnell) IMClaudia DIAGNOSTIC IMAGING PROCE CHRISTINA documented in this encounter Visit Diagnoses Not on filedocumented in this encounter
--- OUTSIDE RECORDS SUMMARY | 2022-03-02 08:36 | XMS_ITS | Encounter Summary ---
:1970 Author Organization [facility] Address [address] [place] [address] Care Team Providers Name Role Phone Unavailable Primary Care Provider Unavailable Encounter Details Date Type Department Care Team Description 03/13/2014 Hospital Encounter HX [facility] MRI Ayanna Sosa M .D. Social History Tobacco Use Types Packs/Day Years [...] do you attend confucianist or Never 2021 worship services? 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 [address] [place] [address] [phone] (Odalis rk) 04/28/2022 Ancillary Procedure Ophthalmology Softing Joselo Narayanan O.D. [address] [place] [address] [phone] (Wo rk) 04/28/2022 Office Visit Ophthalmology SoftTita Whyte O.D. [address] [place] [address] [phone] (Wo rk) documented as of this encounter Procedures Procedure Name Priority Date/Time Associated Diagnosis Comme nts MR LUMBAR SPINE Routine 03/13/2014 8:51 AM Result s for this WITHOUT IV CONTRAST COMPUTER SYSTEMS AUDITOR procedur e are in the results section. documented in this encounter Results MR Lumbar Spine without IV Contrast (03/13/2014 8:51 AM COMPUTER SYSTEMS AUDITOR) Anatomical Region Laterality Modality Lumbar Spine N/A Magnetic Resonance Specimen (Source) Anatomical Collection Method Collection Time Re ceived Time Location / / Volume Laterality 03/13/2014 8:51 AM COMPUTER SYSTEMS AUDITOR Addenda Addendum by Provider, Anastacio Galan o n 03/13/2014 8:51 AM COMPUTER SYSTEMS AUDITOR RAD^^^AU MR Lumbar Spine w/o contrast 03/13/2014 08:51:51 Impressions 03/13/2014 10:04 AM COMPUTER SYSTEMS AUDITOR Grade 2 anterolisthesis of L5 on S1 with advanced bilateral neural foraminal narrowing and mild-moderate spinal canal narrowing. FINDINGS: There are 5 lumbar type vertebral bodies with lumbarization of S1. Grade 2 anterolisthesis of L5 on S1, unc hanged from 02/20/2014. L1-L2, L2-L3, L3-L4 and L4-L5: No signif icant degenerative change. Mild ligamentum flavum hypertrophy. No s tony canal or neural foraminal narrowing. L5-S1: Grade 2 anterolisthesis of L5 on S1 with bilateral L5 pars defects. This results in unroofing of th e intervertebral disc posteriorly, and mild-moderate spinal ca nal narrowing. Advanced bilateral neural foraminal narrowing. Narrative 03/13/2014 10:04 AM COMPUTER SYSTEMS AUDITOR EXAM: MR Lumbar Spine w/o contrast INDICATION: leg pain COMPARISON: Lumbar spine radiographs 02/20/2014 Procedure Note Shey Porter M.D. / ProviderJose C M.D. - 08/29/2016 EXAM: MR Lumbar Spine w/o contrast INDICATION: leg pain COMPARISON: Lumbar spine radiographs 02/20/2014 IMPRESSION: Grade 2 anterolisthesis of L 5 on S1 with advanced bilateral neural foraminal narrowing and mild-moderate spinal canal narrowing. FINDINGS: There are 5 lumbar type vertebral bodies with lumbarization of S1. Grade 2 anterolisthesis of L5 on S1, unc hanged from 02/20/2014. L1-L2, L2-L3, L3-L4 and L4-L5: No signif icant degenerative change. Mild ligamentum flavum hypertrophy. No s tony canal or neural foraminal narrowing. L5-S1: Grade 2 anterolisthesis of L5 on S1 with bilateral L5 pars defects. This results in unroofing of th e intervertebral disc posteriorly, and mild-moderate spinal ca nal narrowing. Advanced bilateral neural foraminal narrowing. Linh RodgersTCourtney(R)(CT), R.T.(R) IMG MRI PROCEDURES documented in this encounter Visit Diagnoses Not on filedocumented in this encounter
--- OUTSIDE RECORDS SUMMARY | 2022-03-02 08:36 | XMS_ITS | Encounter Summary ---
:1970 Author Organization [facility] Address [address] [place] [address] Care Team Providers Name Role Phone Unavailable Primary Care Provider Unavailable Encounter Details Date Type Department Care Team Description 02/06/2015 Hospital Encounter HX NO MAPPING Social History Tobacco Use Types Packs/Day Years [...] do you attend mosque or Never 2021 hindu services? 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/2017 6:[address] documented as of this encounter Last Filed Vital Signs Vital Sign Reading Time Taken Comments Blood Pressure 156/93 02/06/2015 4:38 PM CDT Pulse 55 02/06/2015 4:38 PM CDT Temperature - - Respiratory Rate 16 02/06/2015 4:38 PM CDT Oxygen Saturation - - Inhaled Oxygen Concentration - - Weight 88.3 kg (194 lb 10.7 oz) 02/06/2015 11:08 AM CDT Height 173.5 cm (5' 8.31) 02/06/2015 11:08 AM CDT Body Mass Index 29.33 02/06/2015 11:08 AM CDT documented in this encounter Medications at Time [...] Ophthalmology Softing Joselo Narayanan O.D. [address] [place], [place] [phone] (Odalis walton) 04/28/2022 Ancillary Procedure Ophthalmology Joselo Palmer O.D. [address] [place], [place] [phone] (Odalis walton) 04/28/2022 Office Visit Ophthalmology Tita Palmer O.D. [address] [place], [place] [phone] (Odalis walton) documented as of this encounter Visit Diagnoses Not on filedocumented in this encounter
--- OUTSIDE RECORDS SUMMARY | 2022-03-02 08:36 | XMS_ITS | Encounter Summary ---
:1970 Author Organization [facility] Address [address] [place] [address] Care Team Providers Name Role Phone Elsewhere, Pcp Primary Care Provider Unavailable Encounter Details Date Type Department Care Team Description 06/20/2012 Historical Ophthalmology RST OPH Jomar sam, Romeo Garcia M.D. [address] [place], [place] [phone] (Wo rk) Social History [...] you attend latter day or Never 2021 yarsani services? 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 - 06/20/2012 9:06 AM CST Eye General CHIEF COMPLAINT EDIC visit, no forms with HISTORY OF PRESENT ILLNESS Decreased near vision, both eyes, more dependent on glasses for near, constant. Type 1 diabetic, diagnosed at age 13, most recent HgA1c done here was August 2010, was 7.3 at that time. PLAN: now wears readers, tolerated laser well and has had no vision issues since then IMPRESSION / REPORT / PLAN FA (03/28) right: staining of old NVE, moderate PRP left: multifocal NVE leakage, no NVD, peripheralnonperfusion OCT (03/28) right: normal contour left: normal contour color photos are consistent with exam #1 Proliferative diabetic retinopathy BOTH eyes (DM since age 13) RIGHT: s/p PRP '04, no CSME - VH from inf nasal NVE LEFT: s/p PRP '10, no CSME - bleeding from several NVEs (many NVEs regressed/fibrotic) -tight glycemic, hypertensive, and cholesterol control d/w pt -last HbA1c 7.4, BP and cholesterol controlled on meds -Risks, benefits, and alternatives to PRP laser LEFT d/w pt, ?s answered, pt elects to proceed PLAN: PRP LEFT eye today w/ Dr. Sugey SOTO 3-4 months, double book for possible PRP RIGHT eye DIAGNOSIS #1 Proliferative diabetic retinopathy BOTH eyes (DM since age 13) CDM Reports - EYEGEN Id: [id number] Status: Fnl documented in this encounter Plan of Treatment Upcoming Encounters Date Type Specialty Care Team Description 04/28/2022 Ancillary Procedure Ophthalmology Joselo Palmer O.D. [address] [place], [place] [phone] (Wo rk) 04/28/2022 Ancillary Procedure Ophthalmology Joselo Palmer O.D. [address] [place], [place] [phone] (Wo rk) 04/28/2022 Office Visit Ophthalmology Tita Palmer O.D. [address] [place], [place] [phone] (Wo rk) documented as of this encounter Visit Diagnoses Not on filedocumented in this encounter Care Teams Stiff Straw Hat Washer Relationship Specialty Start Date End Date Elsewhere, Pcp PCP - General Internal Medicine 12/05/21 documented as of this encounter
--- OUTSIDE RECORDS SUMMARY | 2022-03-02 08:36 | XMS_ITS | Encounter Summary ---
:1970 Author Organization [facility] Address [address] [place] [address] Care Team Providers Name Role Phone Unavailable Primary Care Provider Unavailable Encounter Details Date Type Department Care Team Description 12/25/2016 Hospital Encounter HX [facility] Puja Perez, COREMAKER HELPER, C.N.P. [address] [phone] (Wo rk) Social History Tobacco Use [...] or relatives? How often do you attend islam or Never 2021 mormonism services? 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 - 12/26/2016 6:55 PM CDT From: PUJA PEREZ CNP To: LEX HERNANDEZ Sent: 12/26/2016 18:55:22 CDT Your creatinine was a little better with less hydrochlorothiazide (HCTZ). The BUN is elevated because both spironolactone and hydrochlorothiazide are diuretics causing some dehydration. Stop the HCTZ and reduce the spironolactone to 1/2 tablet, I plan to stop the spironolactone all together in the future. Start chlorthalidone 25 mg daily when you can get in to pick it. This is a longer acting diuretic. I would like to see you back in 10 days with lab the same day. Your echo looked good except your left ventricle is just a little thicker than it should be due to the high blood pressure. Results: Date Result Name Ind Value Ref Range 12/25/2016 15:29 Sodium Lvl 138 mmol/L (135 - 145) 12/25/2016 15:29 Potassium Lvl 4.1 mmol/L (3.6 - 5.2) 12/25/2016 15:29 Chloride 98 mmol/L (98 - 107) 12/25/2016 15:29 CO2 28 mmol/L (22 - 29) 12/25/2016 15:29 AGAP 12 mmol/L (7 - 15) 12/25/2016 15:29 Glucose Lvl (H) 244 mg/dL (70 - 139) 12/25/2016 15:29 Creatinine (H) 1.47 mg/dL (0.67 - 1.17) 12/25/2016 15:29 EGFR (MDRD) (L) 52 mL/min/1.73m2 (>=60 - ) 12/25/2016 15:29 EGFR (MDRD) >60 mL/min/1.73m2 (>=60 - ) 12/25/2016 15:29 BUN (H) 29 mg/dL (6 - 24) 12/25/2016 15:29 Calcium Lvl 9.3 mg/dL (8.6 - 10.3) 12/25/2016 14:49 Ejection Fraction (Echo) 66 Source: [facility] POWERCHART Document Id: [id number] documented in this encounter Plan of Treatment Upcoming Encounters Date Type Specialty Care Team Description 04/28/2022 Ancillary Procedure Ophthalmology Softing Hataye, Alai jayne L, O.D. [address] [place], [place] [phone] (Wo rk) 04/28/2022 Ancillary Procedure Ophthalmology SoftJoselo Whyte jayne L, O.D. [address] [place], [place] [phone] (Wo rk) 04/28/2022 Office Visit Ophthalmology SoftTita Whyte L, O.D. [address] [place], [place] [phone] (Wo rk) documented as of this encounter Procedures Procedure Name Priority Date/Time Associated Diagnosis Comme nts BASIC METABOLIC Routine 12/25/2016 3:29 PM Result s for this PANEL, S/P CDT procedure are i n the results section. documented in this encounter Results (ABNORMAL) BMP (Basic Metabolic Panel) (12/25/2016 3:29 PM CDT) P athologist Signature Sodium, S 138 135 - 145 POWERCHART MMOLL Comment: Reference values have not been established for patients that are less than 12 months of age. Potassium, S 4.1 3.6 - 5.2 MMOLL POWERCHART Comment: Reference values have not been established for patients that are less than 12 months of age. Chloride, S 98 98 - 107 MMOLL POWERCHART Comment: Reference values have not been established for patients that are less than 12 months of age. CO2 Total 28 22 - 29 MMOLL POWERCHART Comment: Reference values have not been established for patients that are less than 12 months of age. BUN (Blood Urea Nitrogen), S 29 (H) 6 - 24 MGDL POWERCHART Creatinine 1.47 (H) 0.67 - 1.17 MGDL POWERCHART Comment: Reference values have not been establish ed for patients that are <12 months of age. ESTIMATED GFR >60 mL/min/BSA Note: eGFR results will not be calculate d for patients <18 Calcium, Total, S 9.3 8.6 - 10.3 MGDL POWERC DOUGLAS Anion Gap 12 7 - 15 MMOLL POWERCHART Comment: Less than 2 years- No establish ed reference range. HXeGFR (MDRD) 52 (L) >=60 [id number] POWERCHART eGFR Black/ >60 >=60 [id number] POWERCHART Glucose 244 (H) 70 - 139 MGDL POWERCHART Comment: ADA [...] Time Location / / Volume Laterality Blood 12/25/2016 3:29 PM CDT Puja Perez APRN, C.N.P. LAB BLOOD ADD-ON Performing Organization Address City/State/ZIP Code Phon e Number POWERCHART POWERCHART NA documented in this encounter Visit Diagnoses Not on filedocumented in this encounter
--- OUTSIDE RECORDS SUMMARY | 2022-03-02 08:36 | XMS_ITS | Encounter Summary ---
:1970 Author Organization [facility] Address [address] [place] [address] Care Team Providers Name Role Phone Elsewhere, Pcp Primary Care Provider Unavailable Encounter Details Date Type Department Care Team Description 01/16/2014 Historical Ophthalmology RST OPH Bebo Paul O.D., Ph.D. Social History Tobacco Use Types Packs/Day Years [...] do you attend worship or Never 2021 restorationist services? 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 - 01/16/2014 2:42 PM CDT Eye General CHIEF COMPLAINT woke up with floater Wednesday HISTORY OF PRESENT ILLNESS SDM: Patient woke up with floater in his left eye Wednesday morning (horizontal line in his left eye). This occasionally disappears with blinking. No flashes of light. No recent eye or head trauma. No eyepain. He has had diabetes since age 13 and has had PRP right eye in 2003 and 2009, more recent PRP in left eye in June,. His fingerstick glucose checks usually averages 80-150. Only wears readersfor near vision. No distance correction or glasses. WLB - hx as above. He doesn't see the floater at this moment. IMPRESSION / REPORT / PLAN #1 Proliferative diabetic retinopathy BOTH eyes (DM since age 13) New vitreous hemorrhaging LT eye - consulted with Dr. Musa Shields, retina, who examined patient today. RIGHT: s/p PRP '04, no CSME LEFT: s/p PRP (last 06/29), no CSME noted PLAN: RTC on January 19, 2014, a.m. to Dr. Shields for more PRP LT eye per Dr. Shields. DIAGNOSIS #1 Proliferative diabetic retinopathy BOTH eyes (DM since age 13) CDM Reports - EYEGEN Id: [id number] Status: Fnl documented in this encounter Plan of Treatment Upcoming Encounters Date Type Specialty Care Team Description 04/28/2022 Ancillary Procedure Ophthalmology Softing Joselo Narayanan O.D. [address] [place], [place] [phone] (Odalis walton) 04/28/2022 Ancillary Procedure Ophthalmology Softing Joselo Narayanan O.D. [address] [place], [place] [phone] (Odalis walton) 04/28/2022 Office Visit Ophthalmology Softing Tita Narayanan O.D. [address] [place], [place] [phone] (Wo rk) documented as of this encounter Visit Diagnoses Not on filedocumented in this encounter Care Teams Grants Specialist Relationship Specialty Start Date End Date Elsewhere, Pcp PCP - General Internal Medicine 12/05/21 documented as of this encounter
--- OUTSIDE RECORDS SUMMARY | 2022-03-02 08:36 | XMS_ITS | Encounter Summary ---
:1970 Author Organization [facility] Address [address] [place] [address] Care Team Providers Name Role Phone Unavailable Primary Care Provider Unavailable Encounter Details Date Type Department Care Team Description 03/16/2014 Hospital Encounter [facility]X [facility] Ayanna Dsouza M.D. Social History Tobacco Use Types Packs/Day [...] do you attend zoroastrianism or Never 2021 denominational services? 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 - 03/16/2014 8:43 AM CST [id number] CHIEF COMPLAINT/REASON FOR VISIT Followup left leg pain, MRI results. HISTORY OF PRESENT ILLNESS Mr. 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. Mr. Hernandez started Mobic, which he is taking 7.5 mg once daily and Neurontin 300 mg daily. He has not noticed any improvement in his left leg pain. He has not tried increasing the Neurontin. Left leg pain is a nuisance and at its best is 1 out of 10, at its worst a 4 out of 10 and today a 2 out 10; 95 to 100% of his pain is left leg pain compared to very minimal trace percentage into the lumbar back. Leg pain travels from the buttock into the lateral hip, posterior thigh, lateral leg, and lateral ankle and also in the posterior calf with associated burning, numbness and tingling. Posterior calf today is primarily the worst of all of the leg pain. No constant numbness. No weakness. No bowel or bladder incontinence or troubles. No unintentional weight loss, fever, or chills. No epidural injections. MINH today is 4% compared to 4% on 02/20/2014. PHYSICAL EXAMINATION GENERAL: No distress. Pleasant. Here alone. Fit. GAIT/GROSS MOTOR: Nonantalgic gait. MUSCULOSKELETAL/NEUROLOGIC: Motor strength testing demonstrates no focal neurologic deficit with full strength 5/5 throughout. Sensation is grossly intact to light touch throughout as well. DIAGNOSTICS MRI of the lumbar spine from 03/13/2014 was reviewed and demonstrates multilevel lumbar spondylosis that is very mild, however had there is a grade 2 spondylolisthesis of L5 on S1 with severe bilateralforaminal stenosis that appears worse on the left on sagittal imaging with broad-based disk bulge, facet hypertrophy, lateral recess stenosis, and most significantly because of the spondylolisthesis with abutment and compression of bilateral L5 nerve, there is bilateral pars defect. IMPRESSION/REPORT/PLAN 1. Left leg radiculopathy likely L5. 2. Grade 2 L5-S1 spondylolisthesis with severe bilateral foraminal stenosis and compression of the L5 nerve root. . 3. Degenerative lumbar disc disease at L5-S1. 4. Type 1 diabetes mellitus diagnosed at 13 years of age, insulin dependent. 5. Diabetic retinopathy. 6. Hypertension. 7. Hypothyroid. 8. Hyperlipidemia. The patient was seen and evaluated in clinic. He has a grade 1 or grade 2 spondylolisthesis of L5-S1 recognizing S1 as a sacralized lumbar segment. This likely corresponds with the left leg pain which seems to be in the L5 distribution. He really has no significant back pain. We discussed interestingly his son has been diagnosed with a L5-S1 spondylolisthesis as well. The patient was seen and evaluated in clinic. He really has not noticed any improvement with 7.5 mg of Mobic or 300 mg of Neurontin daily. We discussed the comprehensive nonoperative treatment program to include increasing the Neurontin based on an escalating dose for which I have provided him with a [place] handout. I also discussed that regular Tylenol use and continuing with the Mobic and even takingup to one tablet 2 times a day as tolerated. He would like to have a referral to [facility] for an epidural steroid injection for which I will refer him for left L5-S1 transforaminal epidural steroid injection. Unfortunately our [facility] would not be able to see him for approximately 2 months. In the absence of any severe progressive pain or neurologic deficit, we will continue with nonoperative treatment for now. I have discussed possible surgical options if he does not have any improvementor sustained improvement with nonoperative treatment which would likely require decompression and instrumented fusion at L5-S1. I will plan to see Mr. Hernandez back in approximately 6 to 8 weeks for followup without imaging at that time. He was appreciative of the visit. All questions were answered. ADMINISTRATIVE Approximally 20 minutes was spent with the patient, and over 50% in counseling and coordination of care. Ayanna Vuong M.D./eyal Electronically Signed By: AYANNA VUONG MD On: 03/27/2014 09:35 PM Source: [facility] MHSDOLBEYNONRADSYS Document Id: [id number] UDER OPERATOR MULTIPLE documented in this encounter Miscellaneous Notes Miscellaneous - Ayanna Vuong M.D. - 03/16/2014 10:01 AM CST Ambulatory Patient Summary [address] [id number] Visit Information Name: LEX HERNANDEZ [facility] Number: [id number] Current Date: 03/16/2014 10:01:54 Physicians Attending Provider: AYANNA VUONG MD Primary Care Provider: PCP, UNASSIGNED - ALESSANDRA LEX HERNANDEZ has been given the following list of follow-up instructions, medication list, and patient education materials: Follow-up Instructions Your Medications Here is a list of your medications. It is important to take your medications as directed. Use a pillbox or chart to help remind you to take your medications. Please let your doctor or nurse know if you have problems taking your medications. Medication/Strength How to Take Indications/Special Instructions/Comments/Notes for Patient Medication Changes/Routing amLODIPine (Norvasc 10 mg oral tablet) 1 Tablet(s), Oral, once a day atorvastatin (Atorvastatin) 20 mg, Oral, once a day gabapentin (Neurontin 300 mg oral capsule) See Instructions Start taking one capsule one time daily and slowly increase as instructed to 2 capsules three times daily hydrochlorothiazide (Hydrochlorothiazide) 12.5 mg, Oral, once a day Strength: 25 MG insulin aspart (Insulin Aspart) 0 units, Subcutaneous, as directed Strength: 100 UNITS/ML insulin glargine (Insulin Glargine) 0 units, Subcutaneous Strength: 100 UNITS/ML levothyroxine (Levothyroxine) 125 mcg, Oral, once a day losartan (Losartan) 100 mg, Oral, once a day meloxicam (Mobic 7.5 mg oral tablet) See Instructions Take one tablet 1 -2 times daily Stop Taking the Following Medications: Medication list as of 03-16-14 10:01 Attention: If you have any medications at home that are not on this list, DO NOT take them until youcontact your provider for clarification. Give a copy of your medication list to your primary care provider. Update your medication list any time medications or doses are changed and carry your medication list at all times in case of emergency. Electronically Signed By: AYANNA VUONG MD Signed On:16-MAR-2014 10:01:45 Your Allergies & Intolerances Substance Reaction Symptoms Category Comments penicillins Drug Your Problem List Problem Status Onset Comments HYPERTENSION NOS Active HYPOTHYROIDISM NOS Active Corneal Foreign Body Active Your Upcoming Appointments Date Time Location Provider 05/02/2014 15:15 Aynana Dsouza MD Attention: Contact your local Clinic if further appointment detail needed. Your Goals/Additional instructions: Source: [facility] POWERCHART Document Id: [id number] UDER OPERATOR MULTIPLE Miscellaneous - Ayanna Vuong M.D. - 03/16/2014 10:01 AM CST Ambulatory Discharge Medication List [address] [id number] Visit Information Name: LEX HERNANDEZ [facility] Number: [id number] Visit Date: 03/16/2014 10:01:52 Attending Provider: AYANNA VUONG MD Primary Care Provider: PCP, UNASSIGNED - LEX EDWARDS has been given the following list of medications: Your Medications It is important to take your medications as directed. Use a pill box or chart to help remind you to take your medications. Please let your doctor or nurse know if you have problems taking your medications. Medication/Strength How to Take Indications/Special Instructions/Comments/Notes for Patient Medication Changes/Routing amLODIPine (Norvasc 10 mg oral tablet) 1 Tablet(s), Oral, once a day atorvastatin (Atorvastatin) 20 mg, Oral, once a day gabapentin (Neurontin 300 mg oral capsule) See Instructions Start taking one capsule one time daily and slowly increase as instructed to 2 capsules three times daily hydrochlorothiazide (Hydrochlorothiazide) 12.5 mg, Oral, once a day Strength: 25 MG insulin aspart (Insulin Aspart) 0 units, Subcutaneous, as directed Strength: 100 UNITS/ML insulin glargine (Insulin Glargine) 0 units, Subcutaneous Strength: 100 UNITS/ML levothyroxine (Levothyroxine) 125 mcg, Oral, once a day losartan (Losartan) 100 mg, Oral, once a day meloxicam (Mobic 7.5 mg oral tablet) See Instructions Take one tablet 1 -2 times daily Stop Taking the Following Medications: Medication list as of 03-16-14 10:01 Attention: If you have any medications at home that are not on this list, DO NOT take them until youcontact your provider for clarification. Give a copy of your medication list to your primary care provider. Update your medication list any time medications or doses are changed and carry your medication list at all times in case of emergency. Electronically Signed By: AYANNA VUONG MD Signed On:16-MAR-2014 10:01:45 Additional Information: Source: [facility] POWERCHART Document Id: [id number] UDER OPERATOR MULTIPLE Miscellaneous - Pedro Andrade RCourtneyNCourtney - 03/16/2014 8:48 AM CST Adult Item Repair Manager Intake/History Adult Item Repair Manager Intake/History Entered On: 03/16/2014 8:52 EXTRUDER OPERATOR MULTIPLE Performed On: 03/16/2014 8:48 EXTRUDER OPERATOR MULTIPLE by PEDRO ANDRADE federal java developer Chief Complaint : Room 9 here for MRI results best 04/28 worst 07/27 today 210 Pos DM taking mobic and gabapentin for pain Height : 178 cm(Converted to: 5 ft 10 inch(es), 70 inch(es)) PEDRO ANDRADE RN - 03/16/2014 8:48 EXTRUDER OPERATOR MULTIPLE General Info Information Given By : Patient Preferred Communication Mode : Verbal Languages : Citizen Of [place] Is Patient Female and 13-50 no hysterectomy : No PEDRO ANDRADE RN - 03/16/2014 8:48 EXTRUDER OPERATOR MULTIPLE Subjective Pain Symptoms : Yes PEDRO ANDRADE RN - 03/16/2014 8:48 EXTRUDER OPERATOR MULTIPLE Pain Pain Assessment Grid Pain 1 Location : Upper leg (Comment: into calf [PEDRO ANDRADE RN - 03/16/2014 8:48 EXTRUDER OPERATOR MULTIPLE] ) Laterality : Left Intensity : 2 Duration : started in Dec 2013 PEDRO ANDRADE RN - 03/16/2014 8:48 EXTRUDER OPERATOR MULTIPLE Dependent Habits Tobacco Use/Currently Using : Yes Smoking Status : Never smoker PEDRO ANDRADE RN - 03/16/2014 8:48 EXTRUDER OPERATOR MULTIPLE Tobacco Use Grid Type : Chewing tobacco Other Tobacco Frequency : .25 can/day PEDRO ANDRADE RN - 03/16/2014 8:48 EXTRUDER OPERATOR MULTIPLE Alcohol Use : Yes PEDRO ANDRADE RN - 03/16/2014 8:48 EXTRUDER OPERATOR MULTIPLE Caffeine Use Grid Caffeine Use : Current Frequency : Occasionally PEDRO ANDRADE RN - 03/16/2014 8:48 EXTRUDER OPERATOR MULTIPLE ID Screen Travel Within Last 21 Days : No PEDRO ANDRADE RN - 03/16/2014 8:48 EXTRUDER OPERATOR MULTIPLE Source: [facility] POWERCHART Document Id: [id number] EXTRUDER OPERATOR MULTIPLE!32 UDER OPERATOR MULTIPLE documented in this encounter Plan of Treatment Upcoming Encounters Date Type Specialty Care Team Description 04/28/2022 Ancillary Procedure Ophthalmology [facility] Joselo Narayanan O.D. [address] [place] [phone] (Wo rk) 04/28/2022 Ancillary Procedure Ophthalmology [facility] Joselo Narayanan O.D. [address] [place] [phone] (Wo rk) 04/28/2022 Office Visit Ophthalmology Tita Palmer O.D. [address] [place], [place] [phone] (Wo rk) documented as of this encounter Visit Diagnoses Not on filedocumented in this encounter
--- OUTSIDE RECORDS SUMMARY | 2022-03-02 08:36 | XMS_ITS | Encounter Summary ---
:1970 Author Organization [facility] Address [address] [place] [address] Care Team Providers Name Role Phone Unavailable Primary Care Provider Unavailable Encounter Details Date Type Department Care Team Description 01/29/2014 Hospital Encounter HX [facility] Meme Bird, JOSE RN, C.N.P., R.N. Social History Tobacco Use Types Packs/Day Years [...] or relatives? How often do you attend sikh or Never 2021 uatsdin services? 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 levothyroxine Take 125 mcg by 0 03/06/20082016 (for_SYNTHROID, LEVOTHROID) mouth daily. 25 mcg tablet losartan (for_COZAAR) 100 Take 100 mg by 0 200703/08/2017 mg tablet mouth daily. documented as of this encounter Miscellaneous Notes Miscellaneous - Meme Bird C.N.P., R.N. - 01/30/2014 12:52 PM CDT Results Notification Document Contains Addenda Addendum by BETHANY WILSON [facility] on 30 January 2014 16:37:06 CDT noted From: MEME BIRD PIPE FITTER HELPER To: ALESSANDRA Occupational Med/Laurel/Tamar/Pelon Nurse; Sent: 01/30/2014 12:52:55 CDT Show up: 01/30/2014 12:53:00 CDT Subject: Results Notification Discussed Xray with pt at appt. Referral make to Dr. Sosa in orthopedics. Pt in agreement. Results: Date Result Type Result Name 01/29/2014 17:25 Radiology XR Lumbar Spine 2 or 3 views Source: [facility] POWERCHART Document Id: [id number] Miscellaneous - Meme Bird C.N.P., R.N. - 01/30/2014 12:51 PM CDT Results Notification Document Contains Addenda Addendum by BETHANY WILSON [facility] on 30 January 2014 16:37:20 CDT noted From: MEME BIRD PIPE FITTER HELPER To: ALESSANDRA Occupational Med/Laurel/Tamar/Pelon Nurse; Sent: 01/30/2014 12:51:59 CDT Show up: 01/30/2014 12:52:00 CDT Subject: Results [facility] Dr. Sosa. Results: Date Result Type Result Name 01/29/2014 17:19 Radiology XR Pelvis Hip Left 1 view Source: [facility] POWERCHART Document Id: [id number] documented in this encounter Plan of Treatment Upcoming Encounters Date Type Specialty Care Team Description 04/28/2022 Ancillary Procedure Ophthalmology [facility] Joselo Narayanan L, O.D. [address] [place] [phone] (Wo rk) 04/28/2022 Ancillary Procedure Ophthalmology [facility] Joselo Narayanan L, O.D. [address] [place] [phone] (Wo rk) 04/28/2022 Office Visit Ophthalmology [facility] Tita Narayanan L, O.D. [address] [place] [phone] (Wo rk) documented as of this encounter Procedures Procedure Name Priority Date/Time Associated Diagnosis Comme nts DX HIP AND PELVIS Routine 01/29/2014 5:06 PM Resu lts for this LEFT 1 VIEW CDT procedure are i n the results section. DX LUMBAR SPINE 2-3 Routine 01/29/2014 5:06 PM Re sults for this VIEWS CDT procedure are i n the results section. documented in this encounter Results DX Hips And Pelvis Left 1 View (01/29/2014 5:06 PM CDT) Anatomical Region Laterality Modality Lower Extremity, Pelvis, Hip Left Radiographi c Imaging Specimen (Source) Anatomical Collection Method Collection Time Re ceived Time Location / / Volume Laterality 01/29/2014 5:06 PM CDT Addenda Addendum by Provider, Anastacio Galan 01/29/2014 5:06 PM CDT RAD^^^AU XR Pelvis Hip Left 1 view 01/29/2014 17:06:17 Impressions 01/29/2014 5:16 PM CDT ??XR Pelvis Hip Left 1 view: No definitive plain film evidence of an acute fracture, dislocati on, or osseous blastic or lytic lesions. The bilateral hip joints are preserved. No plain film evidence of avascular necrosis. The bila teral SI joints and symphysis pubis are normal. Visualization of the lumbar spine, which is better appreciated on today's study lumbar spine series. Narrative 01/29/2014 5:16 PM CDT EXAM: XR Pelvis Hip Left 1 view INDICATION: left hip pain COMPARISON: None. Procedure Note Afshin Green D.O. / ProviderRobb M.D. - 08/29/2016 EXAM: XR Pelvis Hip Left 1 view INDICATION: left hip pain COMPARISON: None. IMPRESSION: XR Pelvis Hip Left 1 view: N o definitive plain film evidence of an acute fracture, dislocati on, or osseous blastic or lytic lesions. The bilateral hip joints are preserved. No plain film evidence of avascular necrosis. The bila teral SI joints and symphysis pubis are normal. Visualization of the lumbar spine, which is better appreciated on today's study lumbar spine series. Missy Landry R.TCourtney(R)(CT), R.T.(R) IMG DIAGNOSTIC IMAGING PROCEDURES DX Lumbar Spine 2-3 Views (01/29/2014 5:06 PM CDT) Anatomical Region Laterality Modality Lumbar Spine N/A Radiographic Imaging Specimen (Source) Anatomical Collection Method Collection Time Re ceived Time Location / / Volume Laterality 01/29/2014 5:06 PM CDT Addenda Addendum by Provider, Angelia, Anastacio o n 01/29/2014 5:06 PM CDT RAD^^^AU XR Lumbar Spine 2 or 3 views 01/29/2014 17:06:17 Impressions 01/29/2014 5:22 PM CDT ??XR Lumbar Spine 2 or 3 views: There is approximately 11 mm of anterolisthesis of L5 upon S1, sub tle lucency in the posterior elements of L5 suggests possible spondyl olisthesis. Alignment is otherwise within normal limits. No compr ession fractures. Small osteophytes. No osseous blastic or lytic lesions. Moderate to advanced decreased disc heig ht at L5-S1; the remaining visualized vertebral disc heights are pr eserved. Scattered colonic stool, nonobstructive bowel gas pattern. The following findings are so common in normal, pain-free volunteers that while we report their presence, they must be interpreted with caution and in the context of the clinical situation. ??Among peop le between the age of 40 and 60 years wh o do not have back pain, a plain film, x-ray will find that about: 8 in 10 have disk degeneration 6 in 10 have disk height loss Narrative 01/29/2014 5:22 PM CDT EXAM: XR Lumbar Spine 2 or 3 views INDICATION: low back pain COMPARISON: None. Procedure Note Afshin Green D.O. / Provider, Robb jackson M.D. - 08/29/2016 EXAM: XR Lumbar Spine 2 or 3 views INDICATION: low back pain COMPARISON: None. IMPRESSION: XR Lumbar Spine 2 or 3 views : There is approximately 11 mm of anterolisthesis of L5 upon S1, sub tle lucency in the posterior elements of L5 suggests possible spondyl olisthesis. Alignment is otherwise within normal limits. No compr ession fractures. Small osteophytes. No osseous blastic or lytic lesions. Moderate to advanced decreased disc heig ht at L5-S1; the remaining visualized vertebral disc heights are pr eserved. Scattered colonic stool, nonobstructive bowel gas pattern. The following findings are so common in normal, pain-free volunteers that while we report their presence, they must be interpreted with caution and in the context of the clinical situation. Among people between the age of 40 and 60 years who do not have back ehsan n, a plain film, x-ray will find that about: 8 in 10 have disk degeneration 6 in 10 have disk height loss Missy Fernandez(R)(CT), R.T.(R) IMG DIAGNOSTIC IMAGING PROCEDURES documented in this encounter Visit Diagnoses Not on filedocumented in this encounter
--- OUTSIDE RECORDS SUMMARY | 2022-03-02 08:36 | XMS_ITS | Encounter Summary ---
:1970 Author Organization [facility] Address [address] [place] [address] Care Team Providers Name Role Phone Elsewhere, Pcp Primary Care Provider Unavailable Encounter Details Date Type Department Care Team Description 04/16/2015 Historical Ophthalmology [facility] Jomar sam, Romeo Garcia M.D. [address] [place], [place] [phone] (Wo rk) Social History [...] do you attend presybeterian or Never 2021 anabaptism services? 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 - 04/16/2015 3:49 PM CST Eye Postoperative MULTI-VISIT DOCUMENT This document contains multiple patient visits and is available for review in Document Viewer. CDM Reports - EYEPO Id: [id number] Status: Fnl documented in this encounter Plan of Treatment Upcoming Encounters Date Type Specialty Care Team Description 04/28/2022 Ancillary Procedure Ophthalmology [facility] Joselo Narayanan O.Dequan [address] [place], [place] [phone] (Wo rk) 04/28/2022 Ancillary Procedure Ophthalmology SoftJoselo Whyte O.Dequan [address] [place], [place] [phone] (Wo rk) 04/28/2022 Office Visit Ophthalmology Tita Palmer O.Dequan [address] [place], [place] [phone] (Wo rk) documented as of this encounter Visit Diagnoses Not on filedocumented in this encounter Care Teams Law Reporter Relationship Specialty Start Date End Date Elsewhere, Pcp PCP - General Internal Medicine 12/05/21 documented as of this encounter
--- OUTSIDE RECORDS SUMMARY | 2022-03-02 08:36 | XMS_ITS | Encounter Summary ---
:1970 Author Organization [facility] Address [address] [place] [address] Care Team Providers Name Role Phone Unavailable Primary Care Provider Unavailable Encounter Details Date Type Department Care Team Description 07/26/2015 - 08/02/2015 Hospital Encounter HX NO MAPPING Social History [...] do you attend zoroastrian or Never 2021 synagogue services? 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 [address] [place], [place] [phone] ([place]) 04/28/2022 Ancillary Procedure Ophthalmology Joselo Palmer O.D. [address] [place], [place] [phone] ([place]) 04/28/2022 Office Visit Ophthalmology Tita Palmer O.D. [address] [place], [place] [phone] ([place]) documented as of this encounter Visit Diagnoses Not on filedocumented in this encounter
--- OUTSIDE RECORDS SUMMARY | 2022-03-02 08:36 | XMS_ITS | Encounter Summary ---
:1970 Author Organization [facility] Address [address] [place] [address] Care Team Providers Name Role Phone Unavailable Primary Care Provider Unavailable Encounter Details Date Type Department Care Team Description 05/16/2014 Hospital Encounter [facility] Ayanna Nichols M.D. Social History Tobacco Use Types Packs/Day [...] do you attend sikhism or Never 2021 pentecostalism services? 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 - 05/16/2014 3:10 PM CST [id number] CHIEF COMPLAINT/REASON FOR VISIT Follow up left leg pain. HISTORY OF PRESENT ILLNESS Mr. 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 I last saw Mr. Hernandez on March 16, 2014. Since I last saw him, he underwent left L5-S1 interlaminar epidural steroid injection on April 23in [place] and obtained 100% relief of his pain both in the anesthetic phase, and for approximately 3 days following the injection. However, after 3 days his pain returned and is back at baseline. Healkenyon did have some difficulty maintaining his blood glucose for approximately 3 days. Mr. Hernandez hasnot been taking the Mobic or Neurontin for over a month since prior to the first injection. He really had only had taken 300 mg of Neurontin nightly for a few days and been taking Mobic 7.5 mg once daily however, he was hopeful the injection will provide sustained relief and discontinue those medications. Mr. Hernandez's leg pain is 95% or greater of his problem and 5% occasional lumbar back pain. Pain in his leg starts in the buttock, radiates into the lateral hip posterior thigh and lateral leg and lateral ankle and posterior calf. Posterior calf pain is primarily the worst of all of the leg pain and all of this was completely resolved with the injection. Pain is 3 out of 10 at its worst, 0 out of 10 at best and today it is a 0 out of 10. Any activity worsens the pain, and he is unsure what was reallyimproves that, other than the tincture of time. No constant numbness, no weakness, no bowel or bladder incontinence or troubles, no unintentional weight loss, fever or chills. MINH 4% at last visit, not completed today. PHYSICAL EXAMINATION GENERAL: No distress, pleasant, here alone, fit. GAIT: Gross motor, nonantalgic gait. MUSCULOSKELETAL/NEUROLOGIC: Motor strength testing demonstrates no focal neurologic deficit with full strength 5/5 throughout bilateral lower extremities. Sensation grossly intact to light touch. IMPRESSION/REPORT/PLAN 1. Left leg radiculopathy likely L5. [...] was seen and evaluated in clinic. He a complete relief with an epidural injection left L5-S1 interlaminar although short lived. He has not been taking Mobic or Neurontin as he was hopeful the injection would completely resolve his pain. His brother had a shoulder injection and that has reset the clock for him. It has been just over 3 weeks since his injection. We did discuss the role of possible repeat injection at the same level and the possibility that he may obtain better long-lasting relief. Certainly I think it is a reasonable first to restart the Mobic and Neurontin and to escalate the Neurontin dose as instructed as he really has not taken more than one 300 mg tablet at a time. He is in agreement with this plan. He has my card and will call if he wants to repeat the injection for which we will makethe arrangements at that time. We did discuss potential surgical options if the pain and disability are great enough for him and he understands this. All questions were answered. ADMINISTRATIVE BILLING Approximately 15 minutes was spent with the patient and over 50% in counseling and coordination of care. Ayanna Vuong M.D./eyal Electronically Signed By: AYANNA VUONG MD On: 06/05/2014 01:17 PM Source: [facility] MHSDOLBEYNONRADSYS Document Id: [id number] ING RINK MANAGER documented in this encounter Miscellaneous Notes Miscellaneous - Barbara Cristina, L.P.N. - 05/01/2015 9:03 AM CST Oswestry and Neck Disability Index Oswestry and Neck Disability Index Entered On: 05/01/2015 9:04 SKATING RINK MANAGER Performed On: 05/01/2015 9:03 SKATING RINK MANAGER by BARBARA CRISTINA LPN Oswestry Disability Index Oswestry Disability Index Score : 4 % BARBARA CRISTINA LPN - 05/01/2015 9:03 SKATING RINK MANAGER Source: [facility] POWERCHART Document Id: [id number] SKATING RINK MANAGER!3 ING RINK MANAGER Miscellaneous - Conversion, Historical Provider Ser - 09/06/2014 7:11 AM CDT *General Message Document Contains Addenda Addendum by PEDRO ANDRADE RN on 06 Sep 2014 07:33:50 CDT appt cancelled. Message sent to Dr. Vuong From: MAYA MTZ ( Call Center Shank Piece Tacker) To: Pain Clinic Nurse; Sent: 09/06/2014 07:11:13 CDT Subject: *General Message Caller Name/Relationship SELF Facility/Wing Call Back # Reason For Call PT WOULD LIKE HIS APPT CANCELED TODAY. NOT LOOKING TO RESCHEDULE. Source: [facility] [employer] Document Id: [id number] Miscellaneous - Genevieve Bueno RCourtneyN. - 05/16/2014 3:18 PM CST Adult Geropsychologist Intake/History Document Has Been Updated Adult Geropsychologist Intake/History Entered On: 05/16/2014 15:20 SKATING RINK MANAGER Performed On: 05/16/2014 15:18 SKATING RINK MANAGER by GENEVIEVE BUENO farm machine tender Chief Complaint : Est patient follow up left leg pain Does not take any pain meds Denies pain today Diabetic GENEVIEVE BUENO RN - 05/16/2014 15:24 SKATING RINK MANAGER Height : 178 cm(Converted to: 5 ft 10 inch(es), 70 inch(es)) GENEVIEVE BUENO RN - 05/16/2014 15:18 SKATING RINK MANAGER General Info Information Given By : Patient Preferred Communication Mode : Verbal Languages : Indonesian Is Patient Female and 13-50 no hysterectomy : No EGNEVIEVE BUENO RN - 05/16/2014 15:18 SKATING RINK MANAGER Subjective Pain Symptoms : No GENEVIEVE BUENO RN - 05/16/2014 15:18 SKATING RINK MANAGER Dependent Habits Tobacco Use/Currently Using : Yes GENEVIEVE BUENO RN - 05/16/2014 15:18 SKATING RINK MANAGER Smoking Status : Never smoker GENEVIEVE BUENO RN - 05/16/2014 15:26 SKATING RINK MANAGER GENEVIEVE BUENO RN - 05/16/2014 15:26 SKATING RINK MANAGER Tobacco Use Grid Type : Chewing tobacco Other Tobacco Frequency : .25 can/day GENEVIEVE BUENO RN - 05/16/2014 15:18 SKATING RINK MANAGER Caffeine Use Grid Caffeine Use : Current Frequency : Occasionally GENEVIEVE BUENO RN - 05/16/2014 15:18 SKATING RINK MANAGER ID Screen Drug Resistant Organism : No Travel Within Last 21 Days : No GENEVIEVE BUENO RN - 05/16/2014 15:18 SKATING RINK MANAGER Source: [facility] POWERCHART Document Id: [id number] SKATING RINK MANAGER!3 ING RINK MANAGER documented in this encounter Plan of Treatment Upcoming Encounters Date Type Specialty Care Team Description 04/28/2022 Ancillary Procedure Ophthalmology SoftJoselo Whyte O.D. [address] [place], [place] [phone] (Wo rk) 04/28/2022 Ancillary Procedure Ophthalmology Joselo Palmer O.D. [address] [place], [place] [phone] (Wo rk) 04/28/2022 Office Visit Ophthalmology Tita Palmer O.D. [address] [place], [place] [phone] (Wo rk) documented as of this encounter Visit Diagnoses Not on filedocumented in this encounter
--- OUTSIDE RECORDS SUMMARY | 2022-03-02 08:36 | XMS_ITS | Encounter Summary ---
:1970 Author Organization [facility] Address [address] [place] [address] Care Team Providers Name Role Phone Unavailable Primary Care Provider Unavailable Encounter Details Date Type Department Care Team Description 12/03/2016 Hospital Encounter HX [facility] Puja Perez, FACTORY ASSEMBLER, C.N.P. [address] [phone] (Wo rk) Social History Tobacco Use Types Packs/Day Years Used Date Smoking Tobacco: Never Alcohol Habits Answer Date Recorded How often [...] do you attend yarsanism or Never 2021 voodoo services? Do you [...] or slept in a custodial (including now)? 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 BASAGLAR KWIKPEN 100 11 11/10/201602/17 unit/mL (3 mL) injection HUMALOG KWIKPEN 100 unit/mL 3 11/11/19 17 03/01/2017 injection levothyroxine Take 125 mcg by 0 03/06/20082016 (for_SYNTHROID, LEVOTHROID) mouth daily. 25 mcg tablet losartan (for_COZAAR) 100 Take 100 mg by 0 200703/08/2017 mg tablet mouth daily. spironolactone 3 10/26/2016 03/08/2017 (for_ALDACTONE) 25 mg tablet documented as of this encounter Plan of Treatment Upcoming Encounters Date Type Specialty Care Team Description 04/28/2022 Ancillary Procedure Ophthalmology Joselo Palmer O.D. [address] [place] [phone] (Wo rk) 04/28/2022 Ancillary Procedure Ophthalmology Joselo Palmer O.D. [address] [place] [phone] (Wo rk) 04/28/2022 Office Visit Ophthalmology Tita Palmer O.D. [address] [place] [phone] (Wo rk) documented as of this encounter Visit Diagnoses Not on filedocumented in this encounter
--- OUTSIDE RECORDS SUMMARY | 2022-03-02 08:36 | XMS_ITS | Encounter Summary ---
:1970 Author Organization [facility] Address [address] [place] [address] Care Team Providers Name Role Phone Unavailable Primary Care Provider Unavailable Encounter Details Date Type Department Care Team Description 12/16/2016 Hospital Encounter HX [facility] Margarita Perez, UTILITY DRIVER, C.N.P. [address] [phone] (Wo rk) Social History Tobacco Use Types [...] do you attend scientology or Never 2021 mu-ism services? 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 - 12/16/2016 3:16 PM CDT [id number] CHIEF COMPLAINT/REASON FOR VISIT Hypertension. HISTORY OF PRESENT ILLNESS Prateek is a very pleasant 46-year-old gentleman who has been part of the EDIC trial at [facility]. He had been following with Dr. Potts for several years. Dr. Potts has now retired and patient is establishing with me for blood pressure and lipid management and will be seeing Dr. Diana for his type 1 diabetes. As mentioned above, Prateek has had some degree of difficulty with obtaining adequate blood pressure control despite multidrug regimen as well as lifestyle modification. His current regimen consists of amlodipine 10 mg, hydrochlorothiazide 50 mg, losartan 100 mg and spironolactone 25 mg that was recently added. He has had increase in proteinuria and blood pressure that is not at goal despite this regimen. We reviewed the records in detail going back to 2003 when he began to have some difficulty with blood pressure. His medications have been added steadily over the last 10 years or so without much improvement in blood pressure. He also has an elevated creatinine and BUN was elevated most recently. Hehas hypothyroidism and his TSH is not within goal. In visiting with Prateek he feels very well. His diabetes is under quite good control with close monitoring. His latest A1c was 7.1. SYSTEMS REVIEW GENERAL: Denies fever or chills. CARDIOVASCULAR: Negative for chest pain, pressure, palpitations or dizziness. PULMONARY: Negative for shortness of breath. PAST MEDICAL/SURGICAL HISTORY 1. Type 1 diabetes since age 13. 2. Resistant hypertension. 3. Diabetic nephropathy stage 3. 4. Proteinuria. 5. Hypothyroidism. 6. Proliferative diabetic retinopathy, both eyes. 7. Early cataract both eyes. ALLERGIES Medications: Penicillin. MEDICATIONS Current cardiac medications: Atorvastatin 20 mg daily. Hydrochlorothiazide 50 mg daily. Losartan 100 mg daily. Norvasc 10 mg daily. Spironolactone 25 mg daily. VITAL SIGNS Blood pressure 144/85 by machine. I repeated this manually with readings of 144/98, heart rate 69, respiratory rate 16, weight today 88.8 kg. PHYSICAL EXAMINATION GENERAL: A pleasant gentleman in no acute distress at rest. HEENT: Conjunctivae are clear. Anicteric sclerae. Oral mucosa is pink and moist. NECK: Supple. No jugular venous distention. RESPIRATORY: Respirations are easy and unlabored. Lungs are clear to auscultation. CARDIAC: Heart rate is regular. VASCULAR: Negative for carotid bruit. Peripheral pulses are palpable. There is no lower extremity edema. DIAGNOSTICS I reviewed multiple records from [facility] in [place] including his most recent ambulatory bloodpressure report. This was prior to the addition of spironolactone. His average blood pressure at that time was 148/90. He did have the usual fall in blood pressure while sleeping. Lab from December 03, 2016, sodium 138, potassium 4.7, BUN 27, creatinine 1.52, GFR 50. TSH 12.20, free T4 1.1, total T3 of 90. IMPRESSION/REPORT/PLAN 1. Resistant hypertension. Despite increasing doses and adding medications patient's blood pressure remain suboptimal. I do think that patient may benefit from a longer-acting diuretic. I do not feel he is getting benefit from the 50 mg of hydrochlorothiazide. Will have him decrease the hydrochlorothiazide back down to 25. I would like to re-evaluate his kidney function at that point to see if BUN isdown and creatinine has come down at all. At that point, I think we should discontinue the hydrochlorothiazide altogether and had a longer acting diuretic such as chlorthalidone. I think in the oysterman we may end up taking away the spironolactone, but certainly may consider adding that down the roadas it may have some protection from progressive kidney disease. 2. Dyslipidemia. Patient's LDL per last documented lab draw in the computer was at goal; however, patient does participate in the EDIC trial and has had some more recent values that I am unable to view. Will plan for annual monitoring unless that is being done in his study. 3. Hypothyroidism. We discussed the manner in which Prateek is taking his levothyroxine. It does soundas though he is taking it with the rest of his medications. Given high doses and subtherapeutic TSH,will ask him to take this on an empty stomach. Will continue with the 225 mcg dose. Given the significant proteinuria, it is possible that he is excreting some of the dose in his urine as well. He doesnot express any symptoms of concern for celiac disease, so we will forego a celiac panel at this time. 4. Type 1 diabetes. Age of onset 13. Patient will continue on his clinical trial as well as follow with Dr. Diana. He will be seeing Dr. Diana in February. 5. Chronic kidney disease secondary to diabetic nephropathy. Adjusting medications as noted above. Will follow kidney function closely. PLAN: 1. Will decrease hydrochlorothiazide for now. 2. Will plan to obtain an echocardiogram given resistant hypertension to evaluate left ventricular wall thickness. 3. Will plan to repeat a Chem 8 in 1 week. 4. Will recheck blood pressure at time of his echocardiogram. At that point, will likely switch him to chlorthalidone starting at 12.5 mg daily and discontinue the spironolactone. Goal of chlorthalidone dose would be 25 mg. As we titrate the dose again will follow kidney function closely. 5. Plan of care was discussed in detail with Prateek today. All questions were answered at the time ofoffice visit. The patient has my contact information and he contact me at any time with any questions or concerns. Puja Perez R.N., C.NDiana/eyal Electronically Signed By: PUJA PEREZ CNP On: 12/24/2016 09:05 AM Source: [facility] MHSDOLBEYNONRADSYS Document Id: [id number] documented in this encounter Plan of Treatment Upcoming Encounters Date Type Specialty Care Team Description 04/28/2022 Ancillary Procedure Ophthalmology Softing Joselo Narayanan O.D. [address] [place], [place] [phone] (Odalis rk) 04/28/2022 Ancillary Procedure Ophthalmology Joselo Palmer O.Dequan [address] [place] [phone] (Odalis rk) 04/28/2022 Office Visit Ophthalmology Tita Palmer O.D. [address] [place], [place] [phone] (Odalis rk) documented as of this encounter Visit Diagnoses Not on filedocumented in this encounter
--- OUTSIDE RECORDS SUMMARY | 2022-03-02 08:36 | XMS_ITS | Encounter Summary ---
:1970 Author Organization [facility] Address [address] [place] [address] Care Team Providers Name Role Phone Unavailable Primary Care Provider Unavailable Encounter Details Date Type Department Care Team Description 01/29/2014 Hospital Encounter HX [facility] Meme Bird, ASHLEY, C.N.P., R.N. Social History Tobacco Use Types [...] do you attend hindu or Never 2021 latter day services? 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 - 01/29/2014 5:10 PM CDT [id number] CHIEF COMPLAINT/REASON FOR VISIT Low back and left hip pain for the last 6 weeks. HISTORY OF PRESENT ILLNESS A 43-year-old male presents today for evaluation of 6-week history of low back, left hip and left lower leg pain which has been developing over the last 6 weeks. Patient reports the pain is mainly in his left hip and the outside area of his lower leg calf/new. Patient states the pain is constant and is getting to the point of very annoying, because it never goes away. He also reports some tingling and numbness in that left lower calf and new. Denies any saddle anesthesia. No bowel or bladder problems. Does not feel like his leg will give out. Patient does have a history of diabetes, hypertension,hypothyroidism, and hyperlipidemia. Patient states he is familiar with nerve pain. He gets that when his sugars run low and his hands will start to feel numb. SYSTEMS REVIEW CONSTITUTIONAL: No fatigue, weakness, fever or chills. SKIN: No bruising. MUSCULOSKELETAL: Extremities: No joint pain, redness, swelling or instability. NEUROLOGIC: See HPI. ALLERGIES Penicillins. MEDICATIONS Atorvastatin 20 mg daily. Hydrochlorothiazide 12.5 mg daily. Insulin aspart. Insulin glargine. Levothyroxine 125 mcg daily. Losartan 100 mg daily. Norvasc 10 mg daily. PAST MEDICAL/SURGICAL HISTORY Hypothyroidism. Hypertension. Diabetes mellitus. Hyperlipidemia. Foreign body, cornea. VITAL SIGNS Temp 37, heart rate 66, respiratory rate 16, blood pressure 150/93, weight 86.8. Pain intensity 4. Patient is a tobacco user. PHYSICAL EXAMINATION CONSTITUTIONAL: Pleasant, cooperative with exam. In no acute distress. SKIN: Grossly warm, dry and intact. MUSCULOSKELETAL: Extremities: No redness, swelling, or deformity noted over patient's lower back or left hip or lower left leg. No tenderness with palpation. Cross-legged test while sitting is negativefor pain or paresthesia. Patient easily rises from exam chair. Walks to the exam table. Crawls up. Re sistance testing negative for any pain or paresthesia. Straight leg test negative for pain or paresthesia. Adduction right hip produces pain to lower left lumbar region. Patellar and Achilles deep tendon reflexes +2. Posterior tibial pulses +2. Touch sensation intact affected areas. PSYCHIATRIC: Normal affect. IMPRESSION/REPORT/PLAN Back pain. Left hip pain. Left leg pain and paresthesia. X-rays done today were reviewed with the patient. Left hip x-ray was basically negative. No evidence of fracture, dislocation or bony lesions. Bilateral hip joints are preserved. No evidence of avascular necrosis. Bilateral SI joints and symphysis pubis were normal. X-ray of lumbar spine shows 11 mm of anterolisthesis of L5 upon S1 with a subtle lucency in the posterior elements of L5 suggests possible spondylolisthesis. Alignment is otherwisewithin normal limits. No compression fractures. Small osteophytes. No blastic or lytic lesions. It also shows moderate to advanced decreased disk height at L5-S1. Remaining vertebral disk heights are preserved. Discussed possible treatment plans. Decided on referral to our spine surgeon, Dr. Sosa, was ordered with patient in agreement. The patient had no further questions. Meme Bird C.N.P./eyal Electronically Signed By: MEME BIRD TEAMCENTER CONSULTANT On: 02/13/2014 02:03 PM Modified by and Electronically Signed by: MEME BIRD TEAMCENTER CONSULTANT On: 02/13/2014 02:03 PM Source: [facility] MHSDOLBEYNONRADSYS Document Id: [id number] documented in this encounter Miscellaneous Notes Miscellaneous - Conversion, Historical Provider Ser - 10/12/2014 12:38 PM CDT *Medication Refill Msg Document Contains Addenda Addendum by SABA BARROSO CNP on 12 October 2014 13:00:41 CDT Submitted: Order:amLODIPine (Norvasc 10 mg oral tablet) 1 tab(s) PO Daily Qty: 90 tab(s) Refills: 4 Route To Pharmacy - [facility] Signed by SABA BARROSO CNP 10/12/2014 13:00:31 From: SHARDA VALENZUELA (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 POWERCHART Document Id: [id number] Miscellaneous - Meme Bird, C.N.P., R.N. - 01/29/2014 6:37 PM CDT Ambulatory Patient Summary [place] [address] [place], [place] [id number] Visit Information Name: LEX HERNANDEZ [facility] Number: [id number] Current Date: 01/29/2014 18:36:59 Physicians Attending Provider: MEME BIRD NP Primary Care Provider: PCP, UNASSIGNED - AU LEX HERNANDEZ has been given the following [...] (Atorvastatin) 20 mg, Oral, once a day hydrochlorothiazide (Hydrochlorothiazide) 12.5 mg, Oral, once a day Strength: 25 MG insulin aspart (Insulin Aspart) 0 units, Subcutaneous, as directed Strength: 100 UNITS/ML insulin glargine (Insulin Glargine) 0 units, Subcutaneous Strength: 100 UNITS/ML levothyroxine (Levothyroxine) 125 mcg, Oral, once a day losartan (Losartan) 100 mg, Oral, once a day Stop Taking the Following Medications: Medication list as of 01-29-14 18:37 Attention: If you have any medications at home that are not on this list, DO NOT take them until youcontact your provider for clarification. Give a copy of your medication list to your primary care provider. Update your medication list any time medications or doses are changed and carry your medication list at all times in case of emergency. Electronically Signed By: MEME BIRD NP Signed On:29-JAN-2014 18:36:53 Your Allergies & Intolerances Substance Reaction Symptoms Category Comments penicillins Drug Your Problem List Problem Status Onset Comments HYPERTENSION NOS Active HYPOTHYROIDISM NOS Active Corneal Foreign Body Active Your Upcoming Appointments Date Time Location Provider No Appointments found Attention: Contact your local Clinic if further appointment detail needed. Your Goals/Additional instructions: Source: [facility] POWERCHART Document Id: [id number] Miscellaneous - Meme Bird C.N.P., R.N. - 01/29/2014 6:36 PM CDT Ambulatory Discharge Medication List [address] [id number] Visit Information Name: LEX HERNANDEZ [facility] Number: [id number] Visit Date: 01/29/2014 18:36:58 Attending Provider: MEME BIRD TEAMCENTER CONSULTANT Primary Care Provider: PCP, UNASSIGNED - ALESSANDRA [...] (Atorvastatin) 20 mg, Oral, once a day hydrochlorothiazide (Hydrochlorothiazide) 12.5 mg, Oral, once a day Strength: 25 MG insulin aspart (Insulin Aspart) 0 units, Subcutaneous, as directed Strength: 100 UNITS/ML insulin glargine (Insulin Glargine) 0 units, Subcutaneous Strength: 100 UNITS/ML levothyroxine (Levothyroxine) 125 mcg, Oral, once a day losartan (Losartan) 100 mg, Oral, once a day Stop Taking the Following Medications: Medication list as of 01-29-14 18:36 Attention: If you have any medications at home that are not on this list, DO NOT take them until youcontact your provider for clarification. Give a copy of your medication list to your primary care provider. Update your medication list any time medications or doses are changed and carry your medication list at all times in case of emergency. Electronically Signed By: MEME BIRD TEAMCENTER CONSULTANT Signed On:29-JAN-2014 18:36:53 Additional Information: Source: [facility] POWERCHART Document Id: [id number] Miscellaneous - Trey Wilson C.M.A. - 01/29/2014 5:41 PM CDT Adult Bread Wrapper Operator Intake/History Adult Bread Wrapper Operator Intake/History Entered On: 01/29/2014 17:47 CDT Performed On: 01/29/2014 17:41 CDT by TREY WILSON [facility] Intake Chief Complaint : patient is here for low back pain for last 6 weeks that starts at left hip and radiates to left calf, got Xrays done before appt. Ambulatory Intake Additional Information : bP 154/102 p67 Temperature Core : 37 DegC(Converted to: 98.6 DegF) Peripheral Pulse Rate : 66 /min Respiratory Rate : 16 /min Systolic Blood Pressure : 150 mmHg (HI) Diastolic Blood Pressure : 93 mmHg (>HHI) NIBP Mean : 112 mmHg BP Location : Left upper extremity Blood Pressure Cuff Size : Regular Actual Weight : 86.8 kg(Converted to: 191 lb 6 oz) Weight Source : Standing scale Dosing Weight Clinic : 86.8 kg TREY WILSON [facility] - 01/29/2014 17:41 CDT General Info Information Given By : Patient Preferred Communication Mode : Verbal, Written Languages : Maori Is Patient Female and 13-50 no hysterectomy : No TREY WILSON [facility] - 01/29/2014 17:41 CDT Subjective Pain Symptoms : Yes TREY WILSON [facility] 01/29/2014 17:41 CDT Pain Pain Assessment Grid Pain 1 Location : Hip (Comment: that radiates to left calf [TREY WILSON [facility] - 01/29/2014 17:41 CDT] ) Laterality : Left Intensity : 4 TREY WILSON [facility] 01/29/2014 17:41 CDT Dependent Habits Tobacco Use/Currently Using : Yes Smoking Status : Current some day smoker TREY WILSON [facility] - 01/29/2014 17:41 CDT Tobacco Use Grid Other Tobacco Frequency : chew TREY WILSON [facility] 01/29/2014 17:41 CDT Alcohol Use : Yes TREY WILSON [facility] - 01/29/2014 17:41 CDT Caffeine Use Grid Caffeine Use : Current Frequency : Occasionally TREY WILSON [facility] 01/29/2014 17:41 CDT Source: [facility] [employer] Document Id: [id number] documented in this encounter Plan of Treatment Upcoming Encounters Date Type Specialty Care Team Description 04/28/2022 Ancillary Procedure Ophthalmology Joselo Palmer O.D. [address] [place] [phone] (Wo rk) 04/28/2022 Ancillary Procedure Ophthalmology Joselo Palmer O.D. [address] [place] [phone] (Wo rk) 04/28/2022 Office Visit Ophthalmology Tita Palmer O.D. [address] [place] [phone] (Wo rk) documented as of this encounter Visit Diagnoses Not on filedocumented in this encounter
--- OUTSIDE RECORDS SUMMARY | 2022-03-02 08:36 | XMS_ITS | Encounter Summary ---
:1970 Author Organization [facility] Address [address] [place] [address] Care Team Providers Name Role Phone Elsewhere, Pcp Primary Care Provider Unavailable Encounter Details Date Type Department Care Team Description 08/08/2014 Historical Ophthalmology RST OPH Jomar sam, Romeo Garcia M.D. [address] [place], [place] [phone] (Wo rk) Social History [...] do you attend christian or Never 2021 druze services? Do you [...] slept in a skilled nursing (including now)? 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 - 08/08/2014 7:05 AM CDT Eye General CHIEF COMPLAINT Follow up Proliferative diabetic retinopathy BOTH eyes HISTORY OF PRESENT ILLNESS This is a 44 year old male here today for a Follow up Proliferative diabetic retinopathy BOTH eyes. Patient states vision unchanged since last visit. Denies ocular pain, floaters, flashes of light, anddiplopia. Blood sugar was 125 this morning. Last A1c was 7.4 per patient. No new eye concerns. IMPRESSION / REPORT / PLAN 08/01 OCT right: normal contour left: normal [...] since age 13) RIGHT: s/p PRP '04, fill in in 06/03, no CSME - VH from inf nasal NVE LEFT: s/p PRP (last 01/30), no CSME - bleeding from several NVEs (many NVEs regressed/fibrotic) -tight glycemic, hypertensive, and cholesterol control d/w pt -last HbA1c 7.4 #2 Subhyaloid/vitreous hemorrhage, left slightly improved PLAN 08/01 Fu 3 mos with OCT, sooner with change in vision DIAGNOSIS #1 Proliferative diabetic retinopathy BOTH eyes (DM since age 13) #2 Subhyaloid/vitreous hemorrhage, left CDM Reports - EYEGEN Id: [id number] Status: Fnl documented in this encounter Plan of Treatment Upcoming Encounters Date Type Specialty Care Team Description 04/28/2022 Ancillary Procedure Ophthalmology Softing Joselo Narayanan O.D. [address] [place], [place] [phone] (Wo rk) 04/28/2022 Ancillary Procedure Ophthalmology SoftJoselo Whyte O.D. [address] [place], [place] [phone] (Wo rk) 04/28/2022 Office Visit Ophthalmology Tita Palmer O.D. [address] [place], [place] [phone] (Wo rk) documented as of this encounter Visit Diagnoses Not on filedocumented in this encounter Care Teams Fiber Drier Operator Relationship Specialty Start Date End Date Elsewhere, Pcp PCP - General Internal Medicine 12/05/21 documented as of this encounter
--- OUTSIDE RECORDS SUMMARY | 2022-03-02 08:36 | XMS_ITS | Encounter Summary ---
:1970 Author Organization [facility] Address [address] [place] [address] Care Team Providers Name Role Phone Elsewhere, Pcp Primary Care Provider Unavailable Encounter Details Date Type Department Care Team Description 06/13/2014 Historical Ophthalmology RST OPH Jomar sam, Romeo Garcia M.D. [address] [place], [place] [phone] (Wo rk) Social History [...] or relatives? How often do you attend uatsdin or Never 2021 yazidi services? 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 - 06/13/2014 8:35 AM CST Eye General CHIEF COMPLAINT Follow up Proliferative diabetic retinopathy BOTH eyes HISTORY OF PRESENT ILLNESS The patient is a 43 year old male here for a follow up regarding Proliferative diabetic retinopathy BOTH eyes. The patient notes that vision is stable since last visit. Floaters alone; left eye; x manymonths; occasionally. Denies flashes of light and ocular pain. BN: New floater OS x 2 mos. Last A1C 7.4 IMPRESSION / REPORT / PLAN 06/03 FA right: staining of old NVE, [...] control d/w pt -last HbA1c 7.4 #2 New vitreous hemorrhage, left PLAN 06/03 Supplement PRP RIGHT, closely observe left Fu 2-3 mos with OCT, sooner with change in vision DIAGNOSIS #1 Proliferative diabetic retinopathy BOTH eyes (DM since age 13) #2 New vitreous hemorrhage, left CDM Reports - EYEGEN Id: [id number] Status: Fnl documented in this encounter Plan of Treatment Upcoming Encounters Date Type Specialty Care Team Description 04/28/2022 Ancillary Procedure Ophthalmology Softing Joselo Narayanan O.D. [address] [place], [place] [phone] (Wo rk) 04/28/2022 Ancillary Procedure Ophthalmology Khurraming Joselo Narayanan O.D. [address] [place], [place] [phone] (Wo rk) 04/28/2022 Office Visit Ophthalmology Tita Palmer O.D. [address] [place], [place] [phone] (Wo rk) documented as of this encounter Visit Diagnoses Not on filedocumented in this encounter Care Teams Burrer Hand Relationship Specialty Start Date End Date Elsewhere, Pcp PCP - General Internal Medicine 12/05/21 documented as of this encounter
--- OUTSIDE RECORDS SUMMARY | 2022-03-02 08:36 | XMS_ITS | Encounter Summary ---
:1970 Author Organization [facility] Address [address] [place] [address] Care Team Providers Name Role Phone Elsewhere, Pcp Primary Care Provider Unavailable Encounter Details Date Type Department Care Team Description 10/18/2014 Historical Ophthalmology RST OPH Jomar sam, Romeo Garcia M.D. [address] [place], [place] [phone] (Wo rk) Social History [...] do you attend tenriism or Never 2021 confucianist services? 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 - 10/18/2014 7:37 AM CDT Eye General CHIEF COMPLAINT Blurry like haze vision in left eye HISTORY OF PRESENT ILLNESS This is a 44 year old male here today for blurry vision. Floater; left eye; new; x 2 weeks ago. Blurry vision; hazy like; left eye; x 2 weeks; started with a new floater. Diabetic; average 130; A1c was7.6 in 08/2014. Denies trauma or injury. Denies flashes of light, diplopia and ocular pain. AJB: no improvement in vision noted IMPRESSION / REPORT / PLAN 18 Oct 2014 B-scan left eye: vitreous [...] from several NVEs (many NVEs regressed/fibrotic) - now VH 10/18/14 -tight glycemic, hypertensive, and cholesterol control d/w pt -last HbA1c 7.4 #2 subhyaloid hemorrhage with vitreous hemorrhage LEFT eye started 2nd week September #3 early cataract BOTH eyes PLAN 10/31: extension of subhyaloid hemorrhage Fu 3-4 weeks with OCT, sooner with change in vision (if NI will discuss PPV/MP/EL) DIAGNOSIS #1 Proliferative diabetic retinopathy BOTH eyes (DM since age 13) #2 subhyaloid hemorrhage with vitreous hemorrhage LEFT eye #3 early cataract BOTH eyes CDM Reports - EYEGEN Id: [id number] Status: Fnl documented in this encounter Plan of Treatment Upcoming Encounters Date Type Specialty Care Team Description 04/28/2022 Ancillary Procedure Ophthalmology Joselo Palmer O.D. [address] [place] [phone] (Wo rk) 04/28/2022 Ancillary Procedure Ophthalmology Joselo Palmer O.D. [address] [place] [phone] (Wo rk) 04/28/2022 Office Visit Ophthalmology Tita Palmer O.D. [address] [place] [phone] (Wo rk) documented as of this encounter Visit Diagnoses Not on filedocumented in this encounter Care Teams Law Researcher Relationship Specialty Start Date End Date Elsewhere, Pcp PCP - General Internal Medicine 12/05/21 documented as of this encounter
--- OUTSIDE RECORDS SUMMARY | 2022-03-02 08:36 | XMS_ITS | Encounter Summary ---
:1970 Author Organization [facility] Address [address] [place] [address] Care Team Providers Name Role Phone Unavailable Primary Care Provider Unavailable Encounter Details Date Type Department Care Team Description 04/04/2012 Hospital Encounter HX [facility] Felicia Cross APRN, C.N.P., R. N. [address] [place], [place] [address] (Wo rk) Social History Tobacco Use Types [...] you attend roman catholic or Never 2021 cheondoism services? Do you [...] or slept in a fpc (including now)? 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 levothyroxine Take 125 mcg by 0 03/06/20082016 (for_SYNTHROID, LEVOTHROID) mouth daily. 25 mcg tablet losartan (for_COZAAR) 100 Take 100 mg by 0 200703/08/2017 mg tablet mouth daily. documented as of this encounter Procedure Notes Gale Barnes L.P.N. - 04/04/2012 4:27 PM CST Ear Irrigation Ear Irrigation Entered On: 04/04/2012 16:27 POULTRY SCALDER Performed On: 04/04/2012 16:27 POULTRY SCALDER by GALE BARNES LPN Ear Irrigation Ear Irrigation Location : Bilateral Ear Irrigation Technique Used : Ear washer Ear Irrigation Solution Used : Warm water Post irrigation ear canal evaluation : Patent Post Irrigation Tympanic Membrane Eval : Intact GALE BARNES LPN - 04/04/2012 16:27 POULTRY SCALDER Source: [facility] POWERCHART Document Id: [id number] TRY SCALDER documented in this encounter Miscellaneous Notes Miscellaneous - Puja Perez C.N.P., R.N. - 01/29/2014 8:35 AM CDT Addendum by BETHANY WILSON CMA on 29 January 2014 11:29:03 CDT noted Addendum by DANIEL HILL TAILINGS MAN on 29 January 2014 10:54:07 CDT From: DANIEL HILL NP To: PUJA PEREZ CNP; AU Occupational Med/[place]/Wangen Nurse; Sent: 01/29/2014 10:54:07 CDT Subject: RE: Xrays ordered. Addendum by BETHANY WILSON FACILITIES ENGINEERING MANAGER on 29 January 2014 10:50:35 CDT noted Addendum by BETHANY WILSON FACILITIES ENGINEERING MANAGER on 29 January 2014 10:50:17 CDT see additional note Addendum by PUJA PEREZ CNP on 29 January 2014 09:53:10 CDT From: PUJA PEREZ CNP To: DANIEL HILL NP; Sent: 01/29/2014 09:53:10 CDT Subject: RE: Seeing you today at 5:45. I asked him to come in as soon as he gets to [facility] for his xrays. I am hoping by 5:15 Addendum by DANIEL HILL NP on 29 January 2014 09:41:40 CDT From: DANIEL HILL NP To: AU Occupational Med/[place]/Wangen Nurse; Sent: 01/29/2014 09:41:40 CDT Subject: RE: Addendum by DANILE HILL NP on 29 January 2014 09:40:51 CDT From: DANIEL HILL NP To: PUJA PEREZ CNP; AU Occupational Med/[place]/Pelon Nurse; Sent: 01/29/2014 09:40:51 CDT Subject: RE: Could we contact pt and get appt date-then will order Xrays. Thanks. Addendum by BETHANY WILSON FACILITIES ENGINEERING MANAGER on 29 January 2014 09:23:42 CDT From: BETHANY WILSON CMA (AU Occupational Med/[place]/Wangen Nurse) To: DANIEL HILL NP; Sent: 01/29/2014 09:23:42 CDT Subject: FW: Addendum by BETHANY WILSON FACILITIES ENGINEERING MANAGER on 29 January 2014 09:23:35 CDT lalit gomes advise From: PUJA PEREZ RN NEONATAL To: DANIEL HILL TAILINGS MAN; Cc: ALESSANDRA Gilmore Med/Andrew/Tamar/Pelon Nurse; Sent: 01/29/2014 08:35:03 CDT Patient with several weeks of left hip and low back pain, Does radiate to left leg at times. Has tried ice, inversion table and a medrol dose heraclio without relief. No specific neurologic complaints. Scheduling appt with you. Can you order the left hip and lumbar spine films? I will have him come early for those. Source: [employer]book[employer] Document Id: [id number] Miscellaneous - Puja Perez, C.N.P., R.N. - 01/15/2014 10:20 AM CDT From: PUJA PEREZ RN NEONATAL (ALESSANDRA Sanchez Nurse) Sent: 01/15/2014 10:20:47 CDT Patient with low back pain that radiates into left leg. Has tried anti inflammatories without relief. Unable to come in as he works in the [employer]. Discussed symptoms of concern-numbness, loss of bowel or bladder, increased pain. Recommend ice, stretching and will give Rx for Medrol Dosepak. If no impro vement or worsening symptoms, NEEds to be seen. He is diabetic and has been instructed on the increase in blood sugar while on steroids. He will monitor closely. Source: Docbook[employer] Document Id: [id number] documented in this encounter Plan of Treatment Upcoming Encounters Date Type Specialty Care Team Description 04/28/2022 Ancillary Procedure Ophthalmology Khurraming Joselo Narayanan, O.DCourtney [address] [place], [place] [phone] (Wo rk) 04/28/2022 Ancillary Procedure Ophthalmology Joselo Palmer O.D. [address] [place], [place] [phone] (Wo rk) 04/28/2022 Office Visit Ophthalmology Tita Palmer O.D. [address] [place], [place] [phone] (Wo rk) documented as of this encounter Visit Diagnoses Not on filedocumented in this encounter
--- OUTSIDE RECORDS SUMMARY | 2022-03-02 08:36 | XMS_ITS | Encounter Summary ---
:1970 Author Organization [facility] Address [address] [place] [address] Care Team Providers Name Role Phone Elsewhere, Pcp Primary Care Provider Unavailable Encounter Details Date Type Department Care Team Description 01/16/2015 Historical Ophthalmology RST OPH Jomar sam, Romeo Garcia M.D. [address] [place], [place] [phone] (Wo rk) Social History [...] do you attend episcopal or Never 2021 voodoo services? 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 - 01/16/2015 8:25 AM CDT Eye General CHIEF COMPLAINT Follow up subhyaloid hemorrhage with vitreous hemorrhage LEFT eye HISTORY OF PRESENT ILLNESS The patient is a 44 year old male here for a follow up regarding subhyaloid hemorrhage with vitreoushemorrhage LEFT eye. The patient notes that vision is unchanged since last visit. Floaters alone; left eye; x several months; constantly. cloudy vision; left eye; x several months; constantly; symptomsare severe. IMPRESSION / REPORT / PLAN 16 Jan 2015 B-scan left eye: vitreous [...] vitreous hemorrhage LEFT eye started 2nd week September- now diffuse VH #3 early cataract BOTH eyes PLAN Jan 16, 2015: diffuse vitreous hemorrhage without much improvement - pt reports vision is still about the same. B-scan LEFT today with contd. interval progression of peripheral vitreous separation Risks, benefits, and alternatives to PPV vs contd observation d/w pt, ?s answered, pt very bothered by vision and wishes to proceed 23gPPV/MP/EL/Avastin +/- gas LEFT eye local/mac, stop ASA 1 wk pre-op if safe to do so per PCP DIAGNOSIS #1 Proliferative diabetic retinopathy BOTH eyes (DM since age 13) #2 subhyaloid hemorrhage with vitreous hemorrhage LEFT eye #3 early cataract BOTH eyes CDM Reports - EYEGEN Id: [id number] Status: Fnl documented in this encounter Plan of Treatment Upcoming Encounters Date Type Specialty Care Team Description 04/28/2022 Ancillary Procedure Ophthalmology Softing Joselo Narayanan O.D. [address] [place] [address] [phone] (Wo rk) 04/28/2022 Ancillary Procedure Ophthalmology Softing Joselo Narayanan O.D. [address] [place] [phone] (Wo rk) 04/28/2022 Office Visit Ophthalmology Tita Palmer O.D. [address] [place] [phone] (Wo rk) documented as of this encounter Visit Diagnoses Not on filedocumented in this encounter Care Teams Regional Director Of Admissions Relationship Specialty Start Date End Date Elsewhere, Pcp PCP - General Internal Medicine 12/05/21 documented as of this encounter
--- OUTSIDE RECORDS SUMMARY | 2022-03-02 08:36 | XMS_ITS | Encounter Summary ---
:1970 Author Organization [facility] Address [address] [place] [address] Care Team Providers Name Role Phone Elsewhere, Pcp Primary Care Provider Unavailable Encounter Details Date Type Department Care Team Description 08/11/2016 Historical Ophthalmology RST OPH Jomar sam, Romeo Garcia M.D. [address] [place], [place] [phone] (Wo rk) Social History [...] do you attend mormon or Never 2021 adventist services? 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 - 08/11/2016 10:11 AM CDT Eye General CHIEF COMPLAINT EDIC study patient HISTORY OF PRESENT ILLNESS Vision fluctuates at distance ; both eyes; noted x 2 months. Denies pain, tearing, flashes or flashes (both eyes). Last A1C 7.8 (02/2016) AJB: doing well, no vision changes, blood glucose has been well-controlled IMPRESSION / REPORT / PLAN OCT 08/03 RIGHT: 16 Jan 2015 B-scan [...] diffuse VH #3 early cataract BOTH eyes IMPRESSION/PLAN 08/11/2016: EDIC study visit today, pt doing very well after vitrectomy LEFT eye 01/2015 [address] Softing with OCT DIAGNOSIS #1 Proliferative diabetic retinopathy BOTH eyes (DM since age 13) #2 subhyaloid hemorrhage with vitreous hemorrhage LEFT eye #3 early cataract BOTH eyes CDM Reports - EYEGEN Id: [id number] Status: Fnl documented in this encounter Plan of Treatment Upcoming Encounters Date Type Specialty Care Team Description 04/28/2022 Ancillary Procedure Ophthalmology Softing Joselo Narayanan O.D. [address] [place], [place] [phone] (Wo rk) 04/28/2022 Ancillary Procedure Ophthalmology Softing Joselo Narayanan O.D. [address] [place], [place] [phone] (Wo rk) 04/28/2022 Office Visit Ophthalmology SoftTita Whyte O.D. [address] [place], [place] [phone] (Wo rk) documented as of this encounter Visit Diagnoses Not on filedocumented in this encounter Care Teams Architect Intern Relationship Specialty Start Date End Date Elsewhere, Pcp PCP - General Internal Medicine 12/05/21 documented as of this encounter
--- OUTSIDE RECORDS SUMMARY | 2022-03-02 08:36 | XMS_ITS | Encounter Summary ---
:1970 Author Organization [facility] Address [address] [place] [address] Care Team Providers Name Role Phone Unavailable Primary Care Provider Unavailable Encounter Details Date Type Department Care Team Description 03/23/2014 Hospital Encounter HX NO MAPPING Social History [...] do you attend amish or Never 2021 denominational services? 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 [address] [place], [place] [phone] (Odalis rk) 04/28/2022 Ancillary Procedure Ophthalmology Joselo Palmer O.D. [address] [place], [place] [phone] (Odalis rk) 04/28/2022 Office Visit Ophthalmology Tita Palmer O.D. [address] [place], [place] [phone] (Odalis rk) documented as of this encounter Visit Diagnoses Not on filedocumented in this encounter
--- OUTSIDE RECORDS SUMMARY | 2022-03-02 08:36 | XMS_ITS | Encounter Summary ---
:1970 Author Organization [facility] Address [address] [place] [address] Care Team Providers Name Role Phone Unavailable Primary Care Provider Unavailable Encounter Details Date Type Department Care Team Description 04/23/2014 Hospital Encounter HX NO MAPPING Social History [...] or relatives? How often do you attend anabaptist or Never 2021 zoroastrianism services? 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 [address] [place], [place] [phone] (Odalis rk) 04/28/2022 Ancillary Procedure Ophthalmology Joselo Palmre O.D. [address] [place], [place] [phone] (Odalis rk) 04/28/2022 Office Visit Ophthalmology Tita Palmer O.D. [address] [place], [place] [phone] (Odalis rk) documented as of this encounter Visit Diagnoses Not on filedocumented in this encounter
--- OUTSIDE RECORDS SUMMARY | 2022-03-02 08:36 | XMS_ITS | Encounter Summary ---
:1970 Author Organization [facility] Address [address] [place] [address] Care Team Providers Name Role Phone Elsewhere, Pcp Primary Care Provider Unavailable Encounter Details Date Type Department Care Team Description 11/14/2014 Historical Ophthalmology RST OPH Jomar sma, Romeo Garcia M.D. [address] [place], [place] [phone] (Wo rk) Social History [...] do you attend sikhism or Never 2021 yazdanism services? 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 - 11/14/2014 2:12 PM CDT Eye General CHIEF COMPLAINT Proliferative diabetic retinopathy BOTH eyes HISTORY OF PRESENT ILLNESS Patient reports floaters; left eye; constant; x 1 week Patient states his vision has been stable since last visit. MHM: Quality of decreased vision has changed. It was dark previously, and now it more cloudy, but dense. IMPRESSION / REPORT / PLAN 14 Nov 2014 OCT normal contour, left [...] September #3 early cataract BOTH eyes PLAN 14 Nov 2014: hemorrhage may be improving - pt reports vision is still poor, but different. he is not significantly bothered at work. Fu 4-6 weeks, sooner with change in vision (if NI will discuss PPV/MP/EL) DIAGNOSIS #1 Proliferative diabetic retinopathy BOTH eyes (DM since age 13) #2 subhyaloid hemorrhage with vitreous hemorrhage LEFT eye #3 early cataract BOTH eyes CDM Reports - EYEGEN Id: [id number] Status: Fnl documented in this encounter Plan of Treatment Upcoming Encounters Date Type Specialty Care Team Description 04/28/2022 Ancillary Procedure Ophthalmology Joselo Palmer O.D. [address] [place] [phone] (Wo rk) 04/28/2022 Ancillary Procedure Ophthalmology Joselo Palmer O.D. [address] [place] [phone] (Wo rk) 04/28/2022 Office Visit Ophthalmology Tita Palmer O.D. [address] [place] [phone] (Wo rk) documented as of this encounter Visit Diagnoses Not on filedocumented in this encounter Care Teams Attorney At Law Relationship Specialty Start Date End Date Elsewhere, Pcp PCP - General Internal Medicine 12/05/21 documented as of this encounter
--- OUTSIDE RECORDS SUMMARY | 2022-03-02 08:36 | XMS_ITS | Encounter Summary ---
:1970 Author Organization [facility] Address [address] [place] [address] Care Team Providers Name Role Phone Unavailable Primary Care Provider Unavailable Encounter Details Date Type Department Care Team Description 02/20/2014 Hospital Encounter HX [facility] Ayanna Nichols M.D. Social History Tobacco Use [...] do you attend hindu or Never 2021 alevism services? 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 documented as of this encounter Last Filed Vital Signs Vital Sign Reading Time Taken Comments Blood Pressure - - Pulse - - Temperature - - Respiratory Rate - - Oxygen Saturation - - Inhaled Oxygen Concentration - - Weight 88.1 kg (194 lb 3.6 oz) 02/20/2014 3:30 PM IT APPLICATION DEVELOPMENT MANAGER Height 177.8 cm (5' 10) 02/20/2014 3:30 PM IT APPLICATION DEVELOPMENT MANAGER Body Mass Index 27.87 02/20/2014 3:30 PM IT APPLICATION DEVELOPMENT MANAGER documented in this encounter Medications at Time of Discharge Medication Sig Dispensed Refills Start Date End Date atorvastatin (for_LIPITOR) Take 20 mg by 0 200703/08/2017 20 mg tablet mouth daily. levothyroxine Take 125 mcg by 0 03/06/20082016 (for_SYNTHROID, LEVOTHROID) mouth daily. 25 mcg tablet losartan (for_COZAAR) 100 Take 100 mg by 0 200703/08/2017 mg tablet mouth daily. documented as of this encounter Consult Notes Ayanna Vuong M.D. - 02/20/2014 3:18 PM CST [id number] REFERRAL SOURCE Meme Bird, nurse practitioner, family medicine. CHIEF COMPLAINT/REASON FOR VISIT Left leg pain greater than left lumbar back pain. HISTORY OF PRESENT ILLNESS Mr. 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 Mr. Hernandez was doing quite well until sometime around the December when he began to develop left leg pain. Prior to December he had no history of left leg radiculopathy. He denies any trauma or antecedent event or a change in activity level. However, he developed an insidious onset and the pain has remained essentially unchanged with no worsening and no improvement. Pain starts in the buttock and radiates into the lateral hip and posterior thigh and lateral lower leg stopping at the level of the lateral ankle. Pain is described as burning. He also has occasional numbness and tingling in the same distribution. The pain is a nuisance and at its worst is a 4/10, at its best a 1/10 andtoday is a 3/10. He states that primarily all of his pain is attributed to his buttock, hip and lower leg, and really has very minimal left-sided lumbar back pain. He has had no constant numbness. No weakness. No bowel or bladder incontinence or troubles. No unintentional weight loss, fever, or chills. He has not tried any epidural injections, physical therapy orchiropractic medicine. He did take ibuprofen 600 mg on 2 separate occasions last week, but otherwisehas not tried any medications. He tries to avoid regular medication use. He is frustrated with the nuisancy of the left leg pain and its constant nature. Standing and walking seem to worsen the pain and prolonged sitting seems to be okay. Some days are worse than others, and he is unsure what causes the worsened days. He has not missed any work. Of note, Mr. Hernandez does recall having chronic midline lumbar back pain while in high school playingfootball. This essentially resolved with the cessation of the sport; however, interestingly his 20-year-old son also developed chronic back pain with football as a high school student and x-rays showeda spondylolisthesis with pars defect. He has been treated nonoperatively. MINH is 4%. PAST MEDICAL/SURGICAL HISTORY 1. History of type 1 diabetes mellitus, insulin dependent, diagnosed 13 years of age. 2. Diabetic retinopathy. 3. Hypertension. 4. Hypothyroid. 5. Hyperlipidemia. SOCIAL HISTORY Patient lives in [place] with his . He has 2 adult children ages 23 and 20 years old. No tobacco. 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 PHYSICAL EXAMINATION GENERAL: No distress. Very pleasant. Here alone. Fit. PSYCHIATRIC: Pleasant, alert and oriented. Good historian. GAIT/GROSS MOTOR: He is seated upon entering exam room. Stands without assistance. No gait aids or orthoses. Nonantalgic gait. Normal heel, toe and tandem gait. Romberg is normal. SPINE: Inspection of the spine shows no obvious rotation, rib hump, or asymmetry. Shoulders and pelvis are level. He has full active range of motion of the lumbar spine flexion, extension, rotation, lateral flexion. No pain to palpation around the lumbosacral junction in the midline or in the lumbar, t horacic, cervical spine. No paraspinal tenderness. No pain over sacroiliac joints or PSIS. MUSCULOSKELETAL: Painless range of motion bilateral hips. Straight leg raise is positive on the leftat approximately 60 degrees with ankle dorsiflexion. Contralateral leg raise is negative. Negative Stinchfield bilaterally. NEUROLOGIC: Motor strength testing demonstrates no focal neurologic deficit with full strength 5/5 throughout bilateral iliopsoas, quadriceps, anterior tibialis, EHL, hamstrings, gastrocsoleus and peroneals as well as in bilateral upper extremities deltoid, biceps, triceps, wrist extension, finger flexors, and interossei. Sensation grossly intact to light touch throughout bilateral upper and lower extremities. Reflex testing demonstrates 2+ patellar reflexes bilaterally and 1+ Achilles bilaterally. No clonus.No Emilia's. Downgoing toes. PERIPHERAL VASCULAR: Posterior tibial and dorsalis pedis pulses are 2+ bilaterally. Feet are warm and well perfused. No distal cyanosis or edema. SKIN: Inspection of skin is unremarkable. DIAGNOSTICS AP lateral flexion, extension, standing lumbar x-rays demonstrate there are 5 lumbar type vertebrae with a sacralized lumbar segment that will be designated as S1. At L5-S1 there is a grade 1 or 2 spondylolisthesis with approximately 11.5 mm of anterior listhesis of L5 on S1 and associated pars defect. The foramen is significantly reduced in size at this level Degenerative disk disease at L5-S1 and endplate sclerosis. Maintenance of lumbar lordosis and otherwise no significant degenerative changes in the lumbar spine. There is slight wedging of L1, T12, T11, but no acute compression fracture or other concern. No instability on flexion/extension. IMPRESSION/REPORT/PLAN 1. Left leg radiculopathy likely L5. 2. Grade 1 or grade 2 L5-S1 spondylolisthesis. 3. Degenerative lumbar disc disease at L5-S1. [...] diagnosed with a L5-S1 spondylolisthesis as well. His pain is more of a nuisance for him now and is not causing significant troubles. We did discusscomprehensive nonoperative treatment program to include Tylenol, regular NSAID use, remaining physically active, starting Neurontin, and potential role for an injection. To this end, I have prescribed Mobic as well as Neurontin on an escalating dose to [facility]. He is somewhat hesitant to start regular medication as he prefers to avoid the need for regular medication; however, he is willing to try these medications for now. He would like to be considered for a left L5-S1 transforaminal epiduralsteroid injection at our pain clinic and I have placed a referral and we will make these arrangements. He will need an MRI of his lumbar spine without contrast first prior to the injection as well to further evaluate nerve compression. We did discuss role of EMG; however, at this time it would not change our management. He has declined this study at this time. I will plan to see Mr. Hernandez back following the MRI. We also discussed the role of physical therapy, but at this time he has also declined this as he is remaining quite active and really has no back pain. All questions were answered. He was appreciative of the visit. We also discussed possible surgical options if he were to fail nonoperative treatment, and this would include at least decompression at L5-S1 with posterolateral instrumentation and fusion in the setting of spondylolisthesis and pars defect. Approximately 45 minutes was spent with the patient and over 50% was spent in counseling and coordination of care. I correlated imaging with spine model. Ayanna Vuong M.D./eyal Electronically Signed By: AYANNA VUONG MD On: 05/13/2014 10:19 PM Source: [facility] MHSDOLBEYNONRADSYS Document Id: [id number] APPLICATION DEVELOPMENT MANAGER documented in this encounter Miscellaneous Notes Miscellaneous - Ayanna Vuong M.D. - 02/20/2014 4:45 PM CST Ambulatory Patient Summary [facility] [address] [place], [place] [id number] Visit Information Name: LEX HERNANDEZ [facility] Number: [id number] Current Date: 02/20/2014 16:45:03 Physicians Attending Provider: AYANNA VUONG MD Primary Care Provider: PCP, UNASSIGNED - AU [...] instructed to 2 capsules three times daily New Routed to [facility] [address] [address] hydrochlorothiazide (Hydrochlorothiazide) 12.5 mg, Oral, once a [...] Take one tablet 1 -2 times daily [facility] [address] [place] [address] Stop Taking the Following Medications: Medication list as of 02-20-14 16:45 Attention: If you have any medications at [...] Electronically Signed By: AYANNA VUONG MD Signed On:20-FEB-2014 16:44:53 Your Allergies & Intolerances Substance Reaction Symptoms Category Comments penicillins Drug Your Problem List Problem Status Onset Comments HYPERTENSION NOS Active HYPOTHYROIDISM NOS Active Corneal Foreign Body Active Your Upcoming Appointments Date Time Location Provider No Appointments found Attention: Contact your local Clinic if further appointment detail needed. Your Goals/Additional instructions: Source: [facility] POWERCHART Document Id: [id number] APPLICATION DEVELOPMENT MANAGER Miscellaneous - Ayanna Vuong M.D. - 02/20/2014 4:45 PM CST Ambulatory Discharge Medication List [facility] [address] [place], [place] [id number] Visit Information Name: LEX HERNANDEZ [facility] Number: [id number] Visit Date: 02/20/2014 16:45:02 Attending Provider: AYANNA VUONG MD Primary Care Provider: PCP, UNASSIGNED - LEX HERNANDEZ has been given the following [...] instructed to 2 capsules three times daily New Routed to [facility] [address] [place] [id number] hydrochlorothiazide (Hydrochlorothiazide) 12.5 mg, Oral, once a [...] Take one tablet 1 -2 times daily [facility] [address] [place] [address] Stop Taking the Following Medications: Medication list as of 02-20-14 16:45 Attention: If you have any medications at [...] Electronically Signed By: AYANNA VUONG MD Signed On:20-FEB-2014 16:44:53 Additional Information: Source: [facility] POWERCHART Document Id: [id number] APPLICATION DEVELOPMENT MANAGER Miscellaneous - Juan Carlos Kumar C.MCourtneyA. - 02/20/2014 3:30 PM CST Adult Slot Manager Intake/History Adult Slot Manager Intake/History Entered On: 02/20/2014 15:33 IT APPLICATION DEVELOPMENT MANAGER Performed On: 02/20/2014 15:30 IT APPLICATION DEVELOPMENT MANAGER by JUAN CARLOS KUMAR [facility] Intake Chief Complaint : New pt referral from Dr. Vuong for Left sided low back pain. XR today. No pain meds. Insullin dep DM. Onset of Symptoms : 2 months Height : 177.8 cm(Converted to: 5 ft 10 inch(es), 70 inch(es)) Actual Weight : 88.1 kg(Converted to: 194 lb 4 oz) Dosing Weight Clinic : 88.1 kg Clinic BSA : 2.09 Body Mass Index : 27.87 kg/m2 JUAN CARLOS KUMAR [facility] - 02/20/2014 15:30 IT APPLICATION DEVELOPMENT MANAGER General Info Information Given By : Patient Preferred Communication Mode : Verbal Languages : Citizen Of [place] Is Patient Female and 13-50 no hysterectomy : No JUAN CARLOS KUMAR [facility] - 02/20/2014 15:30 IT APPLICATION DEVELOPMENT MANAGER Subjective Pain Symptoms : Yes JUAN CARLOS KUMAR [facility] - 02/20/2014 15:30 IT APPLICATION DEVELOPMENT MANAGER Pain Pain Assessment Grid Pain 1 Location : Lower back Laterality : Left Intensity : 4 Time Pattern : Acute JUAN CARLOS KUMAR [facility] - 02/20/2014 15:30 IT APPLICATION DEVELOPMENT MANAGER Dependent Habits Tobacco Use/Currently Using : Yes Tobacco Use/Advised to Quit : Yes Smoking Status : Never smoker JUAN CARLOS KUMAR [facility] - 02/20/2014 15:30 IT APPLICATION DEVELOPMENT MANAGER Tobacco Use Grid Type : Chewing tobacco JUAN CARLOS KUMAR [facility] 02/20/2014 15:30 IT APPLICATION DEVELOPMENT MANAGER Alcohol Use : Yes JUAN CARLOS KUMAR [facility] 02/20/2014 15:30 IT APPLICATION DEVELOPMENT MANAGER Caffeine Use Grid Caffeine Use : Current Frequency : Occasionally JUAN CARLOS KUMAR [facility] 02/20/2014 15:30 IT APPLICATION DEVELOPMENT MANAGER ID Screen Travel Within Last 21 Days : No JUAN CARLOS KUMAR [facility] 02/20/2014 15:30 IT APPLICATION DEVELOPMENT MANAGER Source: [employer] Document Id: [id number] IT APPLICATION DEVELOPMENT MANAGER!37 APPLICATION DEVELOPMENT MANAGER documented in this encounter Plan of Treatment Upcoming Encounters Date Type Specialty Care Team Description 04/28/2022 Ancillary Procedure Ophthalmology Joselo Palmer O.Dequan [address] [place], [place] [phone] (Odalis rk) 04/28/2022 Ancillary Procedure Ophthalmology Joselo Palmer O.DCourtney [address] [place], [place] [phone] (Odalis rk) 04/28/2022 Office Visit Ophthalmology Tita Palmer O.Dequan [address] [place], [place] [phone] (Odalis rk) documented as of this encounter Visit Diagnoses Not on filedocumented in this encounter
--- OUTSIDE RECORDS SUMMARY | 2022-03-02 08:37 | XMS_ITS | Encounter Summary ---
:1970 Author Organization [facility] Address [address] [place] [address] Care Team Providers Name Role Phone Elsewhere, Pcp Primary Care Provider Unavailable Encounter Details Date Type Department Care Team Description 03/18/2004 Historical Ophthalmology RST OPH Jose Tolentino M.D. [address] [place] [address] Social History Tobacco Use Types Packs/Day Years [...] do you attend synagogue or Never 2021 jew services? 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 - 03/18/2004 12:00 AM CST Eye General CHIEF COMPLAINT Recheck right eye HISTORY OF PRESENT ILLNESS No complaints IMPRESSION / REPORT / PLAN #1 Proliferative diabetic retinopathy s/p prp right eye, stable early NV left eye see DCCT visit in 3-4 mos DIAGNOSIS #1 Proliferative diabetic retinopathy CDM Reports - EYEGEN Id: [id number] Status: Fnl documented in this encounter Plan of Treatment Upcoming Encounters Date Type Specialty Care Team Description 04/28/2022 Ancillary Procedure Ophthalmology SoftJoselo Whyte O.DCourtney [address] [place], [place] [phone] (Wo rk) 04/28/2022 Ancillary Procedure Ophthalmology SoftJoselo Whyte O.DCourtney [address] [place], [place] [phone] (Wo rk) 04/28/2022 Office Visit Ophthalmology Tita Palmer O.Dequan [address] [place], [place] [phone] (Wo rk) documented as of this encounter Visit Diagnoses Not on filedocumented in this encounter Care Teams Open Hearth Laborer Relationship Specialty Start Date End Date Elsewhere, Pcp PCP - General Internal Medicine 12/05/21 documented as of this encounter
--- OUTSIDE RECORDS SUMMARY | 2022-03-02 08:37 | XMS_ITS | Encounter Summary ---
:1970 Author Organization [facility] Address [address] [place] [address] Care Team Providers Name Role Phone Unavailable Primary Care Provider Unavailable Encounter Details Date Type Department Care Team Description 05/21/2004 Hospital Encounter [facility]X [facility] Francis Cueva D.O. [address] [place], [place] [address] (Wo rk) Social History [...] do you attend anabaptist or Never 2021 sikh services? 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 [address] [place], [place] [phone] (Wo rk) 04/28/2022 Ancillary Procedure Ophthalmology Joselo Palmer O.D. [address] [place], [place] [phone] (Wo rk) 04/28/2022 Office Visit Ophthalmology Tita Palmer O.D. [address] [place], [place] [phone] (Wo rk) documented as of this encounter Visit Diagnoses Not on filedocumented in this encounter
--- OUTSIDE RECORDS SUMMARY | 2022-03-02 08:37 | XMS_ITS | Encounter Summary ---
:1970 Author Organization [facility] Address [address] [place] [address] Care Team Providers Name Role Phone Unavailable Primary Care Provider Unavailable Encounter Details Date Type Department Care Team Description 05/21/2010 Hospital Encounter [facility]X [facility] Puja Perez, ELECTRICIAN SUPERVISOR SUBSTATION, C.N.P. [address] [phone] (Wo rk) Social History Tobacco Use [...] do you attend scientology or Never 2021 taoist services? 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 Addendum by TERESO WILKERSON LPN on 27 Aug 2011 13:42:45 CDT no answer on 's cell phone. Addendum by TERESO WILKERSON LPN on 20 Aug 2011 13:05:43 CDT left mess for to call back. Addendum by TANA SCHMITZ LPN on 20 Aug 2011 08:47:36 CDT No answer From: CHRISTINA CARLSON ([facility]) To: ALESSANDRA King Nurse; Sent: 08/17/2011 08:30:47 CDT Subject: Phone Message Caller is: ( ) Patient ( ) Mother ( ) Father ( PUJA ) Spouse ( ) Daughter ( ) Son ( ) Pharmacy ( ) Other: Physician: Patient MRN #: Reason for Call: PT WOULD LIKE TO HAVE AN EAR WASH DONE IN [place]. PLEASE CALL [phone] WHEN YOU RETURN. Message: Advice/Action: Source used: ( ) Verbalizes understanding of instructions ( ) Instructed to call back if symptoms worsen or do not resolve ( ) Refused to see provider ( ) Appointment Scheduled ( ) OK to leave message on voice mail ( ) Patient told to expect return call: ( ) today ( ) tomorrow ( ) next work day ( ) Patient's email ( ) Patient told physician out of office, will call upon return call on ( ) ( ) Patient told physician out of office, routed to other physician ( ) Other ( ) Call back telephone number ( ) Call back cell phone number ( ) Source: [facility] Acsis Document Id: [id number] documented in this encounter Plan of Treatment Upcoming Encounters Date Type Specialty Care Team Description 04/28/2022 Ancillary Procedure Ophthalmology SoftJoselo Whyte O.D. [address] [place], [place] [phone] (Odalis waltno) 04/28/2022 Ancillary Procedure Ophthalmology Joselo Palmer O.Dequan [address] [place] [phone] (Odalis walton) 04/28/2022 Office Visit Ophthalmology Tita Palmer O.D. [address] [place], [place] [phone] (Odalis walton) documented as of this encounter Visit Diagnoses Not on filedocumented in this encounter
--- OUTSIDE RECORDS SUMMARY | 2022-03-02 08:37 | XMS_ITS | Encounter Summary ---
:1970 Author Organization [facility] Address [address] [place] [address] Care Team Providers Name Role Phone Unavailable Primary Care Provider Unavailable Encounter Details Date Type Department Care Team Description 05/09/2010 Hospital Encounter [facility]X [facility] Puja Perez, HISTORY DEPARTMENT CHAIR, C.N.P. [address] [phone] (Wo rk) Social History Tobacco Use [...] or relatives? How often do you attend holiness or Never 2021 jew services? 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 [address] [place], [place] [phone] (Odalis rk) 04/28/2022 Ancillary Procedure Ophthalmology Joselo Palmer O.D. [address] [place], [place] [phone] (Odalis rk) 04/28/2022 Office Visit Ophthalmology Tita Palmer O.D. [address] [place], [place] [phone] (Odalis rk) documented as of this encounter Visit Diagnoses Not on filedocumented in this encounter
--- OUTSIDE RECORDS SUMMARY | 2022-03-02 08:37 | XMS_ITS | Encounter Summary ---
:1970 Author Organization [facility] Address [address] [place] [address] Care Team Providers Name Role Phone Unavailable Primary Care Provider Unavailable Encounter Details Date Type Department Care Team Description 06/26/[address] [facility] Stella Phillips M.D. [address] [place] [address] (Wo rk) Social History Tobacco Use Types [...] or relatives? How often do you attend oriental orthodox or Never 2021 protestant services? 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 [address] [place], [place] [phone] (Wo rk) 04/28/2022 Ancillary Procedure Ophthalmology Joselo Palmer O.D. [address] [place], [place] [phone] (Wo rk) 04/28/2022 Office Visit Ophthalmology Tita Palmer O.D. [address] [place], [place] [phone] (Wo rk) documented as of this encounter Visit Diagnoses Not on filedocumented in this encounter
--- OUTSIDE RECORDS SUMMARY | 2022-03-02 08:37 | XMS_ITS | Encounter Summary ---
:1970 Author Organization [facility] Address [address] [place] [address] Care Team Providers Name Role Phone Unavailable Primary Care Provider Unavailable Encounter Details Date Type Department Care Team Description 04/07/2002 Hospital Encounter [facility]X [facility] PODIAT[facility] Bernard Marcelo, D.P.M. [address] [place] [phone] (Wo rk) Social History Tobacco Use [...] do you attend christianity or Never 2021 zoroastrianism services? 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 [address] [place], [place] [phone] (Wo rk) 04/28/2022 Ancillary Procedure Ophthalmology Joselo Palmer O.D. [address] [place], [place] [phone] (Wo rk) 04/28/2022 Office Visit Ophthalmology Tita Palmer O.D. [address] [place], [place] [phone] (Wo rk) documented as of this encounter Visit Diagnoses Not on filedocumented in this encounter
--- OUTSIDE RECORDS SUMMARY | 2022-03-02 08:37 | XMS_ITS | Encounter Summary ---
:1970 Author Organization [facility] Address [address] [place] [address] Care Team Providers Name Role Phone Elsewhere, Pcp Primary Care Provider Unavailable Encounter Details Date Type Department Care Team Description 03/27/2010 Historical Ophthalmology RST OPH Jomar sam, Romeo Garcia M.D. [address] [place], [place] [phone] (Wo rk) Social History [...] do you attend catholic or Never 2021 yarsanism services? 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 - 03/27/2010 12:43 PM CST Eye General CHIEF COMPLAINT Proliferative diabetic retinopathy HISTORY OF PRESENT ILLNESS 39 year old male here for an eye evaluation for Proliferative diabetic retinopathy. Patient feels that his vision has remained stable since the last visit. Patient denies any flashes of light, floatersor diplopia. Patient denies ocular pain. Blood sugars under control, ranging from 80-170, testing this morning at 167. No new concerns. IMPRESSION / REPORT / PLAN FA (03/27/10) right: staining of old NVE, moderate PRP left: multifocal NVE leakage, no NVD, peripheral nonperfusion OCT (03/27/10) right: normal contour left: normal contour color photos are consistent with exam #1 Proliferative diabetic retinopathy BOTH eyes (DM since age 13) RIGHT: s/p PRP '04, minimally active NVE w/ inf nasal tiny old heme, no CSME LEFT: active NVE w/ sup temp macular subhyaloid heme, no CSME -tight glycemic, hypertensive, and cholesterol control d/w pt -last HbA1c 7.4, BP and cholesterol controlled on meds -Risks, benefits, and alternatives to PRP laser LEFT d/w pt, ?s answered, pt elects to proceed -plan ~1200 spots initially LEFT, within 1 month DIAGNOSIS #1 Proliferative diabetic retinopathy BOTH eyes (DM since age 13) CDM Reports - EYEGEN Id: [id number] Status: Fnl documented in this encounter Plan of Treatment Upcoming Encounters Date Type Specialty Care Team Description 04/28/2022 Ancillary Procedure Ophthalmology Joselo Palmer O.D. [address] [place], [place] [phone] (Wo rk) 04/28/2022 Ancillary Procedure Ophthalmology Joselo Palmer O.D. [address] [place], [place] [phone] (Wo rk) 04/28/2022 Office Visit Ophthalmology Tita Palmer O.D. [address] [place], [place] [phone] (Wo rk) documented as of this encounter Visit Diagnoses Not on filedocumented in this encounter Care Teams Radiology Clerk Relationship Specialty Start Date End Date Elsewhere, Pcp PCP - General Internal Medicine 12/05/21 documented as of this encounter
--- OUTSIDE RECORDS SUMMARY | 2022-03-02 08:37 | XMS_ITS | Encounter Summary ---
:1970 Author Organization [facility] Address [address] [place] [address] Care Team Providers Name Role Phone Elsewhere, Pcp Primary Care Provider Unavailable Encounter Details Date Type Department Care Team Description 08/25/2006 Historical Ophthalmology RST OPH Jose Tolentino M.D. [address] [place] [address] Social History Tobacco Use Types Packs/Day Years [...] do you attend islam or Never 2021 anglican services? 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 - 08/25/2006 10:08 AM CDT Eye General CHIEF COMPLAINT diabetes HISTORY OF PRESENT ILLNESS Patient is here for a diabetes eye exam. Patient missed January appointment. Decrease in distant vision x 1 year. Patients blood sugar was 111 this morning. Patients blood sugar has ranged from 47-350 x 1 month. IMPRESSION / REPORT / PLAN #1 Proliferative diabetic retinopathy s/p prp right eye increasing NVE left eye Discussed PRP LE options rationale and DRS. He will think it over. DIAGNOSIS #1 Proliferative diabetic retinopathy CDM Reports - EYEGEN Id: [id number] Status: Fnl documented in this encounter Plan of Treatment Upcoming Encounters Date Type Specialty Care Team Description 04/28/2022 Ancillary Procedure Ophthalmology Softing Joselo Narayanan O.Dequan [address] [place] [phone] (Wo rk) 04/28/2022 Ancillary Procedure Ophthalmology Joselo Palmer O.D. [address] [place] [phone] (Wo rk) 04/28/2022 Office Visit Ophthalmology Tita Palmer O.D. [address] [place] [phone] (Wo rk) documented as of this encounter Visit Diagnoses Not on filedocumented in this encounter Care Teams Build Automation Engineer Relationship Specialty Start Date End Date Elsewhere, Pcp PCP - General Internal Medicine 12/05/21 documented as of this encounter
--- OUTSIDE RECORDS SUMMARY | 2022-03-02 08:37 | XMS_ITS | Encounter Summary ---
:1970 Author Organization [facility] Address [address] [place] [address] Care Team Providers Name Role Phone Unavailable Primary Care Provider Unavailable Encounter Details Date Type Department Care Team Description 03/31/2005 Hospital Encounter [facility]X [facility] Kody Beltran M.D. [address] [place] [address] (Wo rk) Social History Tobacco Use Types [...] do you attend episcopal or Never 2021 jain services? Do you belong to any clubs [...] slept in a care home (including now)? 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 [address] [place], [place] [phone] (Wo rk) 04/28/2022 Ancillary Procedure Ophthalmology Joselo Palmer O.D. [address] [place], [place] [phone] (Wo rk) 04/28/2022 Office Visit Ophthalmology Tita Palmer O.D. [address] [place], [place] [phone] (Wo rk) documented as of this encounter Visit Diagnoses Not on filedocumented in this encounter
--- OUTSIDE RECORDS SUMMARY | 2022-03-02 08:37 | XMS_ITS | Encounter Summary ---
:1970 Author Organization [facility] Address [address] [place] [address] Care Team Providers Name Role Phone Unavailable Primary Care Provider Unavailable Encounter Details Date Type Department Care Team Description 05/09/2010 Hospital Encounter [facility]X [facility] RADIOLOGY Margarita Perez, PUSHER RUNNER, C.N.P. [address] [phone] (Wo rk) Social History Tobacco Use Types [...] do you attend faith or Never 2021 hindu services? 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 [address] [place], [place] [phone] (Wo rk) documented as of this encounter Procedures Procedure Name Priority Date/Time Associated Diagnosis Comme nts DX CHEST AP OR PA Routine 05/09/2010 4:56 PM Resu lts for this AND LATERAL 2 VIEWS PRODUCT MARKETING ANALYST procedur e are in the results section. documented in this encounter Results DX Chest AP or PA and Lateral 2 Views (05/09/2010 4:56 PM PRODUCT MARKETING ANALYST) Anatomical Region Laterality Modality Chest N/A Radiographic Imaging Specimen (Source) Anatomical Collection Method Collection Time Re ceived Time Location / / Volume Laterality 05/09/2010 4:56 PM PRODUCT MARKETING ANALYST Narrative 05/09/2010 4:56 PM PRODUCT MARKETING ANALYST Originally Signed By Contributor_system, [facility] [place]_HX_RAD_SYS Exam: PA and lateral chest radiographs. Date: 05/09/2010. Indication: ??Chest pain. Comparison: None. Findings: Lungs are clear without areas of focal consolidation or pleural effusions. No pneumothorax. Norm al interstitium. No peribronchial thickening. Normal cardiac silhouette size and pulmonary vascularity. Mild anterior wedging of tw o lower thoracic vertebrae of indeterminate age. The visualized upper abdomen is unremarkable. Impression: No radiographic findings for acute cardiopulmonary disease. Electronically Signed 05/09/2010 Reported By: Delvin Paul MD ?? Transcribed: 05/09/2010 ([id number]) ??[facility] [place]. CC: Puja Perez CNP Procedure Note Provider, Anastacio Galan - 09/15/2016F ormatting of this note might be different from the original. Originally Signed By Contributor_system, [facility] [place]_HX_RAD_SYS Exam: PA and lateral chest radiographs. Date: 05/09/2010. Indication: Chest pain. Comparison: None. Findings: Lungs are clear without areas of focal consolidation or pleural effusions. No pneumothorax. Norm al interstitium. No peribronchial thickening. Normal cardiac silhouette size and pulmonary vascularity. Mild anterior wedging of tw o lower thoracic vertebrae of indeterminate age. The visualized upper abdomen is unremarkable. Impression: No radiographic findings for acute cardiopulmonary disease. Electronically Signed 05/09/2010 Reported By: Delvin Paul MD Transcribed: 05/09/2010 ([id number]) [facility] [place].AU CC: Puja Perez CNP Historical Provider IMG DIAGNOSTIC IMAGING PROCE DURES documented in this encounter Visit Diagnoses Not on filedocumented in this encounter
--- OUTSIDE RECORDS SUMMARY | 2022-03-02 08:37 | XMS_ITS | Encounter Summary ---
:1970 Author Organization [facility] Address [address] [place] [address] Care Team Providers Name Role Phone Unavailable Primary Care Provider Unavailable Encounter Details Date Type Department Care Team Description 03/06/2008 Hospital Encounter [facility]X [facility] Antonella Barton, C.N.P., R.N. [address] [place], [place] [phone] (Wo rk) Social History Tobacco Use Types [...] do you attend zoroastrian or Never 2021 orthodox services? 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 documented as of this encounter Medications at [...] of this encounter Miscellaneous Notes Miscellaneous - Conversion, Historical Provider Ser - 08/22/2012 8:13 AM CDT Medication Refill Msg Document Contains Addenda Addendum by SABA BARROSO CNP on 22 Aug 2012 10:35:59 CDT Submitted: Order:amlodipine (Norvasc 10 mg oral tablet) 1 tab(s) PO Daily Qty: 90 tab(s) Refills: 4 Route To Pharmacy - [facility] Signed by SABA BARROSO CNP 08/22/2012 10:35:40 Addendum by LULÚ SOUSA LPN on 22 Aug 2012 09:43:29 CDT From: LULÚ SOUSA LPN (ALESSANDRA Sanchez Nurse) To: SABA BARROSO CNP; Sent: 08/22/2012 09:43:29 CDT Subject: FW: Medication Refill Msg Addendum by LULÚ SOUSA LPN on 22 Aug 2012 09:43:22 CDT Last office visit with you was May 09, 2010, patient was going to have lab, there is a phone message saying the lab was going to be done in [place] because he had an appointment to be seen there. From: CECIL COHEN (ALESSANDRA Abstracting) To: ALESSANDRA Sanchez Nurse; Sent: 08/22/2012 08:13:26 CDT Subject: Medication Refill Msg Caller is: ( ) Patient ( ) Mother ( ) Father ( ) Spouse ( ) Daughter ( ) Son ( ) Pharmacy ( ) Other: Provider: SABA BARROSO Pharmacy: [facility] : 1970 Name of Medications Needing Refill: AMLODIPINE BESYLATE 10 MG,TAKE ONE TABLET BY MOUTH DAILY.QTY:90 Last Refill Date: 05/04/2012 Additional Information: Last / Future Appointment: Disposition: ( ) Send to Pharmacy ( ) Call to Pharmacy ( ) Patient will product picker Script ( ) Mail Rx to Patient Source: [facility] [employer] Document Id: [id number] documented in this encounter Plan of Treatment Upcoming Encounters Date Type Specialty Care Team Description 04/28/2022 Ancillary Procedure Ophthalmology Joselo Palmer O.D. [address] [place] [phone] (Odalis rk) 04/28/2022 Ancillary Procedure Ophthalmology Joselo Palmer O.D. [address] [place] [phone] (Odalis rk) 04/28/2022 Office Visit Ophthalmology Tita Palmer O.D. [address] [place] [phone] (Odalis rk) documented as of this encounter Visit Diagnoses Not on filedocumented in this encounter
--- OUTSIDE RECORDS SUMMARY | 2022-03-02 08:37 | XMS_ITS | Encounter Summary ---
:1970 Author Organization [facility] Address [address] [place] [address] Care Team Providers Name Role Phone Elsewhere, Pcp Primary Care Provider Unavailable Encounter Details Date Type Department Care Team Description 09/19/2009 Historical Ophthalmology RST OPH Jose Tolentino M.D. [address] [place] [address] Social History Tobacco Use Types Packs/Day Years [...] do you attend taoist or Never 2021 rastafari services? 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 - 09/19/2009 8:42 AM CDT Eye General CHIEF COMPLAINT Intermittent foreign body sensation (? which eye) ; mornings ; episodes x one year. HISTORY OF PRESENT ILLNESS Foreign body sensation; (? which eye); x 1 year; intermittently; worse in the morning; tend to rub the eye which makes the irritation worse causing tearing . Denies distance / near vision complaints, flashes or floaters (both eyes). Diabetes x 26 years; states blood sugar 80-180 in the past two weeks (A1C 7.4 06/25) IMPRESSION / REPORT / PLAN #1 Proliferative diabetic retinopathy DM1 dx'd age 13 (insulin x 25 yrs) s/p prp right eye Begin prp LE as active NVE now seen. Offered to begin today but he will call for appt. Consider more PRP right eye, based on area of elevated fibrosis + NVE nasally. DIAGNOSIS #1 Proliferative diabetic retinopathy CDM Reports - EYEGEN Id: [id number] Status: Fnl documented in this encounter Plan of Treatment Upcoming Encounters Date Type Specialty Care Team Description 04/28/2022 Ancillary Procedure Ophthalmology Joselo Palmer O.D. [address] [place], [place] [phone] (Odalis walton) 04/28/2022 Ancillary Procedure Ophthalmology Joselo Palmer O.D. [address] [place], [place] [phone] (Odalis rk) 04/28/2022 Office Visit Ophthalmology Tita Palmer O.D. [address] [place], [place] [phone] (Odalis walton) documented as of this encounter Visit Diagnoses Not on filedocumented in this encounter Care Teams Beater Engineer Helper Relationship Specialty Start Date End Date Elsewhere, Pcp PCP - General Internal Medicine 12/05/21 documented as of this encounter
--- OUTSIDE RECORDS SUMMARY | 2022-03-02 08:37 | XMS_ITS | Encounter Summary ---
:1970 Author Organization [facility] Address [address] [place] [address] Care Team Providers Name Role Phone Unavailable Primary Care Provider Unavailable Encounter Details Date Type Department Care Team Description 03/07/2008 Hospital Encounter [facility] Oumou Vazquez, O.D. [address] [place] [phone] (Work) Social History Tobacco Use Types Packs/Day [...] or relatives? How often do you attend temple or Never 2021 taoism services? 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 [address] [place], [place] [phone] (Odalis rk) 04/28/2022 Ancillary Procedure Ophthalmology Joselo [place] O.D. [address] [place], [place] [phone] (Wo rk) 04/28/2022 Office Visit Ophthalmology Tita [place] O.D. [address] [place], [place] [phone] (Odalis rk) documented as of this encounter Visit Diagnoses Not on filedocumented in this encounter
--- OUTSIDE RECORDS SUMMARY | 2022-03-02 08:37 | XMS_ITS | Encounter Summary ---
:1970 Author Organization [facility] Address [address] [place] [address] Care Team Providers Name Role Phone Elsewhere, Pcp Primary Care Provider Unavailable Encounter Details Date Type Department Care Team Description 01/18/2004 Historical Ophthalmology [facility]ST O[facility] Jose Tolentino M.D. [address] [place] [address] Social History Tobacco Use Types Packs/Day Years [...] or relatives? How often do you attend orthodoxy or Never 2021 quaker services? 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 - 01/18/2004 12:00 AM CDT Eye General CHIEF COMPLAINT S/P laser right eye 12/20/03 laser right eye today. HISTORY OF PRESENT ILLNESS Pt. states no new concerns today. IMPRESSION / REPORT / PLAN #1 Proliferative diabetic retinopathy right eye s/p prp with persistent NVE. Rec 2nd session today and see in 4- 6 weeks. DIAGNOSIS #1 Proliferative diabetic retinopathy right eye CDM Reports - EYEGEN Id: [id number] Status: Fnl documented in this encounter Plan of Treatment Upcoming Encounters Date Type Specialty Care Team Description 04/28/2022 Ancillary Procedure Ophthalmology Softing Joselo Narayanan O.D. [address] [place] [place] [phone] (Wo rk) 04/28/2022 Ancillary Procedure Ophthalmology Joselo [place] O.D. [address] [place] [place] [address] [phone] (Wo rk) 04/28/2022 Office Visit Ophthalmology Tita [place] O.D. [address] [place] [phone] (Wo rk) documented as of this encounter Visit Diagnoses Not on filedocumented in this encounter Care Teams Transportation Logistics Internship Relationship Specialty Start Date End Date Elsewhere, Pcp PCP - General Internal Medicine 12/05/21 documented as of this encounter
--- OUTSIDE RECORDS SUMMARY | 2022-03-02 08:37 | XMS_ITS | Encounter Summary ---
:1970 Author Organization [facility] Address [address] [place] [address] Care Team Providers Name Role Phone Elsewhere, Pcp Primary Care Provider Unavailable Encounter Details Date Type Department Care Team Description 06/19/2008 Historical Ophthalmology RST OPH Jose Tolentino M.D. [address] [place] [address] Social History Tobacco Use Types Packs/Day Years [...] do you attend jainism or Never 2021 shinto services? 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 - 06/19/2008 9:08 AM CST Eye General CHIEF COMPLAINT EDIC study HISTORY OF PRESENT ILLNESS Patient is here for the EDIC study. Patients glucose was 136 and his hemoglobin A1C was 74 this morning. Patient states, When I rub my left eye it starts tearing and then it hurts the past month. Pain is 4/10. Patient doesn't use any drops for his eyes. IMPRESSION / REPORT / PLAN #1 Proliferative diabetic retinopathy s/p prp right eye NVE LE fibrotic See 1 yr DIAGNOSIS #1 Proliferative diabetic retinopathy CDM Reports - EYEGEN Id: [id number] Status: Fnl documented in this encounter Plan of Treatment Upcoming Encounters Date Type Specialty Care Team Description 04/28/2022 Ancillary Procedure Ophthalmology Softing Joselo Narayanan O.Dequan [address] [place] [address] [phone] (Wo rk) 04/28/2022 Ancillary Procedure Ophthalmology Joselo [place] O.Dequan [address] [place] [address] [phone] (Wo rk) 04/28/2022 Office Visit Ophthalmology Tita [place] O.Dequan [address] [place] [address] [phone] (Wo rk) documented as of this encounter Visit Diagnoses Not on filedocumented in this encounter Care Teams Restaurant Greeter Relationship Specialty Start Date End Date Elsewhere, Pcp PCP - General Internal Medicine 12/05/21 documented as of this encounter
--- OUTSIDE RECORDS SUMMARY | 2022-03-02 08:37 | XMS_ITS | Encounter Summary ---
:1970 Author Organization [facility] Address [address] [place] [address] Care Team Providers Name Role Phone Unavailable Primary Care Provider Unavailable Encounter Details Date Type Department Care Team Description 02/29/2008 Hospital Encounter HX [facility] Antonella Barton, C.N.P., R.N. [address] [place], [place] [address] (Wo rk) Social History Tobacco Use Types [...] do you attend latter-day or Never 2021 episcopal services? 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 [address] [place] [phone] (Wo rk) 04/28/2022 Ancillary Procedure Ophthalmology Joselo [place] O.D. [address] [place], [place] [phone] (Wo rk) 04/28/2022 Office Visit Ophthalmology Tita [place] O.D. [address] [place], [place] [phone] (Wo rk) documented as of this encounter Visit Diagnoses Not on filedocumented in this encounter
--- OUTSIDE RECORDS SUMMARY | 2022-03-02 08:37 | XMS_ITS | Encounter Summary ---
:1970 Author Organization [facility] Address [address] [place] [address] Care Team Providers Name Role Phone Unavailable Primary Care Provider Unavailable Encounter Details Date Type Department Care Team Description 08/25/2006 - Hospital Encounter HX [facility] Joe Mcguire, 09/01/2006 SIDDHARTHA BA M.D. [address] [place] [address] Social History Tobacco Use Types Packs/Day Years [...] you attend jehovah's witness or Never 2021 anabaptist services? 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 [address] [place], [place] [phone] (Wo rk) 04/28/2022 Ancillary Procedure Ophthalmology Joselo Palmer O.D. [address] [place], [place] [phone] (Wo rk) 04/28/2022 Office Visit Ophthalmology Tita [place] O.D. [address] [place], [place] [phone] (Wo rk) documented as of this encounter Visit Diagnoses Not on filedocumented in this encounter
--- OUTSIDE RECORDS SUMMARY | 2022-03-02 08:37 | XMS_ITS | Encounter Summary ---
:1970 Author Organization [facility] Address [address] [place] [address] Care Team Providers Name Role Phone Elsewhere, Pcp Primary Care Provider Unavailable Encounter Details Date Type Department Care Team Description 08/26/2004 Historical Ophthalmology RST OPH Jose Tolentino M.D. [address] [place] [address] Social History Tobacco Use Types Packs/Day Years [...] do you attend orthodox or Never 2021 synagogue services? 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 - 08/26/2004 12:00 AM CDT Eye General CHIEF COMPLAINT EDIC study HISTORY OF PRESENT ILLNESS Patient is here for the EDIC study. Patients blood sugars were 125 this morning. Patients blood sugar has ranged from 26-260 this past month. Patient has a forgein body sensation in right eye when he wakes up in the morning since February 2004. Patient denies flashes of light, floaters, pain and diplopia. IMPRESSION / REPORT / PLAN #1 Proliferative diabetic retinopathy s/p prp right eye, stable increasing NVE left eye discussed PRP LE; DRS and ETDRS results. He will schedule get color fundus photos LE DIAGNOSIS #1 Proliferative diabetic retinopathy CDM Reports - EYEGEN Id: [id number] Status: Fnl documented in this encounter Plan of Treatment Upcoming Encounters Date Type Specialty Care Team Description 04/28/2022 Ancillary Procedure Ophthalmology Softing Joselo Narayanan O.D. [address] [place], [place] [phone] (Odalis walton) 04/28/2022 Ancillary Procedure Ophthalmology Softing Joselo Narayanan O.D. [address] [place], [place] [phone] (Odalis walton) 04/28/2022 Office Visit Ophthalmology Tita [place] O.D. [address] [place], [place] [phone] (Odalis walton) documented as of this encounter Visit Diagnoses Not on filedocumented in this encounter Care Teams Trailer Body Assembler Relationship Specialty Start Date End Date Elsewhere, Pcp PCP - General Internal Medicine 12/05/21 documented as of this encounter
--- OUTSIDE RECORDS SUMMARY | 2022-03-02 08:37 | XMS_ITS | Encounter Summary ---
:1970 Author Organization [facility] Address [address] [place] [address] Care Team Providers Name Role Phone Elsewhere, Pcp Primary Care Provider Unavailable Encounter Details Date Type Department Care Team Description 08/25/2005 Historical Ophthalmology RST OPH Jose Tolentino M.D. [address] [place] [address] Social History Tobacco Use Types Packs/Day Years [...] do you attend episcopal or Never 2021 pentecostalism services? Do you [...] at Date Recorded Male 03/01/2017 6:27 AM THERAPIST RESPIRATORY documented as of this encounter Progress Notes Ted Tolentino M.D. - 08/25/2005 12:00 AM CDT Eye General CHIEF COMPLAINT Diabetic eye check HISTORY OF PRESENT ILLNESS No blurred vision. No floaters. No flashes of light. Bld sugars stable. No diplopia. No pain. IMPRESSION / REPORT / PLAN #1 Proliferative diabetic retinopathy s/p prp right eye, new NVE increasing NVE left eye discussed PRP LE then RE; DRS and ETDRS results. He will think it over. Otherwise see in Oct. DIAGNOSIS #1 Proliferative diabetic retinopathy CDM Reports - EYEGEN Id: [id number] Status: Fnl documented in this encounter Plan of Treatment Upcoming Encounters Date Type Specialty Care Team Description 04/28/2022 Ancillary Procedure Ophthalmology Softing Joselo Narayanan O.Dequan [address] [place] [phone] (Wo rk) 04/28/2022 Ancillary Procedure Ophthalmology Joselo [place] O.D. [address] [place] [phone] (Wo rk) 04/28/2022 Office Visit Ophthalmology Tita [place] O.D. [address] [place] [phone] (Wo rk) documented as of this encounter Visit Diagnoses Not on filedocumented in this encounter Care Teams Ppap Coordinator Relationship Specialty Start Date End Date Elsewhere, Pcp PCP - General Internal Medicine 12/05/21 documented as of this encounter
--- OUTSIDE RECORDS SUMMARY | 2022-03-02 08:37 | XMS_ITS | Encounter Summary ---
:[address] [facility] Address [address] [place] [address] Care Team Providers Name Role Phone Unavailable Primary Care Provider Unavailable Encounter Details Date Type Department Care Team Description 03/05/2008 Hospital Encounter [facility] Oumou Vazquez, O.D. [address] [place] [phone] (Work) Social History Tobacco Use Types [...] do you attend sabianist or Never 2021 hoahaoism services? 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 [address] [place], [place] [phone] (Wo rk) 04/28/2022 Ancillary Procedure Ophthalmology Joselo [place] O.D. [address] [place], [place] [phone] (Wo rk) 04/28/2022 Office Visit Ophthalmology Tita [place] O.D. [address] [place], [place] [phone] (Wo rk) documented as of this encounter Visit Diagnoses Not on filedocumented in this encounter
--- OUTSIDE RECORDS SUMMARY | 2022-03-02 08:37 | XMS_ITS | Encounter Summary ---
:1970 Author Organization [facility] Address [address] [place] [address] Care Team Providers Name Role Phone Unavailable Primary Care Provider Unavailable Encounter Details Date Type Department Care Team Description 08/18/2011 Hospital Encounter [facility] Aurora Levi O.D. [address] [place] [address] (Wo rk) Social History Tobacco Use Types [...] do you attend christianity or Never 2021 scientologist services? 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 - 08/18/2011 12:00 AM CDT [facility] NOTES Event Type: LE Date of : 1970 Age: 41Y Date: 08/18/2011 Referred by: IMPRESSION/REPORT/PLAN The patient was instructed to use prophylaxis antibiotics for 4 days at a rate of 4 times a day and he was headed to [facility] for that. I prescribed Polytrim drops. The patient will use them. I recommended that he return to clinic in 2 to 3 days for followup. He states that his work schedule would not permit this. I explained what to look for in terms of potential infection or further irritation or any complications. The patient states he will return if the eye does not feel significantly better in about 2 days and he knows he will have to come back. Otherwise if he clears we will see him as necessary. CHIEF COMPLAINT/REASON FOR VISIT Foreign body sensation left eye for 1-1/2 days. HISTORY OF PRESENT ILLNESS The patient is a 41-year-old male reporting to the clinic today with a history of foreign body sensation since yesterday. The patient states that the sensation has not increased in intensity and that he is somewhat photosensitive, but that he thinks it is improving slightly in the last couple of hours. His eye has been moderately red both days. There has been no significant discharge from the eye. The patient does not wear corrective lenses. The patient has a history of foreign body removal and abrasion once in each eye in the past. Also is a type diabetic and his care for his type 1 diabetes is at [facility]. There is currently no A1c reading available. The remainder of the history, review of systems, and examination are in the written record. PHYSICAL EXAMINATION Visual acuity without correction 20/20 in each eye. External exam normal. Anterior segment exam reveals a small piece of rust or metallic foreign body in the nasal central cornea just nasal to the pupil zone. The anterior chamber in the left eye shows a mild grade 1 cell reaction. The patient's eye was anesthetized and the foreign body was removed with a foreign body spud without difficulty. LIZZETH:aniya cc: Electronically Signed By: AURORA LEVI OD On: 08/26/2011 08:45 AM Source: [facility] AMCDICTAPHONESYS Document Id: [id number] documented in this encounter Plan of Treatment Upcoming Encounters Date Type Specialty Care Team Description 04/28/2022 Ancillary Procedure Ophthalmology Joselo [place] O.D. [address] [place] [phone] (Odalis walton) 04/28/2022 Ancillary Procedure Ophthalmology Joselo [place] O.D. [address] [place] [address] [phone] (Odalis walton) 04/28/2022 Office Visit Ophthalmology Tita [place] O.D. [address] [place] [phone] (Odalis walton) documented as of this encounter Visit Diagnoses Not on filedocumented in this encounter
--- OUTSIDE RECORDS SUMMARY | 2022-03-02 08:37 | XMS_ITS | Encounter Summary ---
:1970 Author Organization [facility] Address [address] [place] [address] Care Team Providers Name Role Phone Unavailable Primary Care Provider Unavailable Encounter Details Date Type Department Care Team Description 03/02/2008 Hospital Encounter HX [facility] Antonella Barton, C.N.P., R.N. [address] [place], [place] [address] (Wo rk) Social History Tobacco Use Types [...] or relatives? How often do you attend adventist or Never 2021 gnosticist services? 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 [address] [place] [phone] (Wo rk) 04/28/2022 Ancillary Procedure Ophthalmology Joselo [place] O.D. [address] [place], [place] [phone] (Wo rk) 04/28/2022 Office Visit Ophthalmology Tita [place] O.D. [address] [place], [place] [phone] (Wo rk) documented as of this encounter Visit Diagnoses Not on filedocumented in this encounter
--- OUTSIDE RECORDS SUMMARY | 2022-03-02 08:37 | XMS_ITS | Encounter Summary ---
:1970 Author Organization [facility] Address [address] [place] [address] Care Team Providers Name Role Phone Elsewhere, Pcp Primary Care Provider Unavailable Encounter Details Date Type Department Care Team Description 11/01/2002 Historical Ophthalmology RST OPH Jose Tolentino M.D. [address] [place] [address] Social History Tobacco Use Types Packs/Day Years [...] do you attend jain or Never 2021 muslim services? Do you [...] or slept in a [facility] (including now)? 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 - 11/01/2002 12:00 AM CDT Eye General CHIEF COMPLAINT Patient has no visual complaints or concerns, here for study examination IMPRESSION / REPORT / PLAN #1 Early proliferative diabetic retinopathy OD Relatively stable from exam 2 yeras ago. Not at high risk and discussed treatment options. Will obseve for now and check 4 mos. Get color fundus photos OU. DIAGNOSIS #1 Early proliferative diabetic retinopathy OD CDM Reports - EYEGEN Id: [id number] Status: Fnl documented in this encounter Plan of Treatment Upcoming Encounters Date Type Specialty Care Team Description 04/28/2022 Ancillary Procedure Ophthalmology Softing Joselo Narayanan O.D. [address] [place] [address] [phone] (Wo rk) 04/28/2022 Ancillary Procedure Ophthalmology SoftJoselo Whyte O.D. [address] [place] [address] [phone] (Wo rk) 04/28/2022 Office Visit Ophthalmology Tita [place] O.D. [address] [place], [place] [phone] (Wo rk) documented as of this encounter Visit Diagnoses Not on filedocumented in this encounter Care Teams Element Winding Machine Tender Relationship Specialty Start Date End Date Elsewhere, Pcp PCP - General Internal Medicine 12/05/21 documented as of this encounter
--- OUTSIDE RECORDS SUMMARY | 2022-03-02 08:37 | XMS_ITS | Encounter Summary ---
:1970 Author Organization [facility] Address [address] [place] [address] Care Team Providers Name Role Phone Unavailable Primary Care Provider Unavailable Encounter Details Date Type Department Care Team Description 07/28/2002 Hospital Encounter [facility]X [facility] Kim Adams M.D. [address] [place] [address] (Wo rk) Social History Tobacco Use Types [...] do you attend uatsdin or Never 2021 synagogue services? 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 [address] [place], [place] [phone] (Wo rk) 04/28/2022 Ancillary Procedure Ophthalmology Joselo [place] O.D. [address] [place], [place] [phone] (Wo rk) 04/28/2022 Office Visit Ophthalmology Tita [place] O.D. [address] [place], [place] [phone] (Wo rk) documented as of this encounter Visit Diagnoses Not on filedocumented in this encounter
--- OUTSIDE RECORDS SUMMARY | 2022-03-02 08:37 | XMS_ITS | Encounter Summary ---
:1970 Author Organization [facility] Address [address] [place] [address] Care Team Providers Name Role Phone Unavailable Primary Care Provider Unavailable Encounter Details Date Type Department Care Team Description 11/28/2004 Hospital Encounter [facility] Stella Phillips M.D. [address] [place] [address] (Wo rk) Social History Tobacco Use Types [...] do you attend bahai or Never 2021 faith services? 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 [address] [place], [place] [phone] (Wo rk) 04/28/2022 Ancillary Procedure Ophthalmology Joselo [place] O.D. [address] [place], [place] [phone] (Wo rk) 04/28/2022 Office Visit Ophthalmology Tita [place] O.D. [address] [place], [place] [phone] (Wo rk) documented as of this encounter Visit Diagnoses Not on filedocumented in this encounter
--- OUTSIDE RECORDS SUMMARY | 2022-03-02 08:37 | XMS_ITS | Encounter Summary ---
:1970 Author Organization [facility] Address [address] [place] [address] Care Team Providers Name Role Phone Unavailable Primary Care Provider Unavailable Encounter Details Date Type Department Care Team Description 07/11/2002 Hospital Encounter [facility] Verona Romano M.D. [address] [place] [address] (Wo rk) Social History Tobacco Use Types [...] do you attend restoration or Never 2021 adventist services? 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 [address] [place] [address] [phone] (Wo rk) 04/28/2022 Ancillary Procedure Ophthalmology Joselo [place] O.D. [address] [place] [address] [phone] (Wo rk) 04/28/2022 Office Visit Ophthalmology Tita [place] O.D. [address] [place] [address] [phone] (Wo rk) documented as of this encounter Visit Diagnoses Not on filedocumented in this encounter
--- OUTSIDE RECORDS SUMMARY | 2022-03-02 08:37 | XMS_ITS | Encounter Summary ---
:1970 Author Organization [facility] Address [address] [place] [address] Care Team Providers Name Role Phone Unavailable Primary Care Provider Unavailable Encounter Details Date Type Department Care Team Description 05/09/2010 Hospital Encounter HX [facility] CV[facility]ART[facility] Margarita Barroso, TUBE KNITTER, C.N.P. [address] [phone] (Wo rk) Social History Tobacco Use Types [...] do you attend orthodoxy or Never 2021 mosque services? 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 - 05/09/2010 2:45 PM CST Report CLINIC NOTE [place], [place] PATIENT: [id number] NAME: LEX JEAN BAPTISTE ENCOUNTER: [id number] DATE OF : 74 SERVICE DATE: 05/09/10 PROVIDER: Puja Barroso CNP LOCATION: CLINIC DESCRIPTION: ADDED PER PUJA CHARGES: [id number] OFFICE/OUTPATIENT VISIT, EST DIAGNOSES: 786.59 CHEST PAIN NEC 401.9 HYPERTENSION NOS 244.9 HYPOTHYROIDISM NOS 272.4 HYPERLIPIDEMIA NEC/NOS DOCUMENT TEXT: Patient Age: 39 Report Dictation DICTATED BY: Puja Barroso CNP PRIMARY CARE PHYSICIAN: Francis Taveras, DATE: 05/09/2010 IMPRESSION: 1. Atypical chest discomfort. The patient has symptoms of persistent chest discomfort and no electrocardiogram changes. No change in symptoms with exertion. The patient's symptoms likely musculoskeletal. Will place the patient on ibuprofen 600 mg three times daily over the next couple of days. The patient can start to wean himself off at that point if his symptoms have improved. Certainly, if Mr. Jean Baptiste's symptoms worsen, he should be reevaluated. I am going to obtain a troponin and sedimentation rate today as well, and I will contact him on the phone with those results. 2. Dyslipidemia. The patient has an excellent fasting lipid profile with an LDL at 89 on Lipitor 20 mg daily. 3. Hypothyroidism. The patient is on thyroid replacement, but has not had his thyroid checked in nearly 3 years. Will update a TSH today. 4. Hypertension, not controlled. The patient is an insulin-dependent diabetic, and blood pressures have consistently been greater than 130/80. In fact, over the last several months, they have been quite a bit higher than that with my reading today of 154/90. The patient's current regimen is hydrochlorothiazide 25 mg daily and Cozaar 100 mg daily. I am going to start Mr. Jean Baptiste on Norvasc 5 mg daily. He is concerned about multiple medications and, certainly, if we can get his blood pressure under better control with the Norvasc, we can look at taking away hydrochlorothiazide at some point. 5. Insulin-dependent diabetes. PLAN: 1. As above. 2. Will contact Mr. Jean Baptiste with his lab results and recommendations over the phone. SUBJECTIVE: Mr. Jean Baptiste is a pleasant, 39-year-old gentleman with a history of insulin-dependent diabetes, dyslipidemia, hypothyroidism and hypertension. Mr. Jean Baptiste developed some left lower chest discomfort and mid back discomfort approximately one week ago. His symptoms came on spontaneously without exertion. His symptoms have been persistent and have not been relieved or worsened with any intervention. His pain is nonpalpable. He has had no recent upper respiratory infections. He has had no cough, wheezing, or shortness of breath. 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 He has had no specific fatigue or weakness. REVIEW OF SYSTEMS: GENERAL: Denies fever or chills. CARDIOVASCULAR: As above. PULMONARY: As above. PHYSICAL EXAMINATION: VITAL SIGNS: Blood pressure 154/90, heart rate 60, respiratory rate 16. GENERAL: Pleasant gentleman in no acute distress at rest. HEENT: Conjunctivae are clear. Anicteric sclerae. NECK: Supple. RESPIRATORY: Respirations are easy and nonlabored. LUNGS: Clear to auscultation. CARDIAC: Heart rate is regular without murmurs, rubs, or gallops noted. EKG: Sinus rhythm, no ST/T wave changes suggestive of ischemia. When compared to previous electrocardiogram on 10/16/2009 there has been no significant change. Chest x-ray obtained today appears to be within normal limits, formal report is pending. CRN:nicholas cc: Rooming Doc Allergies Coded Allergies: Penicillins (Unknown,03/06/08) Vitals Pulse: 60 Respiration: 16 Blood Pressure: 154/90 (Sitting, Left Arm) Orders Medications and Procedures Prescriptions: New - Ibuprofen 600 MG TABLET, 05/09/10 600 Milligrams ORAL 3 times every day, 90 Days, Refills 0 Dx - Hypertension Amlodipine (Norvasc) 5 MG TABLET, 05/09/10 5 Milligrams ORAL every day, #30 Tablet, Refills 1 Dx - Hypertension Reported - Hydrochlorothiazide (Hctz) 25 MG TABLET 12.5 Milligrams ORAL every day Tablet Losartan (Cozaar) 100 MG TABLET 1 Tablet ORAL every day, #30 Atorvastatin (Lipitor) 20 MG TABLET 1 Tablet ORAL every day Tablet Levothyroxine (Levothroid) 125 MCG TABLET 125 Microgram ORAL every day Tablet Insulin Glargine (Lantus) 100 UNITS/ML VIAL 0 Units subcutaneous, #1 Vial Insulin Aspart (Novolog) 100 UNITS/ML VIAL 0 Units subcutaneous SEE SPECIFIC DIRECTIONS BELOW, #10 Milliliter Diagnostics: Troponin ( Today at [facility]Laboratory) Dx - Chest Pain Thyroid Stimulating Hormone ( Today at [facility]) Dx - Chest Pain Sed Rate (ESR) ( Today at [facility]) Dx - Chest Pain at 0831. Source: [facility] AMCHXTRANSXSYS Document Id: [id number] Electronically signed by Conversion, [facility] Slurry Control Operator Helper [id number] at 10/19/2016 9:17 PM CDT documented in this encounter Miscellaneous Notes Miscellaneous - Conversion, Historical Provider Ser - 10/22/2015 4:18 PM CDT *Medication Refill Msg Document Contains Addenda Addendum by PUJA BARROSO CNP on October 23, 2015 09:34:06 CDT Submitted: Order:amLODIPine (Norvasc 10 mg oral tablet) 1 tab(s) PO Daily Qty: 90 tab(s) Refills: 3 Route To [facility] - [facility] Signed by PUJA BARROSO CNP 10/23/2015 09:33:55 Addendum by LULÚ SOUSA LPN on October 23, 2015 09:27:59 CDT From: LULÚ SOUSA LPN (ALESSANDRA Sanchez Nurse) To: PUJA BARROSO CNP; Sent: 10/23/2015 09:27:59 CDT Subject: FW: *Medication Refill Msg Patient was seen May 09, 2010, no follow up appointment in cardiology From: RUTH GAINES ([employer] Meat Market Manager) To: ALESSANDRA Sanchez Nurse; Sent: 10/22/2015 16:18:40 CDT Subject: *Medication Refill Msg Caller is: ( ) Patient ( ) Mother ( ) Father ( ) Spouse ( ) Daughter ( ) Son ( ) Pharmacy ( ) Other: Provider: PUJA BARROSO [facility]acy: [facility] : 1970 Name of Medications Needing Refill: AMLODIPINE BESYLATE 10 MG, TAKE ONE TABLET BY MOUTH EVERY DAY, QTY: 90 Last Refill Date: 07/27/2015 Additional Information: Last / Future Appointment: Disposition: ( ) Send to Pharmacy ( ) Call to Pharmacy ( ) 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 ( ) Mail Rx to Patient Source: [facility] POWERCHART Document Id: [id number] Miscellaneous - Conversion, Historical Provider Ser - 09/27/2013 12:15 PM CDT Medication Refill Msg Document Contains Addenda Addendum by PUJA BARROSO CNP on 27 September 2013 13:04:30 CDT Submitted: Order:amLODIPine (Norvasc 10 mg oral tablet) 1 tab(s) PO Daily Qty: 90 tab(s) Refills: 4 Route To Pharmacy - [facility] Signed by PUJA BARROSO CNP 09/27/2013 13:04:16 Addendum by MALINI RAJAN LPN on 27 September 2013 12:33:17 CDT From: MALINI RAJAN LPN (ALESSANDRA Sanchez Nurse) To: PUJA BARROSO CNP; Sent: 09/27/2013 12:33:17 CDT Subject: FW: Medication Refill Msg Addendum by MALINI RAJAN LPN on 27 September 2013 12:33:12 CDT last filled 06/18/2013 CRN last seen 05/09/2010 CRN no upcomming appts. 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 ( ) Mail Rx to Patient Source: [facility] WeblanceCHART Document Id: [id number] Miscellaneous - Conversion, Historical Provider Ser - 07/28/2011 3:29 PM CDT Medication Refill Msg Document Contains Addenda Addendum by PUJA BARROSO CNP on 28 July 2011 16:10:28 CDT Submitted: Order Order: amlodipine (Norvasc 10 mg oral tablet) 1 tab(s) PO Daily Qty: 90 tab(s) Duration: 90 day(s) Refills: 4 Route To Pharmacy - [facility] Signed by PUJA BARROSO CNP 07/28/2011 16:10:15 Addendum by LULÚ SOUSA LPN on 28 July 2011 16:06:16 CDT From: LULÚ SOUSA LPN (ALESSANDRA Sanchez Nurse) To: PUJA BARROSO CNP; Sent: 07/28/2011 16:06:16 CDT Subject: FW: Medication Refill Msg Addendum by LULÚ SOUSA LPN on 28 July 2011 16:06:05 CDT Last office visit with you was on May 09, 2010, no future appointments in cardiology. 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 [address] [place] [address] [phone] (Odalis walton) 04/28/2022 Ancillary Procedure Ophthalmology Joselo Palmer O.D. [address] [place] [address] [phone] (Odalis walton) 04/28/2022 Office Visit Ophthalmology Tita Palmer O.D. [address] [place] [address] [phone] (Wo rk) documented as of this encounter Visit Diagnoses Not on filedocumented in this encounter
--- OUTSIDE RECORDS SUMMARY | 2022-03-02 08:37 | XMS_ITS | Encounter Summary ---
:1970 Author Organization [facility] Address [address] [place] [address] Care Team Providers Name Role Phone Elsewhere, Pcp Primary Care Provider Unavailable Encounter Details Date Type Department Care Team Description 11/02/2003 Historical Ophthalmology RST OPH Provider, Histor ical Social History Tobacco Use Types Packs/Day Years [...] do you attend methodist or Never 2021 orthodox services? 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 Denies specific vision complaints at distance andnear (both eyes). Intermittent F.B. sensation (right eye). Denies dryness or gritty sensation (both eyes) . Denies flashes or floaters (both eyes). States blood sugar range in the past two weeks has been 60-280. IMPRESSION / REPORT / PLAN #1 Early proliferative diabetic retinopathy, both eyes Left eye slightly increased NVE compared to exam 1 year ago (compared to 10/19 photos). Right eye hasmore NVE - approaching high risk. Discussed treatment options, R/B/A. Consider modified PRP in lightof NVE progression. Pt seen and discussed with Dr. Tolentino. Pt would like to proceed, will schedule with Dr. Tolentino. DIAGNOSIS #1 Early proliferative diabetic retinopathy, both eyes CDM Reports - EYEGEN Id: [id number] Status: Fnl documented in this encounter Plan of Treatment Upcoming Encounters Date Type Specialty Care Team Description 04/28/2022 Ancillary Procedure Ophthalmology SoftJoselo Whyte O.D. [address] [place], [place] [phone] (Wo rk) 04/28/2022 Ancillary Procedure Ophthalmology Khurraming Joselo Narayanan O.D. [address] [place] [address] [phone] (Wo rk) 04/28/2022 Office Visit Ophthalmology Tita Palmer O.D. [address] [place] [address] [phone] (Wo rk) documented as of this encounter Visit Diagnoses Not on filedocumented in this encounter Care Teams Biztalk Software Developer Relationship Specialty Start Date End Date Elsewhere, Pcp PCP - General Internal Medicine 12/05/21 documented as of this encounter
--- OUTSIDE RECORDS SUMMARY | 2022-03-02 08:38 | XMS_ITS | Encounter Summary ---
:1970 Author Organization [facility] Address [address] [place] [address] Care Team Providers Name Role Phone Unavailable Primary Care Provider Unavailable Encounter Details Date Type Department Care Team Description 11/21/2001 Hospital Encounter HX [facility] Francis Cueva D.O. [address] [place], [place] [address] (Wo rk) Social History [...] do you attend anabaptist or Never 2021 hinduism services? 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 [address] [place], [place] [phone] (Wo rk) 04/28/2022 Ancillary Procedure Ophthalmology Joselo Palmer O.D. [address] [place], [place] [phone] (Wo rk) 04/28/2022 Office Visit Ophthalmology Tita Palmer O.D. [address] [place], [place] [phone] (Wo rk) documented as of this encounter Visit Diagnoses Not on filedocumented in this encounter
--- OUTSIDE RECORDS SUMMARY | 2022-03-02 08:38 | XMS_ITS | Encounter Summary ---
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 [address] [place] [address] [phone] (Wo rk) 04/28/2022 Ancillary Procedure Ophthalmology Joselo Palmer O.D. [address] [place] [address] [phone] (Wo rk) 04/28/2022 Office Visit Ophthalmology Tita Palmer O.D. [address] [place] [address] [phone] (Wo rk) documented as of this encounter Visit Diagnoses Not on filedocumented in this encounter
--- OUTSIDE RECORDS SUMMARY | 2022-03-02 08:38 | XMS_ITS | Encounter Summary ---
:1970 Author Organization [facility] Address [address] [place] [address] Care Team Providers Name Role Phone Unavailable Primary Care Provider Unavailable Encounter Details Date Type Department Care Team Description 03/29/1994 - Hospital Encounter HX [facility] 5 DORIE GARBER 03/30/1994 Social History Tobacco Use Types Packs/Day Years [...] do you attend bahai or Never 2021 jew services? 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 [address] [place], [place] [phone] (Wo rk) documented as of this encounter Procedures Procedure Name Priority Date/Time Associated Diagnosis Comme nts ECG Routine 03/30/1994 1:20 PM Results f or this DECORATING INSPECTOR procedure are i n the results section . documented in this encounter Results ECG 12 Lead (03/30/1994 1:20 PM DECORATING INSPECTOR) Specimen (Source) Anatomical Collection Method Collection Time Re ceived Time Location / / Volume Laterality 03/30/1994 1:20 PM [facility] - 03/30/1994 1:41 PM DECORATING INSPECTOR [id number] 13:20 VENTRICULAR RATE 61 ? * FINAL NORMAL SINUS RHYTHM NORMAL ECG WHEN COMPARED WITH ECG OF 28-MAY-1992 12 :46, QRS VOLTAGE HAS DECREASED MEGAN QUEEN MD/ Willie Procedure Note Provider, Historical - 07/13/2017Formatt ing of this note might be different from the original. [id number] 13:20 VENTRICULAR RATE 61 FINAL NORMAL SINUS RHYTHM NORMAL ECG WHEN COMPARED WITH ECG OF 28-MAY-1992 12 :46, QRS VOLTAGE HAS DECREASED MEGAN QUEEN MD/ Willie Historical Provider ECG ORDERABLES Performing Organization Address City/State/ZIP Code Phon e Number HX [facility] [address] [place] [address], [place] documented in this encounter Visit Diagnoses Not on filedocumented in this encounter
[2022-03-02 09:56] LABS: Chloride* 101 mmol/L (96-114); Creatinine Urine 65.1 mg/dL; Potassium* 4.7 mmol/L (3.6-5.1); Sodium* 135 mmol/L (135-149)
[2022-03-02 09:59] LABS: Blood Urea Nitrogen* 29 mg/dL (5-24); Calcium* 8.6 mg/dL (8.4-10.6); Carbon Dioxide* 29 mmol/L (20-32); Creatinine* 2.2 mg/dL (0.5-1.5); Estimated Glomerular Filt Rate 36 ml/min; Glucose* 293 mg/dL (60-115); Phosphorus* 3.5 mg/dL (2.5-4.5)
[2022-03-02 11:08] LABS: Microalbumin Creatinine Ratio 730 mg/g (0-30); Microalbumin Urine 48 mg/dL
== END 2022-03-02 14:12 | disposition home or self-care (01) ==
PROVIDERS: PCP Family Medicine; Visit Provider Internal Medicine Nephrology
DX: E10.9 Type 1 diabetes mellitus without complications (principal); E11.22 Type 2 diabetes mellitus with diabetic chronic kidney disease; I10 Essential (primary) hypertension; N18.30 Chronic kidney disease, stage 3 unspecified
CPT/HCPCS: 80069; 82043; 82570; 84550

== ENCOUNTER 2022-08-17 11:27 | Outpatient (CLI) | payer BC, SELFPAY | END 2022-08-17 11:28 | disposition home or self-care (01) | LOC: OP CLINIC 11:27 | PROVIDERS: PCP Family Medicine; Visit Provider Surgery | DX: Z12.11 Encounter for screening for malignant neoplasm of colon (principal); K63.5 Polyp of colon; K57.30 Diverticulosis of large intestine without perforation or abscess without bleeding | CPT/HCPCS: 45385; 88305; 99153; J2250; J3010 ==

== ENCOUNTER 2022-12-24 19:03 | Emergency (ER) | payer BC, SELFPAY ==
[2022-12-24 19:29] VITALS: BP 184/108; PULSE 55; RESP 16; TEMP 36.4; O2SAT 99; BMI 25.1
[2022-12-24] MEDS: cefTRIAXone 1 GM in 0.9 % SODIUM CHLORIDE Mini-bag 100 ML IVPB (21:44)
--- NOTE | 2022-12-25 01:22 | ED_ITS ---
HPI - General Adult General Date Seen: 12/25/22 Chief complaint: Extremity Pain/Injury, Upper Stated complaint: R hand swollen Time Seen by Provider: 12/24/22 21:10 Source: patient Mode of arrival: ambulatory Limitations: no limitations History of Present Illness HPI narrative: Patient is a 52-year-old male with underlying type 1 diabetes. He presents for infection on his right 3rd finger. He tells me that a couple of months ago he sustained a laceration from some source at the base of the finger on the palmar aspect. He is not sure exactly what happened although he is certain that there is no possibility of retained foreign body. He says he may be just had cracked skin from dry skin, he is not really sure. In any case, the wound healed, but about a week and half ago he says he woke up in the middle of the night and the finger was swollen in that area of the previous laceration and painful. He says he took a knife and cut it open. For while felt better but over the past day or so he developed increasing swelling and pain in the area. Earlier today he went to urgent care any says they numbed it up, opened it and drained what he says was a large amount of pus. When he left he says it was feeling great, albeit anesthetized. For a while it was good but over the course of the evening it got progressively more swollen and painful again. He has not had any systemic symptoms. Related Data Home Medications Medication Instructions Recorded Confirmed atorvastatin 40 mg tablet 40 mg PO .Bedtime 02/09/22 12/24/22 chlorthalidone 25 mg tablet 50 mg PO DAILY 02/09/22 12/24/22 levothyroxine 112 mcg tablet 112 mcg PO DAILY 02/09/22 12/24/22 losartan 100 mg tablet 100 mg PO DAILY 02/09/22 12/24/22 metoprolol tartrate 25 mg tablet 25 mg PO DAILY 02/09/22 12/24/22 spironolactone 50 mg tablet 50 mg PO DAILY 02/09/22 12/24/22 insulin glargine-yfgn 100 unit/mL 39 unit subcut QDAY 07/21/22 12/24/22 (3 mL) subcutaneous pen ibuprofen 12/24/22 Previous Rx's Medication Instructions Recorded peg 3350-electrolytes 236 240 ml PO Q10M #4,000 mL 07/21/22 gram-22.74 gram-6.74 gram-5.86 gram solution (Golytely) amlodipine 10 mg tablet 10 mg PO QDAY #90 tabs 09/11/22 cephalexin 500 mg capsule 500 mg PO TID 5 days #15 caps 12/24/22 Allergies Allergy/AdvReac Type Severity Reaction Status Date / Time Penicillins Allergy Mild Rash Verified 12/24/22 19:33 PFSH [facility] Medical History Motion sickness ?T75.3XXA - Motion sickness, initial encounter (ICD-10) Surgical History History of third molar tooth extraction (1988) ?K08.409 - Partial loss of teeth, unspecified cause, unspecified class (ICD- 10) History of selective injection of anesthetic agent around lumbar nerve root (04/23/14) ?Z98.890 - Other specified postprocedural states (ICD-10) History of panretinal photocoagulation (2003) ?Z98.890 - Other specified postprocedural states (ICD-10) History of mandibular surgery (06/27/91) ?Z98.890 - Other specified postprocedural states (ICD-10) Family History Brother Diabetes Mother High blood pressure Father Prostate cancer Social History Narrative: SOCIAL HISTORY: . Two adult children ages 28 and 30. 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 They recently moved to this area from [facility] and live near [place]. Exercise is mainly in the form of walking at work. He is sexually active. HABITS: He chews tobacco but no smoking. No interest in quitting. Alcohol use is about 10 drinks per week. No recreational drug use. Smoking Status: Never smoker How often do you have a drink containing alcohol: 2-4 times a month AUDIT-C Alcohol total score: 2 Non-prescribed substance use: denies use Little interest or pleasure in doing things: not at all Feeling down, depressed, or hopeless: not at all Exam Narrative: Exam Narrative: Vital signs reviewed In general, alert, well-appearing male. Extremities: Examination of the right hand shows prominent erythema and swelling of the proximal 3rd of the middle finger. There is a small wound just distal to the palmar crease at the MCP joint. He is able to extend the finger nearly straight, but has significant pain with passive stretching of the finger. There is no significant purulent drainage at this time. There is significant tenderness throughout the proximal portion of the 3rd finger. There is no significant tenderness along palmar aspect of the hand. There is some tenderness of the middle portion of the 3rd finger, none at the distal end of the finger. The remainder of the hand is normal. Const: Vital Signs, click to edit/add: Vital Signs - 24 hr 12/24/22 19:29 Temperature 97.5 F L Pulse Rate [Right Pulse Oximeter] 55 L Respiratory Rate 16 Blood Pressure [Ri ght Upper Arm] 184/108 H Pulse Oximetry 99 Oxygen Delivery Me thod Room Air Documenting provider has reviewed patient's vital signs: yes Course Course ED Course: At this time, I do not think even meets criteria for tenosynovitis, but I do have some concerns that he could be developing a deeper space infection. I did talk with Dr. Valdes who was ribbon weaver for Hand surgery. I asked that somebody see this patient tomorrow in follow-up just to make sure that he is headed in the right direction. I gave him Rocephin 1 g IV here, he did receive a prescription for cephalexin from urgent care earlier but they had not yet had a chance to fill that. We did do a wound culture here prior to starting antibiotics. They can fill the cephalexin tomorrow morning. I gave them the phone number for [facility] and instructions to schedule with someone here in [place] or [place] tomorrow. Dr. Valdes is seeing patients in [facility] which is too far away. We did put a splint on him before he left as well. Vital Signs Vital signs: Initial Vital Signs Temperature 97.5 F L 12/24/22 19:29 Temperature Source Temporal Artery Scan 12/24/22 19:29 Pulse Rate 55 L 12/24/22 19:29 Respiratory Rate 16 12/24/22 19:29 Blood Pressure 184/108 H 12/24/22 19:29 Blood Pressure Mean 133 H 12/24/22 19:29 Blood Pressure Position Sitting 12/24/22 19:29 Pulse Oximetry 99 12/24/22 19:29 Oxygen Delivery Method Room Air 12/24/22 19:29 Vital Signs Temperature 97.5 F L 12/24/22 19:29 Pulse Rate 55 L 12/24/22 19:29 Respiratory Rate 16 12/24/22 19:29 Blood Pressure 184/108 H 12/24/22 19:29 Pulse Oximetry 99 12/24/22 19:29 Oxygen Delivery Method Room Air 12/24/22 19:29 Temperature 97.5 F L 12/24/22 19:29 Pulse Rate 55 L 12/24/22 19:29 Respiratory Rate 16 12/24/22 19:29 Blood Pressure 184/108 H 12/24/22 19:29 Pulse Oximetry 99 12/24/22 19:29 Oxygen Delivery Method Room Air 12/24/22 19:29 Discharge Plan Discharge Clinical Impression: Finger infection Patient Disposition: Home, Self-Care Condition: Stable Instructions: Cellulitis (ED) Additional Instructions: Fill the prescription for your antibiotics tomorrow morning and take as prescribed. Please call [facility], tel:[phone], and schedule appointment to be seen by 1 of the hand surgeons tomorrow. You can tell them that I talked with the on-call doctor, elizabeth Porter. He said that they should have somebody in [place] as well as [place] tomorrow. He [place]. Prescriptions: No Action metoprolol tartrate 25 mg tablet 25 mg PO DAILY levothyroxine 112 mcg tablet 112 mcg PO DAILY spironolactone 50 mg tablet 50 mg PO DAILY losartan 100 mg tablet 100 mg PO DAILY chlorthalidone 25 mg tablet 50 mg PO DAILY atorvastatin 40 mg tablet 40 mg PO .Bedtime peg 3350-electrolytes [Golytely] 236-22.74-6.74 -5.86 gram recon soln 240 ml PO Q10M Qty: 4000 0RF Rx Instructions: until fecal effluent is clear cephalexin 500 mg capsule 500 mg PO TID 5 Days Qty: 15 0RF insulin glargine-yfgn 100 unit/mL (3 mL) insulin pen 39 unit subcut QDAY Patient Comments: INJECT 35 UNITS SUBCUTANEOUSLY DAILY ibuprofen amlodipine 10 mg tablet 10 mg PO QDAY Qty: 90 1RF Follow Up/Referrals: Stan Chaney MD [Primary Care Provider] - Stand Alone Forms: [email or web address] Info Instructions
== END 2022-12-24 22:31 | disposition home or self-care (01) ==
PROVIDERS: Emergency Provider Emergency Medicine; PCP Family Medicine
DX: L03.011 Cellulitis of right finger (principal)
CPT/HCPCS: 87070; 87186; 96365; 99283; 99284; J0696

== ENCOUNTER 2023-10-01 07:45 | Outpatient (CLI) | payer BC, SELFPAY ==
--- OUTSIDE RECORDS SUMMARY | 2023-10-04 20:30 | XMS_ITS | Encounter Summary ---
Author Organization [facility] Address [address] [place] [address] Care Team Providers Care Adult Care Provider Name Role Phone Elsewhere, Pcp Primary Care Provider Unavailabl e Encounter Details Date Type Department Care Team (Late st Contact Info) Description 08/03/2017 Historical Ophthalmology [facility] O[facility] Tita Palmer O.D. [address] [place] [address] Social History Tobacco Use Types Packs/Day Years Used Date Smoking Tobacco: Never Smokeless Tobacco: Current Chew Alcohol Use Standard Drinks/Week Comments Yes 0 (1 standard drink = 0.6 oz pur e alcohol) Sex and Gender Information Value Date Recorded Sex Assigned at Male 03/01/2017 6:27 AM CARGO MATE Gender Identity Male 03/01/2017 6:27 AM CARGO MATE Sexual Orientation Straight 03/01/2017 6: 27 AM CARGO MATE documented as of this encounter Progress Notes * Tita Rosado O.D. - 08/03/2017 10:08 AM CDT Eye General CHIEF COMPLAINT Vision is stable, DM exam HISTORY OF PRESENT ILLNESS Blood sugars were 143 this morning before breakfast. Last A1c was 7.3 in 08/2016. 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 IMPRESSION / REPORT / PLAN 07/2017 OCT RIGHT: No IRF or SRF, normal foveal contour; LE: no IRF or SRF , normal foveal contour. OCT 08/03 RIGHT: 16 Jan 2015 B-scan left eye: vitreous hemorrhage, PVD throughout the posterior pole, vitreo-retinaladjesions @ 1:00, 2:00 7:00 PE, macula attached. LS 14 Nov 2014 OCT normal contour, left eye normal contour 18 Oct 2014 B-scan left eye: vitreous opacities and strands inferiorly, layered opacities along thetemporal posterior pole, possible vitreo-retinal adhesion at that [...] NVE leakage, no NVD, peripheral nonperfusion OCT (03/28) right: normal contour left: normal [...] eye 01/[address] Edge with OCT or prn. DIAGNOSIS #1 Proliferative diabetic retinopathy BOTH eyes (DM type 1 since age 13), quiescent both eyes #2 subhyaloid hemorrhage with vitreous hemorrhage LEFT eye, resolved #3 early cataract BOTH eyes CDM Reports - EYEGEN Id: [id number] Status: Fnl documented in this encounter Plan of Treatment Upcoming Encounters Date Type Department Care Team (Late st Contact Info) Description 12/31/2023 10:30 AM CDT Appointment Department of Laboratory Medicine in [place] [address] [place] [address] Carmelo Diana M.D. [address] [place] [address] 01/10/2024 1:00 PM CDT Office Visit Department of Endocrinology in [place], [place] [address] [place] [address] Carmelo Diana M.D. [address] [place] [phone] documented as of this encounter Visit Diagnoses Not on filedocumented in this encounter Care Teams Adult Care Provider Relationship Specialty Start Date End Date Elsewhere, Pcp PCP - General Family Medicine 12/05/21 documented as of this encounter
--- OUTSIDE RECORDS SUMMARY | 2023-10-04 20:30 | XMS_ITS | Encounter Summary ---
Author Organization [facility] Address [address] [place] [address] Care Team Providers Care Orthopedic Assistant Name Role Phone Elsewhere, Pcp Primary Care Provider Unavailabl e Reason for Visit * Reason Comments Med Refill Encounter Details Date Type Department Care Team (Late st Contact Info) Description 07/17/2023 Refill Department of Endocrinology in [place], [place] [address] [place] [phone] Carmelo Diana M.D. [address] [place] [address] Med Refill Social History Tobacco Use Types Packs/Day Years Used Date Smoking Tobacco: Never Passive Smoke Exposure: Never Smokeless Tobacco: Current Chew Alcohol Use Standard Drinks/Week Comments Not Currently 2 (1 standard drink = 0.6 oz pur e alcohol) Humiliation, Afraid, Rape, and Kick questionnair e Answer Date Recorded Within the last year, have y ou been afraid of your partner or ex-partner? No 05/03/2021 Within the last year, have y ou been humiliated or emotionally abused in other ways by your partner or ex-partner? No Within the last year, have y ou been kicked, hit, slapped, or otherwise physically hurt by your partner or ex-partner? No 05/03/2021 Within the last year, have y ou been raped or forced to have any kind of sexual activity by your partner or ex-partner? No 05/03/2021 Social Connection and Isolat ion Panel [NHANES] Answer Date Recorded In a typical week, how many times do you talk on the phone with family, friends, or neighbors? More than three times a week 05/03/2021 How often do you get togethe r with friends or relatives? Once a week 05/03/2021 How often do you attend chur ch or advent services? Never 05/03/2021 Do you belong to any clubs o r organizations such as nondenominational groups, unions, fraternal or athletic groups, or school groups? No 05/03/2021 How often do you attend meet ings of the clubs or organizations you belong to? Never 05/03/2021 Are you , , di vorced, , never , or living with a partner? 05/03/2021 AUDIT-C Answer Date Recorded Q1: How often do you have a drink containing alc ohol? 2-3 times a week 05/03/2021 Q2: How many drinks containi ng alcohol do you have on a typical day when you are drinking? 1 or 2 05/03/2021 Q3: How often do you have si x or more drinks on one occasion? Less than monthly 05/03/2021 Overall Financial Resource Strain (CARDIA) Answe r Date Recorded How hard is it for you to pa y for the very basics like food, housing, medical care, and heating? Not very hard 03/08/2023 PHQ-2 Answer Date Recorded PHQ-2 Score 0 06/20/2019 [facility] - Occupational Stress Questionnaire Answer Date Recorded Do you feel stress - tense, restless, nervous, or anxious, or unable to sleep at night because your mind is troubled all the time - these days? Not at all 05/03/2021 Exercise Vital Sign Answer Date Recorde d On average, how many days pe r week do you engage in moderate to strenuous exercise (like a brisk walk)? 2 days 03/08/2023 On average, how many minutes do you engage in exercise at this level? 10 min 03/08/2023 Hunger Vital Sign Answer Date Recorded Within the past 12 months, y ou worried that your food would run out before you got the money to buy more. Never true 03/08/20 23 Within the past 12 months, t he food you bought just didn't last and you didn't have money to get more. Never true 03/08/2023 PRAPARE - Transportation Answer Date Re corded In the past 12 months, has l ack of transportation kept you from medical appointments or from getting medications? No 02/18 In the past 12 months, has l ack of transportation kept you from meetings, work, or from getting things needed for daily living? No 03/08/2023 Nutrition Answer Date Recorded Nutrition: EVOO Fat Source No 03/08 On average, how many serving s of fruits and vegetables do you eat per day (serving size is equal to 1 cup or approximately the size of a tennis ball)? 0-2 03/08/2023 Dental Answer Date Recorded Dental: Regular Dentist Yes 06/07/19 Employment Answer Date Recorded Employment status Employed and actively working without restrictions 03/08/2023 Housing Stability Answer Date Recorded What is your living situation today? I have a [facility] place to live 03/08/2023 Education Answer Date Recorded What is the highest level of school you have completed or the highest degree you have received? 12th grade 06/18/2019 Sex and Gender Information Value Date Recorded Sex Assigned at Male 03/01/2017 6:27 AM HOME HEALTH CLINICAL LIAISON Gender Identity Male 03/01/2017 6:27 AM HOME HEALTH CLINICAL LIAISON Sexual Orientation Straight 03/01/2017 6: 27 AM HOME HEALTH CLINICAL LIAISON documented as of this encounter Miscellaneous Notes * Telephone Encounter - Addie Caballero - 07/19/2023 11:52 AM CDT Refills remain documented in this encounter Plan of Treatment Upcoming Encounters Date Type Department Care Team (Late st Contact Info) Description 12/31/2023 10:30 AM CDT Appointment Department of Laboratory Medicine in [place], [place] [address] [place] [address] Carmelo Diana M.D. [address] [place] [place] [phone] 01/10/2024 1:00 PM CDT Office Visit Department of Endocrinology in [place], [place] [address] [place] [phone] Carmelo Diana M.D. 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
--- OUTSIDE RECORDS SUMMARY | 2023-10-04 20:30 | XMS_ITS | Encounter Summary ---
Author Organization [facility] Address [address] [place] [address] Care Team Providers Care Warehouse Insulation Worker Name Role Phone Elsewhere, Pcp Primary Care Provider Unavailabl e Encounter Details Date Type Department Care Team (Late st Contact Info) Description 01/16/2014 Historical Ophthalmology [facility] OPH Bebo Paul O.D., Ph.D. 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 - 01/16/2014 2:42 PM CDT Eye General CHIEF COMPLAINT woke up with floater Wednesday HISTORY OF PRESENT ILLNESS SDM: Patient woke up with floater in his left eye Wednesday morning (horizontal line in his left eye).This occasionally disappears with blinking. No flashes of light. No recent eye or head trauma. No eye pain. He has had diabetes since age 13 and has had PRP right eye in 2003 and 2009, more recent PRP in left eye in June,. His fingerstick glucose checks usually averages 80-150. Only wears readers for near vision. No distance correction or glasses. WLB - hx as above. He doesn't see the floater at this moment. IMPRESSION / REPORT / PLAN #1 Proliferative diabetic retinopathy BOTH eyes (DM since age 13) New vitreous hemorrhaging LT eye - consulted with Dr. Musa Shields, retina, who examined patienttoday. RIGHT: s/p PRP '04, no CSME LEFT: s/p PRP (last 06/29), no CSME noted PLAN: RTC on January 19, 2014, a.m. to Dr. Shields for more PRP LT eye per Dr. Shields. DIAGNOSIS #1 Proliferative diabetic retinopathy BOTH eyes (DM since age 13) CDM Reports - EYEGEN Id: [id number] Status: Fnl documented in this encounter Plan of Treatment Upcoming Encounters Date Type Department Care Team (Late st Contact Info) Description 12/31/2023 10:30 AM CDT Appointment Department of Laboratory Medicine in [place], [place] [address] [facility] [place] [phone] Carmelo Diana M.D. [address] [place] [phone] 01/10/2024 1:00 PM CDT Office Visit Department of Endocrinology in [place], [place] [address] [place] [phone] Carmelo Diana M.D. [address] [place] [phone] documented as of this encounter Visit Diagnoses Not on filedocumented in this encounter Care Teams Warehouse Insulation Worker Relationship Specialty Start Date End Date Elsewhere, Pcp PCP - General Family Medicine 12/05/21 documented as of this encounter
--- OUTSIDE RECORDS SUMMARY | 2023-10-04 20:30 | XMS_ITS | Clinical Summary ---
Author Organization [facility] Address [address] [place] [address] Care Team Providers Care Stitch Bonding Machine Tender Helper Name Role Phone Elsewhere, Pcp Primary Care Provider Unavailabl e Source Comments Patient records contain information from all sites at [facility]. For routine questions regarding patient records, call [phone] during business hours, M-F 8:00 AM - 5:00 PM Central Time. Record requests for emergency care only can be directed to [phone] at any time.[facility] Allergies Active Allergy Reactions Criticality Noted Date Comments Penicillins Rash Medium 07/26/2010 Medications Medication Sig Dispensed Refills Start Date End Date Status aspirin [address] tablet Take 81 mg by mouth daily. Active ACCU-CHEK FASTCLIX misc 6 03/10/2017 Active blood-glucose meter (Contour Next Meter) misc 4 test daily. 400 each 3 07/15/2022 Active UltiCare Pen Needle 31 gauge x 5/16 needle USE 4 TIMES DAILY OR DIRECTED. 400 each 3 10/18/2022 Active losartan (COZAAR) 100 mg tablet TAKE ONE TABLET BY MOUTH (100MG) ONCE DAILY 90 tablet 3 10/26/2022 Active levothyroxine (SYNTHROID, LEVOTHROID) 200 mcg tablet Take 1 tablet (200 mcg total) by mouth every morning before breakfast. 90 tablet 3 03/10/2023 Active eplerenone (INSPRA) 25 mg tablet Take 1 tablet (25 mg total) by mouth daily. 90 tablet 3 03/26/2023 03/25/2024 Active amLODIPine (NORVASC) 10 mg tablet Take 1 tablet by mouth daily. 03/31/2023 Active flash glucose sensor (FreeStyle Don 2 Sensor) kit CHANGE SENSOR EVERY 14 DAYS DIRECTED. 6 each 3 04/22/2023 Active insulin aspart U-100 (NovoLOG Flexpen U-100 Insulin) 100 unit/mL (3 mL) injection Summary: Take 2 units / 15 grams of carb with breakfast, 1 unit / 15 grams of carb and 2 units / 15 grams of carbs for supper plus s/s. TDD 30 units, Normal 30 mL 3 05/14/2023 Active chlorthalidone (HYGROTON) 50 mg tablet TAKE 1 TABLET (50 MG) BY MOUTH DAILY. 90 tablet 3 05/28/2023 Active atorvastatin (LIPITOR) 40 mg tablet TAKE 1 TABLET (40 MG) BY MOUTH DAILY. 90 tablet 3 05/28/2023 Active insulin glargine-yfgn (SEMGLEE) 100 unit/mL (3 mL) injection Inject 41 Units under the skin every morning. 15 mL 9 06/10/2023 06/09/2024 Active cholecalciferol (Vitamin D3) 50 mcg (2,000 Unit) tablet Take 4000 units once daily x2 months, then decrease to 2000 units once daily 06/10/2023 Active blood-glucose sensor (FreeStyle Don 3 Sensor) deviceIndications:Di abetes Mellitus Type 1 With Diabetic Nephropathy (HCC) 2 sensors every 28 days 2 each 11 06/10/2023 Active Active Problems Problem Noted Date Diagnosed Date Nicotine Dependence Chewing Tobacco 10/17/2018 Last Assessment & Plan: Not willing to stop at this time. 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 03/01/2017 Overview: Follows with Endocrine Last A1C : 7.8 Previous A1C: Blood Sugars: Frequency of Testin times daily Dexter-Inhibitor?: ARB losartan Diet: Diabetic Art Framing Manager: Yes Statin:Yes Foot Exam: Open sores:No Decreased sensation:No Follows with Podiatry:No Tobacco Use: No Controlled: No Eye exam within 1 year: Yes Medications:Basaglar Daily, Humalog with meals TID Insulin use: Yes Follow up: in 3 months Follows with a diabetic research team in [place] Last Assessment & Plan: Is following up [...] Hypertension And Chronic Kidney Disease Stage 3 05/09/2010 Overview: Norvasc Losartan Spirolactone Chlorthalidone Has follow-up with Cardiology in this regard before. Last Assessment & Plan: Will increase metoprolol from 25-50. He is going to call me if blood pressures in 2 weeks. He is already maxed out on Norvasc spirolactone chlorthalidone and losartan. Has had renal ultrasound in cardiology follow-up the past. It if he makes no improvement the next option would be to add Imdur. 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 Med Refill 2023 Documentation Division of Endocrinology in [place], [place] [address] [place] [address] Zoya Dowd, CCRP from Last 3 Months Immunizations Name Administration Dates Next Due Influenza (IM) Preservative Free 03/02/2008 Influenza, Injectable, Quadrivalent 01/19/2018,1 ,01/17/2015 Influenza, Seasonal, Injectable 03/05/2004 Influenza, Unspecified 03/02/2008 PPSV23 06/20/2019,03/05/2004 SARS-COV-2 (COVID-19) - PFIZ ER (Discontinued)(12 years or older) 07/23/2020,06/27/2020 Tdap 07/21/2018 influenza vaccine quad (FLUZ ONE/FLUARIX) (6 months and older)(PF) 04/17/2021,01/17/2014 Family History Medical History Relation Name Comments Diabetes Brother Robson Hernandez Prostate cancer Father Afshin Hernandez Hypertension Mother Karuna Hernandez Amblyopia Neg Hx Blindness Neg Hx Cataracts Neg Hx Glaucoma Neg Hx Macular degeneration Neg Hx Retinal degeneration Neg Hx Retinal detachment Neg Hx Strabismus Neg Hx Vision loss Neg Hx Relation Name Status Comments Brother Robson Hernandez Father Afshin Hernandez Mother Karuna Hernandez Social History Tobacco Use Types Packs/Day Years Used Date Smoking Tobacco: Never Passive Smoke Exposure: Never Smokeless Tobacco: Current Chew Tobacco Cessation:Ready to Q uit: No; Counseling Given: Yes Alcohol Use Standard Drinks/Week Comments Not Currently [...] 05/03/2021 How often do you attend chur or sikh services? Never 05/03/2021 Do you belong to any clubs o r organizations such as tenriism groups, unions, fraternal [...] Answer Date Recorded PHQ-2 Score 0 06/20/2019 [facility] of Occupat ional Health - Occupational Stress Questionnaire Answer Date [...] your living situation today? I have a [facility] place to live 03/08/2023 Education Answer Date Recorded What is the highest level of school you have completed or the highest degree you have received? 12th grade 06/18/2019 Sex and Gender Information Value Date Recorded Sex Assigned at Male 03/01/2017 6:27 AM ROOMING HOUSE OPERATOR Gender Identity Male 03/01/2017 6:27 AM ROOMING HOUSE OPERATOR Sexual Orientation Straight 03/01/2017 6: 27 AM ROOMING HOUSE OPERATOR Last Filed Vital Signs Vital Sign Reading Time Taken Comments Blood Pressure 160/104 2023 6:39 AM CDT Pulse 60 2023 6:37 AM CDT counted manually Temperature 36.6 ??C (97.9 ??F) 2023 6 :37 AM CDT Respiratory Rate 16 2023 6:37 AM CDT Oxygen Saturation 98% 06/20/2019 2:4 7 PM ROOMING HOUSE OPERATOR Inhaled Oxygen Concentration - - Weight 84.2 kg (185 lb 10 oz) 2023 6:28 AM CDT Height 175.3 cm (5' 9.02) 2023 6 :28 AM CDT Body Mass Index 27.4 2023 6:28 AM CDT Plan of Treatment Upcoming Encounters Date Type Department Care Team (Late st Contact Info) Description 12/31/2023 10:30 AM CDT Appointment Department of Laboratory Medicine in [place], [place] [address] [place] [phone] Carmelo Diana M.D. [address] [place] [phone] 01/10/2024 1:00 PM CDT Office Visit Department of Endocrinology in [place], [place] [address] [place] [phone] Carmelo Diana M.D. [address] [facility] [place] [address] Health Maintenance Due Date Last Done Comments CT Colonography 1972 Cologuard 1972 Colonoscopy 1972 Colorectal Cancer Screening 1972 FIT 1972 HIV Screening 1972 Hepatitis C Screening 1972 Hepatitis B Vaccines (1 of 3 - 19+ 3-dose series) 07/15/1991 Zoster Vaccines (1 of 2) 07/15/1991 Pneumococcal vaccine (0-64 y ears) (2 of 2 - PCV) 06/19/2020 06/20/2019, 03/05/2004 Diabetic Office Visit with F oot Exam 05/08/2022 05/08/2021, 07/21/2018 Office Visit for Blood Press ure Check / Re-check 06/09/2022 03/09/2022 COVID-19 Vaccine (4 - 2022-2 4 season) 2022 04/17/2021, 07/23/2020, 06/27/2020 Influenza Vaccine (#1) 2023 , 01/19/2018, 01/27/2017, Additional history exists Depression Screening (Annual PHQ-2) 04/19/2023 Hemoglobin A1C 11/29/2023 05/31/2023, 01/17, 07/22/2022, Additional history exists Urine Albumin 02/02/2024 02/01/2023, 08/17, 08/12/2018, Additional history exists Tobacco Cessation counseling 04/13/2024 04/13/2023 Dilated Eye Exam 04/16/2024 04/16/2023, 01/2023, 07/04/2021, Additional history exists Creatinine Level (Kidney Fun ction Test) 05/31/2024 05/31/2023, 02/01/2023, 07/03/2019, Additional history exists Potassium Level 05/31/2024 05/31/2023, 01/17, 07/03/2019, Additional history exists Sodium Level 05/31/2024 05/31/2023, 01/17, 07/03/2019, Additional history exists Thyroid Stimulating Hormone (TSH) test for thyroid function 05/31/2024 05/31/2023, 02/01/2023, 04/28/2021, Additional history exists DTaP,Tdap,and Td Vaccines (2 - Td or Tdap) 07/21/2028 07/21/2018 Procedures Procedure Name Priority Date/Time Associated Diagnosis Comments HEMOGLOBIN A1C, B Routine 05/31/2023 7:4 2 AM ROOMING HOUSE OPERATOR Diabetes Mellitus Type 1 With Diabetic Nephropathy (HCC) BASIC METABOLIC PANEL, S/P Routine 05/31/2023 7:42 AM ROOMING HOUSE OPERATOR Diabetes Mellitus Type 1 With Diabetic Nephropathy (HCC) THYROID-STIMULATING HORMONE-SENSITIVE (S-TSH) Routine 05/31/2023 7:41 AM ROOMING HOUSE OPERATOR Hypothyroidism Primary OPHTHALMOLOGY IMAGE EXAM Routine 04/16/2023 12:00 AM ROOMING HOUSE OPERATOR ALBUMIN, RANDOM, U Routine 02/01/2023 4: 19 PM CDT Diabetes Mellitus Type 1 (HCC) from Last 3 Months or Most Recently Relevant to Health Maintenance Results * (ABNORMAL) Hemoglobin A1c (05/31/2023 7:42 AM ROOMING HOUSE OPERATOR) Hemoglobin A1c, B 7.6(H) 4.2 - 5.6 % 05/31/2023 8:37 AM ROOMING HOUSE OPERATOR OWAT Comment: Hemoglobin A1c values greater than or equal to 6.5 percent are diagnostic for diabetes mellitus. ??Diagnosis should be confirmed by repeat testing. ??In diabetic patients, HbA1c goals should be discussed with healthcare provider. Blood (Blood, Venous) 05/31/2023 7:42 AM ROOMING HOUSE OPERATOR 05/31/2023 7:46 AM ROOMING HOUSE OPERATOR Carmelo Diana M.D. LAB BLOOD ADD-ON [facility] [address] [place] [address], [facility] [place] [address] [place] [address] * (ABNORMAL) Basic Metabolic Panel (05/31/2023 7:42 AM ROOMING HOUSE OPERATOR) Potassium, P 4.5 3.6 - 5.2 mmol/L 05/31/2023 8:30 AM ROOMING HOUSE OPERATOR OWAT Sodium, P 143 135 - 145 mmol/L 05/31/2023 8:30 AM ROOMING HOUSE OPERATOR OWAT Chloride, P 105 98 - 107 mmol/L 05/31/2023 8:30 AM ROOMING HOUSE OPERATOR OWAT Bicarbonate, P 30(H) 22 - 29 mmol/L 05/31/2023 8:30 AM ROOMING HOUSE OPERATOR OWAT Anion Gap, P 8 7 - 15 05/31/2023 8:30 AM ROOMING HOUSE OPERATOR OWAT BUN (Blood Urea Nitrogen), P 44(H) 8 - 24 mg/dL 05/31/2023 8:30 AM ROOMING HOUSE OPERATOR OWAT Creatinine 2.70(H) 0.74 - 1.35 mg/dL 05/31/2023 8:30 AM ROOMING HOUSE OPERATOR OWAT Estimated GFR (eGFR) 28(L) >=60 mL/min/BSA 05/31/2023 8:30 AM ROOMING HOUSE OPERATOR OWAT Comment: Estimated GFR calculated using the 2020 CKD_EPI creatinine equation. Calcium, Total, P 9.3 8.6 - 10.0 mg/dL 05/31/2023 8:30 AM ROOMING HOUSE OPERATOR OWAT Glucose, P 92 70 - 140 mg/dL 05/31/2023 8:30 AM ROOMING HOUSE OPERATOR OWAT Blood (Blood, Venous) 05/31/2023 7:42 AM ROOMING HOUSE OPERATOR 05/31/2023 7:46 AM ROOMING HOUSE OPERATOR Carmelo Diana M.D. LAB BLOOD ADD-ON Performing Organization Address [facility] Co de Phone Number [facility] [address] [place] [address], [place] [address] [facility] [place] [address] [place] [address] * (ABNORMAL) S-TSH (Thyroid-Stimulating Hormone - Sensitive) (05/31/2023 7:41 AM ROOMING HOUSE OPERATOR) TSH, Sensitive 5.9(H) 0.3 - 4.2 mIU/L 05/31/2023 9:00 AM ROOMING HOUSE OPERATOR OWAT Blood (Blood, Venous) 05/31/2023 7:41 AM ROOMING HOUSE OPERATOR 05/31/2023 7:45 AM ROOMING HOUSE OPERATOR Carmelo Diana M.D. LAB BLOOD ADD-ON Performing Organization Address [facility] de Phone Number [facility] [address] [place] [address], [facility] [place] [address] * Eyes Spectralis OCT-Ophthalmology Image Exam (04/16/2023 12:00 AM ROOMING HOUSE OPERATOR) Narrative IIMS - 04/16/2023 8:00 AM ROOMING HOUSE OPERATOR This order has been created and auto-finalized to support the import of images acquired without order. The clinical documentation to support these images can be found on the encounter that produced images. Provider Not In System IMG NON RAD IMAGI NG PROCEDURES Performing Organization Address [facility] Co de Phone Number IIMS NA * (ABNORMAL) Albumin, Random, Urine (02/01/2023 4:19 PM CDT) Microalbumin 896.0 mg/L 02/01/2023 7:11 PM CDT OWAT Creatinine 57 mg/dL 02/01/2023 5:26 PM CDT OWAT Albumin/Creatinin e Ratio 1572(H) <17 mg/g 02/01/2023 7:11 PM CDT OWAT Urine (Urine, Midstream) 02/01/2023 4:19 PM CDT 02/01/2023 4:33 PM CDT Carmelo Diana M.D. LAB URINE ORDERABLES [facility] [address] [place] [address], [place] [address] [facility] [place] [address] [place] [address] from Last 3 Months or Most Recently Relevant to Health Maintenance Care Teams Stitch Bonding Machine Tender Helper Relationship Specialty Start Date End Date Elsewhere, Pcp PCP - General Family Medicine 12/05/21
--- OUTSIDE RECORDS SUMMARY | 2023-10-04 20:30 | XMS_ITS | Referral Summary ---
Author Organization [facility] Address [address] [place] [address] Care Team Providers Care Success Coach Name Role Phone Elsewhere, Pcp Primary Care Provider Unavailabl e Source Comments Patient records contain information from all sites at [facility]. For routine questions regarding patient records, call [phone] during business hours, M-F 8:00 AM - 5:00 PM Central Time. Record requests for emergency care only can be directed to [phone] at any time.[facility] Encounters Date Type Department Care Team Description 07/17/2023 Refill Department of Endocrinology in [place], [place] [address] [place] [address] Carmelo Diana M.D. Med Refill 2023 Documentation Division of Endocrinology in [place], [place] [address] [place] [address] Zoya Dowd, CCRP from Last 3 Months Allergies Active Allergy Reactions Criticality Noted Date [...] once daily 06/10/2023 Active blood-glucose sensor (FreeStyle Odn 3 Sensor) deviceIndications:Di abetes Mellitus Type 1 [...] times daily Dexter-Inhibitor?: ARB losartan Diet: Diabetic Electric Pile Driver Operator: Yes Statin:Yes Foot Exam: Open sores:No Decreased sensation:No Follows with Podiatry:No Tobacco Use: No Controlled: No Eye exam within 1 year: Yes Medications:Basaglar Daily, Humalog with meals TID Insulin use: Yes Follow up: in 3 months Follows with a diabetic research team in [place] Last Assessment & Plan: Is following up [...] Proteinuria 10/17/2018 06/20/2019 Counseling Diet 03/01/2017 03/01/2017 Nursing Home Use Of Insulin Active 03/01/2017 07/21/2018 Hypertension 08/27/2016 10/18/2017 Chronic Kidney Disease Stage 3 Glomerular Filtration Rate 30 To 59 08/13/2015 06/19/2019 Last Assessment & Plan: Will check BMP next month with labs for endocrine Hemorrhage Vitreous Left 06/13/201407/2018 Diabetes Mellitus Type 1 03/03/200405/2017 Hypercholesterolemia 11/02/2003 018 DM1 Retinopathy Proliferative 11/02/2003 07/21/2018 Immunizations Name Administration Dates Next Due Influenza (IM) Preservative Free 03/02/2008 Influenza, Injectable, Quadrivalent 01/19/2018,1 ,01/17/2015 Influenza, Seasonal, Injectable 03/05/2004 Influenza, Unspecified 03/02/2008 PPSV23 06/20/2019,03/05/2004 SARS-COV-2 (COVID-19) - PFIZ ER (Discontinued)(12 years or older) 07/23/2020,06/27/2020 Tdap 07/21/2018 influenza vaccine quad (FLUZ ONE/FLUARIX) (6 months and older)(PF) 04/17/2021,01/17/2014 Social History Tobacco Use Types Packs/Day Years [...] often do you attend chur ch or yazidi services? Never 05/03/2021 Do you belong to any clubs o r organizations such as mosque groups, unions, fraternal [...] Answer Date Recorded PHQ-2 Score 0 06/20/2019 [facility] of Occupat ional Health - Occupational Stress [...] your living situation today? I have a [facility] place to live 03/08/2023 Education Answer Date Recorded What is the highest level of school you have completed or the highest degree you have received? 12th grade 06/18/2019 Sex and Gender Information Value Date Recorded Sex Assigned at Male 03/01/2017 6:27 AM NURSE ORTHO Gender Identity Male 03/01/2017 6:27 AM NURSE ORTHO Sexual Orientation Straight 03/01/2017 6: 27 AM NURSE ORTHO Last Filed Vital Signs Vital Sign Reading Time Taken Comments Blood Pressure 160/104 2023 6:39 AM CDT Pulse 60 2023 6:37 AM CDT counted manually Temperature 36.6 ??C (97.9 ??F) 2023 6 :37 AM CDT Respiratory Rate 16 2023 6:37 AM CDT Oxygen Saturation 98% 06/20/2019 2:4 7 PM NURSE ORTHO Inhaled Oxygen Concentration - - Weight 84.2 kg (185 lb 10 oz) 2023 6:28 AM CDT Height 175.3 cm (5' 9.02) 2023 6 :28 AM CDT Body Mass Index 27.4 2023 6:28 AM CDT Plan of Treatment Upcoming Encounters Date Type Department Care Team (Late st Contact Info) Description 12/31/2023 10:30 AM CDT Appointment Department of Laboratory Medicine in [place] [address] [address] [facility] [place] [phone] Carmelo Diana M.D. [address] [place] [phone] 01/10/2024 1:00 PM CDT Office Visit Department of Endocrinology in [place], [place] [address] [place] [place] [address] Carmelo Diana M.D. 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 ??Diagnosis should be confirmed by repeat testing. ??In diabetic patients, HbA1c goals should be discussed with healthcare provider. Blood (Blood, Venous) 05/31/2023 7:42 AM NURSE ORTHO 05/31/2023 7:46 AM NURSE ORTHO Carmelo Diana M.D. LAB BLOOD ADD-ON [facility] [address] [place] [address], [facility] OW[facility] [place] [address] [place] [address] * (ABNORMAL) Basic Metabolic Panel (05/31/2023 7:42 AM NURSE ORTHO) Potassium, P 4.5 3.6 - 5.2 mmol/L 05/31/2023 8:30 AM NURSE ORTHO OWAT Sodium, P 143 135 - 145 mmol/L 05/31/2023 8:30 AM NURSE ORTHO OWAT Chloride, P 105 98 - 107 mmol/L 05/31/2023 8:30 AM NURSE ORTHO OWAT Bicarbonate, P 30(H) 22 - 29 mmol/L 05/31/2023 8:30 AM NURSE ORTHO OWAT Anion Gap, P 8 7 - 15 05/31/2023 8:30 AM NURSE ORTHO OWAT BUN (Blood Urea Nitrogen), P 44(H) 8 - 24 mg/dL 05/31/2023 8:30 AM NURSE ORTHO OWAT Creatinine 2.70(H) 0.74 - 1.35 mg/dL 05/31/2023 8:30 AM NURSE ORTHO OWAT Estimated GFR (eGFR) 28(L) >=60 mL/min/BSA 05/31/2023 8:30 AM NURSE ORTHO OWAT Comment: Estimated GFR calculated using the 2020 CKD_EPI creatinine equation. Calcium, Total, P 9.3 8.6 - 10.0 mg/dL 05/31/2023 8:30 AM NURSE ORTHO OWAT Glucose, P 92 70 - 140 mg/dL 05/31/2023 8:30 AM NURSE ORTHO OWAT Blood (Blood, Venous) 05/31/2023 7:42 AM NURSE ORTHO 05/31/2023 7:46 AM NURSE ORTHO Carmelo Diana M.D. LAB BLOOD ADD-ON [facility] [address] [place] [address], [place] [facility] [place] [address] [place] [address] * (ABNORMAL) S-TSH (Thyroid-Stimulating Hormone - Sensitive) (05/31/2023 7:41 AM NURSE ORTHO) TSH, Sensitive 5.9(H) 0.3 - 4.2 mIU/L 05/31/2023 9:00 AM NURSE ORTHO OWAT Blood (Blood, Venous) 05/31/2023 7:41 AM NURSE ORTHO 05/31/2023 7:45 AM NURSE ORTHO Carmelo Diana M.D. LAB BLOOD ADD-ON Performing Organization Address [facility] Co de Phone Number [facility] [address] [place] [address], [place] [facility] [facility] [place] [address] [place] [address] * Eyes Spectralis OCT-Ophthalmology Image Exam (04/16/2023 12:00 AM NURSE ORTHO) Narrative IIMS - 04/16/2023 8:00 AM NURSE ORTHO This order has been created and auto-finalized to support the import of images acquired without order. The clinical documentation to support these images can be found on the encounter that produced images. Provider Not In System IMG NON RAD IMAGI NG PROCEDURES Performing Organization Address [facility] de Phone Number IIMS NA * (ABNORMAL) Albumin, Random, Urine (02/01/2023 4:19 PM CDT) Microalbumin 896.0 mg/L 02/01/2023 7:11 PM CDT OWAT Creatinine 57 mg/dL 02/01/2023 5:26 PM CDT OWAT Albumin/Creatinin e Ratio 1572(H) <17 mg/g 02/01/2023 7:11 PM CDT OWAT Urine (Urine, Midstream) 02/01/2023 4:19 PM CDT 02/01/2023 4:33 PM CDT Carmelo Diana M.D. LAB URINE ORDERABLES [facility] [address] [facility], [place] [address], [place] [facility] [place] [address] [place] [address] from Last 3 Months or Most Recently Relevant to Health Maintenance Care Teams Success Coach Relationship Specialty Start Date End Date Elsewhere, Pcp PCP - General Family Medicine 12/05/21
--- OUTSIDE RECORDS SUMMARY | 2023-10-04 20:30 | XMS_ITS | Encounter Summary ---
Author Organization [facility] Address [address] [place] [address] Care Team Providers Care Playground Director Name Role Phone Elsewhere, Pcp Primary Care Provider Unavailabl e Encounter Details Date Type Department Care Team ( Contact Info) Description 06/19/2008 Historical Ophthalmology RST OPH Ted Tolentino M.D. [address] [place] [phone] Social History Tobacco Use Types Packs/Day Years Used Date Smoking Tobacco: Never Assessed Sex and Gender Information Value Date Recorded Sex Assigned at Male 03/01/2017 6:27 AM BELL VALET Gender Identity Male 03/01/2017 6:27 AM BELL VALET Sexual Orientation Straight 03/01/2017 6: 27 AM BELL VALET documented as of this encounter Progress Notes * Ted Tolentino M.D. - 06/19/2008 9:08 AM [...] diabetic retinopathy CDM Reports - EYEGEN Id: [id number] Status: Fnl documented in this encounter Plan of Treatment Upcoming Encounters Date Type Department Care Team (Late Contact Info) Description 12/31/2023 10:30 AM CDT Appointment Department of Laboratory Medicine in [place], [place] [address] [place] [phone] Carmelo Diana M.D. [address] [facility] [place] [phone] 01/10/2024 1:00 PM CDT Office Visit Department of Endocrinology in [place], [place] [address] [place] [phone] Carmelo Diana M.D. [address] [facility] [place] [phone] documented as of this encounter Visit Diagnoses Not on filedocumented in this encounter Care Teams Playground Director Relationship Specialty Start Date End Date Elsewhere, Pcp PCP - General Family Medicine 12/05/21 documented as of this encounter
--- OUTSIDE RECORDS SUMMARY | 2023-10-04 20:30 | XMS_ITS | Encounter Summary ---
Author Organization [facility] Address [address] [place] [address] Care Team Providers Care Handmade Tile Artist Name Role Phone Elsewhere, Pcp Primary Care Provider Unavailabl e Encounter Details Date Type Department Care Team (Late st Contact Info) Description 08/11/2016 Historical Ophthalmology RST OPH Romeo Banks M.D. [address] [place] [address] Social History Tobacco Use Types Packs/Day Years Used Date Smoking Tobacco: Never Sex and Gender Information Value Date Recorded Sex Assigned at Male 03/01/2017 6:27 AM CHILLER HAND Gender Identity Male 03/01/2017 6:27 AM CHILLER HAND Sexual Orientation Straight 03/01/2017 6: 27 AM CHILLER HAND documented as of this encounter Progress Notes * Romeo Banks M.D. - 08/11/2016 10:11 AM [...] (DM since age 13) RIGHT: s/p PRP ', fill in in 06/03, no CSME - [...] [address] Edge with OCT DIAGNOSIS #1 Proliferative diabetic retinopathy BOTH eyes (DM since age 13) #2 subhyaloid hemorrhage with vitreous hemorrhage LEFT eye #3 early cataract BOTH eyes CDM Reports - EYEGEN Id: [id number] Status: Fnl documented in this encounter Plan of Treatment Upcoming Encounters Date Type Department Care Team (Late st Contact Info) Description 12/31/2023 10:30 AM CDT Appointment Department of Laboratory Medicine in [place], [place] [address] [place] [phone] Carmelo Diana M.D. [address] [place] [address] 01/10/2024 1:00 PM CDT Office Visit Department of Endocrinology in [place], [place] [address] [place] [phone] Carmelo Diana M.D. [address] [place] [address] documented as of this encounter Visit Diagnoses Not on filedocumented in this encounter Care Teams Handmade Tile Artist Relationship Specialty Start Date End Date Elsewhere, Pcp PCP - General Family Medicine 12/05/21 documented as of this encounter
--- OUTSIDE RECORDS SUMMARY | 2023-10-04 20:30 | XMS_ITS | Encounter Summary ---
Author Organization [facility] Address [address] [place] [address] Care Team Providers Care Cribbing Setter Name Role Phone Elsewhere, Pcp Primary Care Provider Unavailabl e Encounter Details Date Type Department Care Team (Late st Contact Info) Description 06/13/2014 Historical Ophthalmology RST OPH Romeo Banks M.D. [address] [place] [address] Social History Tobacco Use Types Packs/Day Years Used Date Smoking Tobacco: Never Assessed Sex and Gender Information Value Date Recorded Sex Assigned at Male 03/01/2017 6:27 AM AWNING ASSEMBLER Gender Identity Male 03/01/2017 6:27 AM AWNING ASSEMBLER Sexual Orientation Straight 03/01/2017 6: 27 AM AWNING ASSEMBLER documented as of this encounter Progress Notes * Romeo Banks M.D. - 06/13/2014 8:35 AM CST Eye General CHIEF COMPLAINT Follow up Proliferative diabetic retinopathy BOTH eyes HISTORY OF PRESENT ILLNESS The patient is a 43 year old male here for a follow up regarding Proliferative diabetic retinopathyBOTH eyes. The patient notes that vision is stable since last visit. Floaters alone; left eye; x many months; occasionally. Denies flashes of light and ocular [...] hemorrhage, left CDM Reports - EYEGEN Id: [id number] Status: Fnl documented in this encounter Plan of Treatment Upcoming Encounters Date Type Department Care Team (Late st Contact Info) Description 12/31/2023 10:30 AM CDT Appointment Department of Laboratory Medicine in [place], [place] [address] [place] [address] Carmelo Diana M.D. [address] [place] [phone] 01/10/2024 1:00 PM CDT Office Visit Department of Endocrinology in [place], [place] [address] [place] [phone] Carmelo Diana M.D. [address] [place] [phone] documented as of this encounter Visit Diagnoses Not on filedocumented in this encounter Care Teams Cribbing Setter Relationship Specialty Start Date End Date Elsewhere, Pcp PCP - General Family Medicine 12/05/21 documented as of this encounter
--- OUTSIDE RECORDS SUMMARY | 2023-10-04 20:30 | XMS_ITS | Encounter Summary ---
Author Organization [facility] Address [address] [place] [address] Care Team Providers Care Awning Spreader Name Role Phone Elsewhere, Pcp Primary Care Provider Unavailabl e Encounter Details Date Type Department Care Team (Late st Contact Info) Description 2023 Documentation Division of Endocrinology in [place], [place] [address] [place] [phone] Zoya Dowd, CCRP [address] [place] [phone] Social History Tobacco Use Types Packs/Day Years [...] often do you attend chur ch or yarsani services? Never 05/03/2021 Do you belong to any clubs o r organizations such as islam groups, unions, fraternal [...] Answer Date Recorded PHQ-2 Score 0 06/20/2019 [facility] [place] of Occupat ional Health - Occupational Stress [...] your living situation today? I have a [facility] place to live 03/08/2023 Education Answer Date Recorded What is the highest level of school you have completed or the highest degree you have received? 12th grade 06/18/2019 Sex and Gender Information Value Date Recorded Sex Assigned at Male 03/01/2017 6:27 AM PRESS BRAKE OPERATOR Gender Identity Male 03/01/2017 6:27 AM PRESS BRAKE OPERATOR Sexual Orientation Straight 03/01/2017 6: 27 AM PRESS BRAKE OPERATOR documented as of this encounter Plan of Treatment Upcoming Encounters Date Type Department Care Team (Late st Contact Info) Description 12/31/2023 10:30 AM CDT Appointment Department of Laboratory Medicine in [place], [place] [address] [facility] [place] [address] Carmelo Diana M.D. [address] [place] [phone] 01/10/2024 1:00 PM CDT Office Visit Department of Endocrinology in [place], [place] [address] [place] [phone] Carmelo Diana M.D. [address] [place] [phone] documented as of this encounter Visit Diagnoses Not on filedocumented in this encounter Additional Health Concerns Assessment Noted Time PHQ-9 Depression Total Score: 0 07/22/19 19 3:05 PM CDT documented as of this encounter Care Teams Awning Spreader Relationship Specialty Start Date End Date Elsewhere, Pcp PCP - General Family Medicine 12/05/21 documented as of this encounter
--- OUTSIDE RECORDS SUMMARY | 2023-10-04 20:30 | XMS_ITS | Encounter Summary ---
Author Organization [facility] Address [address] [place] [address] Care Team Providers Care Lithographers Printer Name Role Phone Elsewhere, Pcp Primary Care Provider Unavailabl e Encounter Details Date Type Department Care Team (Late Contact Info) Description 01/18/2004 Historical Ophthalmology RST OPH Ted Tolentino M.D. [address] [place] [phone] Social History Tobacco Use Types Packs/Day Years Used Date Smoking Tobacco: Never Assessed Sex and Gender Information Value Date Recorded Sex Assigned at Male 03/01/2017 6:27 AM DIESEL RETROFIT DESIGNER Gender Identity Male 03/01/2017 6:27 AM DIESEL RETROFIT DESIGNER Sexual Orientation Straight 03/01/2017 6: 27 AM DIESEL RETROFIT DESIGNER documented as of this encounter Progress Notes * Ted Tolentino M.D. - 01/18/2004 12:00 AM [...] right eye CDM Reports - EYEGEN Id: [id number] Status: Fnl documented in this encounter Plan of Treatment Upcoming Encounters Date Type Department Care Team (Late Contact Info) Description 12/31/2023 10:30 AM CDT Appointment Department of Laboratory Medicine [place] [address] [place] [address] Carmelo Diana M.D. [address] [facility] [place] [phone] 01/10/2024 1:00 PM CDT Office Visit Department of Endocrinology in [place], [place] [address] [place] [phone] Carmelo Diana M.D. [address] [place] [phone] documented as of this encounter Visit Diagnoses Not on filedocumented in this encounter Care Teams Lithographers Printer Relationship Specialty Start Date End Date Elsewhere, Pcp PCP - General Family Medicine 12/05/21 documented as of this encounter
--- OUTSIDE RECORDS SUMMARY | 2023-10-04 20:30 | XMS_ITS | Encounter Summary ---
Author Organization [facility] Address [address] [place] [address] Care Team Providers Care Pie Filling Mixer Name Role Phone Elsewhere, Pcp Primary Care Provider Unavailabl e Encounter Details Date Type Department Care Team (Late st Contact Info) Description 06/01/2014 Historical Ophthalmology RST OPH Renu Javier M.D. [address], [facility] [address] [place] [address] Social History Tobacco Use Types Packs/Day Years Used Date Smoking Tobacco: Never Assessed Sex and Gender Information Value Date Recorded Sex Assigned at Male 03/01/2017 6:27 AM MEDIA PROFESSIONAL Gender Identity Male 03/01/2017 6:27 AM MEDIA PROFESSIONAL Sexual Orientation Straight 03/01/2017 6: 27 AM MEDIA PROFESSIONAL documented as of this encounter Progress Notes * Renu Javier M.D. - 06/01/2014 1:41 PM CST Eye General CHIEF COMPLAINT Follow up on proliferative diabetic retinopathy, both eyes HISTORY OF PRESENT ILLNESS Patient is seeing a new floater in his left eye. It looks like exactly like it looked the last timehe was here and had laser in January 2014, PRP left eye. Denies flashes of light, eye pain, or headaches. Blood sugar today was 100 this morning. Patient has had this floater for about two weeks. EAA: New floater in the left eye. Since 3 weeks ago. Dark spot in vision. He has always been able to see around it. IMPRESSION / REPORT / PLAN [...] hemorrhage today CDM Reports - EYEGEN Id: [id number] Status: Fnl documented in this encounter Plan of Treatment Upcoming Encounters Date Type Department Care Team (Late st Contact Info) Description 12/31/2023 10:30 AM CDT Appointment Department of Laboratory Medicine in [place], [place] [address] [place] [phone] Carmelo Diana M.D. [address] [place] [address] 01/10/2024 1:00 PM CDT Office Visit Department of Endocrinology in [place], [place] [address] [place] [phone] Carmelo Diana M.D. [address] [place] [address] documented as of this encounter Visit Diagnoses Not on filedocumented in this encounter Care Teams Pie Filling Mixer Relationship Specialty Start Date End Date Elsewhere, Pcp PCP - General Family Medicine 12/05/21 documented as of this encounter
--- OUTSIDE RECORDS SUMMARY | 2023-10-04 20:30 | XMS_ITS ---
Author Organization [facility] Address [address] [place] [address] Care Team Providers Care Geographic Information System Surveyor Name Role Phone Unavailable Unavailable Unavailable Surgery Details Not on file Complications Check Surgery Details section. Procedure Estimated Blood Loss Check Surgery Details section. Procedure Findings Check Surgery Details section. Procedure Specimens Taken Check Surgery Details section.
--- OUTSIDE RECORDS SUMMARY | 2023-10-04 20:30 | XMS_ITS | Encounter Summary ---
Author Organization [facility] Address [address] [place] [address] Care Team Providers Care Electric Utility Lineworker Name Role Phone Elsewhere, Pcp Primary Care Provider Unavailabl e Encounter Details Date Type Department Care Team (Late st Contact Info) Description 03/27/2010 Historical Ophthalmology RST OPH Romeo Banks M.D. [address] [place] [address] Social History Tobacco Use Types Packs/Day Years Used Date Smoking Tobacco: Never Assessed Sex and Gender Information Value Date Recorded Sex Assigned at Male 03/01/2017 6:27 AM LITHOGRAPH PRESS OPERATOR TINWARE Gender Identity Male 03/01/2017 6:27 AM LITHOGRAPH PRESS OPERATOR TINWARE Sexual Orientation Straight 03/01/2017 6: 27 AM LITHOGRAPH PRESS OPERATOR TINWARE documented as of this encounter Progress Notes * Romeo Banks M.D. - 03/27/2010 12:43 PM CST Eye General CHIEF COMPLAINT Proliferative diabetic retinopathy HISTORY OF PRESENT ILLNESS 39 year old male here for an eye evaluation for Proliferative diabetic retinopathy. Patient feels that his vision has remained stable since the last visit. Patient denies any flashes of light, floaters or diplopia. Patient denies ocular pain. Blood sugars under control, ranging from 80-170, testingthis morning at 167. No new concerns. IMPRESSION [...] age 13) CDM Reports - EYEGEN Id: [id number] Status: Fnl documented in this encounter Plan of Treatment Upcoming Encounters Date Type Department Care Team (Late st Contact Info) Description 12/31/2023 10:30 AM CDT Appointment Department of Laboratory Medicine in [place], [place] [address] [place] [address] Carmelo Diana M.D. [address] [place] [address] 01/10/2024 1:00 PM CDT Office Visit Department of Endocrinology in [place], [place] [address] [place] [address] Carmelo Diana M.D. [address] [place] [address] documented as of this encounter Visit Diagnoses Not on filedocumented in this encounter Care Teams Electric Utility Lineworker Relationship Specialty Start Date End Date Elsewhere, Pcp PCP - General Family Medicine 12/05/21 documented as of this encounter
--- OUTSIDE RECORDS SUMMARY | 2023-10-04 20:30 | XMS_ITS | Encounter Summary ---
Author Organization [facility] Address [address] [place] [address] Care Team Providers Care Waterworks Pump Station Operator Name Role Phone Elsewhere, Pcp Primary Care Provider Unavailabl e Encounter Details Date Type Department Care Team (Late Contact Info) Description 08/25/2006 Historical Ophthalmology RST OPH Ted Tolentino M.D. [address] [place] [phone] Social History Tobacco Use Types Packs/Day Years Used Date Smoking Tobacco: Never Assessed Sex and Gender Information Value Date Recorded Sex Assigned at Male 03/01/2017 6:27 AM FIRE PREVENTION BUREAU CAPTAIN Gender Identity Male 03/01/2017 6:27 AM FIRE PREVENTION BUREAU CAPTAIN Sexual Orientation Straight 03/01/2017 6: 27 AM FIRE PREVENTION BUREAU CAPTAIN documented as of this encounter Progress Notes * Ted Tolentino M.D. - 08/25/2006 10:08 AM [...] diabetic retinopathy CDM Reports - EYEGEN Id: [id number] Status: Fnl documented in this encounter Plan of Treatment Upcoming Encounters Date Type Department Care Team (Late Contact Info) Description 12/31/2023 10:30 AM CDT Appointment Department of Laboratory Medicine in [place], [place] [address] [place] [address] Carmelo Diana M.D. [address] [place] [phone] 01/10/2024 1:00 PM CDT Office Visit Department of Endocrinology in [place], [place] [address] [place] [phone] Carmelo Diana M.D. [address] [place] [phone] documented as of this encounter Visit Diagnoses Not on filedocumented in this encounter Care Teams Waterworks Pump Station Operator Relationship Specialty Start Date End Date Elsewhere, Pcp PCP - General Family Medicine 12/05/21 documented as of this encounter
--- OUTSIDE RECORDS SUMMARY | 2023-10-04 20:30 | XMS_ITS | Encounter Summary ---
Author Organization [facility] Address [address] [place] [address] Care Team Providers Care Distance Learning Unit Leader Name Role Phone Elsewhere, Pcp Primary Care Provider Unavailabl e Encounter Details Date Type Department Care Team (Late st Contact Info) Description 04/16/2015 Historical Ophthalmology RST OPH Romeo Banks M.D. [address] [place] [address] Social History Tobacco Use Types Packs/Day Years Used Date Smoking Tobacco: Never Assessed Sex and Gender Information Value Date Recorded Sex Assigned at Male 03/01/2017 6:27 AM FIBER GLASS WORKER Gender Identity Male 03/01/2017 6:27 AM FIBER GLASS WORKER Sexual Orientation Straight 03/01/2017 6: 27 AM FIBER GLASS WORKER documented as of this encounter Progress Notes * Romeo Banks M.D. - 04/16/2015 3:49 PM CST Eye Postoperative MULTI-VISIT DOCUMENT This document contains multiple patient visits and is available for review in Document Viewer. CDM Reports - EYEPO Id: [id number] Status: Fnl documented in this encounter Plan of Treatment Upcoming Encounters Date Type Department Care Team (Late st Contact Info) Description 12/31/2023 10:30 AM CDT Appointment Department of Laboratory Medicine in [address] [place] [phone] Carmelo Diana M.D. [address] [place] [address] 01/10/2024 1:00 PM CDT Office Visit Department of Endocrinology in [place], [place] [address] [place] [phone] Carmelo Diana M.D. [address] [place] [address] documented as of this encounter Visit Diagnoses Not on filedocumented in this encounter Care Teams Distance Learning Unit Leader Relationship Specialty Start Date End Date Elsewhere, Pcp PCP - General Family Medicine 12/05/21 documented as of this encounter
--- OUTSIDE RECORDS SUMMARY | 2023-10-04 20:30 | XMS_ITS | Encounter Summary ---
Author Organization [facility] Address [address] [place] [address] Care Team Providers Care Bottle Dealer Name Role Phone Elsewhere, Pcp Primary Care Provider Unavailabl e Encounter Details Date Type Department Care Team (Late st Contact Info) Description 10/04/2012 Historical Ophthalmology RST OPH Romeo Banks M.D. [address] [place] [address] Social History Tobacco Use Types Packs/Day Years Used Date Smoking Tobacco: Never Assessed Sex and Gender Information Value Date Recorded Sex Assigned at Male 03/01/2017 6:27 AM REGULATORY CONSULTANT Gender Identity Male 03/01/2017 6:27 AM REGULATORY CONSULTANT Sexual Orientation Straight 03/01/2017 6: 27 AM REGULATORY CONSULTANT documented as of this encounter Progress Notes * Romeo Banks M.D. - 10/04/2012 2:40 PM [...] stay today, arrange for fellow or double book for AJB - pt prefers PM, no testing/exam (laser only) PRP LEFT 1 month later PM with fellow or double booked for AJB, no testing/exam (laser only) FU 3 months later w/ spectralis OCT OU and FA transit LEFT DIAGNOSIS #1 Proliferative diabetic retinopathy BOTH eyes (DM since age 13) CDM Reports - EYEGEN Id: [id number] Status: Fnl documented in this encounter Plan of Treatment Upcoming Encounters Date Type Department Care Team (Late st Contact Info) Description 12/31/2023 10:30 AM CDT Appointment Department of Laboratory Medicine in [place], [place] [address] [place] [phone] Carmelo Diana M.D. [address] [place] [phone] 01/10/2024 1:00 PM CDT Office Visit Department of Endocrinology in [place], [place] [address] [place] [phone] Carmelo Diana M.D. [address] [place] [phone] documented as of this encounter Visit Diagnoses Not on filedocumented in this encounter Care Teams Bottle Dealer Relationship Specialty Start Date End Date Elsewhere, Pcp PCP - General Family Medicine 12/05/21 documented as of this encounter
--- OUTSIDE RECORDS SUMMARY | 2023-10-04 20:30 | XMS_ITS | Encounter Summary ---
Author Organization [facility] Address [address] [place] [address] Care Team Providers Care Social Human Services Assistants Name Role Phone Elsewhere, Pcp Primary Care Provider Unavailabl e Encounter Details Date Type Department Care Team (Late st Contact Info) Description 01/16/2015 Historical Ophthalmology RST OPH Romeo Banks M.D. [address] [place] [address] Social History Tobacco Use Types Packs/Day Years Used Date Smoking Tobacco: Never Assessed Sex and Gender Information Value Date Recorded Sex Assigned at Male 03/01/2017 6:27 AM VIDEO GAMES MECHANIC Gender Identity Male 03/01/2017 6:27 AM VIDEO GAMES MECHANIC Sexual Orientation Straight 03/01/2017 6: 27 AM VIDEO GAMES MECHANIC documented as of this encounter Progress Notes * Romeo Banks M.D. - 01/16/2015 8:25 AM CDT Eye General CHIEF COMPLAINT Follow up subhyaloid hemorrhage with vitreous hemorrhage LEFT eye HISTORY OF PRESENT ILLNESS The patient is a 44 year old male here for a follow up regarding subhyaloid hemorrhage with vitreous hemorrhage LEFT eye. The patient notes that vision is unchanged since last visit. Floaters alone; left eye; x several months; constantly. cloudy vision; left eye; x several months; constantly; symptoms are severe. IMPRESSION / REPORT / PLAN 16 [...] observation d/w pt, ?s answered, pt very botheredby vision and wishes to proceed 23gPPV/MP/EL/Avastin +/- gas LEFT eye local/mac, stop ASA 1 wk pre-op if safe to do so per PCP DIAGNOSIS #1 Proliferative diabetic retinopathy BOTH eyes (DM since age 13) #2 subhyaloid hemorrhage with vitreous hemorrhage LEFT eye #3 early cataract BOTH eyes CDM Reports - EYEGEN Id: [id number] Status: Fnl documented in this encounter Plan of Treatment Upcoming Encounters Date Type Department Care Team (Late st Contact Info) Description 12/31/2023 10:30 AM CDT Appointment Department of Laboratory Medicine in [address] [phone] Carmelo Diana M.D. [address] [place] [facility] [place] [phone] 01/10/2024 1:00 PM CDT Office Visit Department of Endocrinology in [place], [place] [address] [place] [phone] Carmelo Diana M.D. [address] [place] [phone] documented as of this encounter Visit Diagnoses Not on filedocumented in this encounter Care Teams Social Human Services Assistants Relationship Specialty Start Date End Date Elsewhere, Pcp PCP - General Family Medicine 12/05/21 documented as of this encounter
--- OUTSIDE RECORDS SUMMARY | 2023-10-04 20:30 | XMS_ITS | Encounter Summary ---
Author Organization [facility] Address [address] [place] [address] Care Team Providers Care Aquatics Director Name Role Phone Elsewhere, Pcp Primary Care Provider Unavailabl e Encounter Details Date Type Department Care Team (Late st Contact Info) Description 09/19/2009 Historical Ophthalmology RST OPH Ted Tolentino M.D. [address] [place] [phone] Social History Tobacco Use Types Packs/Day Years Used Date Smoking Tobacco: Never Assessed Sex and Gender Information Value Date Recorded Sex Assigned at Male 03/01/2017 6:27 AM CINDER PIT CRANE OPERATOR Gender Identity Male 03/01/2017 6:27 AM CINDER PIT CRANE OPERATOR Sexual Orientation Straight 03/01/2017 6: 27 AM CINDER PIT CRANE OPERATOR documented as of this encounter Progress Notes * Ted Tolentino M.D. - 09/19/2009 8:42 AM CDT Eye General CHIEF COMPLAINT Intermittent foreign body sensation (? which eye) ; mornings ; episodes x one year. HISTORY OF PRESENT ILLNESS Foreign body sensation; (? which eye); x 1 year; intermittently; worse in the morning; tend to rub the eye which makes the irritation worse causing tearing . Denies distance / near vision complaints,flashes or floaters (both eyes). Diabetes x 26 [...] diabetic retinopathy CDM Reports - EYEGEN Id: [id number] Status: Fnl documented in this encounter Plan of Treatment Upcoming Encounters Date Type Department Care Team (Late st Contact Info) Description 12/31/2023 10:30 AM CDT Appointment Department of Laboratory Medicine in [place], [place] [address] [place] [address] Carmelo Diana M.D. [address] [place] [phone] 01/10/2024 1:00 PM CDT Office Visit Department of Endocrinology in [place], [place] [address] [place] [phone] Carmelo Diana M.D. [address] [place] [phone] documented as of this encounter Visit Diagnoses Not on filedocumented in this encounter Care Teams Aquatics Director Relationship Specialty Start Date End Date Elsewhere, Pcp PCP - General Family Medicine 12/05/21 documented as of this encounter
--- OUTSIDE RECORDS SUMMARY | 2023-10-04 20:30 | XMS_ITS | Encounter Summary ---
Author Organization [facility] Address [address] [place] [address] Care Team Providers Care Onsite Health Coach Name Role Phone Elsewhere, Pcp Primary Care Provider Unavailabl e Encounter Details Date Type Department Care Team (Late st Contact Info) Description 06/20/2012 Historical Ophthalmology RST OPH Romeo Banks M.D. [address] [place] [address] Social History Tobacco Use Types Packs/Day Years Used Date Smoking Tobacco: Never Assessed Sex and Gender Information Value Date Recorded Sex Assigned at Male 03/01/2017 6:27 AM AVIATION ORDNANCE OFFICER Gender Identity Male 03/01/2017 6:27 AM AVIATION ORDNANCE OFFICER Sexual Orientation Straight 03/01/2017 6: 27 AM AVIATION ORDNANCE OFFICER documented as of this encounter Progress Notes * Romeo Banks M.D. - 06/20/2012 9:06 AM [...] age 13) CDM Reports - EYEGEN Id: [id number] Status: Fnl documented in this encounter Plan of Treatment Upcoming Encounters Date Type Department Care Team (Late st Contact Info) Description 12/31/2023 10:30 AM CDT Appointment Department of Laboratory Medicine in [place], [place] [address] [place] [address] Carmelo Diana M.D. [address] [place] [phone] 01/10/2024 1:00 PM CDT Office Visit Department of Endocrinology in [place], [place] [address] [place] [address] Carmelo Diana M.D. [address] [place] [phone] documented as of this encounter Visit Diagnoses Not on filedocumented in this encounter Care Teams Onsite Health Coach Relationship Specialty Start Date End Date Elsewhere, Pcp PCP - General Family Medicine 12/05/21 documented as of this encounter
--- OUTSIDE RECORDS SUMMARY | 2023-10-04 20:30 | XMS_ITS | Encounter Summary ---
Author Organization [facility] Address [address] [place] [address] Care Team Providers Care Auto Painter Helper Name Role Phone Elsewhere, Pcp Primary Care Provider Unavailabl e Encounter Details Date Type Department Care Team (Late Contact Info) Description 08/25/2005 Historical Ophthalmology RST OPH Ted Tolentino M.D. [address] [place] [phone] Social History Tobacco Use Types Packs/Day Years Used Date Smoking Tobacco: Never Assessed Sex and Gender Information Value Date Recorded Sex Assigned at Male 03/01/2017 6:27 AM RN DOCUMENTATION Gender Identity Male 03/01/2017 6:27 AM RN DOCUMENTATION Sexual Orientation Straight 03/01/2017 6: 27 AM RN DOCUMENTATION documented as of this encounter Progress Notes * Ted Tolentino M.D. - 08/25/2005 12:00 AM [...] diabetic retinopathy CDM Reports - EYEGEN Id: [id number] Status: Fnl documented in this encounter Plan of Treatment Upcoming Encounters Date Type Department Care Team (Late Contact Info) Description 12/31/2023 10:30 AM CDT Appointment Department of Laboratory Medicine in [place], [place] [address] [place] [address] Carmelo Diana M.D. [address] [place] [phone] 01/10/2024 1:00 PM CDT Office Visit Department of Endocrinology in [place], [place] [address] [place] [phone] Carmelo Diana M.D. [address] [place] [phone] documented as of this encounter Visit Diagnoses Not on filedocumented in this encounter Care Teams Auto Painter Helper Relationship Specialty Start Date End Date Elsewhere, Pcp PCP - General Family Medicine 12/05/21 documented as of this encounter
--- OUTSIDE RECORDS SUMMARY | 2023-10-04 20:30 | XMS_ITS | Encounter Summary ---
Author Organization [facility] Address [address] [place] [address] Care Team Providers Care Human Resources Specialist Name Role Phone Elsewhere, Pcp Primary Care Provider Unavailabl e Encounter Details Date Type Department Care Team (Late st Contact Info) Description 03/18/2004 Historical Ophthalmology RST OPH Ted Tolentino M.D. [address] [place] [phone] Social History Tobacco Use Types Packs/Day Years Used Date Smoking Tobacco: Never Assessed Sex and Gender Information Value Date Recorded Sex Assigned at Male 03/01/2017 6:27 AM PASSENGER RELATIONS REPRESENTATIVE Gender Identity Male 03/01/2017 6:27 AM PASSENGER RELATIONS REPRESENTATIVE Sexual Orientation Straight 03/01/2017 6: 27 AM PASSENGER RELATIONS REPRESENTATIVE documented as of this encounter Progress Notes * Ted Tolentino M.D. - 03/18/2004 12:00 AM CST Eye General CHIEF COMPLAINT Recheck right eye HISTORY OF PRESENT ILLNESS No complaints IMPRESSION / REPORT / PLAN #1 Proliferative diabetic retinopathy s/p prp right eye, stable early NV left eye see DCCT visit in 3-4 mos DIAGNOSIS #1 Proliferative diabetic retinopathy CDM Reports - EYEGEN Id: [id number] Status: Fnl documented in this encounter Plan of Treatment Upcoming Encounters Date Type Department Care Team (Late Contact Info) Description 12/31/2023 10:30 AM CDT Appointment Department of Laboratory Medicine in [place] [address] [facility] [place] [phone] Carmelo Diana M.D. [address] [place] [phone] 01/10/2024 1:00 PM CDT Office Visit Department of Endocrinology in [place], [place] [address] [place] [phone] Carmelo Diana M.D. [address] [place] [phone] documented as of this encounter Visit Diagnoses Not on filedocumented in this encounter Care Teams Human Resources Specialist Relationship Specialty Start Date End Date Elsewhere, Pcp PCP - General Family Medicine 12/05/21 documented as of this encounter
--- OUTSIDE RECORDS SUMMARY | 2023-10-04 20:30 | XMS_ITS | Encounter Summary ---
Author Organization [facility] Address [address] [place] [address] Care Team Providers Care Health Social Work Professor Name Role Phone Elsewhere, Pcp Primary Care Provider Unavailabl e Encounter Details Date Type Department Care Team (Late st Contact Info) Description 11/14/2014 Historical Ophthalmology RST OPH Romeo Banks M.D. [address] [place] [address] Social History Tobacco Use Types Packs/Day Years Used Date Smoking Tobacco: Never Assessed Sex and Gender Information Value Date Recorded Sex Assigned at Male 03/01/2017 6:27 AM HEEL CURVER Gender Identity Male 03/01/2017 6:27 AM HEEL CURVER Sexual Orientation Straight 03/01/2017 6: 27 AM HEEL CURVER documented as of this encounter Progress Notes * Romeo Banks M.D. - 11/14/2014 2:12 PM [...] possible vitreo-retinal adhesion at that site. LS 4/ OCT right: normal contour left: normal contour, preretinal heme superotemp 2/15 FA right: staining of old NVE, moderate [...] BOTH eyes CDM Reports - EYEGEN Id: [id number] Status: Fnl documented in this encounter Plan of Treatment Upcoming Encounters Date Type Department Care Team (Late st Contact Info) Description 12/31/2023 10:30 AM CDT Appointment Department of Laboratory Medicine in [place], [place] [address] [place] [phone] Carmelo Diana M.D. [address] [facility] [place] [phone] 01/10/2024 1:00 PM CDT Office Visit Department of Endocrinology in [place], [place] [address] [place] [phone] Carmelo Diana M.D. [address] [facility] [place] [phone] documented as of this encounter Visit Diagnoses Not on filedocumented in this encounter Care Teams Health Social Work Professor Relationship Specialty Start Date End Date Elsewhere, Pcp PCP - General Family Medicine 12/05/21 documented as of this encounter
--- OUTSIDE RECORDS SUMMARY | 2023-10-04 20:30 | XMS_ITS | Encounter Summary ---
Author Organization [facility] Address [address] [place] [address] Care Team Providers Care Silver Miner Blasting Name Role Phone Elsewhere, Pcp Primary Care Provider Unavailabl e Encounter Details Date Type Department Care Team (Late st Contact Info) Description 10/18/2014 Historical Ophthalmology RST OPH Romeo Banks M.D. [address] [place] [address] Social History Tobacco Use Types Packs/Day Years Used Date Smoking Tobacco: Never Assessed Sex and Gender Information Value Date Recorded Sex Assigned at Male 03/01/2017 6:27 AM FORECLOSURE SPECIALIST Gender Identity Male 03/01/2017 6:27 AM FORECLOSURE SPECIALIST Sexual Orientation Straight 03/01/2017 6: 27 AM FORECLOSURE SPECIALIST documented as of this encounter Progress Notes * Romeo Banks M.D. - 10/18/2014 7:37 AM CDT Eye General CHIEF COMPLAINT Blurry like haze vision in left eye HISTORY OF PRESENT ILLNESS This is a 44 year old male here today for blurry vision. Floater; left eye; new; x 2 weeks ago. Blurry vision; hazy like; left eye; x 2 weeks; started with a new floater. Diabetic; average 130; A1c was 7.6 in 08/2014. Denies trauma or injury. Denies [...] BOTH eyes CDM Reports - EYEGEN Id: [id number] Status: Fnl documented in this encounter Plan of Treatment Upcoming Encounters Date Type Department Care Team (Late st Contact Info) Description 12/31/2023 10:30 AM CDT Appointment Department of Laboratory Medicine in [place], [place] [address] [facility] [place] [phone] Carmelo Diana M.D. [address] [place] [phone] 01/10/2024 1:00 PM CDT Office Visit Department of Endocrinology in [place], [place] [address] [place] [phone] Carmelo Diana M.D. [address] [place] [phone] documented as of this encounter Visit Diagnoses Not on filedocumented in this encounter Care Teams Silver Miner Blasting Relationship Specialty Start Date End Date Elsewhere, Pcp PCP - General Family Medicine 12/05/21 documented as of this encounter
--- OUTSIDE RECORDS SUMMARY | 2023-10-04 20:30 | XMS_ITS | Encounter Summary ---
Author Organization [facility] Address [address] [place] [address] Care Team Providers Care Network Project Manager Name Role Phone Elsewhere, Pcp Primary Care Provider Unavailabl e Encounter Details Date Type Department Care Team (Late st Contact Info) Description 08/08/2014 Historical Ophthalmology RST OPH Romeo Banks M.D. [address] [place] [address] Social History Tobacco Use Types Packs/Day Years Used Date Smoking Tobacco: Never Assessed Sex and Gender Information Value Date Recorded Sex Assigned at Male 03/01/2017 6:27 AM SOFTWARE ENGINEERING SPECIALIST Gender Identity Male 03/01/2017 6:27 AM SOFTWARE ENGINEERING SPECIALIST Sexual Orientation Straight 03/01/2017 6: 27 AM SOFTWARE ENGINEERING SPECIALIST documented as of this encounter Progress Notes * Romeo Banks M.D. - 08/08/2014 7:05 AM CDT Eye General CHIEF COMPLAINT Follow up Proliferative diabetic retinopathy BOTH eyes HISTORY OF PRESENT ILLNESS This is a 44 year old male here today for a Follow up Proliferative diabetic retinopathy BOTH eyes.Patient states vision unchanged since last visit. Denies ocular pain, floaters, flashes of light, and diplopia. Blood sugar was 125 this morning. Last [...] hemorrhage, left CDM Reports - EYEGEN Id: [id number] Status: Fnl documented in this encounter Plan of Treatment Upcoming Encounters Date Type Department Care Team (Late st Contact Info) Description 12/31/2023 10:30 AM CDT Appointment Department of Laboratory Medicine in [place], [place] [address] [place] [address] Carmelo Diana M.D. [address] [place] [phone] 01/10/2024 1:00 PM CDT Office Visit Department of Endocrinology in [place], [place] [address] [place] [phone] Carmelo iDana M.D. [address] [place] [phone] documented as of this encounter Visit Diagnoses Not on filedocumented in this encounter Care Teams Network Project Manager Relationship Specialty Start Date End Date Elsewhere, Pcp PCP - General Family Medicine 12/05/21 documented as of this encounter
--- OUTSIDE RECORDS SUMMARY | 2023-10-04 20:30 | XMS_ITS | Encounter Summary ---
Author Organization [facility] Address [address] [place] [address] Care Team Providers Care Orthotics Assistant Name Role Phone Elsewhere, Pcp Primary Care Provider Unavailabl e Encounter Details Date Type Department Care Team (Late st Contact Info) Description 08/26/2004 Historical Ophthalmology RST OPH Ted Tolentino M.D. [address] [place] [address] Social History Tobacco Use Types Packs/Day Years Used Date Smoking Tobacco: Never Assessed Sex and Gender Information Value Date Recorded Sex Assigned at Male 03/01/2017 6:27 AM MANUFACTURING QUALITY TECHNICIAN Gender Identity Male 03/01/2017 6:27 AM MANUFACTURING QUALITY TECHNICIAN Sexual Orientation Straight 03/01/2017 6: 27 AM MANUFACTURING QUALITY TECHNICIAN documented as of this encounter Progress Notes * Ted Tolentino M.D. - 08/26/2004 12:00 AM CDT Eye General CHIEF COMPLAINT EDIC study HISTORY OF PRESENT ILLNESS Patient is here for the EDIC study. Patients blood sugars were 125 this morning. Patients blood sugar has ranged from 26-260 this past month. Patient has a forgein body sensation in right eye when hewakes up in the morning since February 2004. Patient denies flashes of light, floaters, pain and diplopia. IMPRESSION / REPORT / PLAN #1 Proliferative diabetic retinopathy s/p prp right eye, stable increasing NVE left eye discussed PRP LE; DRS and ETDRS results. He will schedule get color fundus photos LE DIAGNOSIS #1 Proliferative diabetic retinopathy CDM Reports - EYEGEN Id: [id number] Status: Fnl documented in this encounter Plan of Treatment Upcoming Encounters Date Type Department Care Team (Late st Contact Info) Description 12/31/2023 10:30 AM CDT Appointment Department of Laboratory Medicine in [place], [place] [address] [place] [phone] Carmelo Diana M.D. [address] [facility] [place] [phone] 01/10/2024 1:00 PM CDT Office Visit Department of Endocrinology in [place], [place] [address] [place] [phone] Carmelo Diana M.D. [address] [place] [phone] documented as of this encounter Visit Diagnoses Not on filedocumented in this encounter Care Teams Orthotics Assistant Relationship Specialty Start Date End Date Elsewhere, Pcp PCP - General Family Medicine 12/05/21 documented as of this encounter
--- OUTSIDE RECORDS SUMMARY | 2023-10-04 20:31 | XMS_ITS | Encounter Summary ---
Author Organization [facility] Address [address] [place] [address] Care Team Providers Care Icu Nurse Name Role Phone Elsewhere, Pcp Primary Care Provider Unavailabl e Encounter Details Date Type Department Care Team (Late st Contact Info) Description 12/20/2003 Historical Ophthalmology RST OPH Ted Tolentino M.D. [address] [place] [phone] Social History Tobacco Use Types Packs/Day Years Used Date Smoking Tobacco: Never Assessed Sex and Gender Information Value Date Recorded Sex Assigned at Male 03/01/2017 6:27 AM HEADING REPAIRER Gender Identity Male 03/01/2017 6:27 AM HEADING REPAIRER Sexual Orientation Straight 03/01/2017 6: 27 AM HEADING REPAIRER documented as of this encounter Progress Notes * Ted Tolentino M.D. - 12/20/2003 12:00 AM CDT Eye General CHIEF COMPLAINT diabetes, early proliferative diabetic retinopathy , both eyes HISTORY OF PRESENT ILLNESS 33 Year old male states diabetes diagnosed age 13. Denies specific vision complaints at distance and near (both eyes). Intermittent F.B. sensation (right eye). Denies dryness or gritty sensation (both eyes) . Denies flashes or floaters (both eyes). States blood sugar range in the past two weeks hasbeen 60- 280. He states that because of his job, his insulin is unstable. IMPRESSION / REPORT / PLAN #1 Proliferative diabetic retinopathy OD Increasing NVE and although not high risk rec prp. Rationale risks uncertainties side effects and DRS explained. Will do today and see in 3-4 weeks. DIAGNOSIS #1 Proliferative diabetic retinopathy OD CDM Reports - EYEGEN Id: [id number] Status: Fnl documented in this encounter Plan of Treatment Upcoming Encounters Date Type Department Care Team (Late st Contact Info) Description 12/31/2023 10:30 AM CDT Appointment Department of Laboratory Medicine in [place], [place] [address] [facility] [place] [address] Carmelo Diana M.D. [address] [place] [phone] 01/10/2024 1:00 PM CDT Office Visit Department of Endocrinology in [place], [place] [address] [place] [phone] Carmelo Diana M.D. [address] [place] [address] documented as of this encounter Visit Diagnoses Not on filedocumented in this encounter Care Teams Icu Nurse Relationship Specialty Start Date End Date Elsewhere, Pcp PCP - General Family Medicine 12/05/21 documented as of this encounter
--- OUTSIDE RECORDS SUMMARY | 2023-10-04 20:31 | XMS_ITS | Encounter Summary ---
Author Organization [facility] Address [address] [place] [address] Care Team Providers Care Concrete Fence Builder Name Role Phone Elsewhere, Pcp Primary Care Provider Unavailabl e Encounter Details Date Type Department Care Team (Late st Contact Info) Description 11/02/2003 Historical Ophthalmology RST OPH Provider, Historical Social History Tobacco Use Types Packs/Day Years Used Date Smoking Tobacco: Never Assessed Sex and Gender Information Value Date Recorded Sex Assigned at Male 03/01/2017 6:27 AM CONE CLEANER Gender Identity Male 03/01/2017 6:27 AM CONE CLEANER Sexual Orientation Straight 03/01/2017 6: 27 AM CONE CLEANER documented as of this encounter Progress Notes * Conversion, Historical Provider Ser - 11/02/2003 12:00 [...] range in the past two weeks hasbeen 60-280. IMPRESSION / REPORT / PLAN #1 Early proliferative diabetic retinopathy, both eyes Left eye slightly increased NVE compared to exam 1 year ago (compared to 10/19 photos). Right eye has more NVE - approaching high risk. Discussed treatment options, R/B/A. Consider modified PRP in light of NVE progression. Pt seen and discussed with Dr. Tolentino. Pt would like to proceed, will schedule with Dr. Tolentino. DIAGNOSIS #1 Early proliferative diabetic retinopathy, both eyes CDM Reports - EYEGEN Id: [id number] Status: Fnl documented in this encounter Plan of Treatment Upcoming Encounters Date Type Department Care Team (Late st Contact Info) Description 12/31/2023 10:30 AM CDT Appointment Department of Laboratory Medicine in [place], [place] [address] [place] [phone] Carmelo Diana M.D. [address] [place] [phone] 01/10/2024 1:00 PM CDT Office Visit Department of Endocrinology in [place], [place] [address] [place] [place] [phone] Carmelo Diana M.D. [address] [place] [phone] documented as of this encounter Visit Diagnoses Not on filedocumented in this encounter Care Teams Concrete Fence Builder Relationship Specialty Start Date End Date Elsewhere, Pcp PCP - General Family Medicine 12/05/21 documented as of this encounter
--- OUTSIDE RECORDS SUMMARY | 2023-10-04 20:31 | XMS_ITS | Encounter Summary ---
Author Organization [facility] Address [address] [place] [address] Care Team Providers Care Registration Rep Name Role Phone Elsewhere, Pcp Primary Care Provider Unavailabl e Encounter Details Date Type Department Care Team (Late Contact Info) Description 11/01/2002 Historical Ophthalmology RST OPH Ted Tolentino M.D. [address] [place] [phone] Social History Tobacco Use Types Packs/Day Years Used Date Smoking Tobacco: Never Assessed Sex and Gender Information Value Date Recorded Sex Assigned at Male 03/01/2017 6:27 AM BOW STAPLER Gender Identity Male 03/01/2017 6:27 AM BOW STAPLER Sexual Orientation Straight 03/01/2017 6: 27 AM BOW STAPLER documented as of this encounter Progress Notes * Ted Tolentino M.D. - 11/01/2002 12:00 AM [...] retinopathy OD CDM Reports - EYEGEN Id: [id number] Status: Fnl documented in this encounter Plan of Treatment Upcoming Encounters Date Type Department Care Team (Late st Contact Info) Description 12/31/2023 10:30 AM CDT Appointment Department of Laboratory Medicine in [address] [facility] [place] [phone] Carmelo Diana M.D. [address] [facility] [place] [phone] 01/10/2024 1:00 PM CDT Office Visit Department of Endocrinology in [place], [place] [address] [place] [phone] Carmelo Diana M.D. [address] [place] [phone] documented as of this encounter Visit Diagnoses Not on filedocumented in this encounter Care Teams Registration Rep Relationship Specialty Start Date End Date Elsewhere, Pcp PCP - General Family Medicine 12/05/21 documented as of this encounter
== END 2023-10-01 07:46 | disposition home or self-care (01) ==
LOC: NFLDREF 10-04 20:27
PROVIDERS: PCP Family Medicine; Referring Provider Family Medicine; Visit Provider Family Medicine
DX: E78.5 Hyperlipidemia, unspecified (principal); I10 Essential (primary) hypertension; Z12.5 Encounter for screening for malignant neoplasm of prostate
CPT/HCPCS: 80053; 80061; G0103